=== PATIENT | male | born 1960 | race Caucasian/White ===

== ENCOUNTER 2020-05-29 12:35 | Inpatient (IN) | payer OTHER, SELFPAY ==
--- NOTE | 2020-05-29 | CT_ITS ---
EXAMINATION: CT ABDOMEN AND PELVIS WITH CONTRAST CLINICAL INFORMATION: Diffuse abdominal pain. Diarrhea. COMPARISON: None TECHNIQUE: Multidetector volumetric images were obtained from the superior aspect of the liver through the pubic symphysis following administration 85 mL of Omnipaque 350 intravenous contrast. Sagittal and coronal reformatted images were obtained on the technologist's workstation. Oral contrast: No This CT examination was performed using dose optimization techniques as appropriate, variously including the following: *Automated exposure control *Adjustment of mA and/or kV according to patient size (this includes techniques or standardized protocols for targeted exams where dose is matched to indication/reason for exam; i.e. extremities or head) *Use of iterative reconstruction technique DLP: 573 mGy-cm FINDINGS: LUNG BASES: The visualized lung bases are unremarkable. LIVER, GALLBLADDER, AND BILIARY TREE: The liver is normal in size, shape, and attenuation. No focal hepatic lesion or biliary ductal dilatation is present. Gallbladder unremarkable. PANCREAS: Mild fat stranding about the pancreas. No acute necrotic collection or peripancreatic fluid collections. SPLEEN: Unremarkable. ADRENAL GLANDS: There is a 9 mm right adrenal nodule which is of doubtful clinical significance (ACR does not mandate further workup for adrenal nodules measuring less than 1 cm). Left adrenal gland is normal. KIDNEYS AND URETERS: The kidneys are normal in size, shape, and attenuation. There are a few bilateral simple cysts measuring 1.1 cm or less. There are a couple 2 mm nonobstructive calculi within the right kidney. Hydronephrosis, hydroureter, or calculi seen. No perinephric stranding. BLADDER: Unremarkable. GASTROINTESTINAL TRACT: Sigmoid colonic diverticulosis without evidence of diverticulitis. Normal appendix. Stomach and small bowel unremarkable. ABDOMINAL WALL: No significant hernia is appreciated. LYMPH NODES: Normal. VASCULAR: Aorta is atherosclerotic but normal caliber. Patent venous structures. PELVIC VISCERA: Unremarkable. OSSEOUS STRUCTURES: Unremarkable. IMPRESSION: * Findings suggestive of mild acute interstitial edematous pancreatitis. * There are 2 nonobstructive 2 mm calculi within the right kidney. * Sigmoid colonic diverticulosis without evidence of diverticulitis.
--- NOTE | 2020-05-29 | ECG_ITS ---
Test Reason : ABDOMINAL PAIN Blood Pressure : / mmHG Vent. Rate : 085 BPM Atrial Rate : 085 BPM P-R Int : 190 ms QRS Dur : 084 ms QT Int : 366 ms P-R-T Axes : 059 -01 039 degrees QTc Int : 435 ms Normal sinus rhythm with sinus arrhythmia Left axis deviation Otherwise normal ECG When compared with ECG of 31-MAR-2015 13:55, No significant change was found Referred By: Rin Rubalcava Electronically Signed By:SUMI PATEL MD
[2020-05-29 13:05] VITALS: BP 119/99; PULSE 99; RESP 18; TEMP 37.3; O2SAT 97; BMI 27.3
[2020-05-29 14:22] VITALS: BP 108/84; PULSE 89; RESP 16; TEMP 36.8; O2SAT 96
--- NOTE | 2020-05-29 14:27 | XR_ITS ---
EXAMINATION: XR CHEST CLINICAL INFORMATION: Cough COMPARISON: 08/25/2019 TECHNIQUE: 2 views of the chest were obtained. FINDINGS: Lungs are well-inflated and clear. Trachea is midline in position. No interstitial disease, consolidation or mass. No pleural effusion or pneumothorax. Cardiac silhouette and pulmonary vessels are normal in size. The mediastinum and josué have normal contour. The visualized bones, and upper abdomen, are unremarkable. IMPRESSION: No acute cardiopulmonary abnormality.
--- NOTE | 2020-05-29 14:31 | ED.GENADULT ---
HPI - General Adult General Chief complaint: General Medical Stated complaint: DIARRHEA, ABD PAIN Time Seen by Provider: 05/29/20 14:03 Source: patient Mode of arrival: ambulatory History of Present Illness HPI narrative: 60-year-old male with a PMHx asthma, depression, GERD, HTN c/o diffuse abdominal pain and diarrhea x7 days with associated bloating and nausea. Also reports SOB and dry cough since yesterday. Reports black stools. Denies vomiting, constipation, dysuria /hematuria, chest pain, recent travel, sick contacts, suspicious food intake Patient reports taking OTC medications with improvement diarrhea Related Data Home Medications Medication Instructions Recorded Confirmed aspirin 81 mg tablet,delayed 81 mg PO DAILY 05/25/20 release Previous Rx's Medication Instructions Recorded cetirizine 10 mg tablet 10 mg PO DAILY 30 Days #30 tab 05/24/20 Allergies Allergy/AdvReac Type Severity Reaction Status Date / Time No Known Allergies Allergy Verified 05/29/20 13:04 [No Known Allergies*] Review of Systems Review of Systems: Constitutional: No Weight loss, No Fever, No Chills, No Night Sweats, No Fatigue Cardiovascular: No Chest Pain, + SOB, No Dyspnea on Exertion, No Orthopnea Respiratory: + Cough, No Sputum, No Wheezing, +SOB Gastrointestinal: + Nausea, No Vomiting, + Diarrhea, No Constipation, + Abdominal pain, No Hematochezia, +black stool Genitourinary: No irregular bleeding, No Dysuria, No Urinary Frequency, No Hematuria, No Urinary Incontinence, No Urgency, No Flank Pain, No Urinary Flow Changes, No Hesitancy Skin: No Skin Lesions, No rash Yes all other systems are reviewed and are negative PMFSH Past Medical History Attestation statement: The following information was validated with the patient. Medical History (Updated 05/29/20 @ 18:36 by ALLI Avendaño) Asthma Depression GERD (gastroesophageal reflux disease) HTN (hypertension) Social History Social History Smoking Status: Current every day smoker Substance Use Type: Marijuana Substance Use Type Other:: MEDICAL MARIJUANA Advance Directives: No Advance Directives Information Provided: Yes Physical Exam Vital Signs: Vital Signs: Vital Signs Temp Pulse Resp BP Pulse Ox 05/29/20 18:08 89 14 120/86 95 05/29/20 16:17 98.2 F 86 14 110/87 95 05/29/20 14:22 98.3 F 89 16 108/84 96 05/29/20 13:05 99.2 F 99 18 119/99 H 97 Body Mass Index 27.3 Const: General: cooperative and healthy appearing Orientation/consciousness: patient oriented x3 Limitations: no limitations HENMT: Head: Yes normal to inspection Ears: hearing grossly normal bilaterally General nose exam: Normal external nose present Face and sinus: Yes normal facial exam Eyes: General: appearance normal, both eyes and all related structures EOM: EOMs intact bilaterally Neck: Neck: Yes normal visual inspection Resp: Effort & Inspection: normal respiratory effort and no stridor Auscultation: clear to auscultation bilaterally, no crackles, no rales, no rhonchi and no wheezes Cardio: Rate: regular rate Heart sounds: S1 normal heart sound present and S2 normal heart sound present Peripheral pulses: Peripheral pulses 2+ throughout GI: Inspection: Yes normal to inspection Palpation (GI): Soft to palpation, Tenderness to palpation present (GI) in the epigastrum, in the LLQ and periumbilically, no guarding and not rigid : Other: Black stool noted on rectal General: Yes no CVA tenderness Back/Spine/Pelvis: Back: no CVA tenderness Skin: Wounds: no wounds Neuro: General: patient oriented x3 Extrem: General: Yes normal to inspection Course Course Course Narrative: - leukocytosis of 12.3, labs otherwise unremarkable, occult stool negative - CXR unremarkable - CT suggestive of mild acute interstitial edematous pancreatitis. Two nonobstructive calculi in the right kidney. Sigmoid diverticulosis without diverticulitis >> patient in severe pain in the ED. Additional pain control ordered - lipase is 1363 > will admit patient for acute pancreatitis. He denies alcohol use/gallbladder issues Medical Decision Making [facility] Narrative Medical decision making narrative: 60-year-old male with a PMHx asthma, depression, GERD, HTN c/o diffuse abdominal pain and diarrhea x7 days with associated bloating and nausea. On exam VSS, NAD/ well-appearing. Abdomen soft diffusely tender greater epigastrum/LLQ /periumbilical. concern for diverticulitis /colitis vs GI bleed vs Gastroenteritis vs pancreatitis. Lower concern for appendicitis/cholecystitis /UTI. SOB suspected from pain vs Viral syndrome. Rule out pneumonia. Low concern for ACS Plan: EKG, labs, UA, occult stool, CT AP, symptomatic treatment /reassessed Lab Data Result diagrams: 05/29/20 14:33 05/29/20 14:33 Labs: Lab Results 05/29/20 05/29/20 05/29/20 Range/Units 14:33 14:33 14:36 WBC 12.3 H (4.8-10.8) X10*3/uL RBC 4.80 (4.60-5.80) X10*6/uL Hgb 15.6 (14.0-18.0) g/dl Hct 44.5 (42-52) % MCV 92.7 (80-98) fL MCH 32.5 (27.0-33.0) pg MCHC 35.1 (31.0-36.0) g/dl RDW 12.6 (11.0-16.0) % Plt Count 265 (160-400) X10*3/uL MPV 9.1 L (9.4-12.4) fL Immature Gran % (Auto) 0.5 H (0.0-0.4) % Neut % (Auto) 70.4 (45-73) % Lymph % (Auto) 16.3 L (20-40) % [place] % (Auto) 9.7 (2-11) % Eos % (Auto) 2.4 (0-4) % Baso % (Auto) 0.7 (0-2) % Lymph # (Auto) 2.0 (1.2-4.9) X10*3/uL [place] # (Auto) 1.2 (0.1-1.2) X10*3/uL Eos # (Auto) 0.3 (0.0-0.4) X10*3/uL Baso # (Auto) 0.1 (0.0-0.2) X10*3/uL Abs Immat Gran (auto) 0.06 H (0.00-0.03) X10*3/uL Absolute Neuts (auto) 8.6 H (2.0-8.3) X10*3/uL Absolute Nucleated RBC 0.000 (0.0-0.012) X10*3/uL Nucleated RBC % (auto) 0.0 (0.0-0.2) /100WBC Hold Blue Top Sodium 136 (135-145) mmol/L Potassium 4.7 (3.3-5.1) mmol/l Chloride 104 (96-108) mmol/L Carbon Dioxide 21 L (22-29) mmol/L Anion Gap 16 (12-20) BUN 14 (9-16) mg/dL Creatinine 1.06 (0.5-1.4) mg/dL Estim Creat Clear Calc 72.2 Estimated GFR > 60 Random Glucose 79 (60-115) mg/dL Calcium 8.6 (8.4-10.2) mg/dL Magnesium 2.8 H (1.6-2.6) mg/dL Total Bilirubin 0.4 (0.0-1.0) mg/dL Direct Bilirubin < 0.2 (0.0-0.5) mg/dL AST 16 (5-37) U/L ALT 19 (0-40) U/L Alkaline Phosphatase 83 (39-117) U/L Total Protein 6.5 (6.5-8.0) g/dL Albumin 4.1 (3.5-5.0) g/dL Lipase 1363 H (8-78) U/L Stool Occult Blood (NEG) 05/29/20 05/29/20 Range/Units 14:37 18:26 WBC (4.8-10.8) X10*3/uL RBC (4.60-5.80) X10*6/uL Hgb (14.0-18.0) g/dl Hct (42-52) % MCV (80-98) fL MCH (27.0-33.0) pg MCHC (31.0-36.0) g/dl RDW (11.0-16.0) % Plt Count (160-400) X10*3/uL MPV (9.4-12.4) fL Immature Gran % (Auto) (0.0-0.4) % Neut % (Auto) (45-73) % Lymph % (Auto) (20-40) % [place] % (Auto) (2-11) % Eos % (Auto) (0-4) % Baso % (Auto) (0-2) % Lymph # (Auto) (1.2-4.9) X10*3/uL [place] # (Auto) (0.1-1.2) X10*3/uL Eos # (Auto) (0.0-0.4) X10*3/uL Baso # (Auto) (0.0-0.2) X10*3/uL Abs Immat Gran (auto) (0.00-0.03) X10*3/uL Absolute Neuts (auto) (2.0-8.3) X10*3/uL Absolute Nucleated RBC (0.0-0.012) X10*3/uL Nucleated RBC % (auto) (0.0-0.2) /100WBC Hold Blue Top SEE NOTE Sodium (135-145) mmol/L Potassium (3.3-5.1) mmol/l Chloride (96-108) mmol/L Carbon Dioxide (22-29) mmol/L Anion Gap (12-20) BUN (9-16) mg/dL Creatinine (0.5-1.4) mg/dL Estim Creat Clear Calc Estimated GFR Random Glucose (60-115) mg/dL Calcium (8.4-10.2) mg/dL Magnesium (1.6-2.6) mg/dL Total Bilirubin (0.0-1.0) mg/dL Direct Bilirubin (0.0-0.5) mg/dL AST (5-37) U/L ALT (0-40) U/L Alkaline Phosphatase (39-117) U/L Total Protein (6.5-8.0) g/dL Albumin (3.5-5.0) g/dL Lipase (8-78) U/L Stool Occult Blood NEG (NEG) Discharge Plan Discharge Clinical Impression: Pancreatitis, acute Patient Disposition: Admitted As Inpatient Prescriptions: No Action cetirizine 10 mg tablet 10 mg PO DAILY 30 Days Qty: 30 RF: 1
[2020-05-29 14:38] LABS: Basophils Absolute Auto 0.1 X10*3/uL (0.0-0.2); Basophils Percent Auto 0.7 % (0-2); Eosinophils Absolute Auto 0.3 X10*3/uL (0.0-0.4); Eosinophils Percent Auto 2.4 % (0-4); Hematocrit 44.5 % (42-52); Hemoglobin 15.6 g/dl (14.0-18.0); Imm Gran Abs Auto 0.06 X10*3/uL (0.00-0.03); Imm Gran Pct Auto 0.5 % (0.0-0.4); Lymphocytes Percent Auto 16.3 % (20-40); MANUAL DIFF FLAG NO; Mean Corpuscular HGB Conc 35.1 g/dl (31.0-36.0); Mean Corpuscular Hemoglobin 32.5 pg (27.0-33.0); Mean Corpuscular Volume 92.7 fL (80-98); Mean Platelet Volume 9.1 fL (9.4-12.4); Monocytes Absolute Auto 1.2 X10*3/uL (0.1-1.2); Monocytes Percent Auto 9.7 % (2-11); Neutrophils Absolute Auto 8.6 X10*3/uL (2.0-8.3); Neutrophils Percent Auto 70.4 % (45-73); Platelet Count 265 X10*3/uL (160-400); Red Cell Distribution Width 12.6 % (11.0-16.0); White Blood Count 12.3 X10*3/uL (4.8-10.8)
[2020-05-29 14:45] LABS: OBS Int Ctl Valid YES; OBS1 NEG (NEG)
[2020-05-29] MEDS: 0.9 % Sodium Chloride 1,000 ML 999 ML IVCONT ×2 (14:47→18:07)
[2020-05-29 15:14] LABS: Alanine Aminotransferase 19 U/L (0-40); Albumin Level 4.1 g/dL (3.5-5.0); Alkaline Phosphatase 83 U/L (39-117); Anion Gap 16 (12-20); Aspartate Amino Transferase 16 U/L (5-37); Bilirubin Direct < 0.2 mg/dL (0.0-0.5); Bilirubin Total 0.4 mg/dL (0.0-1.0); Blood Urea Nitrogen 14 mg/dL (9-16); Calcium 8.6 mg/dL (8.4-10.2); Carbon Dioxide 21 mmol/L (22-29); Chloride 104 mmol/L (96-108); Creatinine Clr Calc Pharmacy 72.2; Estimated Glomerular Filt Rate > 60; Glucose Random 79 mg/dL (60-115); Magnesium 2.8 mg/dL (1.6-2.6); Potassium 4.7 mmol/l (3.3-5.1); Sodium 136 mmol/L (135-145); Total Protein 6.5 g/dL (6.5-8.0)
[2020-05-29] MEDS: iohexoL 350 MG/ML 100 ML INFUS..BTL IV (15:35)
[2020-05-29 16:17] VITALS: BP 110/87; PULSE 86; RESP 14; TEMP 36.8; O2SAT 95
[2020-05-29] MEDS: Morphine Sulfate 4 MG/ML CARTRIDGE 2 MG IVPUSH (18:07)
[2020-05-29] MEDS: ondansetron HCL 4 MG/2 ML VIAL IVPUSH (18:07)
[2020-05-29 18:08] VITALS: BP 120/86; PULSE 89; RESP 14; O2SAT 95
[2020-05-29 18:22] LABS: Lipase 1363 U/L (8-78)
[2020-05-29 18:43] LABS: B Type Natriuretic Peptide 15 pg/mL (<100)
[2020-05-29 18:46] LABS: Appearance Urine CLEAR; Color Urine YELLOW; Glucose Urine UA 500 MG/DL (NEG); Leukocyte Esterase Urine NEG (NEG); Nitrite Urine NEG (NEG); PH 8.5 (5.0-8.0); Urine Blood NEG (NEG); Urine Ketones 5 MG/DL (NEG); Urine Protein NEG (NEG-TRACE)
--- NOTE | 2020-05-29 19:09 | PC.NURSE ---
Report taken from Leticia, tyrone RN resuming care. Hospitalist at bedside.
[2020-05-29 19:17] VITALS: BP 127/85; PULSE 83; RESP 18; O2SAT 96
--- NOTE | 2020-05-29 19:18 | PC.NURSE ---
Pt found resting in bed, reporting return of abdominal pain, 05/29. Pt requesting pain medication. Provider aware. VSS at this time, pt aware and agreeable to plan to admit. Continue to monitor.
--- NOTE | 2020-05-29 19:32 | PM.IMHP ---
History of Present Illness Date of Service: 05/29/20 <Meagna Fisher NP - Last Filed: 05/29/20 19:41> Chief Complaint: Abdominal pain <Meagan Fisher NP - Last Filed: 05/29/20 19:41> 60-year-old man presenting to the ER with complaints of worsening abdominal pain that started approximately 7 days ago. He reports starting with watery diarrhea. He denied any recent travel or improperly cooked foods. He denied any blood in the stool. He denied any fever or chills. He reported after several days of diarrhea he started having cramping abdominal pain to the mid area of his abdomen. He reports occasionally being able to take a bath helped. He continued to have the pain and decided to come to the ER to be evaluated. He denied any alcohol use at all. He has no history of pancreatitis however , abdominal CT is showing findings suggestive of edematous pancreatitis. His lipase is quite elevated at 1363. triglycerides 200 and 65 and February of 2020. He was given 2 L of IV fluids, morphine, Zofran. He will be admitted for further management and treatment of acute pancreatitis. <Meagan Fisher NP - Last Filed: 05/29/20 19:41> Review of Systems Review of Systems: Denies any recent fever chills or decrease in appetite respiratory denies any shortness of breath coverage production cardiovascular is adjustment of any PND or edema gastrointestinal See HPI genitourinary denies any dysuria frequency or hematuria musculoskeletal denies any joint pain or swelling neuropsych denies any weakness or seizures all other systems reviewed are negative <Meagan Fisher NP - Last Filed: 05/29/20 19:41> [facility] Medical History: Medical History Asthma Depression GERD (gastroesophageal reflux disease) HTN (hypertension) <MIESHA Sy Last Filed: 05/29/20 19:41> Functional capacity: independent ambulation <Meagan Fisher NP - Last Filed: 05/29/20 19:41> Pertinent family history: denies cardiac disease. <Meagan Fisher NP - Last Filed: 05/29/20 19:41> Family history: reviewed and not pertinent <MIESHA Sy Last Filed: 05/29/20 19:41> Social History: Social History Household Members: Spouse Housing: House Do you presently have visiting nurse or other home services: No Smoking Status: Current every day smoker Tobacco Type: Cigarette Smoked in Last 30 Days: Yes Patient Interested in Nicotine Replacement: No Patient Given Instructions on How to Stop Smoking: No Second Hand Smoke Exposure: No Use of substances other than those prescribed or required for medical reasons: Yes Substance Use Type: Marijuana Substance Use Type Other:: MEDICAL MARIJUANA Substance Use Frequency: Daily Last Used Substance: Days (ago) Currently Displaying Signs/Symptoms of Drug Intoxication Withdrawal: No Any prior treatment program specific to substance use: No Have you been hit, kicked, punched, or otherwise hurt by someone within the past year? If so, by whom?: No Do you feel safe in your current relationship?: Yes Is there a partner from a previous relationship who is making you feel unsafe now?: No Are you made to feel afraid or neglected: No Advance Directives: No Advance Directives Information Provided: Yes Do you have thoughts of harming others: None Do you have a plan to hurt others: No Plan Recently lost weight without trying: No service: No Current occupational status: employed <Meagan Fisher NP - Last Filed: 05/29/20 19:41> Meds Allergies/Adverse reactions: Allergies Allergy/AdvReac Type Severity Reaction Status Date / Time No Known Allergies Allergy Verified 05/30/20 08:11 [No Known Allergies*] <Meagan Fisher NP - Last Filed: 05/29/20 19:41> Home medications: Home Medications Medication Instructions Recorded Confirmed Type aspirin 81 mg tablet,delayed 81 mg PO DAILY 05/25/20 05/29/20 History release bupropion HCl 1 tab PO QAM 05/29/20 05/29/20 History buspirone 1 tab PO BID 05/29/20 05/29/20 History cetirizine 1 tab PO DAILY 05/29/20 05/29/20 History empagliflozin [Jardiance] 1 tab PO DAILY 05/29/20 05/29/20 History lisinopril 1 tab PO DAILY 05/29/20 05/29/20 History metformin 1 tab PO BID 05/29/20 05/29/20 History montelukast 1 tab PO DAILY 05/29/20 05/29/20 History omeprazole 1 cap PO DAILY 05/29/20 05/29/20 History pravastatin 1 tab PO DAILY 05/29/20 05/29/20 History albuterol sulfate [Ventolin HFA] 2 puff INHALATION Q4H PRN 05/30/20 05/30/20 History fluticasone furoate-vilanterol INHALATION 05/30/20 History [Breo Ellipta] <Meagan Fisher NP - Last Filed: 05/29/20 19:41> Physical Exam Vital Signs and Narrative: Vital Signs: Last Vital Signs Temp 98.2 F 05/29/20 16:17 Pulse 83 05/29/20 19:17 Resp 18 05/29/20 19:17 BP 127/85 05/29/20 19:17 Pulse Ox 96 05/29/20 19:17 Body Mass Index 27.3 <Meagan Fisher NP - Last Filed: 05/29/20 19:41> Appearing in no acute distress head is normocephalic atraumatic eyes pupils are PERRLA sclera is anicteric mouth throat mucous membranes are intact and moist neck is supple no lymphadenopathy, no JVD noted lung sounds are clear to auscultation heart regular rate rhythm, clear S1, S2 positive bowel sounds, abdomen is soft, tender to the right upper quadrant and middle area of the abdomen neuro patient is alert x3, no focal deficits <Meagan Fisher NP - Last Filed: 05/29/20 19:41> Results Labs Labs: Laboratory Tests 05/29/20 05/29/20 05/29/20 14:33 14:33 14:36 WBC 12.3 H RBC 4.80 Hgb 15.6 Hct 44.5 MCV 92.7 MCH 32.5 MCHC 35.1 RDW 12.6 Plt Count 265 MPV 9.1 L Immature Gran % (Auto) 0.5 H Neut % (Auto) 70.4 Lymph % (Auto) 16.3 L [place] % (Auto) 9.7 Eos % (Auto) 2.4 Baso % (Auto) 0.7 Lymph # (Auto) 2.0 [place] # (Auto) 1.2 Eos # (Auto) 0.3 Baso # (Auto) 0.1 Abs Immat Gran (auto) 0.06 H Absolute Neuts (auto) 8.6 H Absolute Nucleated RBC 0.000 Nucleated RBC % (auto) 0.0 Hold Blue Top Sodium 136 Potassium 4.7 Chloride 104 Carbon Dioxide 21 L Anion Gap 16 BUN 14 Creatinine 1.06 Estim Creat Clear Calc 72.2 Estimated GFR > 60 Random Glucose 79 Calcium 8.6 Magnesium 2.8 H Total Bilirubin 0.4 Direct Bilirubin < 0.2 AST 16 ALT 19 Alkaline Phosphatase 83 B-Natriuretic Peptide 15 Total Protein 6.5 Albumin 4.1 Lipase Urine Color Urine Appearance Urine pH Ur Specific [place] Urine Protein Urine Glucose (UA) Urine Ketones Urine Blood Urine Nitrite Ur Leukocyte Esterase Stool Occult Blood 05/29/20 05/29/20 05/29/20 14:36 14:37 18:13 WBC RBC Hgb Hct MCV MCH MCHC RDW Plt Count MPV Immature Gran % (Auto) Neut % (Auto) Lymph % (Auto) [place] % (Auto) Eos % (Auto) Baso % (Auto) Lymph # (Auto) [place] # (Auto) Eos # (Auto) Baso # (Auto) Abs Immat Gran (auto) Absolute Neuts (auto) Absolute Nucleated RBC Nucleated RBC % (auto) Hold Blue Top Sodium Potassium Chloride Carbon Dioxide Anion Gap BUN Creatinine Estim Creat Clear Calc Estimated GFR Random Glucose Calcium Magnesium Total Bilirubin Direct Bilirubin AST ALT Alkaline Phosphatase B-Natriuretic Peptide Total Protein Albumin Lipase 1363 H Urine Color YELLOW Urine Appearance CLEAR Urine pH 8.5 H Ur Specific [place] 1.010 Urine Protein NEG Urine Glucose (UA) 500 H Urine Ketones 5 Urine Blood NEG Urine Nitrite NEG Ur Leukocyte Esterase NEG Stool Occult Blood NEG 05/29/20 18:26 WBC RBC Hgb Hct MCV MCH MCHC RDW Plt Count MPV Immature Gran % (Auto) Neut % (Auto) Lymph % (Auto) [place] % (Auto) Eos % (Auto) Baso % (Auto) Lymph # (Auto) [place] # (Auto) Eos # (Auto) Baso # (Auto) Abs Immat Gran (auto) Absolute Neuts (auto) Absolute Nucleated RBC Nucleated RBC % (auto) Hold Blue Top SEE NOTE Sodium Potassium Chloride Carbon Dioxide Anion Gap BUN Creatinine Estim Creat Clear Calc Estimated GFR Random Glucose Calcium Magnesium Total Bilirubin Direct Bilirubin AST ALT Alkaline Phosphatase B-Natriuretic Peptide Total Protein Albumin Lipase Urine Color Urine Appearance Urine pH Ur Specific [place] Urine Protein Urine Glucose (UA) Urine Ketones Urine Blood Urine Nitrite Ur Leukocyte Esterase Stool Occult Blood <Meagan Fisher NP - Last Filed: 05/29/20 19:41> Assessment and Plan (1) Pancreatitis, acute: Problem details: No clear etiology: Denies ETOH, no Stones on CT; Could be viral; doubt meds, Acid peptic disease can do this @ times but no real risk factors. Reviewed @ length with patient. Lipase is trending down today is 752. No elevation Triglycerides. Liver profile is normal. NOTE CT changes do comment on Hepatic Steatosis and the possiblity of Splenomegaly.(He is diabetic and could have significant MEDINA--may benefit from further evaluation after discharge.) EKG on admission showed NSR rate85. <Meagan Fisher NP - Last Filed: 05/29/20 19:41> Status: Acute <Meagan Fisher NP - Last Filed: 05/29/20 19:41> (2) HTN (hypertension): Status: Acute <Meagan Fisher NP - Last Filed: 05/29/20 19:41> (3) GERD (gastroesophageal reflux disease): Problem details: His GERD symptoms seem stable.--Had previous EGD no evidence for Fitch's esophageal changes. <Meagan Fisher NP - Last Filed: 05/29/20 19:41> Status: Acute <Meagan Fisher NP - Last Filed: 05/29/20 19:41> (4) Depression: Status: Acute <Meagan Fisher NP - Last Filed: 05/29/20 19:41> (5) Asthma: Status: Acute <Meagan Fisher NP - Last Filed: 05/29/20 19:41> 60-year-old man admitted with acute pancreatitis with unknown etiology at this time. Patient denies heavy alcohol use. Triglycerides in February were in the 200s. Lipase is quite elevated. Abdominal CT does not show any retained stones Acute pancreatitis. Aggressive IV fluid hydration, pain medication, GI consultation, clear liquid diet. Hypertension. Stable blood pressure. Continue lisinopril. Diabetes mellitus. Sliding scale, ADA diet. Hyperlipidemia. Continue aspirin and statin Depression/anxiety. Continue bupropion, buspirone. DVT prophylaxis with Lovenox Discussed with Dr. Medley Full code <Meagan Fisher NP - Last Filed: 05/29/20 19:41>
[2020-05-29 20:00] VITALS: BP 112/83; PULSE 81; RESP 16; TEMP 36.9; O2SAT 95
[2020-05-29] MEDS: Ketorolac Tromethamine 15 MG/ML VIAL IV (20:02)
[2020-05-29] MEDS: Lactated Ringers 1,000 ML 200 ML IVCONT (20:02)
--- NOTE | 2020-05-29 20:06 | PC.NURSE ---
Pt medicated per EMAR with Toradol for 10/10 pain to abdomen, LR infusing per EMAR. VSS. Continue to monitor.
--- NOTE | 2020-05-29 23:20 | PC.NURSE ---
REPORT RECEIVED. ORDER FOR ADMISSION SENT TO BED MGMT.
--- NOTE | 2020-05-29 23:49 | PC.NURSE ---
ATTEMPTED TO CALL TO MED SURG. NO ANSWER.
[2020-05-30] VITALS (12 sets, daily range): BP systolic 103–147; BP diastolic 65–83; PULSE 74–89; RESP 16–20; TEMP 35.8–36.7; O2SAT 94–97
--- NOTE | 2020-05-30 | US_ITS ---
EXAMINATION: US ABDOMEN CLINICAL INFORMATION: Pancreatitis COMPARISON: No prior study available for comparison. TECHNIQUE: Real-time imaging of the abdominal viscera. FINDINGS: LIVER: Size: Normal size. Echogenicity: Homogeneous texture and normal echogenicity. There is focal fat sparing near. Surface: Smooth. Mass: None. BILE DUCTS: Intrahepatic ducts: No ultrasound evidence of intrahepatic dilation. Common bile duct diameter: 0.4 cm. GALLBLADDER: Gallstone or gallbladder sludge: There are no gallstones. Gallbladder wall thickness: Normal Pericholecystic fluid: None Sonographic Villarreal sign: Negative PANCREAS: Pancreas not well visualized obscured by bowel gas. SPLEEN: Spleen texture: Homogeneous. Spleen is enlarged, Craniocaudal spleen length: 13.8 cm. RIGHT KIDNEY: Normal size and texture. There is a cyst in the middle pole 1.1 x 1.6 x 1.4 cm. Hydronephrosis: None LEFT KIDNEY: Normal size and texture. 13 cm Hydronephrosis: None ABDOMINAL AORTA AND IVC: Visualized portion of the aorta and IVC are normal. FREE FLUID/ASCITES: None IMPRESSION: 1. Pancreas not well visualized obscured by bowel gas. 2. Liver is diffusely echogenic suggesting hepatic steatosis, hypoechoic area probably focal fat sparing. 3. Splenomegaly. 4. No ultrasound evidence of gallbladder disease. 5. Simple left renal cyst.
--- NOTE | 2020-05-30 01:35 | PC.NURSE ---
CALLED TO FLOOR TO GIVE REPORT. WILL CALL BACK WITH IN 15 MINUTES
--- NOTE | 2020-05-30 01:40 | PC.NURSE ---
NURSE TO NURSE GIVEN TO STEWART PENALOZA
[2020-05-30] MEDS: Lactated Ringers 1,000 ML 200 ML IVCONT ×5 (02:45→21:24)
[2020-05-30] MEDS: Morphine Sulfate 2 MG/ML CARTRIDGE IVPUSH ×5 (03:27→21:23)
[2020-05-30 07:41] LABS: Glucose, Whole Blood 135 mg/dL (60-115)
[2020-05-30 07:55] LABS: MANUAL DIFF FLAG NO
--- NOTE | 2020-05-30 08:06 | P.CNGI_ITS ---
History of Present Illness Data of Consult Service Date: 05/30/20 Requesting physician: Meagan Fisher [facility] Systems Cardiovascular: Cardiovascular: Reports other (Patient has a hx of Hypertension.) [facility] Past Medical History Medical History Asthma Depression GERD (gastroesophageal reflux disease) HTN (hypertension) Functional capacity: independent ambulation Family History Family history: reviewed and not pertinent Social History Social History Household Members: Spouse Housing: House Do you presently have visiting nurse or other home services: No Smoking Status: Current every day smoker Tobacco Type: Cigarette Smoked in Last 30 Days: Yes Patient Interested in Nicotine Replacement: No Patient Given Instructions on How to Stop Smoking: No Second Hand Smoke Exposure: No Use of substances other than those prescribed or required for medical reasons: Yes Substance Use Type: Marijuana Substance Use Type Other:: MEDICAL MARIJUANA Substance Use Frequency: Daily Last Used Substance: Days (ago) Currently Displaying Signs/Symptoms of Drug Intoxication Withdrawal: No Any prior treatment program specific to substance use: No Have you been hit, kicked, punched, or otherwise hurt by someone within the past year? If so, by whom?: No Do you feel safe in your current relationship?: Yes Is there a partner from a previous relationship who is making you feel unsafe now?: No Are you made to feel afraid or neglected: No Advance Directives: No Advance Directives Information Provided: Yes Do you have thoughts of harming others: None Do you have a plan to hurt others: No Plan Recently lost weight without trying: No Meds Allergies Allergy/AdvReac Type Severity Reaction Status Date / Time No Known Allergies Allergy Verified 05/30/20 08:11 [No Known Allergies*] Home Medications Medication Instructions Recorded Confirmed Type aspirin 81 mg tablet,delayed 81 mg PO DAILY 05/25/20 05/29/20 History release bupropion HCl 1 tab PO QAM 05/29/20 05/29/20 History buspirone 1 tab PO BID 05/29/20 05/29/20 History cetirizine 1 tab PO DAILY 05/29/20 05/29/20 History empagliflozin [Jardiance] 1 tab PO DAILY 05/29/20 05/29/20 History lisinopril 1 tab PO DAILY 05/29/20 05/29/20 History metformin 1 tab PO BID 05/29/20 05/29/20 History montelukast 1 tab PO DAILY 05/29/20 05/29/20 History omeprazole 1 cap PO DAILY 05/29/20 05/29/20 History pravastatin 1 tab PO DAILY 05/29/20 05/29/20 History Physical Exam Vital Signs: Vital Signs: Vital Signs Temp Pulse Resp BP Pulse Ox 05/30/20 06:57 97 F 74 18 117/79 94 05/30/20 04:30 20 05/30/20 04:00 97.4 F 89 18 147/65 H 94 05/30/20 03:27 20 05/30/20 02:00 96.5 F L 77 20 121/77 96 05/30/20 00:00 98.1 F 80 16 103/82 97 05/29/20 20:00 98.4 F 81 16 112/83 95 05/29/20 19:17 83 18 127/85 96 05/29/20 18:08 89 14 120/86 95 05/29/20 16:17 98.2 F 86 14 110/87 95 05/29/20 14:22 98.3 F 89 16 108/84 96 05/29/20 13:05 99.2 F 99 18 119/99 H 97 Body Mass Index 27.3 Results Labs CBC & Chem 7: 05/30/20 07:37 05/29/20 14:33 Labs: Short CBC 05/29/20 Range/Units 14:33 WBC 12.3 H (4.8-10.8) X10*3/uL Hgb 15.6 (14.0-18.0) g/dl Hct 44.5 (42-52) % Plt Count 265 (160-400) X10*3/uL BMP 05/29/20 14:33 Sodium 136 Potassium 4.7 Chloride 104 Carbon Dioxide 21 L BUN 14 Creatinine 1.06 Calcium 8.6 Liver Function 05/29/20 Range/Units 14:33 Total Bilirubin 0.4 (0.0-1.0) mg/dL Direct Bilirubin < 0.2 (0.0-0.5) mg/dL AST 16 (5-37) U/L ALT 19 (0-40) U/L Alkaline Phosphatase 83 (39-117) U/L Albumin 4.1 (3.5-5.0) g/dL Urine 05/29/20 Range/Units 18:13 Urine Color YELLOW Urine Appearance CLEAR Urine pH 8.5 H (5.0-8.0) Ur Specific [place] 1.010 (1.005-1.025) Urine Protein NEG (NEG-TRACE) MG/DL Urine Glucose (UA) 500 H (NEG) MG/DL Assessment and Plan (1) Pancreatitis, acute: Status: Acute (2) GERD (gastroesophageal reflux disease): Status: Acute (3) Depression: Status: Acute
[2020-05-30 08:07] LABS: Basophils Absolute Auto 0.1 X10*3/uL (0.0-0.2); Basophils Percent Auto 0.6 % (0-2); Eosinophils Absolute Auto 0.3 X10*3/uL (0.0-0.4); Eosinophils Percent Auto 3.1 % (0-4); Hematocrit 41.7 % (42-52); Hemoglobin 14.6 g/dl (14.0-18.0); Imm Gran Abs Auto 0.06 X10*3/uL (0.00-0.03); Imm Gran Pct Auto 0.7 % (0.0-0.4); Lymphocytes Absolute Auto 1.3 X10*3/uL (1.2-4.9); Lymphocytes Percent Auto 15.8 % (20-40); Mean Corpuscular Hemoglobin 32.8 pg (27.0-33.0); Mean Corpuscular Volume 93.7 fL (80-98); Monocytes Absolute Auto 0.6 X10*3/uL (0.1-1.2); Monocytes Percent Auto 7.2 % (2-11); Neutrophils Absolute Auto 6.2 X10*3/uL (2.0-8.3); Neutrophils Percent Auto 72.6 % (45-73); Platelet Count 252 X10*3/uL (160-400); Red Blood Count 4.45 X10*6/uL (4.60-5.80); Red Cell Distribution Width 12.4 % (11.0-16.0); White Blood Count 8.5 X10*3/uL (4.8-10.8)
[2020-05-30 08:41] LABS: Alanine Aminotransferase 17 U/L (0-40); Albumin Level 3.7 g/dL (3.5-5.0); Alkaline Phosphatase 76 U/L (39-117); Anion Gap 11 (12-20); Aspartate Amino Transferase 12 U/L (5-37); Bilirubin Direct 0.2 mg/dL (0.0-0.5); Bilirubin Total 0.4 mg/dL (0.0-1.0); Blood Urea Nitrogen 11 mg/dL (9-16); Calcium 8.2 mg/dL (8.4-10.2); Carbon Dioxide 23 mmol/L (22-29); Chloride 106 mmol/L (96-108); Creatinine Clr Calc Pharmacy 98.1; Estimated Glomerular Filt Rate > 60; Glucose Random 125 mg/dL (60-115); Potassium 4.2 mmol/l (3.3-5.1); Sodium 136 mmol/L (135-145); Total Protein 5.6 g/dL (6.5-8.0); Triglycerides 107 mg/dL
--- NOTE | 2020-05-30 08:52 | PM.GICN ---
History of Present Illness Data of Consult Service Date: 05/30/20 Requesting physician: Rodrigue Liu Primary Care Provider: Torrey Ray [facility] Reason for consult: Acute pancreatitis 60 yo male who presented to the hospital with upper abdominal pain. Patient says that the past week he had been having diarrhea. He then started with the pain which then escalated. He did not associate onset with a particular food or meal. He denies any change in his routine medications or their dosages. No clear hx of fever or chills. He has not had hx of pancreatitis in the past. He has been followed by Dr. Anderson who did his last EGD and colo in 2017: Chronic esophagitis; 5 Tubular adenomas were removed at that time. Patient is being seen [place] for the weekend. Review of Systems Constitutional: Constitutional: Denies fever(s), Denies increased appetite, Reports malaise (only since the onset of his symptoms) and Denies stops breathing during sleep Cardiovascular: Cardiovascular: Denies chest pain, Denies chest pain at rest, Reports Epigastric Pain and Denies palpitations Respiratory: Respiratory: Denies chest congestion (Patient admits to a low grade chronic productive cough) and Reports cough Comments: Patient says he is followed by Dr. Bonilla. He does have inhalers that he uses daily. Gastrointestinal: Gastrointestinal: Reports as per HPI and Reports other (History of Colonic Tubular adenomas) Psychiatric: Comments: Hx of PTSD and Major Depression--see [facility] Endocrine: Endocrine: Denies palpitations PMFSH Past Medical History Medical History Asthma Depression GERD (gastroesophageal reflux disease) HTN (hypertension) Functional capacity: independent ambulation Family History Family history: reviewed and not pertinent Social History Social History Household Members: Spouse Housing: House Do you presently have visiting nurse or other home services: No Smoking Status: Current every day smoker Tobacco Type: Cigarette Smoked in Last 30 Days: Yes Patient Interested in Nicotine Replacement: No Patient Given Instructions on How to Stop Smoking: No Second Hand Smoke Exposure: No Use of substances other than those prescribed or required for medical reasons: Yes Substance Use Type: Marijuana Substance Use Type Other:: MEDICAL MARIJUANA Substance Use Frequency: Daily Last Used Substance: Days (ago) Currently Displaying Signs/Symptoms of Drug Intoxication Withdrawal: No Any prior treatment program specific to substance use: No Have you been hit, kicked, punched, or otherwise hurt by someone within the past year? If so, by whom?: No Do you feel safe in your current relationship?: Yes Is there a partner from a previous relationship who is making you feel unsafe now?: No Are you made to feel afraid or neglected: No Advance Directives: No Advance Directives Information Provided: Yes Do you have thoughts of harming others: None Do you have a plan to hurt others: No Plan Recently lost weight without trying: No service: No Current occupational status: employed Meds Allergies Allergy/AdvReac Type Severity Reaction Status Date / Time No Known Allergies Allergy Verified 05/30/20 08:11 [No Known Allergies*] Home Medications Medication Instructions Recorded Confirmed Type aspirin 81 mg tablet,delayed 81 mg PO DAILY 05/25/20 05/29/20 History release bupropion HCl 1 tab PO QAM 05/29/20 05/29/20 History buspirone 1 tab PO BID 05/29/20 05/29/20 History cetirizine 1 tab PO DAILY 05/29/20 05/29/20 History empagliflozin [Jardiance] 1 tab PO DAILY 05/29/20 05/29/20 History lisinopril 1 tab PO DAILY 05/29/20 05/29/20 History metformin 1 tab PO BID 05/29/20 05/29/20 History montelukast 1 tab PO DAILY 05/29/20 05/29/20 History omeprazole 1 cap PO DAILY 05/29/20 05/29/20 History pravastatin 1 tab PO DAILY 05/29/20 05/29/20 History albuterol sulfate [Ventolin HFA] 2 puff INHALATION Q4H PRN 05/30/20 05/30/20 History fluticasone furoate-vilanterol INHALATION 05/30/20 History [Breo Ellipta] Physical Exam Vital Signs: Vital Signs: Vital Signs Temp Pulse Resp BP Pulse Ox 05/30/20 06:57 97 F 74 18 117/79 94 05/30/20 04:30 20 05/30/20 04:00 97.4 F 89 18 147/65 H 94 05/30/20 03:27 20 05/30/20 02:00 96.5 F L 77 20 121/77 96 05/30/20 00:00 98.1 F 80 16 103/82 97 05/29/20 20:00 98.4 F 81 16 112/83 95 05/29/20 19:17 83 18 127/85 96 05/29/20 18:08 89 14 120/86 95 05/29/20 16:17 98.2 F 86 14 110/87 95 05/29/20 14:22 98.3 F 89 16 108/84 96 05/29/20 13:05 99.2 F 99 18 119/99 H 97 Body Mass Index 27.3 Const: General: cooperative, healthy appearing and alert; No acute distress or intoxicated appearing Nutritional Appearance: overweight Orientation/consciousness: patient oriented x3 Limitations: no limitations Neck: Neck: Yes no lymphadenopathy Resp: Effort & Inspection: normal respiratory effort, able to speak in complete sentences and no respiratory distress Auscultation: rhonchi Percussion: hyperresonance Cardio: Rate: regular rate Rhythm: regular rhythm Heart sounds: no murmurs Neuro: General: patient oriented x3 Extrem: General: Yes no clubbing, cyanosis or edema Results Labs CBC & Chem 7: 05/30/20 07:37 05/30/20 07:37 Labs: Short CBC 05/29/20 05/30/20 Range/Units 14:33 07:37 WBC 12.3 H 8.5 (4.8-10.8) X10*3/uL Hgb 15.6 14.6 (14.0-18.0) g/dl Hct 44.5 41.7 L (42-52) % Plt Count 265 252 (160-400) X10*3/uL BMP 05/29/20 05/30/20 14:33 07:37 Sodium 136 136 Potassium 4.7 4.2 Chloride 104 106 Carbon Dioxide 21 L 23 BUN 14 11 Creatinine 1.06 0.78 Calcium 8.6 8.2 L Liver Function 05/29/20 05/30/20 Range/Units 14:33 07:37 Total Bilirubin 0.4 0.4 (0.0-1.0) mg/dL Direct Bilirubin < 0.2 0.2 (0.0-0.5) mg/dL AST 16 12 (5-37) U/L ALT 19 17 (0-40) U/L Alkaline Phosphatase 83 76 (39-117) U/L Albumin 4.1 3.7 (3.5-5.0) g/dL Urine 05/29/20 Range/Units 18:13 Urine Color YELLOW Urine Appearance CLEAR Urine pH 8.5 H (5.0-8.0) Ur Specific [place] 1.010 (1.005-1.025) Urine Protein NEG (NEG-TRACE) MG/DL Urine Glucose (UA) 500 H (NEG) MG/DL Laboratory Tests 05/29/20 14:[address] scan - abdomen: Radiologist's impression: IMPRESSION: * Findings suggestive of mild acute interstitial edematous pancreatitis. * There are 2 nonobstructive 2 mm calculi within the right kidney. * Sigmoid colonic diverticulosis without evidence of diverticulitis. IMPRESSION: * Findings suggestive of mild acute interstitial edematous pancreatitis. * There are 2 nonobstructive 2 mm calculi within the right kidney. * Sigmoid colonic diverticulosis without evidence of diverticulitis. Assessment and Plan (1) Pancreatitis, acute: Problem details: No clear etiology: Denies ETOH, no Stones on CT; Could be viral; doubt meds, Acid peptic disease can do this @ times but no real risk factors. Reviewed @ length with patient. Lipase is trending down today is 752. No elevation Triglycerides. Liver profile is normal. NOTE CT changes do comment on Hepatic Steatosis and the possiblity of Splenomegaly.(He is diabetic and could have significant MEDINA--may benefit from further evaluation after discharge.) EKG on admission showed NSR rate85. Status: Acute Do abdominal ultrasound to assess for non calcified gallstones. Try to progress diet as tolerated. (2) GERD (gastroesophageal reflux disease): Problem details: His GERD symptoms seem stable.--Had previous EGD no evidence for Fitch's esophageal changes. Status: Acute Continus BID PPI therapy, IV for now.
[2020-05-30 09:07] LABS: Lipase 752 U/L (8-78)
[2020-05-30] MEDS: buPROPion HCl XL 300 MG TAB.ER.24H PO (09:29)
[2020-05-30] MEDS: lisinopriL 2.5 MG TABLET PO (09:29)
[2020-05-30] MEDS: Pravastatin Sodium 20 MG TABLET PO (09:29)
[2020-05-30] MEDS: Loratadine 10 MG TABLET PO (09:29)
--- NOTE | 2020-05-30 10:10 | MHC.CM.PN ---
PATIENT IS FULLY INDEPENDENT WITH HIS ADLS. LIVES WITH . NO DME OR [facility] SERVICES. HIS TRUCK IS IN THE LOT AND HE WILL TRANSPORT HIMSELF HOME AT DISCHARGE. IMM 05/30 IN CHART.
[2020-05-30 11:51] LABS: Glucose, Whole Blood 80 mg/dL (60-115)
--- NOTE | 2020-05-30 13:23 | P.PNIM_ITS ---
Subjective Subjective Date of Service: 05/30/20 Interval History: abdominal pain Review of Systems patient still has abdominal pain specially on the left side flank area, denies any chest pain or shortness of breath or weakness or numbness, still has some nausea. Physical Exam Vital Signs: Vital Signs: Vital Signs Temp Pulse Resp BP Pulse Ox 05/30/20 11:05 97.3 F 78 18 110/80 96 05/30/20 06:57 97 F 74 18 117/79 94 05/30/20 04:30 20 05/30/20 04:00 97.4 F 89 18 147/65 H 94 05/30/20 03:27 20 05/30/20 02:00 96.5 F L 77 20 121/77 96 05/30/20 00:00 98.1 F 80 16 103/82 97 05/29/20 20:00 98.4 F 81 16 112/83 95 05/29/20 19:17 83 18 127/85 96 05/29/20 18:08 89 14 120/86 95 05/29/20 16:17 98.2 F 86 14 110/87 95 05/29/20 14:22 98.3 F 89 16 108/84 96 Body Mass Index 27.3 Physical exam: Cvs: rrr, [id number] , no murmur res: clear to auscultation ,no rhonchii or wheezing abd: no rebound or guarding ,abd pain in left upper abd/flank area, bs present. ext pulses present , no cyanosis neuro: axo3 , nonfocal. Objective Data Current Medications Generic Name Dose Route Start Last Admin Trade Name Rickieq PRN Reason Stop Dose Admin Bupropion HCl 300 mg 05/30/20 07:00 05/30/20 09:29 Bupropion Hcl Xl 300 Mg Tab.Er.24h PO 300 mg 0700 NIA Administration Buspirone HCl 30 mg 05/30/20 02:07 05/30/20 08:02 Buspirone Hcl 10 Mg Tablet PO Not Given BID NIA Lactated Ringer's 1,000 mls @ 200 mls/hr 05/29/20 20:00 05/30/20 12:36 Lr IVCONT 200 mls/hr .Q5H NIA Administration Insulin Human Lispro 0 unit 05/30/20 02:07 05/30/20 12:29 Insulin Lispro 100 Unit/Ml 3 Ml Vial SUBCUT Not Given QIDACHS [facility] Protocol Lisinopril 2.5 mg 05/30/20 09:00 05/30/20 09:29 Lisinopril 2.5 Mg Tablet PO 2.5 mg DAILY [facility] Administration Protocol Loratadine 10 mg 05/30/20 09:00 05/30/20 09:29 Loratadine 10 Mg Tablet PO 10 mg DAILY NIA Administration Metformin HCl 1,000 mg 05/30/20 02:07 05/30/20 09:36 Metformin Hcl 1,000 Mg Tablet PO Not Given BID NIA Montelukast Sodium 10 mg 05/30/20 09:00 05/30/20 09:33 Montelukast Sodium 10 Mg Tablet PO Not Given DAILY [facility] Morphine Sulfate 2 mg 05/30/20 02:07 05/30/20 12:00 Morphine Sulfate 2 Mg/Ml Cartridge IVPUSH 2 mg Q4H PRN Administration Pain, Mild (Pain Scale 1-3) Non-Formulary Medication 1 tab 05/30/20 09:00 Empagliflozin [Jardiance] PO DAILY [facility] Omeprazole 20 mg 05/30/20 09:00 05/30/20 09:29 Omeprazole 20 Mg/10 Ml Susp.Recon PO 20 mg DAILY [facility] Administration Ondansetron HCl 4 mg 05/30/20 02:07 Ondansetron Hcl 4 Mg/2 Ml Vial IVPUSH Q8H PRN Nausea and Vomiting Pravastatin Sodium 20 mg 05/30/20 09:00 05/30/20 09:29 Pravastatin Sodium 20 Mg Tablet PO 20 mg DAILY NIA Administration Labs CBC & Chem 7: 05/30/20 07:37 05/30/20 07:37 Assessment and Plan (1) Pancreatitis, acute: Status: Acute (2) HTN (hypertension): Status: Acute (3) GERD (gastroesophageal reflux disease): Status: Acute (4) Depression: Status: Acute (5) Asthma: Status: Acute Assessment and Plan: 1. 60-year-old man admitted with acute pancreatitis with unknown etiology at this time. Patient denies heavy alcohol use. Triglycerides in February were in the 200s. Lipase is quite elevated. Abdominal CT does not show any retained stones 1.Acute pancreatitis. Aggressive IV fluid hydration, pain medication, clear liquid diet. Gi eval pending-added abd us /covid pending Hypertension. Stable blood pressure. Continue lisinopril. Diabetes mellitus. Sliding scale, ADA diet. Hyperlipidemia. Continue aspirin and statin Depression/anxiety. Continue bupropion.
[2020-05-30 16:44] LABS: Glucose, Whole Blood 79 mg/dL (60-115)
[2020-05-30 16:51] LABS: SARS COV2 PCR INHOUSE NEGATIVE (Negative)
[2020-05-30 21:02] LABS: Glucose, Whole Blood 81 mg/dL (60-115)
[2020-05-31] VITALS (7 sets, daily range): BP systolic 109–129; BP diastolic 83–95; PULSE 73–80; RESP 16–20; TEMP 36.1–36.7; O2SAT 95–97
[2020-05-31] MEDS: Lactated Ringers 1,000 ML 200 ML IVCONT ×3 (02:37→15:50)
[2020-05-31] MEDS: Morphine Sulfate 2 MG/ML CARTRIDGE IVPUSH ×3 (04:04→20:37)
[2020-05-31 07:26] LABS: Anion Gap 11 (12-20); Blood Urea Nitrogen 8 mg/dL (9-16); Calcium 8.4 mg/dL (8.4-10.2); Carbon Dioxide 25 mmol/L (22-29); Chloride 105 mmol/L (96-108); Creatinine Clr Calc Pharmacy 95.7; Estimated Glomerular Filt Rate > 60; Glucose Random 99 mg/dL (60-115); Potassium 4.4 mmol/l (3.3-5.1); Sodium 137 mmol/L (135-145)
[2020-05-31 07:45] LABS: Glucose, Whole Blood 92 mg/dL (60-115)
--- NOTE | 2020-05-31 08:57 | MHC.CM.PN ---
at this time dc plan remains the same, for patient to return home c , s any svcs. cm to cont. to follow.
[2020-05-31] MEDS: buPROPion HCl XL 300 MG TAB.ER.24H PO (09:01)
[2020-05-31] MEDS: Pravastatin Sodium 20 MG TABLET PO (09:03)
[2020-05-31] MEDS: Loratadine 10 MG TABLET PO (09:03)
[2020-05-31] MEDS: Enoxaparin Sodium 40 MG/0.4 ML SYRINGE SUBCUT (09:07)
[2020-05-31 11:51] LABS: Glucose, Whole Blood 140 mg/dL (60-115)
[2020-05-31 14:38] LABS: Gamma Glutamyl Transpeptidase 20 U/L (11-51); Lactate Dehydrogenase 133 U/L (118-273)
--- NOTE | 2020-05-31 14:47 | HO.PM.IMPN ---
Subjective Subjective Date of Service: 05/31/20 Interval History: Acute pancreatitis. Review of Systems patient still has abdominal pain, denies any chest pain or shortness breath. Physical Exam Vital Signs: Vital Signs: Vital Signs Temp Pulse Resp BP Pulse Ox 05/31/20 11:19 97.0 F 77 17 109/84 95 05/31/20 07:38 97.5 F 73 18 117/83 95 05/31/20 04:04 16 05/31/20 03:07 97.2 F 73 16 126/86 96 05/30/20 23:26 97.7 F 85 16 121/83 94 05/30/20 21:23 17 05/30/20 19:27 97.3 F 82 106/80 95 05/30/20 16:53 18 05/30/20 15:29 97.2 F 84 18 119/79 96 Body Mass Index 27.3 Cvs: rrr, [id number] , no murmur res: clear to auscultation ,no rhonchii or wheezing abd: no rebound or guarding ,still abd pain, bs present. ext pulses present , no cyanosis neuro: axo3 , nonfocal. Objective Data Current Medications Generic Name Dose Route Start Last Admin Trade Name Freq PRN Reason Stop Dose Admin Bupropion HCl 300 mg 05/30/20 07:00 05/31/20 09:01 Bupropion Hcl Xl 300 Mg Tab.Er.24h PO 300 mg 0700 NIA Administration Buspirone HCl 30 mg 05/30/20 02:07 05/31/20 09:01 Buspirone Hcl 10 Mg Tablet PO Not Given BID NIA Enoxaparin Sodium 40 mg 05/31/20 08:00 05/31/20 09:07 Enoxaparin Sodium 40 Mg/0.4 Ml Syringe SUBCUT 40 mg Q24H NIA Administration Lactated Ringer's 1,000 mls @ 200 mls/hr 05/29/20 20:00 05/31/20 12:12 Lr IVCONT Not Given .Q5H [facility] Insulin Human Lispro 0 unit 05/30/20 02:07 05/31/20 12:11 Insulin Lispro 100 Unit/Ml 3 Ml Vial SUBCUT Not Given QIDACHS [facility] Protocol Lisinopril 2.5 mg 05/30/20 09:00 05/31/20 09:01 Lisinopril 2.5 Mg Tablet PO Not Given DAILY [facility] Protocol Loratadine 10 mg 05/30/20 09:00 05/31/20 09:03 Loratadine 10 Mg Tablet PO 10 mg DAILY NIA Administration Metformin HCl 1,000 mg 05/30/20 02:07 05/31/20 09:03 Metformin Hcl 1,000 Mg Tablet PO Not Given BID NAI Montelukast Sodium 10 mg 05/30/20 09:00 05/31/20 09:03 Montelukast Sodium 10 Mg Tablet PO Not Given DAILY NIA Morphine Sulfate 2 mg 05/30/20 02:07 05/31/20 04:04 Morphine Sulfate 2 Mg/Ml Cartridge IVPUSH 2 mg Q4H PRN Administration Pain, Mild (Pain Scale 1-3) Nf Medication ( 0 tab 06/01/20 09:00 Empagliflozin [ PO Jardiance] 10 Mg DAILY NIA Tablet) Omeprazole 20 mg 05/30/20 09:00 05/31/20 09:04 Omeprazole 20 Mg/10 Ml Susp.Recon PO 20 mg DAILY NIA Administration Ondansetron HCl 4 mg 05/30/20 02:07 Ondansetron Hcl 4 Mg/2 Ml Vial IVPUSH Q8H PRN Nausea and Vomiting Pravastatin Sodium 20 mg 05/30/20 09:00 05/31/20 09:03 Pravastatin Sodium 20 Mg Tablet PO 20 mg DAILY NIA Administration Labs CBC & Chem 7: 05/30/20 07:37 05/31/20 06:27 Assessment and Plan (1) Pancreatitis, acute: Problem details: No clear etiology: Denies ETOH, no Stones on CT; Could be viral; doubt meds, Acid peptic disease can do this @ times but no real risk factors. Reviewed @ length with patient. Lipase is trending down today is 752. No elevation Triglycerides. Liver profile is normal. NOTE CT changes do comment on Hepatic Steatosis and the possiblity of Splenomegaly.(He is diabetic and could have significant MEDINA--may benefit from further evaluation after discharge.) EKG on admission showed NSR rate85. Status: Acute (2) HTN (hypertension): Status: Acute (3) GERD (gastroesophageal reflux disease): Problem details: His GERD symptoms seem stable.--Had previous EGD no evidence for Fitch's esophageal changes. Status: Acute (4) Depression: Status: Acute (5) Asthma: Status: Acute Assessment and Plan: 1. 60-year-old man admitted with acute pancreatitis with unknown etiology at this time. Patient denies heavy alcohol use. Triglycerides in February were in the 200s. Lipase is quite elevated. Abdominal CT does not show any retained stones 1.Acute pancreatitis. Aggressive IV fluid hydration, pain medication,advance full liquid diet. Gi eval pending-added abd us /covid pending Hypertension. Stable blood pressure. Continue lisinopril. Diabetes mellitus. Sliding scale, ADA diet. Hyperlipidemia. Continue aspirin and statin Depression/anxiety. Continue bupropion.
[2020-05-31 16:42] LABS: Glucose, Whole Blood 68 mg/dL (60-115)
[2020-05-31 17:08] LABS: Glucose, Whole Blood 93 mg/dL (60-115)
[2020-05-31] MEDS: Dextrose 5 % and 0.9 % NaCl 1,000 ML 125 ML IVCONT (18:17)
[2020-05-31 18:34] LABS: Albumin Level 3.7 g/dL (3.5-5.0); Alkaline Phosphatase 76 U/L (39-117)
[2020-05-31 18:54] LABS: Lipase 447 U/L (8-78)
[2020-05-31 20:46] LABS: Glucose, Whole Blood 131 mg/dL (60-115)
[2020-05-31] MEDS: Montelukast Sodium 10 MG TABLET PO (20:47)
[2020-05-31] MEDS: busPIRone HCl 10 MG TABLET 30 MG PO (20:48)
[2020-05-31] MEDS: metFORMIN HCl 1,000 MG TABLET 1000 MG PO (20:49)
[2020-05-31 22:03] LABS: Glucose, Whole Blood 115 mg/dL (60-115)
[2020-06-01] VITALS (9 sets, daily range): BP systolic 110–140; BP diastolic 79–98; PULSE 69–76; RESP 16–20; TEMP 35.9–36.6; O2SAT 95–100
[2020-06-01] MEDS: Dextrose 5 % and 0.9 % NaCl 1,000 ML 125 ML IVCONT ×3 (01:57→17:51)
[2020-06-01 07:58] LABS: Glucose, Whole Blood 137 mg/dL (60-115)
[2020-06-01] MEDS: metFORMIN HCl 1,000 MG TABLET 1000 MG PO ×2 (08:15→21:31)
[2020-06-01] MEDS: Pravastatin Sodium 20 MG TABLET PO (08:15)
[2020-06-01] MEDS: lisinopriL 2.5 MG TABLET PO (08:19)
[2020-06-01] MEDS: Loratadine 10 MG TABLET PO (08:19)
[2020-06-01] MEDS: busPIRone HCl 10 MG TABLET 30 MG PO ×2 (08:22→21:30)
[2020-06-01] MEDS: Enoxaparin Sodium 40 MG/0.4 ML SYRINGE SUBCUT (08:23)
[2020-06-01] MEDS: Morphine Sulfate 2 MG/ML CARTRIDGE IVPUSH (08:34)
[2020-06-01] MEDS: buPROPion HCl XL 300 MG TAB.ER.24H PO (08:34)
[2020-06-01 11:34] LABS: Glucose, Whole Blood 139 mg/dL (60-115)
--- NOTE | 2020-06-01 11:37 | MHC.CM.PN ---
NURSE DIRECTOR OF ANCILLARY SERVICES NOTE ELECTROJNIC RECORD REVIEWED CASE DISCUSSED WITH STAFF NURSE AND ON MULTIPLE DISCIPLINARY ROUNDS, MET WITH ROSA HE REPORTEED STIL HAVING SOME PAIN BUT FEELING MUCH BETTER, HE REPORTED THAT HE IS TOLERATING HIS FUL LIQUID DIET WITH NO NAUSEA OR EMESIS AQND HOPES TO BE ABLE TO BE ADVANCEDED TO REG DIET, MEDICARE IMM UPDATED ANTICIPATE DISCHARGE HOME 1-2 DAYS PER HOSPITLAIST DISCHARGE PLAN HOME NO SERVICES (INDEPENDENT IN ALL ADLS , MOBILITY ON DISABILITY FOR MENTAL HEALTH DX. FOLLOWED BY [facility]IST[facility] THE PPR,Y AND ABLE TO TOLERATE HIS FULL LIQUID DIET, IN HOPES TO HAVING HIS DIET ADVANCE TODAY , HE STILL HAS SOME PAIN AND CONTROLED WITH ANALGEICS DIOSCHARGE PLAN HME WITH ANTICIPATED NO SERVICES TO PROVIDE TRANSPORTATION AT DISCHAGRE PCP ELIZABETH Scott AT THE [facility] PT TO MAKE FOLLOW UP APPOINTMENT
--- NOTE | 2020-06-01 11:48 | MHC.CM.PN ---
NURSE CARE JOVANY NOTE PATIENT CONFIRMED THAT HIS PCP IS [facility] ELIZABETH PEÑA
--- NOTE | 2020-06-01 15:29 | HO.PM.IMPN ---
Subjective Subjective Date of Service: 06/01/20 Interval History: acute pancreatitis Review of Systems Patient still has abdominal pain, denies any chest pain or shortness of breath or fever or chills. Physical Exam Vital Signs: Vital Signs: Vital Signs Temp Pulse Resp BP Pulse Ox 06/01/20 12:00 97.7 F 69 18 132/93 H 97 06/01/20 08:34 19 06/01/20 08:19 69 128/96 H 06/01/20 07:53 96.8 F 69 18 128/96 H 97 06/01/20 03:33 98 F 73 16 138/90 H 100 06/01/20 00:00 96.9 F 76 16 110/79 95 05/31/20 19:36 97.1 F 80 20 129/95 H 96 05/31/20 19:34 98.1 F 79 20 129/95 H 95 05/31/20 16:00 97.3 F 77 125/95 H 97 Body Mass Index 27.3 Physical exam: Cvs: [id number], [id number] , no murmur res: clear to auscultation ,no rhonchii or wheezing abd: no rebound or guarding , still has abd pain , bs present. ext pulses present , no cyanosis neuro: axo3 , nonfocal. Objective Data Current Medications Generic Name Dose Route Start Last Admin Trade Name Freq PRN Reason Stop Dose Admin Bupropion HCl 300 mg 05/30/20 07:00 06/01/20 08:34 Bupropion Hcl Xl 300 Mg Tab.Er.24h PO 300 mg 0700 NIA Administration Buspirone HCl 30 mg 05/30/20 02:07 06/01/20 08:22 Buspirone Hcl 10 Mg Tablet PO 30 mg BID NIA Administration Enoxaparin Sodium 40 mg 05/31/20 08:00 06/01/20 08:23 Enoxaparin Sodium 40 Mg/0.4 Ml Syringe SUBCUT 40 mg Q24H NIA Administration Dextrose/Sodium Chloride 1,000 mls @ 125 mls/hr 05/31/20 17:15 06/01/20 09:42 D5ns IVCONT 125 mls/hr .Q8H NIA Administration Insulin Human Lispro 0 unit 05/30/20 02:07 06/01/20 11:37 Insulin Lispro 100 Unit/Ml 3 Ml Vial SUBCUT Not Given QIDACHS [facility] Protocol Lisinopril 2.5 mg 05/30/20 09:00 06/01/20 08:19 Lisinopril 2.5 Mg Tablet PO 2.5 mg DAILY NIA Administration Protocol Loratadine 10 mg 05/30/20 09:00 06/01/20 08:19 Loratadine 10 Mg Tablet PO 10 mg DAILY NIA Administration Metformin HCl 1,000 mg 05/30/20 02:07 06/01/20 08:15 Metformin Hcl 1,000 Mg Tablet PO 1,000 mg BID NIA Administration Montelukast Sodium 10 mg 05/30/20 09:00 05/31/20 20:47 Montelukast Sodium 10 Mg Tablet PO 10 mg DAILY NIA Administration Morphine Sulfate 2 mg 05/30/20 02:07 06/01/20 08:34 Morphine Sulfate 2 Mg/Ml Cartridge IVPUSH 2 mg Q4H PRN Administration Pain, Mild (Pain Scale 1-3) Nf Medication ( 0 tab 06/01/20 09:00 06/01/20 08:22 Empagliflozin [ PO 1 tab Jardiance] 10 Mg DAILY NIA Administration Tablet) Omeprazole 20 mg 05/30/20 09:00 06/01/20 08:18 Omeprazole 20 Mg/10 Ml Susp.Recon PO 20 mg DAILY NIA Administration Ondansetron HCl 4 mg 05/30/20 02:07 Ondansetron Hcl 4 Mg/2 Ml Vial IVPUSH Q8H PRN Nausea and Vomiting Pravastatin Sodium 20 mg 05/30/20 09:00 06/01/20 08:15 Pravastatin Sodium 20 Mg Tablet PO 20 mg DAILY NIA Administration Labs CBC & Chem 7: 05/30/20 07:37 05/31/20 06:27 Assessment and Plan (1) Pancreatitis, acute: Problem details: No clear etiology: Denies ETOH, no Stones on CT; Could be viral; doubt meds, Acid peptic disease can do this @ times but no real risk factors. Reviewed @ length with patient. Lipase is trending down today is 752. No elevation Triglycerides. Liver profile is normal. NOTE CT changes do comment on Hepatic Steatosis and the possiblity of Splenomegaly.(He is diabetic and could have significant MEDINA--may benefit from further evaluation after discharge.) EKG on admission showed NSR rate85. Status: Acute (2) HTN (hypertension): Status: Acute (3) GERD (gastroesophageal reflux disease): Problem details: His GERD symptoms seem stable.--Had previous EGD no evidence for Fitch's esophageal changes. Status: Acute (4) Depression: Status: Acute (5) Asthma: Status: Acute Assessment and Plan: 1. 60-year-old man admitted with acute pancreatitis with unknown etiology at this time. Patient denies heavy alcohol use. Triglycerides in February were in the 200s. Lipase is quite elevated. Abdominal CT does not show any retained stones Acute pancreatitis. Aggressive IV fluid hydration, pain medication, will try to advance to dm diet. ct abd:comment on Hepatic Steatosis and the possiblity of Splenomegaly, us abd shows similar changes covid neg gi follow up Hypertension. Stable blood pressure. Continue lisinopril. Diabetes mellitus. Sliding scale, ADA diet. Hyperlipidemia. Continue aspirin and statin Depression/anxiety. Continue bupropion.
[2020-06-01 16:38] LABS: Glucose, Whole Blood 60 mg/dL (60-115)
[2020-06-01 21:20] LABS: Glucose, Whole Blood 124 mg/dL (60-115)
[2020-06-01] MEDS: Montelukast Sodium 10 MG TABLET PO (21:30)
[2020-06-02] MEDS: Dextrose 5 % and 0.9 % NaCl 1,000 ML 125 ML IVCONT (01:38)
[2020-06-02 03:31] VITALS: BP 133/92; PULSE 72; RESP 20; TEMP 36.5; O2SAT 96
[2020-06-02 07:31] VITALS: BP 138/97; PULSE 65; RESP 18; TEMP 36.2; O2SAT 97
[2020-06-02 08:06] LABS: Glucose, Whole Blood 142 mg/dL (60-115)
[2020-06-02] MEDS: Montelukast Sodium 10 MG TABLET PO (09:36)
[2020-06-02] MEDS: metFORMIN HCl 1,000 MG TABLET 1000 MG PO (09:36)
[2020-06-02] MEDS: Loratadine 10 MG TABLET PO (09:36)
[2020-06-02] MEDS: Pravastatin Sodium 20 MG TABLET PO (09:37)
[2020-06-02] MEDS: buPROPion HCl XL 300 MG TAB.ER.24H PO (09:45)
--- NOTE | 2020-06-02 11:25 | MHC.CM.PN ---
HOME NO SERVICES. 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
--- NOTE | 2020-06-02 11:41 | PM.DS ---
DS: Providers Provider Date of admission: 05/29/20 19:41 Primary care physician: CHRISTINA Hooker Consults: 05/30/20 02:07 Consult to Gastroenterology Routine Consulting Provider: [facility] Reason for consultation: acute pancreatitis Has provider been notified: No DS: Diagnosis Discharge Diagnosis (1) Pancreatitis, acute: Status: Acute Problem details: No clear etiology: Denies ETOH, no Stones on CT; Could be viral; doubt meds, Acid peptic disease can do this @ times but no real risk factors. Reviewed @ length with patient. Lipase is trending down today is 752. No elevation Triglycerides. Liver profile is normal. NOTE CT changes do comment on Hepatic Steatosis and the possiblity of Splenomegaly.(He is diabetic and could have significant MEDINA--may benefit from further evaluation after discharge.) EKG on admission showed NSR rate85. (2) HTN (hypertension): Status: Acute (3) GERD (gastroesophageal reflux disease): Status: Acute Problem details: His GERD symptoms seem stable.--Had previous EGD no evidence for Fitch's esophageal changes. (4) Depression: Status: Acute (5) Asthma: Status: Acute DS: Summary Hospital Course Hospital Course: HPI:60-year-old man presenting to the ER with complaints of worsening abdominal pain that started approximately 7 days ago. He reports starting with watery diarrhea. He denied any recent travel or improperly cooked foods. He denied any blood in the stool. He denied any fever or chills. He reported after several days of diarrhea he started having cramping abdominal pain to the mid area of his abdomen. He reports occasionally being able to take a bath helped. He continued to have the pain and decided to come to the ER to be evaluated. He denied any alcohol use at all. He has no history of pancreatitis however , abdominal CT is showing findings suggestive of edematous pancreatitis. His lipase is quite elevated at 1363. triglycerides 200 and 65 and February of 2020. He was given 2 L of IV fluids, morphine, Zofran. He will be admitted for further management and treatment of acute pancreatitis. pmhx:Asthma Depression GERD (gastroesophageal reflux disease) HTN (hypertension) hospital course problem high: patient initially admitted for abdominal pain and diarrhea issue: patient found to have pancreatitis:Patient came with acute pancreatitis -started on bowel rest, IV fluids and pain management: Subsequently patient the abdominal CT and abdominal ultrasound was done: Found to have hepatic steatosis as well as some splenomegaly , no other specific reason for pancreatitis was found. patient is to follow-up with the Dr. Anderson out patiently and further interventions as per GI doctor romain. Time Spent with Patient Time attestation: Total time spent providing and/or coordinating discharge services:50 min Physical Exam Vital Signs: Vital Signs: Vital Signs Temp Pulse Resp BP Pulse Ox 06/02/20 07:31 97.2 F 65 18 138/97 H 97 06/02/20 03:31 97.7 F 72 20 133/92 H 96 06/01/20 23:06 97.6 F 73 19 126/89 96 06/01/20 19:39 97.1 F 75 16 140/98 H 96 06/01/20 16:00 96.6 F L 71 20 128/91 H 06/01/20 12:00 97.7 F 69 18 132/93 H 97 Body Mass Index 27.3 Physical exam: Cvs: rrr, [id number] , no murmur res: clear to auscultation ,no rhonchii or wheezing abd: no rebound or guarding ,nt, bs present. ext pulses present , no cyanosis neuro: axo3 , nonfocal. DS: Data Data Completed and Pending Labs on day of discharge: Labs from last 24 hours 06/02/20 06/01/20 06/01/20 07:28 21:07 15:38 POC Glucose 142 [address] ABD : IMPRESSION: * Findings suggestive of mild acute interstitial edematous pancreatitis. * There are 2 nonobstructive 2 mm calculi within the right kidney. * Sigmoid colonic diverticulosis without evidence of diverticulitis. us:IMPRESSION: 1. Pancreas not well visualized obscured by bowel gas. 2. Liver is diffusely echogenic suggesting hepatic steatosis, hypoechoic area probably focal fat sparing. 3. Splenomegaly. 4. No ultrasound evidence of gallbladder disease. 5. Simple left renal cyst. Discharge Plan Discharge Patient Disposition: Home, Self-Care Referrals: Torrey Ray FNP-BC [Primary Care Provider] - Discharge Medications: Continued cetirizine 10 mg tablet 1 tab PO QPM RF: 0 buspirone 30 mg tablet 1 tab PO QPM RF: 0 metformin 1,000 mg tablet 1 tab PO BID RF: 0 omeprazole 20 mg capsule,delayed release(DR/EC) 1 cap PO DAILY RF: 0 montelukast 10 mg tablet 1 tab PO QPM RF: 0 pravastatin 20 mg tablet 1 tab PO DAILY RF: 0 lisinopril 2.5 mg tablet 1 tab PO QPM RF: 0 bupropion HCl 300 mg tablet extended release 24 hr 1 tab PO QAM RF: 0 Jardiance 10 mg tablet 1 tab PO DAILY RF: 0 Breo Ellipta 100-25 mcg/dose blister with device 1 inh inhalation DAILY RF: 0 albuterol sulfate [Ventolin HFA] 90 mcg/actuation HFA aerosol inhaler 2 puff inhalation Q4H PRN (Reason: Shortness Of Breath Or Wheezing) RF: 0 quetiapine [Seroquel] 100 mg Tablet 100 mg PO BEDTIME PRN (Reason: Sleep) RF: 0 lorazepam 0.5 mg Tablet 0.5 mg PO BID PRN (Reason: Anxiety) RF: 0 docusate sodium 100 mg Capsule 100 mg PO DAILY RF: 0 Discharge Orders: Discharge Order (Routine); Ordered 06/02/20 Ordered By: Rodrigue Liu Diet: advance to your usual diet Activity on Discharge: As tolerated Visit Report Forms: Patient Portal Discharge page Care Plan Goals: Patient came with acute pancreatitis -started on bowel rest, IV fluids and pain management: Subsequently patient the abdominal CT and abdominal ultrasound was done: Found to have hepatic steatosis as well as some splenomegaly , no other specific reason for pancreatitis was found. patient is to follow-up with the Dr. Anderson out patiently and further interventions as per GI doctor son. Health Concerns: As above. Plan of Treatment: As above.
[2020-06-02 11:56] LABS: Glucose, Whole Blood 63 mg/dL (60-115)
[2020-06-02 12:00] VITALS: BP 143/94; PULSE 73; RESP 18; TEMP 36.1; O2SAT 96
== END 2020-06-02 12:43 | disposition home or self-care (01) | DRG 440 ==
LOC: HO.ED 18:43 → HO.S3 23:35
PROVIDERS: Internal Medicine Gastroenterology; Nurse Practitioner Acute Care; Physician Assistant; Admitting Provider Internal Medicine; Emergency Provider Emergency Medicine; PCP Nurse Practitioner Family; Visit Provider Internal Medicine
DX: K85.90 Acute pancreatitis without necrosis or infection, unspecified (principal); F32.9 Major depressive disorder, single episode, unspecified; K21.9 Gastro-esophageal reflux disease without esophagitis; K76.0 Fatty (change of) liver, not elsewhere classified; I10 Essential (primary) hypertension; E78.5 Hyperlipidemia, unspecified; Z20.828 Contact with and (suspected) exposure to other viral communicable diseases; Z79.82 Long term (current) use of aspirin; Z79.899 Other long term (current) drug therapy
CPT/HCPCS: 36415; 71046; 74177; 76700; 80048; 80076; 81003; 82040; 82272; 82947; 82977; 83615; 83690; 83735; 83880; 84075; 84478; 85025; 86140; 87635; 93005; 96361; 96374; 99285; J1650; J1885; J2270; J2405

== ENCOUNTER 2020-06-10 06:13 | Outpatient (REF) | payer OTHER, SELFPAY ==
[2020-06-10 11:56] LABS: Prostate Specific Antigen Scr 1.26 ng/mL (<0.05-4.0)
== END 2020-06-10 06:14 | disposition home or self-care (01) ==
LOC: HO.HMGCLDS 06:13
PROVIDERS: PCP Nurse Practitioner Family; Visit Provider Nurse Practitioner Family
DX: Z12.5 Encounter for screening for malignant neoplasm of prostate (principal)
CPT/HCPCS: 84153

== ENCOUNTER 2020-06-14 09:17 | Outpatient (REF) | payer OTHER, SELFPAY ==
[2020-06-14 11:15] LABS: Eos%MD 6.9 %; Hematocrit 49.1 % (42-52); Hemoglobin 16.6 g/dl (14.0-18.0); IG%MD 0.5 %; Mean Corpuscular HGB Conc 33.8 g/dl (31.0-36.0); Mean Corpuscular Hemoglobin 32.5 pg (27.0-33.0); Mean Corpuscular Volume 96.3 fL (80-98); Mean Platelet Volume 9.9 fL (9.4-12.4); Mono%MD 8.3 %; Neut%MD 57.3 %; Platelet Count 383 X10*3/uL (160-400); Red Cell Distribution Width 12.2 % (11.0-16.0); White Blood Count 10.5 X10*3/uL (4.8-10.8)
[2020-06-14 11:50] LABS: Anion Gap 17 (12-20); Blood Urea Nitrogen 15 mg/dL (9-16); Calcium 9.1 mg/dL (8.4-10.2); Carbon Dioxide 26 mmol/L (22-29); Chloride 102 mmol/L (96-108); Estimated Glomerular Filt Rate > 60; Glucose Fasting 72 mg/dL (60-99); Potassium 4.7 mmol/l (3.3-5.1); Sodium 140 mmol/L (135-145)
[2020-06-14 12:25] LABS: Lipase 207 U/L (8-78)
[2020-06-14 13:22] LABS: Basophils Abs Manual 0.3 X10*3/uL (0.0-0.3); Basophils Percent Manual 3 % (0-1); Eosinophils Absolute Manual 0.9 X10*3/UL (0.0-0.8); Eosinophils Percent Manual 9 % (0-4); Lymphocytes Absolute Manual 2.7 X10*3/uL (0.6-4.8); Lymphocytes Percent Manual 26 % (20-40); Monocytes Absolute Manual 1.1 X10*3/uL (0.0-1.2); Monocytes Percent Manual 10 % (2-11); Neutrophils Percent Manual 52 % (45-73); Platelet Estimate NORMAL (NORMAL); Platelet Morphology Comment NORMAL; RBC Morphology NORMAL
[2020-06-14 15:02] LABS: Band Neutrophils Percent 0 % (3-5); Neutrophils Absolute Manual 5.5 X10*3/uL (2.2-7.9)
== END 2020-06-14 09:18 | disposition home or self-care (01) ==
LOC: HO.HMGCLDS 09:17
PROVIDERS: PCP Nurse Practitioner Family; Visit Provider Nurse Practitioner Family
DX: K85.90 Acute pancreatitis without necrosis or infection, unspecified (principal)
CPT/HCPCS: 36415; 80048; 83690; 85007; 85027

== ENCOUNTER 2020-06-22 13:48 | Outpatient (REF) | payer OTHER, SELFPAY ==
[2020-06-22 15:20] LABS: Blood Urea Nitrogen 17 mg/dL (9-16); Estimated Glomerular Filt Rate > 60
[2020-06-22 15:36] LABS: Lipase 159 U/L (8-78)
== END 2020-06-22 13:49 | disposition home or self-care (01) ==
LOC: HO.LAB 13:48
PROVIDERS: PCP Nurse Practitioner Family; Visit Provider Internal Medicine
DX: K85.90 Acute pancreatitis without necrosis or infection, unspecified (principal)
CPT/HCPCS: 82565; 83690; 84520

== ENCOUNTER 2020-07-06 15:00 | Outpatient (REF) | payer OTHER, SELFPAY ==
--- NOTE | 2020-07-06 | MR_ITS ---
EXAMINATION: MR ABDOMEN WITHOUT AND WITH CONTRAST CLINICAL INFORMATION: Pancreatitis COMPARISON: CT from 05/29/2020. Ultrasound 05/30/2020. TECHNIQUE: MR abdomen was performed without and with use of 8 mL intravenous Gadavist gadolinium contrast. Postcontrast images are performed in multiphase dynamic sequences. Imaging was performed in 3 planes. FINDINGS: LUNG BASES: The visualized lung bases are unremarkable. LIVER, GALLBLADDER, AND BILIARY TREE: The liver is normal in size, smooth in contour, and normal in signal. No focal hepatic lesion or biliary ductal dilatation is present. The gallbladder is unremarkable with no evidence of gallbladder wall thickening, or obvious pericholecystic inflammatory changes. The common bile duct measures 0.4 cm. PANCREAS: The pancreatic parenchyma is homogenous. No pancreatic ductal dilatation. There is no focal pancreatic lesion. There are no inflammatory changes currently seen surrounding the pancreas. No fluid collection. SPLEEN: Normal. ADRENAL GLANDS: The left adrenal gland is unremarkable. There is a right adrenal gland nodule measuring 1.1 cm which does not enhance. This shows signal dropout on out of phase imaging, consistent with a lipid rich adenoma. KIDNEYS AND URETERS: The kidneys are normal in size, shape, and enhance symmetrically. No hydronephrosis. No perinephric stranding. Small renal cysts are seen bilaterally. GASTROINTESTINAL TRACT: No bowel obstruction. No ascites or fluid collection. ABDOMINAL WALL: No significant hernia is appreciated. LYMPH NODES: No lymphadenopathy. VASCULAR: Normal caliber aorta. The portal vein is patent. The splenic vein and superior mesenteric vein are patent. OSSEOUS STRUCTURES: Marrow signal normal. MR/MR abdomen wo/w con IMPRESSION: Normal appearance of the pancreas. No current inflammatory changes. No fluid collection. No ductal dilatation. Right adrenal adenoma.
== END 2020-07-06 15:01 | disposition home or self-care (01) ==
LOC: HO.MRI 15:00
PROVIDERS: Visit Provider Internal Medicine
DX: K85.90 Acute pancreatitis without necrosis or infection, unspecified (principal)
CPT/HCPCS: 74183; A9585

== ENCOUNTER 2020-10-18 07:14 | Outpatient (REF) | payer OTHER, SELFPAY ==
--- NOTE | ~2020-10-18 | CT_ITS ---
EXAMINATION: CT CHEST SCREENING CLINICAL INFORMATION: Smoking history COMPARISON: Previous chest CT most recent September 2019 TECHNIQUE: Multidetector volumetric CT imaging of the chest is performed without contrast using low dose technique. Additional 2D coronal and sagittal reformatted images and axial 3D maximum intensity projection (MIP) images are generated on the CT workstation. This CT examination was performed using dose optimization techniques as appropriate, variously including the following: *Automated exposure control *Adjustment of mA and/or kV according to patient size (this includes techniques or standardized protocols for targeted exams where dose is matched to indication/reason for exam; i.e. extremities or head) *Use of iterative reconstruction technique DLP: 52 mGy-cm FINDINGS: LUNGS: There is evidence of emphysema. The previously identified right upper lobe nodules that were new on September 2019 exam are no longer seen. There is mixed cystic and reticular change in the peripheral or subpleural right upper lobe axial image 184 series 5 that is stable. There is mixed cystic and reticular change in the peripheral or subpleural superior segment of the right lower lobe axial image 194 series 5 that is stable. No new pulmonary nodules are seen. There is no endobronchial or endotracheal lesion. MEDIASTINUM: The thoracic aorta is upper normal in size. The heart does not appear enlarged. There is mild coronary artery calcification. There is no pericardial effusion. There are no enlarged nodes. PLEURA: There is focal pleural thickening adjacent to the superior segment of the right upper lobe and T4 and T5 vertebral body bony osteophyte. There is no pleural effusion. AXILLA: No lymphadenopathy. UPPER ABDOMEN: Unremarkable OSSEOUS STRUCTURES: There are degenerative changes of the spine. CT/CT lung screening IMPRESSION: Emphysema. The previously identified right upper lobe nodules that were September 2019 exam are no longer seen. Stable anterior peripheral or subpleural small areas of cystic and reticular change. Upper normal-sized thoracic aorta. Mild coronary artery calcification. ASSESSMENT: Lung-RADS category 2: Benign RECOMMENDATION: Annual low-dose chest CT follow-up recommended.
== END 2020-10-18 07:15 | disposition home or self-care (01) ==
LOC: HO.CT 07:14
PROVIDERS: Visit Provider Physician Assistant Medical
DX: Z12.2 Encounter for screening for malignant neoplasm of respiratory organs (principal); Z87.891 Personal history of nicotine dependence
CPT/HCPCS: 71271

== ENCOUNTER → 2020-11-02 11:25 | Outpatient (BNVA) | payer OTHER, SELFPAY | PROVIDERS: PCP Nurse Practitioner Family; Visit Provider Internal Medicine Pulmonary Disease | DX: J44.9 Chronic obstructive pulmonary disease, unspecified (principal); R91.8 Other nonspecific abnormal finding of lung field | CPT/HCPCS: 99212 ==

== ENCOUNTER 2020-12-23 18:14 | Emergency (ER) | payer OTHER, SELFPAY ==
--- NOTE | ~2020-12-23 | XR_ITS ---
EXAMINATION: XR SHOULDER, LEFT CLINICAL INFORMATION: [place] pop COMPARISON: None TECHNIQUE: AP external rotation, Grashey, scapular Y, and axillary views of the left shoulder. FINDINGS: Humeral head is well-seated within the glenoid fossa. I do not appreciate any acute fracture or dislocation. Mild degenerative changes in the glenohumeral joint and acromioclavicular joint. Calcification near the attachment point of the supraspinatus tendon likely represents a component of underlying calcific tendinitis. Visualized left upper chest unremarkable. XR/XR shoulder LT min 2V IMPRESSION: No acute bony abnormality seen with mild chronic appearing changes as described.
[2020-12-23 18:22] VITALS: BP 131/94; PULSE 92; RESP 16; TEMP 36.9; O2SAT 99; BMI 24.3
--- NOTE | 2020-12-23 19:39 | ED.EXTPRO ---
HPI - Extremity Problem General Chief complaint: Extremity Injury, Upper Stated complaint: shoulder pain Time Seen by Provider: 12/23/20 18:41 Source: patient Mode of arrival: ambulatory Limitations: no limitations History of Present Illness HPI Narrative: 60-year-old male here with left shoulder pain after lifting a heavy bucket. The patient tells me he was outside doing gardening when he lifted a bucket of [place] and felt immediate pain in his left shoulder. Related Data Home Medications Medication Instructions Recorded Confirmed bupropion HCl 1 tab PO QAM 05/29/20 09/13/20 buspirone 1 tab PO QPM 05/29/20 09/13/20 pravastatin 1 tab PO DAILY 05/29/20 09/13/20 albuterol sulfate [Ventolin HFA] 2 puff INHALATION Q4H PRN 05/30/20 09/13/20 lorazepam 0.5 mg PO BID PRN 05/31/20 09/13/20 quetiapine [Seroquel] 100 mg PO BEDTIME PRN 05/31/20 09/13/20 nicotine 21 mg/24 hr daily 1 patch TOPICAL DAILY 06/14/20 09/13/20 transdermal patch Previous Rx's Medication Instructions Recorded aspirin 81 mg tablet,delayed 81 mg PO DAILY 90 Days #90 tab 06/03/20 release cetirizine 10 mg tablet 10 mg PO QPM 90 Days #90 tab 07/19/20 blood sugar diagnostic #100 ea 08/19/20 fluticasone furoate 100 1 inh INHALATION DAILY 30 Days #28 08/19/20 mcg-vilanterol 25 mcg/dose ea inhalation powder lancets 28 gauge #100 ea 08/19/20 omeprazole 20 mg capsule,delayed 20 mg PO DAILY #90 cap 08/19/20 release lisinopril 2.5 mg tablet 2.5 mg PO QPM 90 Days #90 tab 08/24/20 empagliflozin 10 mg tablet 10 mg PO QAM #30 tab 10/25/20 montelukast 10 mg tablet 10 mg PO QPM #90 tab 12/13/20 docusate sodium 100 mg capsule 100 mg PO DAILY PRN 30 Days #30 cap 12/14/20 cyclobenzaprine 10 mg PO TID PRN #10 tab 12/23/20 naproxen 375 mg PO BID PRN #15 tab 12/23/20 Allergies Allergy/AdvReac Type Severity Reaction Status Date / Time No Known Allergies Allergy Verified 12/13/20 07:21 [No Known Allergies*] Review of Systems Review of Systems: Yes all other systems are reviewed and are negative Constitutional: Constitutional: Reports no additional constitutional complaints, Denies body ache(s), Denies chills, Denies fever(s), Denies headache(s) and Denies weakness Eyes: Eyes: Reports no additional eye complaints and Denies change in vision ENT: Reports system reviewed and no additional complaints, except as documented, Denies dizziness, Denies headache(s), Denies nasal congestion, Denies nasal discharge and Denies neck pain Cardiovascular: Cardiovascular: Reports no additional cardiovascular complaints, Denies chest pain, Denies leg edema and Denies dyspnea Respiratory: Respiratory: Reports no additional respiratory complaints, Denies cough and Denies dyspnea Gastrointestinal: Gastrointestinal: Reports no additional gastrointestinal complaints, Denies abdominal pain, Denies diarrhea, Denies nausea and Denies vomiting Genitourinary: Genitourinary: Denies urinary incontinence Musculoskeletal: Musculoskeletal: Reports no additional musculoskeletal complaints, Denies back pain, Reports arthralgias, Denies joint swelling, Reports limited range of motion, Denies neck pain, Denies numbness and Denies tingling Integumentary/Breasts: Skin/Breast: Reports system reviewed and no additional complaints, except as docu and Denies rash Neurologic: Reports system reviewed and no additional complaints, except as documented, Denies Abnormal speech present, Denies dizziness, Denies headache(s), Denies numbness, Denies tingling and Denies weakness PMFSH Past Medical History Attestation statement: The following information was validated with the patient. Source: old records reviewed and nursing notes reviewed Medical History Asthma Depression Fatty liver GERD (gastroesophageal reflux disease) History of splenomegaly HTN (hypertension) Surgical History History of arthroscopic knee surgery Family History Family History Father Myocardial infarction Mother No problems noted. Paternal Grandfather Colon cancer Maternal Grandmother Unknown family medical history Social History Social History Household Members: Spouse Housing: House Smoking Status: Current every day smoker Tobacco Type: Cigarette Second Hand Smoke Exposure: No Substance Use Type: Marijuana Advance Directives: No Advance Directives Information Provided: Yes service: No Current occupational status: employed Physical Exam Vital Signs: Vital Signs: Last Vital Signs Temp 98.4 F 12/23/20 18:22 Pulse 92 12/23/20 18:22 Resp 16 12/23/20 18:22 BP 131/94 H 12/23/20 18:22 Pulse Ox 99 12/23/20 18:22 Body Mass Index 24.3 Const: General: cooperative, healthy appearing, comfortable and no acute distress Orientation/consciousness: patient oriented x3 Limitations: no limitations HENMT: Head: Yes normal to inspection Ears: hearing grossly normal bilaterally General nose exam: Normal external nose present Face and sinus: Yes normal facial exam Mouth: Normal oral and palatal mucosa present Throat: Yes posterior oropharynx normal Eyes: General: appearance normal, both eyes and all related structures Pupils: Equal, round and reactive pupils present Neck: Neck: Yes normal visual inspection Chest: Chest palpation & inspection: normal inspection of the chest Resp: Effort & Inspection: normal respiratory effort Auscultation: clear to auscultation bilaterally Cardio: Rate: regular rate Rhythm: regular rhythm Peripheral pulses: Peripheral pulses 2+ throughout GI: Inspection: Yes normal to inspection Palpation (GI): Soft to palpation and nontender Auscultation: normal bowel sounds Back/Spine/Pelvis: Thoracic/Lumbar Spine: thoracic and lumbar spine normal to inspection Skin: General skin exam: no rashes or lesions noted Neuro: General: patient oriented x3, no focal motor deficits and normal sensation to monofilament Cranial nerves: Yes Equal, round and reactive pupils present Cognition (Neuro): normal cognition Speech: No Abnormal speech present Gait exam (Neuro): Normal gait present Motor exam (neuro): 5/5 motor strength present throughout Extrem: Other: Tenderness over the anterior left shoulder and over the AC joint with no obvious deformity or swelling. Pain is worsened with abduction of the left arm. Neurovascular intact distally. No paresthesias. + distal pulse. General: Yes normal to inspection Course Course Course Narrative: 60-year-old male here with left shoulder pain status post injury. Will check x-rays. 1939-x-rays read as unremarkable. Based on his HPI exam question a shoulder strain versus AC joint strain. Patient placed in sling. Recommended supportive care at home. Follow-up with orthopedics if no improvement. Reviewed worrisome signs and symptoms and when to return to the emergency department. Comfortable discharge home. Procedures Procedure Narrative Procedure Narrative: Shoulder sling MDM - Extremity (Nontraumatic) Medical Records Attestation: I reviewed the patient's medical records. Lab Data Attestation: I reviewed the patient's lab results. Imaging Data left shoulder x-ray: Attestation: I personally reviewed and interpreted this imaging study as follows: Radiologist's impression: [facility] [place], [place] [address]IXmm ReportSigned Patient: Boston Betancourt LMR#: [id number]: [id number]:[id number]/Sex: 60 / MADM Date: 12/23/20Loc: HO.EDAttending Dr: Ordering Physician: Pablito Cunningham MD Date of Service: 12/23/20 Procedure(s): XR shoulder LT min 2V Accession Number(s): [id number] cc: Pablito Cunningham MD~ EXAMINATION: XR SHOULDER, LEFT CLINICAL INFORMATION: [place] pop COMPARISON: None TECHNIQUE: AP external rotation, Grashey, scapular Y, and axillary views of the left shoulder. FINDINGS: Humeral head is well-seated within the glenoid fossa. I do not appreciate any acute fracture or dislocation. Mild degenerative changes in the glenohumeral joint and acromioclavicular joint. Calcification near the attachment point of the supraspinatus tendon likely represents a component of underlying calcific tendinitis. Visualized left upper chest unremarkable. XR/XR shoulder LT min 2V IMPRESSION: No acute bony abnormality seen with mild chronic appearing changes as described. Discharge Plan Discharge Clinical Impression: Left shoulder strain Patient Disposition: Home, Self-Care Instructions: Shoulder Sprain (ED) Additional Instructions: Ice to the area Sling for comfort Limit use of the arm Follow-up with ortho in 4-5 days for continued pain Prescriptions: New naproxen 375 mg tablet 375 mg PO BID PRN (Reason: pain) Qty: 15 RF: 0 cyclobenzaprine 10 mg tablet 10 mg PO TID PRN (Reason: muscle spasm) Qty: 10 RF: 0 No Action cetirizine 10 mg tablet 10 mg PO QPM 90 Days Qty: 90 RF: 0 Breo Ellipta 100-25 mcg/dose blister with device 1 inh inhalation DAILY 30 Days Qty: 28 RF: 8 (DME) lancets [FreeStyle Lancets] 28 gauge misc See Rx Instructions .ROUTE .MEDSUPPLY Qty: 100 RF: 5 omeprazole 20 mg capsule,delayed release(DR/EC) 20 mg PO DAILY Qty: 90 RF: 3 (DME) blood sugar diagnostic Strip See Rx Instructions ea Not Applicable DAILY Qty: 100 RF: 5 lisinopril 2.5 mg tablet 2.5 mg PO QPM 90 Days Qty: 90 RF: 2 empagliflozin [Jardiance] 10 mg tablet 10 mg PO QAM Qty: 30 RF: 6 docusate sodium [Stool Softener] 100 mg capsule 100 mg PO DAILY PRN (Reason: constipation) 30 Days Qty: 30 RF: 11 buspirone 30 mg tablet 1 tab PO QPM RF: 0 pravastatin 20 mg tablet 1 tab PO DAILY RF: 0 bupropion HCl 300 mg tablet extended release 24 hr 1 tab PO QAM RF: 0 albuterol sulfate [Ventolin HFA] 90 mcg/actuation HFA aerosol inhaler 2 puff inhalation Q4H PRN (Reason: Shortness Of Breath Or Wheezing) RF: 0 quetiapine [Seroquel] 100 mg Tablet 100 mg PO BEDTIME PRN (Reason: Sleep) RF: 0 lorazepam 0.5 mg Tablet 0.5 mg PO BID PRN (Reason: Anxiety) RF: 0 nicotine 21 mg/24 hr patch 24 hour 1 patch topical DAILY RF: 0 aspirin 81 mg tablet,delayed release (DR/EC) 81 mg PO DAILY 90 Days Qty: 90 RF: 2 montelukast 10 mg tablet 10 mg PO QPM Qty: 90 RF: 0 Referrals: Juan M Stuart MD [Physician] - 2 days Interventions: ED Discharge Assessment Last Done: 12/23/20 19:37 Discharge Date/Time: 12/23/20 19:38
== END 2020-12-23 19:38 | disposition home or self-care (01) ==
PROVIDERS: Emergency Provider Internal Medicine; PCP Nurse Practitioner Family
DX: S46.912A Strain of unspecified muscle, fascia and tendon at shoulder and upper arm level, left arm, initial encounter (principal); M79.602 Pain in left arm; X50.0XXA Overexertion from strenuous movement or load, initial encounter; X50.3XXA Overexertion from repetitive movements, initial encounter; Y93.9 Activity, unspecified; Y92.007 Garden or yard of unspecified non-institutional (private) residence as the place of occurrence of the external cause; Y99.8 Other external cause status; Z79.899 Other long term (current) drug therapy
CPT/HCPCS: 73030; 99284

== ENCOUNTER 2021-03-11 06:07 | Outpatient (REF) | payer OTHER, SELFPAY ==
[2021-03-11 12:03] LABS: Alanine Aminotransferase 24 U/L (0-40); Albumin Level 4.5 g/dL (3.5-5.0); Alkaline Phosphatase 82 U/L (39-117); Anion Gap 16 (12-20); Aspartate Amino Transferase 18 U/L (5-37); Bilirubin Total 0.7 mg/dL (0.0-1.0); Blood Urea Nitrogen 24 mg/dL (9-16); Calcium 9.5 mg/dL (8.4-10.2); Carbon Dioxide 22 mmol/L (22-29); Chloride 106 mmol/L (96-108); Cholesterol 206 mg/dL; Estimated Glomerular Filt Rate > 60; Glucose Fasting 115 mg/dL (60-99); HDL Cholesterol 34 mg/dL; LDL Cholesterol Calculated 136 mg/dl; Potassium 4.3 mmol/L (3.3-5.1); Sodium 140 mmol/L (135-145); Total Protein 6.9 g/dL (6.5-8.0); Triglycerides 184 mg/dL
[2021-03-11 12:10] LABS: Estimated Average Glucose 123 mg/dL; Hemoglobin A1c % 5.9 %
[2021-03-11 12:29] LABS: Creatinine Urine 87.08 mg/dL; Microalbum/Creatinine Ratio Ur 9.1 ug/mg cr
== END 2021-03-11 06:08 | disposition home or self-care (01) ==
LOC: HO.HMGCLDS 06:07
PROVIDERS: PCP Nurse Practitioner Family; Visit Provider Nurse Practitioner Family
DX: E11.9 Type 2 diabetes mellitus without complications (principal)
CPT/HCPCS: 36415; 80053; 80061; 82043; 83036

== ENCOUNTER → 2021-05-10 11:35 | Outpatient (BNVA) | payer OTHER, SELFPAY | PROVIDERS: PCP Nurse Practitioner Family; Visit Provider Internal Medicine Pulmonary Disease | DX: J44.9 Chronic obstructive pulmonary disease, unspecified (principal); R91.8 Other nonspecific abnormal finding of lung field | CPT/HCPCS: 99212 ==

== ENCOUNTER 2021-08-11 08:13 | Outpatient (REF) | payer OTHER, SELFPAY ==
[2021-08-11 11:48] LABS: COVID-19 Test Negative (Negative); IDNOW Serial# 16C4AD1C
== END 2021-08-11 08:14 | disposition home or self-care (01) ==
LOC: HO.LAB 08:13
PROVIDERS: Visit Provider Internal Medicine
DX: Z20.822 Contact with and (suspected) exposure to COVID-19 (principal)
CPT/HCPCS: 36415; 87635; C9803

== ENCOUNTER 2021-09-02 06:05 | Outpatient (REF) | payer OTHER, SELFPAY ==
[2021-09-02 11:37] LABS: Appearance Urine CLEAR; Color Urine YELLOW; Glucose Urine UA >=1000 MG/DL (NEG); Leukocyte Esterase Urine NEG (NEG); Nitrite Urine NEG (NEG); Specific Gravity - Urine <= 1.005 (1.005-1.025); Urine Blood NEG (NEG); Urine Ketones NEG (NEG); Urine Protein NEG (NEG-TRACE)
[2021-09-02 11:58] LABS: Estimated Average Glucose 126 mg/dL; RBC Urine 0 /HPF (0); Squamous Epithelial Cell Urine TRACE /LPF; WBC Urine 0-2 /HPF (0-4)
[2021-09-02 12:10] LABS: Alanine Aminotransferase 27 U/L (0-40); Albumin Level 4.3 g/dL (3.5-5.0); Alkaline Phosphatase 96 U/L (39-117); Anion Gap 17 (12-20); Aspartate Amino Transferase 15 U/L (5-37); Bilirubin Total 0.5 mg/dL (0.0-1.0); Blood Urea Nitrogen 20 mg/dL (9-16); Calcium 9.2 mg/dL (8.4-10.2); Carbon Dioxide 21 mmol/L (22-29); Chloride 106 mmol/L (96-108); Cholesterol 206 mg/dL; Estimated Glomerular Filt Rate > 60; Glucose Fasting 134 mg/dL (60-99); HDL Cholesterol 32 mg/dL; LDL Cholesterol Calculated 123 mg/dl; Potassium 4.1 mmol/L (3.3-5.1); Sodium 140 mmol/L (135-145); Total Protein 6.9 g/dL (6.5-8.0); Triglycerides 257 mg/dL
[2021-09-02 12:32] LABS: Prostate Specific Antigen Scr 1.08 ng/mL (<0.05-4.0); TSH reflex Free T4 0.74 uIU/mL (0.32-4.0)
== END 2021-09-02 06:06 | disposition home or self-care (01) ==
LOC: HO.HMGCLDS 06:05
PROVIDERS: PCP Nurse Practitioner Family; Visit Provider Nurse Practitioner Family
DX: Z00.00 Encounter for general adult medical examination without abnormal findings (principal); E11.9 Type 2 diabetes mellitus without complications; E78.5 Hyperlipidemia, unspecified; Z12.5 Encounter for screening for malignant neoplasm of prostate
CPT/HCPCS: 36415; 80053; 80061; 81001; 83036; 84153; 84443

== ENCOUNTER → 2021-11-03 11:04 | Outpatient (BNVA) | payer OTHER, SELFPAY | PROVIDERS: PCP Nurse Practitioner Family; Visit Provider Internal Medicine Pulmonary Disease | DX: J44.9 Chronic obstructive pulmonary disease, unspecified (principal); R91.8 Other nonspecific abnormal finding of lung field; F17.210 Nicotine dependence, cigarettes, uncomplicated; Z79.899 Other long term (current) drug therapy | CPT/HCPCS: 99212 ==

== ENCOUNTER 2021-11-09 06:00 | Outpatient (REF) | payer OTHER, SELFPAY ==
[2021-11-09 12:27] LABS: Cholesterol 197 mg/dL; HDL Cholesterol 32 mg/dL; LDL Cholesterol Calculated 126 mg/dl; Triglycerides 197 mg/dL
== END 2021-11-09 06:01 | disposition home or self-care (01) ==
LOC: HO.HMGCLDS 06:00
PROVIDERS: Visit Provider Nurse Practitioner Family
DX: E78.5 Hyperlipidemia, unspecified (principal)
CPT/HCPCS: 36415; 80061

== ENCOUNTER 2022-02-15 06:06 | Outpatient (REF) | payer OTHER, SELFPAY ==
[2022-02-15 11:14] LABS: MANUAL DIFF FLAG NO
[2022-02-15 11:20] LABS: Appearance Urine CLEAR; Color Urine YELLOW; Glucose Urine UA >=1000 MG/DL (NEG); Leukocyte Esterase Urine NEG (NEG); Nitrite Urine NEG (NEG); Urine Blood NEG (NEG); Urine Ketones NEG (NEG); Urine Protein NEG (NEG-TRACE)
[2022-02-15 11:23] LABS: Basophils Absolute Auto 0.1 X10*3/uL (0.0-0.2); Basophils Percent Auto 0.9 % (0-2); Eosinophils Absolute Auto 0.4 X10*3/uL (0.0-0.4); Eosinophils Percent Auto 4.2 % (0-4); Hematocrit 50.4 % (42.0-52.0); Hemoglobin 17.2 g/dl (14.0-18.0); Imm Gran Abs Auto 0.05 X10*3/uL (0.00-0.03); Imm Gran Pct Auto 0.6 % (0.0-0.4); Lymphocytes Percent Auto 33.3 % (20-40); Mean Corpuscular HGB Conc 34.1 g/dl (31.0-36.0); Mean Corpuscular Hemoglobin 31.9 pg (27.0-33.0); Mean Corpuscular Volume 93.5 fL (80.0-98.0); Mean Platelet Volume 9.7 fL (9.4-12.4); Monocytes Absolute Auto 0.8 X10*3/uL (0.1-1.2); Monocytes Percent Auto 8.7 % (2-11); Neutrophils Absolute Auto 4.7 x10*3/uL (2.0-8.3); Neutrophils Percent Auto 52.3 % (45-73); Platelet Count 216 X10*3/uL (160-400); Red Blood Count 5.39 X10*6/uL (4.60-5.80); Red Cell Distribution Width 12.5 % (11.0-16.0); White Blood Count 9.1 X10*3/uL (4.8-10.8)
[2022-02-15 11:36] LABS: Alanine Aminotransferase 27 U/L (0-40); Albumin Level 4.4 g/dL (3.5-5.0); Alkaline Phosphatase 77 U/L (39-117); Anion Gap 14 (12-20); Aspartate Amino Transferase 17 U/L (5-37); Bilirubin Total 0.4 mg/dL (0.0-1.0); Blood Urea Nitrogen 15 mg/dL (9-16); Calcium 8.8 mg/dL (8.4-10.2); Carbon Dioxide 22 mmol/L (22-29); Chloride 107 mmol/L (96-108); Cholesterol 186 mg/dL; Estimated Glomerular Filt Rate > 60; Glucose Fasting 113 mg/dL (60-99); HDL Cholesterol 31 mg/dL; LDL Cholesterol Calculated 119 mg/dl; Potassium 4.3 mmol/L (3.3-5.1); Sodium 139 mmol/L (135-145); Total Protein 6.9 g/dL (6.5-8.0); Triglycerides 181 mg/dL
[2022-02-15 11:43] LABS: RBC Urine 0 /HPF (0); WBC Urine 0 /HPF (0-4)
[2022-02-15 11:52] LABS: TSH reflex Free T4 0.98 uIU/mL (0.32-4.0)
[2022-02-15 12:01] LABS: Estimated Average Glucose 114 mg/dL; Hemoglobin A1c % 5.6 %
== END 2022-02-15 06:07 | disposition home or self-care (01) ==
LOC: HO.HMGCLDS 06:06
PROVIDERS: PCP Nurse Practitioner Family; Visit Provider Nurse Practitioner Family
DX: E11.9 Type 2 diabetes mellitus without complications (principal)
CPT/HCPCS: 36415; 80053; 80061; 81001; 83036; 84443; 85025

== ENCOUNTER 2022-03-15 08:15 | Emergency (ER) | payer OTHER, SELFPAY ==
[2022-03-15 08:21] VITALS: BP 125/86; PULSE 85; RESP 20; TEMP 36.9; O2SAT 97; BMI 25.8
--- NOTE | 2022-03-15 08:24 | ECG_ITS ---
Test Reason : cp Blood Pressure : / mmHG Vent. Rate : 082 BPM Atrial Rate : 082 BPM P-R Int : 206 ms QRS Dur : 082 ms QT Int : 370 ms P-R-T Axes : 053 -06 022 degrees QTc Int : 432 ms Normal sinus rhythm Inferior infarct , age undetermined WI prolonged Abnormal ECG When compared with ECG of 29-MAY-2020 15:28, Inferior infarct is now Present Referred By: Generic ED Physician Electronically Signed By:HAKEEM AZAR
[2022-03-15 08:46] LABS: MANUAL DIFF FLAG NO
[2022-03-15 08:47] LABS: Basophils Absolute Auto 0.1 X10*3/uL (0.0-0.2); Basophils Percent Auto 0.5 % (0-2); Eosinophils Absolute Auto 0.3 X10*3/uL (0.0-0.4); Eosinophils Percent Auto 2.4 % (0-4); Hematocrit 48.5 % (42.0-52.0); Hemoglobin 17.3 g/dl (14.0-18.0); Imm Gran Abs Auto 0.09 X10*3/uL (0.00-0.03); Imm Gran Pct Auto 0.7 % (0.0-0.4); Lymphocytes Absolute Auto 1.9 X10*3/uL (1.2-4.9); Lymphocytes Percent Auto 14.5 % (20-40); Mean Corpuscular HGB Conc 35.7 g/dl (31.0-36.0); Mean Corpuscular Hemoglobin 32.6 pg (27.0-33.0); Mean Corpuscular Volume 91.5 fL (80.0-98.0); Mean Platelet Volume 9.5 fL (9.4-12.4); Monocytes Percent Auto 7.5 % (2-11); Neutrophils Absolute Auto 9.8 x10*3/uL (2.0-8.3); Neutrophils Percent Auto 74.4 % (45-73); Platelet Count 214 X10*3/uL (160-400); Red Cell Distribution Width 12.4 % (11.0-16.0); White Blood Count 13.2 X10*3/uL (4.8-10.8)
[2022-03-15 09:10] LABS: Anion Gap 15 (12-20); Blood Urea Nitrogen 12 mg/dL (9-16); Calcium 8.7 mg/dL (8.4-10.2); Carbon Dioxide 20 mmol/L (22-29); Chloride 110 mmol/L (96-108); Creatinine Clr Calc Pharmacy 73.8; Estimated Glomerular Filt Rate > 60; Glucose Random 181 mg/dL (60-115); Potassium 4.1 mmol/L (3.3-5.1); Sodium 141 mmol/L (135-145)
[2022-03-15 09:15] LABS: Troponin-I High Sensitivity < 3.5 ng/L (<3.5-35.0)
[2022-03-15 11:20] VITALS: BP 132/98; PULSE 80; RESP 20; TEMP 36.6; O2SAT 97
== END 2022-03-15 11:31 | disposition left against medical advice (07) ==
PROVIDERS: Emergency Provider Emergency Medicine; PCP Nurse Practitioner Family
DX: R07.9 Chest pain, unspecified (principal); J44.9 Chronic obstructive pulmonary disease, unspecified; E11.9 Type 2 diabetes mellitus without complications; E78.5 Hyperlipidemia, unspecified; F17.200 Nicotine dependence, unspecified, uncomplicated; F12.90 Cannabis use, unspecified, uncomplicated
CPT/HCPCS: 36415; 80048; 84484; 85025; 93005; 99283; 99284

== ENCOUNTER 2022-03-15 16:47 | Emergency (ER) | payer OTHER, SELFPAY ==
--- NOTE | ~2022-03-15 | XR_ITS ---
EXAMINATION: XR CHEST CLINICAL INFORMATION: Chest pain. COMPARISON: Chest radiograph 05/29/2020. TECHNIQUE: Frontal view of the chest was obtained. FINDINGS: Normal appearance of the cardiomediastinal silhouette. Increased interstitial markings with no focal airspace opacities, pleural effusions or pneumothorax. No acute osseous abnormalities. EKG wires overlie the chest. XR/XR chest 1V IMPRESSION: Increased interstitial markings, nonspecific, differentials include asthma, bronchitis, reactive airways disease or atypical viral infections.
[2022-03-15 16:55] VITALS: PULSE 110; O2SAT 94
--- NOTE | 2022-03-15 17:12 | ED_ITS ---
HPI - Chest Pain General Stated Complaint: chest pain Time Seen by Provider: 03/15/22 17:12 Source: patient Mode of arrival: EMS Limitations: no limitations History of Present Illness HPI narrative: Patient history of hypertension, COPD, diabetes no known coronary disease woke up from sleep at 02:00 with left-sided chest pain radiating to the right side increases on deep inspiration no cough no shortness of breath patient never had similar pain in the past patient came early here left without being seen at that time patient troponin was negative patient comes back as pain continuing and is not getting better EMS gave him nitroglycerin spray and 4 baby aspirin without much response Related Data Home Medications Medication Instructions Recorded Confirmed bupropion HCl 300 mg 24 hr tablet, 1 tab PO QAM 05/29/20 02/13/22 extended release buspirone 30 mg tablet 1 tab PO QPM 05/29/20 02/13/22 lorazepam 0.5 mg tablet 0.5 mg PO BID PRN Anxiety 05/31/20 02/13/22 quetiapine 100 mg tablet (Seroquel) 100 mg PO BEDTIME PRN Sleep 05/31/20 02/13/22 nicotine 21 mg/24 hr daily 1 patch topical DAILY 06/14/20 02/13/22 transdermal patch pravastatin 40 mg tablet 40 mg PO DAILY 11/10/21 02/13/22 Previous Rx's Medication Instructions Recorded lancets 28 gauge (FreeStyle #100 ea 08/19/20 Lancets) naproxen 375 mg tablet 375 mg PO BID PRN pain #15 tabs 12/23/20 fluticasone furoate 100 1 inh inhalation DAILY 30 days #28 06/27/21 mcg-vilanterol 25 mcg/dose ea inhalation powder (Breo Ellipta) blood sugar diagnostic #100 ea 08/11/21 lisinopril 2.5 mg tablet 2.5 mg PO QPM 90 days #90 tabs 11/02/21 albuterol sulfate 2.5 mg/3 mL 2.5 mg (3 mL) inhalation QID PRN 11/10/21 (0.083 %) solution for nebulization shortness of breath or wheezing #75 mL cetirizine 10 mg tablet 10 mg PO QPM #90 tabs 11/21/21 docusate sodium 100 mg capsule 100 mg PO DAILY PRN constipation 11/21/21 (Stool Softener) 30 days #90 caps empagliflozin 10 mg tablet 10 mg PO QAM #90 tabs 11/21/21 (Jardiance) montelukast 10 mg tablet 10 mg PO QPM #90 tabs 11/21/21 omega-3 acid ethyl esters 1 gram 1 cap PO BID 90 days #180 caps 12/01/21 capsule omeprazole 20 mg capsule,delayed 20 mg PO DAILY #90 caps 12/24/21 release Incruse Ellipta 62.5 mcg/actuation 1 inh inhalation DAILY #30 ea 01/03/22 powder for inhalation (umeclidinium) albuterol sulfate 90 mcg/actuation 2 puff inhalation Q4H PRN 01/31/22 aerosol inhaler (Ventolin HFA) Shortness Of Breath Or Wheezing 30 days #8.5 grams rosuvastatin 20 mg tablet 20 mg PO DAILY 90 days #90 tabs 02/26/22 albuterol sulfate 90 mcg/actuation 2 puff inhalation Q4-6H PRN 03/15/22 aerosol inhaler (ProAir HFA) Wheezing #8.5 grams prednisone 20 mg tablet 40 mg PO DAILY #10 tabs 03/15/22 Allergies Allergy/AdvReac Type Severity Reaction Status Date / Time No Known Allergies Allergy Verified 02/13/22 09:23 [No Known Allergies*] FOR[facility]LY [facility] Past Medical History Medical History Asthma Depression Fatty liver GERD (gastroesophageal reflux disease) History of splenomegaly HTN (hypertension) Surgical History History of arthroscopic knee surgery Family History Family History Father Myocardial infarction Mother No problems noted. Paternal Grandfather Colon cancer Maternal Grandmother Unknown family medical history Other Substance use disorder Social History Social History Household Members: Spouse Housing: House Do you presently have visiting nurse or other home services: No Patient Tobacco Use Status: Current everyday Tobacco user Tobacco use type: Cigarette Cigarettes Per Day: 10 Years Smoked: 58 years e-Cigarette/Vaping Use: Former Use Second Hand Smoke Exposure: No Substance Use Type: Marijuana Advance Directives: No Advance Directives Information Provided: No service: No Current occupational status: disabled Cognitive needs: No Hearing needs: No Vision needs: No Physical Exam Vital Signs: Vital Signs: Last Vital Signs Temp 98.7 F 03/15/22 17:13 Pulse 98 03/15/22 17:36 Resp 13 03/15/22 17:36 BP 120/82 03/15/22 17:13 Pulse Ox 95 03/15/22 17:13 O2 Del Method 03/15/22 17:13 Appearance: Alert. Oriented X3. No acute distress. Eyes: No pallor no icterus ENT: Pharynx normal. Oral Mucosa moist Neck: Normal inspection. Neck supple. CVS: Normal heart rate and rhythm. Pulses normal. Respiratory: No respiratory distress. Equal air entry bilateral, no wh eezing/rales/rhonchi Abdomen: Soft and nontender. Bowel sounds are present, no mass palpable, no CVA tenderness Skin: Skin warm and dry. Normal skin color. Normal skin turgor. Extremities: No lower extremity edema. No calf tenderness Neuro: Oriented X 3. No motor deficit. No sensory deficit.No cerebellar signs , cranial nerves II-XII intact MDM - Chest Pain MDM Narrative Medical decision making narrative: 1829 Patient atypical chest pain 2 sets of troponin negative D-dimer negative chest x-ray showed atypical bronchitis findings patient is still having the chest pain likely from the lung not on the heart. Will give him Solu-Medrol check for COVID COVID negative discharge patient home on inhaler and prednisone Lab Data Attestation: I reviewed the patient's lab results. Labs: Lab Results 03/15/22 03/15/22 03/15/22 Range/Units 18:03 18:03 19:32 PT 14.0 H (10.0-13.1) SEC INR 1.2 H (0.9-1.1) APTT 32.5 (24.1-38.0) SEC D-Dimer High Sensitivty < 150 NG/ML Troponin I High Sens < 3.5 (<3.5-35.0) ng/L COVID-19 (STEPHANIE) Negative (Negative) COVID-19 Clin Com See Note ECG Data ECG #1: Attestation: I personally reviewed and interpreted this ECG as follows: Interpretation: Normal sinus rhythm heart rate 97 beats per minute normal interval normal deep axis no acute ST changes impression normal EKG Discharge Plan Discharge Clinical Impression: COPD (chronic obstructive pulmonary disease), Chest pain Patient Disposition: Home, Self-Care Instructions: Chest Pain (ED), COPD (Chronic Obstructive Pulmonary Disease) (ED) Additional Instructions: Continue medication inhaler started on prednisone stop smoking Follow with PCP for further evaluation treatment Prescriptions: New prednisone 20 mg tablet 40 mg PO DAILY Qty: 10 0RF albuterol sulfate [ProAir HFA] 90 mcg/actuation HFA aerosol inhaler 2 puff inhalation Q4-6H PRN (Reason: Wheezing) Qty: 8.5 0RF No Action (DME) lancets [FreeStyle Lancets] 28 gauge misc See Rx Instructions .ROUTE .MEDSUPPLY Qty: 100 5RF Rx Instructions: once a day Breo Ellipta 100-25 mcg/dose blister with device 1 inh inhalation DAILY 30 Days Qty: 28 8RF lisinopril 2.5 mg tablet 2.5 mg PO QPM 90 Days Qty: 90 2RF albuterol sulfate 2.5 mg /3 mL (0.083 %) solution for nebulization 2.5 mg inhalation QID PRN (Reason: shortness of breath or wheezing) Qty: 75 0RF cetirizine 10 mg tablet 10 mg PO QPM Qty: 90 1RF montelukast 10 mg tablet 10 mg PO QPM Qty: 90 1RF Jardiance 10 mg tablet 10 mg PO QAM Qty: 90 1RF docusate sodium [Stool Softener] 100 mg capsule 100 mg PO DAILY PRN (Reason: constipation) 30 Days Qty: 90 3RF omega-3 acid ethyl esters 1 gram capsule 1 cap PO BID 90 Days Qty: 180 0RF omeprazole 20 mg capsule,delayed release(DR/EC) 20 mg PO DAILY Qty: 90 1RF Incruse Ellipta 62.5 mcg/actuation blister with device 1 inh inhalation DAILY Qty: 30 3RF albuterol sulfate [Ventolin HFA] 90 mcg/actuation HFA aerosol inhaler 2 puff inhalation Q4H PRN (Reason: Shortness Of Breath Or Wheezing) 30 Days Qty: 8.5 5RF rosuvastatin 20 mg tablet 20 mg PO DAILY 90 Days Qty: 90 0RF naproxen 375 mg tablet 375 mg PO BID PRN (Reason: pain) Qty: 15 0RF buspirone 30 mg tablet 1 tab PO QPM bupropion HCl 300 mg tablet extended release 24 hr 1 tab PO QAM quetiapine [Seroquel] 100 mg Tablet 100 mg PO BEDTIME PRN (Reason: Sleep) lorazepam 0.5 mg Tablet 0.5 mg PO BID PRN (Reason: Anxiety) nicotine 21 mg/24 hr patch 24 hour 1 patch topical DAILY (DME) blood sugar diagnostic Strip See Rx Instructions Not Applicable DAILY Qty: 100 5RF Rx Instructions: check sugar once a day pravastatin 40 mg tablet 40 mg PO DAILY Interventions: ED Discharge Assessment Last Done: 03/15/22 19:39 Discharge Date/Time: 03/15/22 19:43
[2022-03-15 17:13] VITALS: BP 120/82; PULSE 100; RESP 13; TEMP 37.1; O2SAT 95
--- NOTE | 2022-03-15 17:19 | ECG_ITS ---
Test Reason : CHEST PAIN Blood Pressure : / mmHG Vent. Rate : 097 BPM Atrial Rate : 097 BPM P-R Int : 200 ms QRS Dur : 084 ms QT Int : 346 ms P-R-T Axes : 067 014 057 degrees QTc Int : 439 ms Normal sinus rhythm Normal ECG When compared with ECG of 15-MAR-2022 08:31, Criteria for Inferior infarct are no longer Present Referred By: Pablito Palacios Electronically Signed By:HAKEEM AZAR
[2022-03-15] MEDS: Albuterol/Iprat 2.5/0.5MG 3 ML AMPUL.NEB INHALE (17:34)
[2022-03-15 17:36] VITALS: PULSE 98; RESP 13; O2SAT 97
[2022-03-15 18:17] LABS: INTERNATIONAL NORM RATIO 1.2 (0.9-1.1)
[2022-03-15 18:20] LABS: Partial Thromboplastin Time 32.5 SEC (24.1-38.0)
[2022-03-15 18:22] LABS: D Dimer High Sensitivity < 150 NG/ML
[2022-03-15 18:27] LABS: Troponin-I High Sensitivity < 3.5 ng/L (<3.5-35.0)
[2022-03-15] MEDS: Ketorolac Tromethamine 30 MG/ML VIAL IVPUSH (19:11)
[2022-03-15] MEDS: methylPREDNISolone Sod Succ 125 MG/2 ML VIAL IVPUSH (19:12)
[2022-03-15 19:52] LABS: COVID-19 Test Negative (Negative)
== END 2022-03-15 19:43 | disposition home or self-care (01) ==
PROVIDERS: Emergency Provider Internal Medicine
DX: R07.9 Chest pain, unspecified (principal); J44.9 Chronic obstructive pulmonary disease, unspecified; Z20.822 Contact with and (suspected) exposure to COVID-19; I10 Essential (primary) hypertension; E11.9 Type 2 diabetes mellitus without complications; E78.5 Hyperlipidemia, unspecified; F17.210 Nicotine dependence, cigarettes, uncomplicated; F12.90 Cannabis use, unspecified, uncomplicated; Z79.02 Long term (current) use of antithrombotics/antiplatelets; Z79.899 Other long term (current) drug therapy
CPT/HCPCS: 36415; 71045; 84484; 85379; 85610; 85730; 87635; 93005; 94640; 96374; 96375; 99284; J1885; J2930

== ENCOUNTER 2022-03-24 07:04 | Outpatient (REF) | payer OTHER, SELFPAY ==
--- NOTE | ~2022-03-24 | CT_ITS ---
EXAMINATION: CT CHEST SCREENING CLINICAL INFORMATION: 50 pack-year history. Current smoker. COMPARISON: Previous chest x-ray most recent February [address] most recent October 2020 TECHNIQUE: Multidetector volumetric CT imaging of the chest is performed without contrast using low dose technique. Additional 2D coronal and sagittal reformatted images and axial 3D maximum intensity projection (MIP) images are generated on the CT workstation. This CT examination was performed using dose optimization techniques as appropriate, variously including the following: *Automated exposure control *Adjustment of mA and/or kV according to patient size (this includes techniques or standardized protocols for targeted exams where dose is matched to indication/reason for exam; i.e. extremities or head) *Use of iterative reconstruction technique DLP: 58 mGy-cm FINDINGS: LUNGS: There is evidence of emphysema. There are cystic and reticular areas seen in the lungs predominantly in the upper lobes. Largest areas measure 1.4 cm in the right upper lobe axial image 180 series 5, 1 x 2 cm in the peripheral or subpleural superior segment of the right lower lobe axial image 188 series 5 and 1 cm in the peripheral or subpleural left upper lobe axial image 209 series 5. This is similar to previous exam. No pulmonary nodule is seen. No endobronchial or endotracheal lesion. MEDIASTINUM: There is mild coronary artery calcification. The thoracic aorta is upper normal in size. The mediastinum is otherwise normal. PLEURA: There is no pleural effusion. No pleural mass or thickening. AXILLA: No lymphadenopathy. UPPER ABDOMEN: Unremarkable OSSEOUS STRUCTURES: There are degenerative changes of the spine. CT/CT lung screening IMPRESSION: Emphysema. Stable areas of cystic and reticular change. No pulmonary nodule seen. Mild coronary artery disease. ASSESSMENT: Lung-RADS category 2: Benign RECOMMENDATION: Annual low-dose chest CT follow-up recommended.
== END 2022-03-24 07:05 | disposition home or self-care (01) ==
LOC: HO.CT 07:04
PROVIDERS: Visit Provider Physician Assistant Medical
DX: J43.9 Emphysema, unspecified (principal); I25.10 Atherosclerotic heart disease of native coronary artery without angina pectoris; F17.210 Nicotine dependence, cigarettes, uncomplicated
CPT/HCPCS: 71271

== ENCOUNTER 2022-04-07 06:25 | Outpatient (REF) | payer OTHER, SELFPAY ==
[2022-04-07 11:38] LABS: Estimated Average Glucose 123 mg/dL; Hemoglobin A1c % 5.9 %
[2022-04-07 12:02] LABS: Appearance Urine Clear; Color Urine Yellow; Glucose Urine UA >=1000 mg/dL (Negative); Leukocyte Esterase Urine Negative (Negative); Nitrite Urine Negative (Negative); Urine Blood Negative (Negative); Urine Ketones Negative (Negative); Urine Protein Negative (Neg-Trace)
[2022-04-07 12:07] LABS: Alanine Aminotransferase 28 U/L (0-40); Albumin Level 4.1 g/dL (3.5-5.0); Alkaline Phosphatase 88 U/L (39-117); Anion Gap 15 (12-20); Aspartate Amino Transferase 17 U/L (5-37); Bilirubin Total 0.3 mg/dL (0.0-1.0); Blood Urea Nitrogen 21 mg/dL (9-16); Calcium 9.2 mg/dL (8.4-10.2); Carbon Dioxide 21 mmol/L (22-29); Chloride 108 mmol/L (96-108); Cholesterol 148 mg/dL; Estimated Glomerular Filt Rate > 60; Glucose Fasting 131 mg/dL (60-99); HDL Cholesterol 33 mg/dL; LDL Cholesterol Calculated 89 mg/dl; Potassium 4.3 mmol/L (3.3-5.1); Sodium 140 mmol/L (135-145); Total Protein 6.5 g/dL (6.5-8.0); Triglycerides 134 mg/dL
[2022-04-07 12:09] LABS: Creatinine Urine 29.69 mg/dL; Microalbumin Urine < 5.0 mg/L
[2022-04-07 12:30] LABS: RBC Urine 0-2 /HPF (0-2); Squamous Epithelial Cell Urine 0-2 /HPF (0-2); WBC Urine 0-5 /HPF (0-5)
[2022-04-07 12:31] LABS: Bacteria Urine None Seen (None Seen); Hyaline Casts Urine 0-2 /LPF (0-2); TSH reflex Free T4 0.68 uIU/mL (0.32-4.0)
== END 2022-04-07 06:26 | disposition home or self-care (01) ==
LOC: HO.HMGCLDS 06:25
PROVIDERS: PCP Nurse Practitioner Family; Visit Provider Nurse Practitioner Family
DX: E11.9 Type 2 diabetes mellitus without complications (principal)
CPT/HCPCS: 36415; 80053; 80061; 81001; 81003; 82043; 83036; 84443

== ENCOUNTER → 2022-05-04 11:05 | Outpatient (BNVA) | payer OTHER, SELFPAY | PROVIDERS: PCP Nurse Practitioner Family; Visit Provider Internal Medicine Pulmonary Disease | DX: J44.9 Chronic obstructive pulmonary disease, unspecified (principal); R91.8 Other nonspecific abnormal finding of lung field; Z79.899 Other long term (current) drug therapy | CPT/HCPCS: 99212 ==

== ENCOUNTER 2022-06-07 10:42 | Day surgery (SDC) | payer OTHER, SELFPAY ==
[2022-04-25 10:33] VITALS: BMI 26.4
--- NOTE | 2022-04-27 09:45 | HO.ANESPROP2 ---
HPI - Anesthesia Eval Consult details Narrative: 62yo M for Colonoscopy [facility] Active Problems Active Problems: All Active Problems (Updated 04/25/22 @ 10:27 by Isabella Bangura RN) Pancreatitis, acute (Acute) Diabetes (Acute) COPD (chronic obstructive pulmonary disease) (Acute) Pulmonary nodules (Acute) Diabetes (Acute) Physical exam (Acute) Screening PSA (prostate specific antigen) (Acute) Cerumen debris on tympanic membrane of left ear (Acute) Dyslipidemia (Acute) Screening for colon cancer (Acute) ILD (interstitial lung disease) (Acute) [place] of foot (Acute) Past Medical History Medical History (Updated 04/25/22 @ 10:27 by Isabella Bangura RN) Anxiety Asthma Depression Diabetes Fatty liver GERD (gastroesophageal reflux disease) History of splenomegaly HTN (hypertension) Pancreatitis Family History Family History Father Myocardial infarction Mother No problems noted. Paternal Grandfather Colon cancer Maternal Grandmother Unknown family medical history Other Substance use disorder Surgical History Surgical History (Updated 04/25/22 @ 10:27 by Isabella Bangura RN) H/O colonoscopy History of arthroscopic knee surgery History of esophagogastroduodenoscopy (EGD) Social History Social History Household Members: Spouse Housing: House Do you presently have visiting nurse or other home services: No Patient Tobacco Use Status: Current everyday Tobacco user Tobacco use type: Cigarette Cigarettes Per Day: 10 Years Smoked: 58 years e-Cigarette/Vaping Use: Former Use Second Hand Smoke Exposure: No Substance Use Type: Marijuana service: No Current occupational status: disabled Cognitive needs: No Hearing needs: No Vision needs: No Meds Allergies Allergy/AdvReac Type Severity Reaction Status Date / Time No Known Allergies Allergy Verified 04/10/22 13:46 [No Known Allergies*] Home Medications Medication Instructions Recorded Confirmed Last Taken Type bupropion HCl 300 mg 24 hr tablet, 1 tab PO QAM 05/29/20 04/25/22 Unknown History extended release buspirone 30 mg tablet 1 tab PO QPM 05/29/20 04/25/22 Unknown History lorazepam 0.5 mg tablet 0.5 mg PO BID PRN Anxiety 05/31/20 04/25/22 Unknown History quetiapine 100 mg tablet (Seroquel) 100 mg PO BEDTIME PRN Sleep 05/31/20 04/25/22 Unknown History nicotine 21 mg/24 hr daily 1 patch topical DAILY 06/14/20 04/10/22 Unknown History transdermal patch Exam Exam Date and Time: April 27, 2022 0945 Height,Weight and Vital Signs: Height 5 ft 9 in Weight 81.193 kg Pertinent Lab Results Pertinent Lab Results: Laboratory Tests 03/15/22 04/07/22 08:42 06:39 WBC 13.2 H Hgb 17.3 Hct 48.5 Plt Count 214 Sodium 140 Potassium 4.3 Chloride 108 Carbon Dioxide 21 L BUN 21 H D Creatinine 0.93 Narrative Narrative: EKG 02/2022 Vent. Rate : 097 BPM ? ? Atrial Rate : 097 BPM ?? P-R Int : 200 ms? QRS Dur : 084 ms ? ? QT Int : 346 ms ? ? ? P-R-T Axes : 067 014 057 degrees ?? QTc Int : 439 ms ? Normal sinus rhythm Normal ECG When compared with ECG of 15-MAR-2022 08:31, Criteria for Inferior infarct are no longer Present Assessment and Plan Assessment Anesthesia Assessment: Chart Reviewed
--- NOTE | 2022-06-06 12:48 | HO.ANESPROP2 ---
Documented by User: Britney Ashton NP 06/06/22 12:51 HPI - Anesthesia Eval Consult details Narrative: 62yo M for Colonoscopy [facility] Active Problems Active Problems: All Active Problems (Updated 04/25/22 @ 10:27 by Isabella Bangura RN) Pancreatitis, acute (Acute) Diabetes (Acute) COPD (chronic obstructive pulmonary disease) (Acute) Pulmonary nodules (Acute) Diabetes (Acute) Physical exam (Acute) Screening PSA (prostate specific antigen) (Acute) Cerumen debris on tympanic membrane of left ear (Acute) Dyslipidemia (Acute) Screening for colon cancer (Acute) ILD (interstitial lung disease) (Acute) [place] of foot (Acute) Past Medical History Medical History Anxiety Asthma Depression Diabetes Fatty liver GERD (gastroesophageal reflux disease) History of splenomegaly HTN (hypertension) Pancreatitis Family History Family History Father Myocardial infarction Mother No problems noted. Paternal Grandfather Colon cancer Maternal Grandmother Unknown family medical history Other Substance use disorder Surgical History Surgical History H/O colonoscopy History of arthroscopic knee surgery History of esophagogastroduodenoscopy (EGD) Social History Social History Household Members: Spouse Housing: House Do you presently have visiting nurse or other home services: No Patient Tobacco Use Status: Current everyday Tobacco user Tobacco use type: Cigarette Cigarettes Per Day: 7 Years Smoked: 58 years e-Cigarette/Vaping Use: Former Use Second Hand Smoke Exposure: No Substance Use Type: Marijuana Are you DNR?: No Advance Directives: No Advance Directives Information Provided: Yes Recently lost weight without trying: No Nutrition Risks: No Nutritional Risk Poor oral hygiene: No service: No Current occupational status: disabled Cognitive needs: No Hearing needs: No Vision needs: No Meds Allergies Allergy/AdvReac Type Severity Reaction Status Date / Time No Known Allergies Allergy Verified 05/24/22 10:23 [No Known Allergies*] Home Medications Medication Instructions Recorded Confirmed Last Taken Type bupropion HCl 300 mg 24 hr tablet, 1 tab PO QAM 05/29/20 05/24/22 06/06/22 History extended release buspirone 30 mg tablet 1 tab PO QPM 05/29/20 05/24/22 06/06/22 History lorazepam 0.5 mg tablet 0.5 mg PO BID PRN Anxiety 05/31/20 05/24/22 05/24/22 History quetiapine 100 mg tablet (Seroquel) 100 mg PO BEDTIME PRN Sleep 05/31/20 05/24/22 05/08/22 History Exam Exam Date and Time: June 06, 2022 1248 Height,Weight and Vital Signs: Height 5 ft 9 in Weight 81.193 kg Pertinent Lab Results Pertinent Lab Results: Laboratory Tests 03/15/22 04/07/22 08:42 06:39 WBC 13.2 H Hgb 17.3 Hct 48.5 Plt Count 214 Sodium 140 Potassium 4.3 Chloride 108 Carbon Dioxide 21 L BUN 21 H D Creatinine 0.93 Narrative Narrative: EKG 02/2022 Vent. Rate : 097 BPM ? ? Atrial Rate : 097 BPM ?? P-R Int : 200 ms? QRS Dur : 084 ms ? ? QT Int : 346 ms ? ? ? P-R-T Axes : 067 014 057 degrees ?? QTc Int : 439 ms ? Normal sinus rhythm Normal ECG When compared with ECG of 15-MAR-2022 08:31, Criteria for Inferior infarct are no longer Present Documented by User: Dunia Dodge MD 06/07/22 12:18 [facility] Past Medical History Medical History Anxiety Asthma Depression Diabetes Fatty liver GERD (gastroesophageal reflux disease) History of splenomegaly HTN (hypertension) Pancreatitis Family History Family History Father Myocardial infarction Mother No problems noted. Paternal Grandfather Colon cancer Maternal Grandmother Unknown family medical history Other Substance use disorder Surgical History Surgical History H/O colonoscopy History of arthroscopic knee surgery History of esophagogastroduodenoscopy (EGD) History of Problems with Anesthesia: No Social History Social History Household Members: Spouse Housing: House Do you presently have visiting nurse or other home services: No Patient Tobacco Use Status: Current everyday Tobacco user Tobacco use type: Cigarette Cigarettes Per Day: 7 Years Smoked: 58 years e-Cigarette/Vaping Use: Former Use Second Hand Smoke Exposure: No Substance Use Type: Marijuana Are you DNR?: No Advance Directives: No Advance Directives Information Provided: Yes Recently lost weight without trying: No Nutrition Risks: No Nutritional Risk Poor oral hygiene: No service: No Current occupational status: disabled Cognitive needs: No Hearing needs: No Vision needs: No Meds Allergies Allergy/AdvReac Type Severity Reaction Status Date / Time No Known Allergies Allergy Verified 05/24/22 10:23 [No Known Allergies*] Home Medications Medication Instructions Recorded Confirmed Last Taken Type bupropion HCl 300 mg 24 hr tablet, 1 tab PO QAM 05/29/20 05/24/22 06/06/22 History extended release buspirone 30 mg tablet 1 tab PO QPM 05/29/20 05/24/22 06/06/22 History lorazepam 0.5 mg tablet 0.5 mg PO BID PRN Anxiety 05/31/20 05/24/22 05/24/22 History quetiapine 100 mg tablet (Seroquel) 100 mg PO BEDTIME PRN Sleep 05/31/20 05/24/22 05/08/22 History Exam Airway Mallampati Class: III TM Dist: >3cm Neck ROM: Full Loose/Missing/Broken Teeth: No Heart: RRR Lungs: CTA Assessment and Plan Assessment Anesthesia Assessment: Anesthesia Plan Discussed and Chart Reviewed Final Anesthetic Review History of Problems with Anesthesia: No NPO: Yes ASA Class: II Final Preanesthetic Review: Meds/Allgs Chart Reviewed, Consent Obtained/Reviewed and Anes Risks/Benef Reviewed Patient Risk: Low Procedure Risk: Low Anesthetic Plan Anesthetic Plan: MAC: Disposition: Standard PACU
[2022-06-07 10:44] VITALS: BP 123/92; PULSE 86; RESP 18; TEMP 36.8; O2SAT 95
[2022-06-07 10:56] LABS: Glucose, Whole Blood 101 mg/dL (60-115)
[2022-06-07] MEDS: Lactated Ringers 1,000 ML 100 ML IVCONT (11:19)
[2022-06-07 12:40] VITALS: BP 103/53; PULSE 80; RESP 20; TEMP 36.5; O2SAT 95
--- NOTE | 2022-06-07 12:45 | P.BOP_ITS ---
Brief Operative Note Date of Service: 06/07/22 Pre-op diagnosis: Screening Post-op diagnosis: other (Colon polyp) Procedure: Colonoscopy to the cecum and TI with hot snare polypectomy Surgeon: Remy Anderson Anesthesia: MAC Was an Representative Personal Service used for this Procedure?: No Estimated blood loss (mL): 0 Pathology: other (A. Polyp at 60cm) Condition: stable Disposition: PACU
[2022-06-07 12:55] VITALS: BP 117/78; PULSE 77; RESP 18; TEMP 36.5; O2SAT 96
--- NOTE | 2022-06-07 23:47 | OP_ITS ---
SURGEON: Remy Anderson MD INDICATIONS: The patient presents for evaluation of colorectal cancer screening. Full consent obtained from him for this, including risks of bleeding and perforation. PREOPERATIVE DIAGNOSIS: POSTOPERATIVE DIAGNOSIS: PROCEDURE PERFORMED: Colonoscopy to the cecum and terminal ileum with hot snare polypectomy. ESTIMATED BLOOD LOSS: COMPLICATIONS: ANESTHESIA: Prep medication used, monitored anesthesia care. ASSISTANTS: SPECIMENS: PREOPERATIVE DIAGNOSES: Colorectal cancer screening and personal history of tubular adenoma of the colon. POSTOPERATIVE DIAGNOSES: 1. Colorectal cancer screening and personal history of tubular adenoma of the colon. 2. Colon polyp. 3. Diverticulosis. 4. Internal hemorrhoids. DESCRIPTION OF PROCEDURE: Patient was placed in the left lateral decubitus position. The digital rectal exam revealed no abnormalities. The Olympus video pediatric colonoscope was entered into the rectum and advanced easily to the cecum. Once in the cecum, I did identify normal-appearing cecal pouch with appendiceal orifice and a normal-appearing ileocecal valve. The terminal ileum was cannulated and appeared normal. The scope was withdrawn back in the colon. The entire cecum and ileocecal valve appeared normal. The scope was slowly withdrawn assessing all mucosal surfaces carefully. Preparation was excellent. At 60 cm was an approximately 8 mm polyp, which was removed by hot snare polypectomy and recovered by suction. The polypectomy site appeared clean, without any sign of residual polyp nor bleeding. I did not visualize any other polyps, colitis, nor angiodysplasia. There was a mild amount of sigmoid diverticulosis. In the rectum, scope was retroflexed visualizing internal hemorrhoids, but no other pathology. The rectal mucosa appeared normal. The scope was straightened and withdrawn from the patient. He tolerated procedure well and was returned to the recovery area in stable condition. IMPRESSION: 1. Colon polyp, status post hot snare polypectomy. 2. Diverticulosis. 3. Internal hemorrhoids. PLAN: The results of the pathology will be checked. I would recommend a repeat colonoscopy in 5 years for further screening. He was advised not to use any aspirin or NSAIDs for 1 week. He would otherwise see me on a p.r.n. basis. MD JERRY Harmon/JONAS / [id number]
== END 2022-06-07 13:30 | disposition home or self-care (01) ==
PROVIDERS: PCP Nurse Practitioner Family; Visit Provider Internal Medicine
PROC: 0DJD8ZZ Inspection of Lower Intestinal Tract, Via Natural or Artificial Opening Endoscopic (ICD-10-PCS; CPT 45378; principal; 2022-06-07 11:40)
DX: Z12.11 Encounter for screening for malignant neoplasm of colon (principal); Z86.010 Personal history of colon polyps; D12.4 Benign neoplasm of descending colon; K57.30 Diverticulosis of large intestine without perforation or abscess without bleeding; K64.8 Other hemorrhoids; K21.9 Gastro-esophageal reflux disease without esophagitis; K76.0 Fatty (change of) liver, not elsewhere classified; K85.90 Acute pancreatitis without necrosis or infection, unspecified; J45.909 Unspecified asthma, uncomplicated; E11.9 Type 2 diabetes mellitus without complications; I10 Essential (primary) hypertension; Z79.51 Long term (current) use of inhaled steroids; Z79.84 Long term (current) use of oral hypoglycemic drugs; Z79.82 Long term (current) use of aspirin; Z79.899 Other long term (current) drug therapy; F17.210 Nicotine dependence, cigarettes, uncomplicated; F12.90 Cannabis use, unspecified, uncomplicated
CPT/HCPCS: 45385; 82947; 88305

== ENCOUNTER 2022-11-03 06:08 | Outpatient (REF) | payer OTHER, SELFPAY ==
[2022-11-03 12:48] LABS: MANUAL DIFF FLAG NO
[2022-11-03 12:53] LABS: Appearance Urine Clear; Color Urine Yellow; Glucose Urine UA >=1000 mg/dL (Negative); Leukocyte Esterase Urine Negative (Negative); Nitrite Urine Negative (Negative); PH 5.5 (5.0-9.0); UMIC TRIGGER UACC YES; Urine Blood Negative (Negative); Urine Ketones Negative (Negative); Urine Protein Negative (Neg-Trace)
[2022-11-03 12:54] LABS: Basophils Absolute Auto 0.1 X10*3/uL (0.0-0.2); Eosinophils Absolute Auto 0.4 X10*3/uL (0.0-0.4); Eosinophils Percent Auto 4.8 % (0-4); Hematocrit 52.1 % (42.0-52.0); Hemoglobin 17.8 g/dl (14.0-18.0); Imm Gran Abs Auto 0.06 X10*3/uL (0.00-0.03); Imm Gran Pct Auto 0.7 % (0.0-0.4); Lymphocytes Absolute Auto 2.9 X10*3/uL (1.2-4.9); Lymphocytes Percent Auto 35.2 % (20-40); Mean Corpuscular HGB Conc 34.2 g/dl (31.0-36.0); Mean Corpuscular Hemoglobin 31.8 pg (27.0-33.0); Mean Platelet Volume 9.7 fL (9.4-12.4); Monocytes Absolute Auto 1.1 X10*3/uL (0.1-1.2); Monocytes Percent Auto 13.2 % (2-11); Neutrophils Absolute Auto 3.8 x10*3/uL (2.0-8.3); Neutrophils Percent Auto 45.1 % (45-73); Platelet Count 200 X10*3/uL (160-400); Red Cell Distribution Width 12.6 % (11.0-16.0); White Blood Count 8.4 X10*3/uL (4.8-10.8)
[2022-11-03 13:02] LABS: Estimated Average Glucose 163 mg/dL; Hemoglobin A1c % 7.3 %
[2022-11-03 13:13] LABS: Bacteria Urine None Seen (None Seen); Hyaline Casts Urine 0-2 /LPF (0-2); RBC Urine 0-2 /HPF (0-2); Squamous Epithelial Cell Urine 0-2 /HPF (0-2); WBC Urine 0-5 /HPF (0-5)
[2022-11-03 13:20] LABS: Alanine Aminotransferase 59 U/L (0-40); Albumin Level 4.5 g/dL (3.5-5.0); Alkaline Phosphatase 88 U/L (39-117); Anion Gap 13 (12-20); Aspartate Amino Transferase 24 U/L (5-37); Bilirubin Total 0.9 mg/dL (0.0-1.0); Blood Urea Nitrogen 18 mg/dL (9-16); Calcium 8.9 mg/dL (8.4-10.2); Carbon Dioxide 25 mmol/L (22-29); Chloride 104 mmol/L (96-108); Estimated Glomerular Filt Rate 55; Glucose Fasting 158 mg/dL (60-99); Potassium 4.3 mmol/L (3.3-5.1); Sodium 138 mmol/L (135-145); Total Protein 6.8 g/dL (6.5-8.0)
[2022-11-03 13:27] LABS: TSH reflex Free T4 1.27 uIU/mL (0.32-4.0)
== END 2022-11-03 06:09 | disposition home or self-care (01) ==
LOC: HO.HMGCLDS 06:08
PROVIDERS: PCP Nurse Practitioner Family; Visit Provider Nurse Practitioner Family
DX: E11.9 Type 2 diabetes mellitus without complications (principal)
CPT/HCPCS: 36415; 80053; 81001; 83036; 84443; 85025

== ENCOUNTER → 2022-12-22 15:05 | Outpatient (BNVA) | payer OTHER, SELFPAY | PROVIDERS: PCP Nurse Practitioner Family; Visit Provider Internal Medicine Pulmonary Disease | DX: J44.9 Chronic obstructive pulmonary disease, unspecified (principal); R91.8 Other nonspecific abnormal finding of lung field; F17.210 Nicotine dependence, cigarettes, uncomplicated; Z79.899 Other long term (current) drug therapy | CPT/HCPCS: 99212 ==

== ENCOUNTER 2023-04-09 06:26 | Outpatient (REF) | payer OTHER, SELFPAY ==
[2023-04-09 12:08] LABS: Alanine Aminotransferase 54 U/L (0-40); Albumin Level 4.4 g/dL (3.5-5.0); Alkaline Phosphatase 78 U/L (39-117); Anion Gap 12 (12-20); Aspartate Amino Transferase 26 U/L (5-37); Bilirubin Total 0.4 mg/dL (0.0-1.0); Blood Urea Nitrogen 15 mg/dL (9-16); Calcium 9.7 mg/dL (8.4-10.2); Carbon Dioxide 24 mmol/L (22-29); Chloride 109 mmol/L (96-108); Estimated Glomerular Filt Rate > 60; Glucose Fasting 169 mg/dL (60-99); Sodium 141 mmol/L (135-145)
[2023-04-09 12:09] LABS: Estimated Average Glucose 134 mg/dL; Hemoglobin A1C 209.7841 umol/L; Hemoglobin A1c % 6.3 % (<6.0)
[2023-04-09 12:26] LABS: Prostate Specific Antigen Scr 1.24 ng/mL (<0.05-4.0)
== END 2023-04-09 06:27 | disposition home or self-care (01) ==
LOC: HO.HMGCLDS 06:26
PROVIDERS: PCP Nurse Practitioner Family; Visit Provider Nurse Practitioner Family
DX: Z12.5 Encounter for screening for malignant neoplasm of prostate (principal); E11.9 Type 2 diabetes mellitus without complications
CPT/HCPCS: 36415; 80053; 83036; 84153

== ENCOUNTER 2023-04-12 07:31 | Outpatient (AMB) | payer OTHER, SELFPAY ==
--- NOTE | 2023-04-12 07:42 | A.OFFPC_ITS ---
Vital Signs 04/12/23 07:43 Height 5 ft 9 in Weight 183 lb 8 oz BMI 27.1 BP 108/70 Blood Pressure Location Lt brachial Position Sitting Pulse 78 Pulse Source Pulse Oximeter Pulse Oximetry (%) 97 Oxygen Delivery Method Room Air Intake Visit Reasons: Annual PE Allergies No Known Allergies [No Known Allergies*] Allergy (Verified 04/12/23 07:45) Medication List - Last Reconciled 04/12/23 by Torrey Ray, INSURANCE PROFESSIONAL- albuterol sulfate 2.5 mg (3 mL) inhalation QID PRN albuterol sulfate 90 mcg/actuation (Ventolin HFA) 2 puffs inhalation Q4H PRN 30 days blood sugar diagnostic check sugar once a day bupropion HCl 1 tab PO QAM buspirone 1 tab PO QPM cetirizine 10 mg PO QPM docusate sodium (Stool Softener) 100 mg PO DAILY PRN 30 days empagliflozin (Jardiance) 10 mg PO QAM fluticasone furoate-vilanterol 100-25 mcg/dose (Breo Ellipta) 1 inh inhalation DAILY 30 days fluticasone propionate 50 mcg/actuation (Allergy Relief (fluticasone)) 1 spray intranasal DAILY Incruse Ellipta 62.5 mcg/actuation (umeclidinium) 1 inh inhalation DAILY NS lancets (FreeStyle Lancets) once a day lisinopril 2.5 mg PO QPM 90 days lorazepam 0.5 mg PO BID PRN montelukast 10 mg PO QPM naproxen 375 mg PO BID PRN nicotine 1 patch transdermal Q24H omega-3 acid ethyl esters 1 cap PO BID omeprazole 20 mg PO DAILY quetiapine (Seroquel) 100 mg PO BEDTIME PRN rosuvastatin 20 mg PO DAILY 90 days Tobacco use date assessed: 04/12/23 Fall risk assessment: No Falls in past year Last assessed Fall Risk: 04/12/23 Dental Screening Dental Screen Date: 04/12/23 Did you have a dental visit in the last 12 months?: Yes Did you have a dental problem in the last 6 months where you did not have access to dental care?: No Was dental information given to patient?: Patient has dentist HPI Annual PE HPI Details Pt is here for a PE. Will order labs. PSA is up to date. Colon screen is up to date. Pt is a diabetic, on an NEIL and a statin. Last A1C was 6.3. Due for microalbumin, will order. Denies polyuria, polydipsia, reports intermittent neuropathy. Pt denies any signs and symptoms of hypoglycemia and does know how to correct it. Pt will schedule his own eye exam. Pt has yearly low-dose lung CTs. [facility] Medical History Anxiety Asthma Depression Diabetes Fatty liver GERD (gastroesophageal reflux disease) History of splenomegaly HTN (hypertension) Pancreatitis Surgical History H/O colonoscopy History of arthroscopic knee surgery History of esophagogastroduodenoscopy (EGD) Family History Father Myocardial infarction Mother No problems noted. Paternal Grandfather Colon cancer Maternal Grandmother Unknown family medical history Other Substance use disorder Social History Household Members: Spouse Housing: House Do you presently have visiting nurse or other home services: No Patient Tobacco Use Status: Current everyday Tobacco user Tobacco use type: Cigarette Cigarettes Per Day: 10 Years Smoked: 58 years e-Cigarette/Vaping Use: Former Use Second Hand Smoke Exposure: No Substance Use Type: Marijuana service: No Current occupational status: disabled Cognitive needs: No Hearing needs: No Vision needs: No Questionnaire Thrive Questionnaire Date Thrive assessed: 04/10/22 XAVIER-7 AMB Questionnaire XAVIER-7 Date XAVIER - 7 assessed: 04/10/22 Source: Developed by Drs. Remy Barr, Yvonne Sánchez, Mesfin Leonard and colleagues, with an educational marck from [employer]. Review of Systems Const Denies chills and Denies fever(s) Eyes Denies blurry vision ENT Denies vertigo, Denies dizziness and Denies sore throat Card Denies chest pain at rest, Denies chest pain with activity, Denies diaphoresis, Denies dyspnea and Denies dyspnea on exertion Resp Denies cough, Denies dyspnea, Denies dyspnea on exertion and Denies wheezing GI Denies abdominal pain, Denies melena, Denies hematochezia, Denies constipation, Denies diarrhea and Denies loose stools Denies hematuria Musc Denies numbness and Denies tingling Skin/Breast Denies lesions Neuro Denies vertigo, Denies dizziness, Denies numbness and Denies tingling Psych Denies anxiety, Denies depression, Denies homicidal ideation, Denies suicidal ideation and Denies other (substance abuse) Aller/Immun Denies wheezing Physical exam (Primary Care) Vital Signs: Last Vital Signs Pulse 78 04/12/23 07:43 BP 108/70 04/12/23 07:43 Pulse Ox 97 04/12/23 07:43 Oxygen Delivery Method Room Air 04/12/23 07:43 BMI result Body Mass Index 27.1 Tobacco/Smoking Status: Tobacco use Status Tobacco use date assessed 04/12/23 04/12/23 07:47 Patient Tobacco Use Status Current everyday Tobacco 04/12/23 07:47 Tobacco use type Cigarette 04/12/23 07:47 e-Cigarette/Vaping Use Former Use 04/12/23 07:47 Thrive Assessment: Date of Thrive Assessment Date Thrive assessed 04/10/22 04/12/23 07:47 Const General: cooperative Nutritional Appearance: well nourished Orientation/consciousness: patient oriented x3 HENMT Head: Yes normal to inspection, Yes normocephalic and Yes atraumatic Ears: TM's normal bilaterally Eyes General: appearance normal, both eyes and all related structures Alignment and Position: alignment normal and position normal Neck Neck: Yes normal visual inspection and Yes no lymphadenopathy Thyroid: Thyroid normal Resp Effort & Inspection: normal respiratory effort Auscultation: clear to auscultation bilaterally Cardio Rate: regular rate Rhythm: regular rhythm Heart sounds: S1 normal heart sound present, S2 normal heart sound present and no murmurs GI Palpation (GI): Soft to palpation and nontender Auscultation: normal bowel sounds Male General Exam: Yes normal external exam Penis: normal penis Scrotum: scrotum normal, testes descended bilaterally and no inguinal hernias Testes: no testicular mass Skin Rashes: no rashes Neuro General: patient oriented x3, moves all extremities, no focal motor deficits and deep tendon reflexes 2+ bilaterally Romberg Test: Negative Psych Appearance: grossly normal Mental Status: mental status grossly normal Speech and movement: Normal speech and movement present Affect: normal affect Attitude: cooperative Thought process: Normal thought process present Thought content: Normal thought content present Insight: Good insight present (Psych) Judgement: Good judgement present (Psych) Assessment and Plan Assessment & Plan (1) Diabetes: Code(s): E11.9 - Type 2 diabetes mellitus without complications (2) Physical exam: Code(s): Z00.00 - Encounter for general adult medical examination without abnormal findings Plan The patient agreed to the use of a medical records administrator for this encounter. Scribed for CHRISTINA Awad by Lula Ray medical records administrator, on 04/12/2023 at 07:50 EST. Orders: Orders Microalbumin, Random (w Creat) Today E11.9 - Type 2 diabetes mellitus without complications, Z00.00 - Encounter for general adult medical examination without abnormal findings Complete Blood Count Auto Diff Today E11.9 - Type 2 diabetes mellitus without complications, Z00.00 - Encounter for general adult medical examination without abnormal findings UA CC w/rflx Micro + Cult Today E11.9 - Type 2 diabetes mellitus without complications, Z00.00 - Encounter for general adult medical examination without abnormal findings TSH reflex Free T4 Today E11.9 - Type 2 diabetes mellitus without complications, Z00.00 - Encounter for general adult medical examination without abnormal findings Coding Level of Care Code Est Pt Prev Care >65y(03397) Diagnoses Diabetes E11.9 Physical exam Z00.00
[2023-04-12 07:43] VITALS: BP 108/70; PULSE 78; O2SAT 97; BMI 27.1
== END 2023-04-12 08:31 | disposition home or self-care (01) ==
PROVIDERS: Visit Provider Nurse Practitioner Family
DX: E11.9 Type 2 diabetes mellitus without complications (principal); Z00.00 Encounter for general adult medical examination without abnormal findings
CPT/HCPCS: 99397

== ENCOUNTER 2023-04-17 07:26 | Outpatient (REF) | payer OTHER, SELFPAY ==
--- NOTE | 2023-04-17 08:05 | PFT_ITS ---
FLOWS: 1. FEV1 81% of predicted at 2.73 L. 2. FVC 77% of predicted at 3.50 L. 3. FEV1 to FVC ratio of 0.78. 4. No bronchodilator response. LUNG VOLUMES: 1. Total lung capacity 87% of predicted at 6.08 L. 2. Residual volume 109% of predicted at 2.53 L. 3. Slow vital capacity 77% of predicted at 3.54 L. 4. Expiratory reserve volume 22% of predicted at 0.29 L. 5. Diffusion capacity is normal. IMPRESSION: No obstructive or restrictive ventilatory defect. No bronchodilator response. Decreased expiratory reserve volume suggests extrathoracic restriction, likely secondary to abdominal obesity. Joss Bonilla MD AP/MODL / [id number]
== END 2023-04-17 07:27 | disposition home or self-care (01) ==
LOC: HO.RESP 07:26
PROVIDERS: PCP Nurse Practitioner Family; Visit Provider Internal Medicine Pulmonary Disease
DX: J44.9 Chronic obstructive pulmonary disease, unspecified (principal)
CPT/HCPCS: 94010; 94727; 94729

== ENCOUNTER → 2023-04-17 08:05 | Outpatient (BNV) | payer OTHER, SELFPAY | PROVIDERS: PCP Nurse Practitioner Family; Visit Provider Internal Medicine Pulmonary Disease | DX: J44.9 Chronic obstructive pulmonary disease, unspecified (principal) | CPT/HCPCS: 94060; 94727; 94729 ==

== ENCOUNTER 2023-04-30 06:41 | Outpatient (REF) | payer OTHER, SELFPAY ==
--- NOTE | ~2023-04-30 | CT_ITS ---
EXAMINATION: CT CHEST WITHOUT CONTRAST CLINICAL INFORMATION: R91.8 - Other nonspecific abnormal finding of lung field. COMPARISON: CT lung screening exams dated 10/18/2020 and 03/24/2022. TECHNIQUE: Multidetector volumetric CT imaging of the chest was done. Axial MIP volume rendering provided. Sagittal and coronal reformatted images were obtained. This CT examination was performed using dose optimization techniques as appropriate, variously including the following: *Automated exposure control *Adjustment of mA and/or kV according to patient size (this includes techniques or standardized protocols for targeted exams where dose is matched to indication/reason for exam; i.e. extremities or head) *Use of iterative reconstruction technique DLP: 217.0 mGy-cm FINDINGS: LUNGS: Again seen is evidence of pulmonary emphysema with cystic changes predominantly in the upper lobes. A saber-sheath trachea is present. A few tiny pulmonary nodules are present with none measuring greater than 3 mm. They are better seen on today's study as this is not a low dose CT lung screening study but a diagnostic chest CT. The largest measures 3 mm in the left upper lobe medially (7:281 compare prior 5:191). Mckeon images of all have been saved. No new worrisome lung masses are seen. MEDIASTINUM: Calcifications are seen in the left thyroid which were also present previously. A discrete mass is not identified. Heart size is normal. There is a new 1.0 x 0.6 x 0.4 cm right anterior prepericardiac lymph node seen. No worrisome mediastinal or hilar lymphadenopathy seen. CORONARY ARTERY CALCIFICATION: Present. PLEURA: There is no pleural effusion. No pleural mass or thickening. AXILLA: No lymphadenopathy. UPPER ABDOMEN: There is a fat density 1.8 cm right adrenal nodule present, not significantly changed from prior consistent with a benign adenoma (7:692 compare prior 3:64) OSSEOUS STRUCTURES: Degenerative changes are again seen in the spine. A large osteophyte protrudes into the pleura in the right midlung from a rib. CT/CT chest wo IV con IMPRESSION: 1. No worrisome lung masses are seen. 2. There is evidence of emphysema with cystic changes predominantly in the upper lobes. 3. A few tiny pulmonary nodules are present with none measuring greater than 3 mm. 4. Stable right adrenal adenoma. 5. New small right prepericardiac lymph node. This is of doubtful clinical significance. 6.Incidentally noted left thyroid calcifications, degenerative changes in the spine and a large osteophyte protruding into the pleura in the right midlung from a rib, all unchanged from prior. Lung-RADS category 2: Benign. Fleischner guidelines were followed.
== END 2023-04-30 06:42 | disposition home or self-care (01) ==
LOC: HO.CT 06:41
PROVIDERS: PCP Nurse Practitioner Family; Visit Provider Internal Medicine Pulmonary Disease
DX: R91.8 Other nonspecific abnormal finding of lung field (principal)
CPT/HCPCS: 71250

== ENCOUNTER 2023-07-02 09:32 | Outpatient (AMB) | payer OTHER, SELFPAY ==
--- NOTE | 2023-07-02 11:16 | AM.OFFWIN_ITS ---
Intake Vital Signs 07/02/23 11:18 Height 5 ft 9 in Weight 181 lb 6 oz BMI 26.8 BP 108/74 Blood Pressure Location Rt brachial Position Sitting Pulse 78 Pulse Source Pulse Oximeter Temp 97.8 F Temp Source Temporal Artery Scan Pulse Oximetry (%) 97 Oxygen Delivery Method Room Air Intake Visit Reasons: EP Lower RT back pain shoots down leg [phone] Intake Note: pt is here for c/o lower right back pain, down you leg due to lifting something Patient Tobacco Use Status: Current everyday Tobacco user Allergies No Known Allergies [No Known Allergies*] Allergy (Verified 07/02/23 11:18) Do you need a note to return to daycare/school/sports/work: Yes HPI EP Lower RT back pain shoots down leg [phone] HPI0 Details 63-year-old male presents to the office for a sick visit. Patient is reporting sharp pain on the right side of his hip. Symptoms started over the weekend after he lifted a very heavy table. Pain is constant in the right hip radiating down to the right leg. Worse on bending forward. [facility]LY [facility], [facility] Medical History Anxiety Asthma Depression Diabetes Fatty liver GERD (gastroesophageal reflux disease) History of splenomegaly HTN (hypertension) Pancreatitis Surgical History H/O colonoscopy History of arthroscopic knee surgery History of esophagogastroduodenoscopy (EGD) Family History Father Myocardial infarction Mother No problems noted. Paternal Grandfather Colon cancer Maternal Grandmother Unknown family medical history Other Substance use disorder Social History Household Members: Spouse Housing: House Do you presently have visiting nurse or other home services: No Patient Tobacco Use Status: Current everyday Tobacco user Tobacco use type: Cigarette Cigarettes Per Day: 10 Years Smoked: 58 years e-Cigarette/Vaping Use: Former Use Second Hand Smoke Exposure: No Substance Use Type: Marijuana service: No Current occupational status: disabled Cognitive needs: No Hearing needs: No Vision needs: No Physical Exam Vital Signs: Last Vital Signs Temp 97.8 F 07/02/23 11:18 Pulse 78 07/02/23 11:18 BP 108/74 07/02/23 11:18 Pulse Ox 97 07/02/23 11:18 Oxygen Delivery Method Room Air 07/02/23 11:18 BMI result Body Mass Index 26.8 Back/Spine/Pelvis Other: Discomfort on the right side of the hip. No palpable tender area. Pain on late ral motion at the hip. Assessment & Plan Assessment & Plan (1) Low back pain: Code(s): M54.50 - Low back pain, unspecified Plan: Meloxicam and cyclobenzaprine called in. Patient was advised rest. Note for work if necessary provided. Once pain symptoms subside, patient should start physical therapy. If symptoms worsen to follow-up here. Patient will be offered Toradol injection if he comes with someone who can drive him after the injection. Coding Level of Care Code Est Pt Level 4 (34522) Diagnoses Low back pain M54.50
[2023-07-02 11:18] VITALS: BP 108/74; PULSE 78; TEMP 36.6; O2SAT 97; BMI 26.8
== END 2023-07-02 12:05 | disposition home or self-care (01) ==
PROVIDERS: PCP Nurse Practitioner Family; Visit Provider Internal Medicine
DX: M54.50 Low back pain, unspecified (principal)
CPT/HCPCS: 99214

== ENCOUNTER 2023-07-09 14:03 | Emergency (ER) | payer OTHER, SELFPAY ==
[2023-07-09 14:10] VITALS: BP 140/70; PULSE 80; O2SAT 100
[2023-07-09 14:11] VITALS: BP 142/99; PULSE 94; RESP 18; TEMP 37.1; O2SAT 99; BMI 26.6
--- NOTE | 2023-07-09 14:44 | ED.DENTAL ---
HPI - Dental/Oral General Chief complaint: Dental/Oral Stated complaint: ORAL BLEEDING S/P TOOTH EXTRACTION @900 Time Seen by Provider: 07/09/23 14:28 Source: patient and EMS Mode of arrival: EMS Limitations: no limitations History of Present Illness HPI Narrative: This is a 63-year-old male history of diabetes, COPD, pancreatitis, interstitial lung disease presenting for bleeding in mouth, patient reports earlier today at approximately 10:00 he a dental extraction (left upper molar), when he was at the pharmacy picking up his antibiotics he noted that his mouth was bleeding so he freaked out and called an ambulance. Concern for bleeding in mouth. Patient is not on blood thinners. Denies chest pain, shortness of breath, headache, vision changes, dizziness, weakness, nausea vomiting. Related Data Home Medications Medication Instructions Recorded Confirmed bupropion HCl 300 mg 24 hr tablet, 1 tab PO QAM 05/29/20 04/12/23 extended release buspirone 30 mg tablet 1 tab PO QPM 05/29/20 04/12/23 lorazepam 0.5 mg tablet 0.5 mg PO BID PRN Anxiety 05/31/20 04/12/23 quetiapine 100 mg tablet (Seroquel) 100 mg PO BEDTIME PRN Sleep 05/31/20 04/12/23 Previous Rx's Medication Instructions Recorded lancets 28 gauge (FreeStyle #100 ea 08/19/20 Lancets) naproxen 375 mg tablet 375 mg PO BID PRN pain #15 tabs 12/23/20 fluticasone furoate 100 1 inh inhalation DAILY 30 days #28 06/27/21 mcg-vilanterol 25 mcg/dose ea inhalation powder (Breo Ellipta) albuterol sulfate 2.5 mg/3 mL 2.5 mg (3 mL) inhalation QID PRN 11/10/21 (0.083 %) solution for nebulization shortness of breath or wheezing #75 mL blood sugar diagnostic #100 ea 05/29/22 docusate sodium 100 mg capsule 100 mg PO DAILY PRN constipation 07/01/22 (Stool Softener) 30 days #90 caps Incruse Ellipta 62.5 mcg/actuation 1 inh inhalation DAILY #30 ea 09/15/22 powder for inhalation (umeclidinium) nicotine 21 mg/24 hr daily 1 patch transdermal Q24H #28 ea 11/17/22 transdermal patch fluticasone propionate 50 1 spray intranasal DAILY #16 grams 12/21/22 mcg/actuation nasal spray,suspension (Allergy Relief (fluticasone)) omega-3 acid ethyl esters 1 gram 1 cap PO BID #180 caps 02/16/23 capsule montelukast 10 mg tablet 10 mg PO QPM #90 tabs 02/24/23 albuterol sulfate 90 mcg/actuation 2 puff inhalation Q4H PRN 03/02/23 aerosol inhaler (Ventolin HFA) Shortness Of Breath Or Wheezing 30 days #8.5 grams cetirizine 10 mg tablet 10 mg PO QPM #90 tabs 03/28/23 empagliflozin 10 mg tablet 10 mg PO QAM #90 tabs 05/06/23 (Jardiance) lisinopril 2.5 mg tablet 2.5 mg PO QPM 90 days #90 tabs 05/16/23 omeprazole 20 mg capsule,delayed 20 mg PO DAILY #90 caps 05/16/23 release rosuvastatin 20 mg tablet 20 mg PO DAILY 90 days #90 tabs 05/16/23 cyclobenzaprine 10 mg tablet 10 mg PO BEDTIME #14 tabs 07/02/23 meloxicam 15 mg tablet 15 mg PO DAILY #14 tabs 07/02/23 Allergies Allergy/AdvReac Type Severity Reaction Status Date / Time No Known Allergies Allergy Verified 07/02/23 11:18 [No Known Allergies*] Review of Systems Review of Systems: Constitutional : No Weight loss, No Fever, No Chills, No Fatigue, No Malaise ENT/Mouth : No sore throat, No Rhinorrhea, + bleeding extraction site Eyes: No Eye Pain, No Swelling, No Redness Cardiovascular : No Chest Pain, No SOB, No Dyspnea on Exertion, No Orthopnea, No Edema, No Palpitations Respiratory : No Cough, No Sputum, No Wheezing Gastrointestinal : No Nausea, No Vomiting, No Diarrhea, No Constipation, No abdominal Pain, No Hematochezia, No Melena Genitourinary : No Dysuria, No Urinary Frequency, No Hematuria, Musculoskeletal : No joint pain, No Myalgias, No Joint Swelling Skin : No Skin Lesions, No rash Neuro : No Weakness, No Numbness, No Dizziness, No Headache Psych : No Anxiety/Panic, No Depression All other systems reviewed and are negative Yes all other systems are reviewed and are negative [facility] Past Medical History Attestation statement: The following information was validated with the patient. Source: old records reviewed and nursing notes reviewed Medical History Anxiety Asthma Depression Diabetes Fatty liver GERD (gastroesophageal reflux disease) History of splenomegaly HTN (hypertension) Pancreatitis Surgical History H/O colonoscopy History of arthroscopic knee surgery History of esophagogastroduodenoscopy (EGD) Family History Family History Father Myocardial infarction Mother No problems noted. Paternal Grandfather Colon cancer Maternal Grandmother Unknown family medical history Other Substance use disorder Social History Social History Household Members: Spouse Housing: House Do you presently have visiting nurse or other home services: No Patient Tobacco Use Status: Current everyday Tobacco user Tobacco use type: Cigarette Cigarettes Per Day: 10 Years Smoked: 58 years e-Cigarette/Vaping Use: Former Use Second Hand Smoke Exposure: No Substance Use Type: Marijuana Advance Directives: No Advance Directives Information Provided: No service: No Current occupational status: disabled Cognitive needs: No Hearing needs: No Vision needs: No Physical Exam Vital Signs: Vital Signs: Last Vital Signs Temp 98.7 F 07/09/23 14:11 Pulse 94 07/09/23 14:11 Resp 18 07/09/23 14:11 BP 142/99 H 07/09/23 14:11 Pulse Ox 99 07/09/23 14:11 O2 Del Method Room Air 07/09/23 14:11 BMI result Body Mass Index 26.6 vss Appearance: Alert.? Oriented X3.? No acute distress.? Head: Normocephalic, atraumatic, no step-offs or deformities Eyes: Pupils equal, round and reactive to light.? ENT: Pharynx normal.?Left upper molar region / site of extraction w/ blood clot over it. No active bleeding Neck: Normal inspection.? Neck supple.? CVS: Normal heart rate and rhythm.? Pulses normal.? Respiratory: No respiratory distress.? Breath sounds normal.? Skin: Skin warm and dry.? Normal skin color.? Normal skin turgor.? Extremities: No lower extremity edema.? No calf ttp. 5/5 strength to bilateral upper and lower extremities Neuro: Oriented X 3.? No motor deficit.? No sensory deficit. CN 2-12 intact Course Reevaluation(s) Reevaluation #1: On re-evaluation no active bleeding. Patient to be discharged home. Educated him to keep area packed as instructed by dentist. Time: 15:11 Medical Decision Making Medical Decision Making [facility] Narrative: 1446 63-year-old male presents status post tooth extraction with bleeding from site extraction at around 10:00. Physical exam .?Left upper molar region / site of extraction w/ blood clot over it. No active bleeding This is likely normal bleeding from extraction site. I do not suspect acute blood loss anemia. Other differentials include anxiety. I do not suspect postoperative complication at this time. Plan at this time discharge educated him to return with new or worsening symptoms. Educated him to keep area packed with gauze. Educated him to continue taking oral antibiotics as prescribed. Differential Diagnosis Differential Diagnoses: The differential diagnosis associated with the presentation includes This is likely normal bleeding from extraction site. I do not suspect acute blood loss anemia. Other differentials include anxiety. I do not suspect postoperative complication at this time. Admission/Observation Consideration of admission/observation: Escalation of care including admission/observation considered Unlikely Critical Care Time Critical Care Time Critical Care Time: No Discharge Plan Discharge Clinical Impression: S/P tooth extraction, Bleeding Patient Disposition: Home, Self-Care Additional Instructions: Take your medications as prescribed. If you were prescribed antibiotics today, it is important that you take your medication to their entirety, do not skip any doses, do not finish them early. Follow-up with your primary care provider this week. Follow-up with your dentist tomorrow. Return to the emergency department with new or worsening symptoms. Such as fevers, chills, chest pain, shortness of breath, nausea, vomiting, dizziness, headache, vision changes, lethargy In case of emergency call 911 Take your antibiotics as prescribed by her dentist. Prescriptions: No Action (DME) lancets [FreeStyle Lancets] 28 gauge misc See Rx Instructions .ROUTE .MEDSUPPLY Qty: 100 5RF Rx Instructions: once a day Breo Ellipta 100-25 mcg/dose blister with device 1 inh inhalation DAILY 30 Days Qty: 28 8RF albuterol sulfate 2.5 mg /3 mL (0.083 %) solution for nebulization 2.5 mg inhalation QID PRN (Reason: shortness of breath or wheezing) Qty: 75 0RF (DME) blood sugar diagnostic Strip See Rx Instructions Not Applicable DAILY Qty: 100 5RF Rx Instructions: check sugar once a day docusate sodium [Stool Softener] 100 mg capsule 100 mg PO DAILY PRN (Reason: constipation) 30 Days Qty: 90 3RF Incruse Ellipta 62.5 mcg/actuation blister with device 1 inh inhalation DAILY Qty: 30 3RF nicotine 21 mg/24 hr patch 24 hour 1 patch transdermal Q24H Qty: 28 0RF omega-3 acid ethyl esters 1 gram capsule 1 cap PO BID Qty: 180 1RF montelukast 10 mg tablet 10 mg PO QPM Qty: 90 1RF albuterol sulfate [Ventolin HFA] 90 mcg/actuation HFA aerosol inhaler 2 puff inhalation Q4H PRN (Reason: Shortness Of Breath Or Wheezing) 30 Days Qty: 8.5 3RF cetirizine 10 mg tablet 10 mg PO QPM Qty: 90 1RF Jardiance 10 mg tablet 10 mg PO QAM Qty: 90 1RF omeprazole 20 mg capsule,delayed release(DR/EC) 20 mg PO DAILY Qty: 90 1RF lisinopril 2.5 mg tablet 2.5 mg PO QPM 90 Days Qty: 90 1RF rosuvastatin 20 mg tablet 20 mg PO DAILY 90 Days Qty: 90 1RF naproxen 375 mg tablet 375 mg PO BID PRN (Reason: pain) Qty: 15 0RF buspirone 30 mg tablet 1 tab PO QPM bupropion HCl 300 mg tablet extended release 24 hr 1 tab PO QAM quetiapine [Seroquel] 100 mg Tablet 100 mg PO BEDTIME PRN (Reason: Sleep) lorazepam 0.5 mg Tablet 0.5 mg PO BID PRN (Reason: Anxiety) fluticasone propionate [Allergy Relief (fluticasone)] 50 mcg/actuation spray,suspension 1 spray intranasal DAILY Qty: 16 7RF Rx Instructions: administer into each nostril meloxicam 15 mg tablet 15 mg PO DAILY Qty: 14 0RF cyclobenzaprine 10 mg tablet 10 mg PO BEDTIME Qty: 14 0RF Referrals: Physician,Unknown J [Primary Care Provider] - 2 days
== END 2023-07-09 15:39 | disposition home or self-care (01) ==
PROVIDERS: Emergency Provider Student in an Organized Health Care Education/Training Program
DX: K91.840 Postprocedural hemorrhage of a digestive system organ or structure following a digestive system procedure (principal)
CPT/HCPCS: 99282

== ENCOUNTER 2023-08-06 06:01 | Outpatient (REF) | payer OTHER, SELFPAY ==
[2023-08-06 11:32] LABS: MANUAL DIFF FLAG NO
[2023-08-06 11:38] LABS: Basophils Absolute Auto 0.1 X10*3/uL (0.0-0.2); Eosinophils Absolute Auto 0.6 X10*3/uL (0.0-0.4); Eosinophils Percent Auto 5.5 % (0-4); Hematocrit 52.3 % (42.0-52.0); Hemoglobin 18.4 g/dl (14.0-18.0); Imm Gran Abs Auto 0.15 X10*3/uL (0.00-0.03); Imm Gran Pct Auto 1.4 % (0.0-0.4); Lymphocytes Absolute Auto 3.1 X10*3/uL (1.2-4.9); Lymphocytes Percent Auto 28.4 % (20-40); Mean Corpuscular HGB Conc 35.2 g/dl (31.0-36.0); Mean Corpuscular Volume 93.9 fL (80.0-98.0); Mean Platelet Volume 9.8 fL (9.4-12.4); Monocytes Absolute Auto 0.9 X10*3/uL (0.1-1.2); Monocytes Percent Auto 7.9 % (2-11); Neutrophils Absolute Auto 6.1 x10*3/uL (2.0-8.3); Neutrophils Percent Auto 55.8 % (45-73); Platelet Count 217 X10*3/uL (160-400); Red Blood Count 5.57 X10*6/uL (4.60-5.80); Red Cell Distribution Width 12.5 % (11.0-16.0)
[2023-08-06 11:47] LABS: Appearance Urine Clear; Color Urine Yellow; Glucose Urine UA >=1000 mg/dL (Negative); Leukocyte Esterase Urine Negative (Negative); Nitrite Urine Negative (Negative); PH 5.5 (5.0-9.0); Specific Gravity - Urine >= 1.030 (1.005-1.025); UMIC TRIGGER UACC YES; Urine Blood Negative (Negative); Urine Ketones Negative (Negative); Urine Protein Negative (Neg-Trace)
[2023-08-06 12:04] LABS: Bacteria Urine None Seen (None Seen); Hyaline Casts Urine 0-2 /LPF (0-2); RBC Urine 0-2 /HPF (0-2); Squamous Epithelial Cell Urine 0-2 /HPF (0-2); WBC Urine 0-5 /HPF (0-5)
[2023-08-06 12:07] LABS: Creatinine Urine 70.41 mg/dL; Microalbum/Creatinine Ratio Ur 28.4 ug/mg cr (<30)
[2023-08-06 12:24] LABS: TSH reflex Free T4 0.86 uIU/mL (0.32-4.0)
== END 2023-08-06 06:02 | disposition home or self-care (01) ==
LOC: HO.HMGCLDS 06:01
PROVIDERS: PCP Nurse Practitioner Family; Visit Provider Nurse Practitioner Family
DX: Z00.00 Encounter for general adult medical examination without abnormal findings (principal); E11.9 Type 2 diabetes mellitus without complications; D72.829 Elevated white blood cell count, unspecified
CPT/HCPCS: 36415; 81001; 82043; 82570; 84443; 85025

== ENCOUNTER 2023-08-15 08:26 | Outpatient (AMB) | payer OTHER, SELFPAY ==
--- NOTE | 2023-08-15 08:31 | A.OFFPC_ITS ---
Vital Signs 08/15/23 08:34 Height 5 ft 9 in Weight 185 lb BMI 27.3 BP 120/82 Blood Pressure Location Lt brachial Position Sitting Pulse 90 Pulse Source Pulse Oximeter Pulse Oximetry (%) 98 Oxygen Delivery Method Room Air Intake Visit Reasons: 4 month fu Allergies No Known Allergies [No Known Allergies*] Allergy (Verified 07/02/23 11:18) Tobacco use date assessed: 04/12/23 Fall risk assessment: No Falls in past year Last assessed Fall Risk: 08/15/23 Dental Screening Dental Screen Date: 08/15/23 Did you have a dental visit in the last 12 months?: Yes Did you have a dental problem in the last 6 months where you did not have access to dental care?: No Was dental information given to patient?: Patient has dentist HPI 4 month fu HPI Details Pt is a diabetic, on an NEIL and a statin. A1C in office today is 7.2. He reports eating a lot of ice cream lately, due to tooth issues. Microalbumin is up to date. Denies polyuria, polydipsia, and neuropathy. Pt denies any signs and symptoms of hypoglycemia and does know how to correct it. eye exam is up to date, according to pt. Pt c/o cough. He does have a hx of COPD. Will send zpak. Pt is aware of the vaccines he needs to get. [facility] Medical History Anxiety Asthma Depression Diabetes Fatty liver GERD (gastroesophageal reflux disease) History of splenomegaly HTN (hypertension) Pancreatitis Surgical History H/O colonoscopy History of esophagogastroduodenoscopy (EGD) History of arthroscopic knee surgery Family History Father Myocardial infarction Mother No problems noted. Paternal Grandfather Colon cancer Maternal Grandmother Unknown family medical history Other Substance use disorder Social History Household Members: Spouse Housing: House Do you presently have visiting nurse or other home services: No Comment: sleeping Patient Tobacco Use Status: Current everyday Tobacco user Tobacco use type: Cigarette Cigarettes Per Day: 10 Years Smoked: 58 years e-Cigarette/Vaping Use: Former Use Second Hand Smoke Exposure: No Substance Use Type: Marijuana service: No Current occupational status: disabled Cognitive needs: No Hearing needs: No Vision needs: No Questionnaire Thrive Questionnaire Date Thrive assessed: 04/10/22 XAVIER-7 AMB Questionnaire XAVIER-7 Date XAVIER - 7 assessed: 04/10/22 Source: Developed by Drs. Remy Barr, Yvonne Sánchez, Mesfin Leonard and colleagues, with an educational marck from [employer]. Review of Systems Const Reports as per HPI Physical exam (Primary Care) Vital Signs: Last Vital Signs Pulse 90 08/15/23 08:34 BP 120/82 08/15/23 08:34 Pulse Ox 98 08/15/23 08:34 Oxygen Delivery Method Room Air 08/15/23 08:34 BMI result Body Mass Index 27.3 Tobacco/Smoking Status: Tobacco use Status Tobacco use date assessed 04/12/23 08/15/23 08:37 Patient Tobacco Use Status Current everyday Tobacco 08/15/23 08:37 Tobacco use type Cigarette 08/15/23 08:37 e-Cigarette/Vaping Use Former Use 08/15/23 08:37 Thrive Assessment: Date of Thrive Assessment Date Thrive assessed 04/10/22 08/15/23 08:37 Const General: cooperative Orientation/consciousness: patient oriented x3 Resp Other: faint wheezing and rhonchi Effort & Inspection: normal respiratory effort Cardio Rate: regular rate Rhythm: regular rhythm Heart sounds: S1 normal heart sound present and S2 normal heart sound present Neuro General: patient oriented x3 Extrem Other: bilat feet: + sensation with use of monofilament Psych Appearance: grossly normal Mental Status: mental status grossly normal Speech and movement: Normal speech and movement present Affect: normal affect Attitude: cooperative Thought process: Normal thought process present Thought content: Normal thought content present Insight: Good insight present (Psych) Judgement: Good judgement present (Psych) Results AMB Hemoglobin A1c AMB Hemoglobin A1c 7.2 % Last Edit by SIMRAN Peraza on 08/15/23 08 :53 Results Reviewed Results Reviewed: Laboratory Last Values Hgb A1c (Clinic) 7.2 % (4.0-6.0) H 08/15/23 08:52 Assessment and Plan Assessment & Plan (1) Diabetes: Code(s): E11.9 - Type 2 diabetes mellitus without complications Plan The patient agreed to the use of a auditor medical claims for this encounter. Scribed for CHRISTINA Awda by Lula Ray auditor medical claims, on 08/15/2023 at 08:45 EST. Orders: Orders AMB Hemoglobin A1c Today Z13.9 - Encounter for screening, unspecified Medications: New azithromycin For 250 mg dose pack: take 500 mg today (day 1), then 250 mg for 4 days (days 2-5) PO 6 tabs 0RF Coding Level of Care Code Est Pt Level 3 (32221) Diagnoses Diabetes E11.9
[2023-08-15 08:34] VITALS: BP 120/82; PULSE 90; O2SAT 98; BMI 27.3
== END 2023-08-15 08:59 | disposition home or self-care (01) ==
PROVIDERS: PCP Nurse Practitioner Family; Visit Provider Nurse Practitioner Family
DX: E11.9 Type 2 diabetes mellitus without complications (principal)
CPT/HCPCS: 83036; 99213

== ENCOUNTER 2024-01-04 10:10 | Outpatient (AMB) | payer OTHER, SELFPAY ==
--- OUTSIDE RECORDS SUMMARY | 2024-01-04 10:15 | XMS_ITS | Patient Health Record ---
Author Organization [facility] Address [address] [place] [address] Care Team Providers Care Education And Training Coordinator Name Role Phone ELIZABETH ARIAS Primary Care Provider Remy Lyon Unavailable [phone] REASON FOR REFERRAL No Information MEDICATIONS Medication SIG (Take, Route, Frequency, Duration) Notes Start Date End Date Status Wellbutrin 300 xl Ac tive Breo Ellipta Active Docusate Sodium Acti ve Omeprazole Active Fluticasone Propionate Active Ventolin HFA Active Lisinopril 2.5 MG TAKE 1 TABLET BY MARLI TH EVERY DAY Oral for 90 Active LORazepam 0.5 MG (Schedule IV Drug) T MAVERICK 1 TABLET BY MOUTH TWICE A DAY Oral for 30 Active Ativan 0.5 MG 1 tablet at bedtime as needed Orally as needed Active Aspirin Low Dose 81 MG TAKE 1 TABLET BARBIE RY DAY BY MOUTH Oral for 90 Active busPIRone HCl Active Singulair 10 MG 1 tablet Orally Once a day for 30 day(s) Active Stool Softener Activ e QUEtiapine Fumarate 100 MG TAKE 1 TABLET BY MOUTH EVERYDAY AT BEDTIME Oral for 90 Active Jardiance 10 MG Orally Acti ve traZODone HCl 50 mg Active Rosuvastatin Calcium 20 MG TAKE 1 TABLET BY MOUTH DAILY Oral for 90 Active IMMUNIZATIONS Vaccine Route Administration Date Status Comme nts Influenza Unknown 04/20/2016 Administered Influenza Unknown 12/22/2020 Administered Influenza Unknown 11/18/2021 Administered Influenza Unknown 06/22/2020 Refused SOCIAL HISTORY Tobacco Use: Social History Observation Description Date Details (start date - stop date) Current Smoker NA - NA Sex Assigned At : Social History Observation Description Sex Assigned At Unknown Tobacco Use/Smoking Question Answer Notes Patient is a current smoker How often do you smoke cigarettes? every day How many cigarettes a day do you smoke? 6-10 How soon after you wake up do you smoke your fir st cigarette? within 5 minutes Are you interested in quitting? Ready to quit PROBLEMS Problem Type ICD Code Onset Dates Problem Status W/U Status Risk SNOMED Code Notes Problem Family history of colon cancer (Z80.0) Active confirmed 382903636 Problem Encounter for screening for malignant neoplasm of colon (Z12.11) Active confirmed 805130828 Problem Encounter for screening for malignant neoplasm of rectum (Z12.12) Active confirmed Screening for malignant neoplasm of rectum (443600357) Problem Gastroesophageal reflux disease, esophagitis presence not specified (K21.9) Active confirmed 199728621 Problem Pancreatitis (K85.90) Active confirmed Pancreatitis (24700198) Problem History of adenomatous polyp of colon (Z86.010) Active confirmed History o f adenomatous polyp of colon (721522409) Problem GERD (gastroesophageal reflux disease) (K21.9) Active confirmed Gastroesophagea l reflux disease (795086603) Problem Personal history of colonic polyps (Z86.010) Active confirmed History of poly p of colon (situation) (913916958) Problem Encounter for other preprocedural examination (Z01.818) Active confirmed Pre-procedure evaluation check (102778277) Problem Diverticulosis of colon (K57.30) Active confirmed Diverticulosi s of colon (392881356) PLAN OF TREATMENT Pending Test Test Name Order Date BUN 06/22/2020 CREATININE 06/22/2020 LIPASE 06/22/2020 MRI ABD W&WO CONTRAST 06/22/2020 Pathology 06/07/2022 Future Test Test Name Order Date UPPER GI ENDOSCOPY 09/15/2016 COLONOSCOPY 09/15/2016 COLONOSCOPY 03/07/2022 Insurance Providers Payer Name Payer Address Payer Phone Subscriber Number Group Number Insured Name Patient Relationship to Insured Coverage Start Date Coverage End Date [facility] [address] [place] [address] [id number] NIMO HART Self - patient is the insured MEDICARE OF [place] [address] [place] [address] [id number] NIMO HART Self - patient is the insured MEDICAL (GENERAL) HISTORY Medical History History ICD Code Asthma Anxiety Depression Denies [place],CVA,,renal disease 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 for mass, no EtOH. Negative MRI/MRCP in 06/2020 NIDDM Surgical History Surgery Date(Month/Year) Right knee
[2024-01-04 10:18] VITALS: BP 110/80; PULSE 78; TEMP 36.6; O2SAT 97; BMI 26.7
--- NOTE | 2024-01-04 10:18 | AM.OFFWIN_ITS ---
Intake Vital Signs 01/04/24 10:18 Height 5 ft 9 in Weight 181 lb BMI 26.7 BP 110/80 Blood Pressure Location Lt brachial Position Sitting Pulse 78 Pulse Source Pulse Oximeter Temp 97.8 F Temp Source Temporal Artery Scan Pulse Oximetry (%) 97 Oxygen Delivery Method Room Air Intake Visit Reasons: Numbness left side of stomach Intake Note: pt is here today for numbness lft side of stomach started 2 days ago Patient Tobacco Use Status: Current everyday Tobacco user Allergies No Known Allergies [No Known Allergies*] Allergy (Verified 01/04/24 10:20) Do you need a note to return to daycare/school/sports/work: No HPI Numbness left side of stomach HPI Details This is a 63 year old patient with PMH DM, COPD, dyslipidemia - presents today for a 2 day history of left sided abdomen numbness . Denies pain however states hte left side of his belly feels numb and different than the right side. He denies any nausea, vomiting, diarrhea, heartburn. Denies fever, chills, dizziness. Last BM was this morning. History of pancreatitis several years ago. Reports his diet lately has been normal - he has been trying to eat healthier to lower A1c. PFSH Medical History Diabetes Pancreatitis Anxiety History of splenomegaly Fatty liver HTN (hypertension) GERD (gastroesophageal reflux disease) Depression Asthma Surgical History H/O colonoscopy History of esophagogastroduodenoscopy (EGD) History of arthroscopic knee surgery Family History Father Myocardial infarction Mother No problems noted. Paternal Grandfather Colon cancer Maternal Grandmother Unknown family medical history Other Substance use disorder Social History Household Members: Spouse Housing: House Do you presently have visiting nurse or other home services: No Comment: sleeping Patient Tobacco Use Status: Current everyday Tobacco user Tobacco use type: Cigarette Cigarettes Per Day: 10 Years Smoked: 58 years e-Cigarette/Vaping Use: Former Use Second Hand Smoke Exposure: No Substance Use Type: Marijuana service: No Current occupational status: disabled Cognitive needs: No Hearing needs: No Vision needs: No Physical Exam Vital Signs: Last Vital Signs Temp 97.8 F 01/04/24 10:18 Pulse 78 01/04/24 10:18 BP 110/80 01/04/24 10:18 Pulse Ox 97 01/04/24 10:18 Oxygen Delivery Method Room Air 01/04/24 10:18 BMI result Body Mass Index 26.7 Const General: cooperative, healthy appearing, comfortable and no acute distress Nutritional Appearance: average body habitus Neck Neck: Yes no lymphadenopathy Resp Effort & Inspection: normal respiratory effort Auscultation: clear to auscultation bilaterally Cardio Jugular venous distension: no JVD Palpation: normal PMI Rate: regular rate Rhythm: regular rhythm GI Inspection: Yes normal to inspection Palpation (GI): Soft to palpation, Tenderness to palpation present (GI) (mild tenderness with deep palpation left upper quadrant. No rebound ttp.) and No hepatosplenomegaly present Percussion: Yes normal to percussion Auscultation: normal bowel sounds Rectal Exam - Male: Yes deferred General: Yes no CVA tenderness Back/Spine/Pelvis Back: no CVA tenderness Skin General skin exam: no rashes or lesions noted Neuro General: gait normal Extrem General: Yes capillary refill normal and Yes no clubbing, cyanosis or edema Psych Appearance: grossly normal Mental Status: mental status grossly normal Speech and movement: Normal speech and movement present Assessment & Plan Assessment & Plan (1) Left sided abdominal pain: Code(s): R10.9 - Unspecified abdominal pain Plan: Patient has mild pain with deep palp of left upper quadrant. No guarding or rebound tenderness. His complaint today was numbness in that area of his abdomen. We discussed treatment/evaluation options and he does not wish to go to the ED for imaging. I am going to order some labs (Liver panel, BMP, CBC) today and will call patient with results when these are available. We discussed a bland diet at this time and advancing as tolerated. We discussed that in the meantime, if develops any worsening pain, fever, chills, or concerning symptoms, he should go to the ED for evaluation. He verbalizes understanding and agrees to plan. He sees PCP Torrey Ray BORING MACHINE OPERATOR DOUBLE END on 01/23 for routine f/u. Orders: Orders Basic Metabolic Panel Fasting Today R10.9 - Unspecified abdominal pain Liver Panel Today R10.9 - Unspecified abdominal pain Complete Blood Count Auto Diff Today R10.9 - Unspecified abdominal pain Coding Level of Care Code Est Pt Level 4 (56499) Diagnoses Left sided abdominal pain R10.9
== END 2024-01-04 11:06 | disposition home or self-care (01) ==
PROVIDERS: PCP Nurse Practitioner Family; Visit Provider Nurse Practitioner Family
DX: R10.9 Unspecified abdominal pain (principal)
CPT/HCPCS: 99214

== ENCOUNTER 2024-01-05 10:33 | Outpatient (REF) | payer OTHER, SELFPAY ==
[2024-01-05 14:26] LABS: MANUAL DIFF FLAG NO
[2024-01-05 14:28] LABS: Basophils Absolute Auto 0.1 X10*3/uL (0.0-0.2); Eosinophils Absolute Auto 0.3 X10*3/uL (0.0-0.4); Eosinophils Percent Auto 3.6 % (0-4); Hematocrit 47.8 % (42.0-52.0); Hemoglobin 17.3 g/dl (14.0-18.0); Imm Gran Abs Auto 0.05 X10*3/uL (0.00-0.03); Imm Gran Pct Auto 0.6 % (0.0-0.4); Lymphocytes Percent Auto 32.9 % (20-40); Mean Corpuscular HGB Conc 36.2 g/dl (31.0-36.0); Mean Corpuscular Hemoglobin 33.4 pg (27.0-33.0); Mean Corpuscular Volume 92.3 fL (80.0-98.0); Mean Platelet Volume 10.1 fL (9.4-12.4); Monocytes Absolute Auto 0.8 X10*3/uL (0.1-1.2); Monocytes Percent Auto 8.9 % (2-11); Neutrophils Absolute Auto 4.8 x10*3/uL (2.0-8.3); Platelet Count 213 X10*3/uL (160-400); Red Blood Count 5.18 X10*6/uL (4.60-5.80); Red Cell Distribution Width 12.3 % (11.0-16.0)
[2024-01-05 14:46] LABS: Alanine Aminotransferase 48 U/L (0-40); Albumin Level 4.5 g/dL (3.5-5.0); Alkaline Phosphatase 80 U/L (39-117); Anion Gap 15 (12-20); Aspartate Amino Transferase 25 U/L (5-37); Bilirubin Direct 0.2 mg/dL (0.0-0.5); Bilirubin Total 0.6 mg/dL (0.0-1.0); Blood Urea Nitrogen 22 mg/dL (9-16); Calcium 9.2 mg/dL (8.4-10.2); Carbon Dioxide 22 mmol/L (22-29); Chloride 110 mmol/L (96-108); Estimated Glomerular Filt Rate > 60; Glucose Fasting 108 mg/dL (60-99); Potassium 3.8 mmol/L (3.3-5.1); Sodium 143 mmol/L (135-145); Total Protein 6.9 g/dL (6.5-8.0)
== END 2024-01-05 10:34 | disposition home or self-care (01) ==
LOC: HO.HMGCLDS 10:33
PROVIDERS: PCP Nurse Practitioner Family; Visit Provider Nurse Practitioner Family
DX: R10.9 Unspecified abdominal pain (principal)
CPT/HCPCS: 36415; 80048; 80076; 85025

== ENCOUNTER 2024-01-22 06:01 | Outpatient (REF) | payer OTHER, SELFPAY ==
[2024-01-22 10:19] LABS: MANUAL DIFF FLAG NO
[2024-01-22 10:44] LABS: Basophils Absolute Auto 0.1 X10*3/uL (0.0-0.2); Basophils Percent Auto 0.8 % (0-2); Eosinophils Absolute Auto 0.4 X10*3/uL (0.0-0.4); Eosinophils Percent Auto 3.9 % (0-4); Hematocrit 50.5 % (42.0-52.0); Hemoglobin 17.6 g/dl (14.0-18.0); Imm Gran Abs Auto 0.04 X10*3/uL (0.00-0.03); Imm Gran Pct Auto 0.4 % (0.0-0.4); Lymphocytes Percent Auto 27.8 % (20-40); Mean Corpuscular HGB Conc 34.9 g/dl (31.0-36.0); Mean Corpuscular Hemoglobin 32.7 pg (27.0-33.0); Mean Corpuscular Volume 93.9 fL (80.0-98.0); Mean Platelet Volume 9.9 fL (9.4-12.4); Monocytes Percent Auto 9.1 % (2-11); Neutrophils Absolute Auto 6.2 x10*3/uL (2.0-8.3); Platelet Count 247 X10*3/uL (160-400); Red Blood Count 5.38 X10*6/uL (4.60-5.80); Red Cell Distribution Width 12.8 % (11.0-16.0); White Blood Count 10.6 X10*3/uL (4.8-10.8)
[2024-01-22 16:16] LABS: Appearance Urine Clear; Color Urine Yellow; Glucose Urine UA >=1000 mg/dL (Negative); Leukocyte Esterase Urine Negative (Negative); Nitrite Urine Negative (Negative); PH 5.5 (5.0-9.0); Specific Gravity - Urine >= 1.030 (1.005-1.025); UMIC TRIGGER UACC YES; Urine Blood Negative (Negative); Urine Ketones Trace mg/dL (Negative); Urine Protein Negative (Neg-Trace)
[2024-01-22 16:30] LABS: Bacteria Urine None Seen (None Seen); Hyaline Casts Urine 0-2 /LPF (0-2); RBC Urine 0-2 /HPF (0-2); Squamous Epithelial Cell Urine 0-2 /HPF (0-2); WBC Urine 0-5 /HPF (0-5)
== END 2024-01-22 06:02 | disposition home or self-care (01) ==
LOC: HO.HMGCLDS 06:01
PROVIDERS: PCP Nurse Practitioner Family; Visit Provider Nurse Practitioner Family
DX: Z00.00 Encounter for general adult medical examination without abnormal findings (principal); E11.9 Type 2 diabetes mellitus without complications; D72.829 Elevated white blood cell count, unspecified
CPT/HCPCS: 36415; 81001; 85025

== ENCOUNTER 2024-01-24 08:15 | Outpatient (AMB) | payer OTHER, SELFPAY ==
--- NOTE | 2024-01-24 08:27 | MHC.PC.OV ---
Vital Signs 01/24/24 08:30 Height 5 ft 9 in Weight 181 lb BMI 26.7 BP 120/82 Blood Pressure Location Lt brachial Position Sitting Pulse 74 Pulse Source Pulse Oximeter Pulse Oximetry (%) 92 Oxygen Delivery Method Room Air Intake Visit Reasons: 6 month f/U Intake Note: Patient here for diabetes f/u Allergies No Known Allergies [No Known Allergies*] Allergy (Verified 01/24/24 09:05) Medication List - Last Reconciled 01/24/24 by GT WillP- albuterol sulfate 2.5 mg (3 mL) inhalation QID PRN albuterol sulfate 90 mcg/actuation (Ventolin HFA) 2 puffs inhalation Q4H PRN 30 days blood sugar diagnostic check sugar once a day bupropion HCl XL 1 tab PO QAM buspirone 1 tab PO QPM cetirizine 10 mg PO QPM cyclobenzaprine 10 mg PO BEDTIME docusate sodium (Stool Softener) 100 mg PO DAILY PRN 30 days empagliflozin (Jardiance) 10 mg PO QAM fluticasone furoate-vilanterol 100-25 mcg/dose (Breo Ellipta) 1 inh inhalation DAILY 30 days fluticasone propionate 50 mcg/actuation (Allergy Relief (fluticasone)) 1 spray intranasal DAILY Incruse Ellipta 62.5 mcg/actuation (umeclidinium) 1 inh inhalation DAILY NS lancets (FreeStyle Lancets) once a day lisinopril 2.5 mg PO QPM 90 days lorazepam 0.5 mg PO BID PRN meloxicam 15 mg PO DAILY montelukast 10 mg PO QPM naproxen 375 mg PO BID PRN nicotine 1 patch transdermal Q24H omega-3 acid ethyl esters 1 cap PO BID omeprazole 20 mg PO DAILY quetiapine (Seroquel) 100 mg PO BEDTIME PRN rosuvastatin 20 mg PO DAILY 90 days Tobacco use date assessed: 01/24/24 Fall risk assessment: No Falls in past year Last assessed Fall Risk: 01/24/24 Dental Screening Dental Screen Date: 01/24/24 Did you have a dental visit in the last 12 months?: Yes Did you have a dental problem in the last 6 months where you did not have access to dental care?: No Was dental information given to patient?: Patient has dentist HPI 6 month f/U HPI Details Pt is a diabetic, on an NEIL and a statin. A1C in office today is 6.9. Microalbumin is up to date. Denies polyuria, polydipsia, and neuropathy. Pt denies any signs and symptoms of hypoglycemia and does know how to correct it. Eye exam is up to date. [facility] Medical History Diabetes Pancreatitis Anxiety History of splenomegaly Fatty liver HTN (hypertension) GERD (gastroesophageal reflux disease) Depression Asthma Surgical History H/O colonoscopy History of esophagogastroduodenoscopy (EGD) History of arthroscopic knee surgery Family History Father Myocardial infarction Mother No problems noted. Paternal Grandfather Colon cancer Maternal Grandmother Unknown family medical history Other Substance use disorder Social History Household Members: Spouse Housing: House Do you presently have visiting nurse or other home services: No Comment: sleeping Patient Tobacco Use Status: Current everyday Tobacco user Tobacco use type: Cigarette Cigarettes Per Day: 10 Years Smoked: 58 years e-Cigarette/Vaping Use: Former Use Second Hand Smoke Exposure: No Substance Use Type: Marijuana service: No Current occupational status: disabled Cognitive needs: No Hearing needs: No Vision needs: No Questionnaire PHQ-9 Over the last 2 weeks, how often have you been bothered by any of the following problems? 1. Little interest or pleasure in doing things: not at all 2. Feeling down, depressed, or hopeless: not at all 3. Trouble falling or staying asleep, or sleeping too much: not at all 4. Feeling tired or having little energy: not at all 5. Poor appetite or overeating: not at all 6. Feeling bad about yourself - or that you are a failure or have let yourself or your family down: not at all 7. Trouble concentrating on things, such as reading the newspaper or watching television: several days 8. Moving or speaking so slowly that other people could have noticed. Or the opposite - being so fidgety or restless that you have been moving around a lot more than usual: not at all 9. Thoughts that you would be better off or of hurting yourself in some way: not at all Total score: 1 Depression Screening Interpretation: Negative Depression Screening Done: Yes 66333 - PHQ-9 Billing: Yes Source: Developed by Drs. Remy Barr, Yvonne Sánchez, Mesfin Leonard and colleagues, with an educational marck from [employer]. Thrive Questionnaire Date Thrive assessed: 01/24/24 I am a: Patient What is your living situation today?: I have a steady place to live Within the past 12 months, did the food you bought not last and you didn't have the money to get more?: Never true Within the past 12 months, did you worry whether your food would run out before you got money to buy more?: Sometimes True Do you have trouble paying for medicines?: No Do you have trouble getting transportation to medical appointments?: No Do you have trouble paying your heating and electricity bill?: No Do you have trouble taking care of your child, family member or friend?: No Do you have trouble with day-to-day activities such as bathing, preparing meals, shopping, managing finances, etc.?: No Are you currently unemployed and looking for a job?: No Are you interested in more education?: No Currently or been in a relationship where the following occur: I choose not to answer this question THRIVE Score: 1 AUDIT C Alcohol Use Questionnaire (AUDIT-C) 1. How often do you have a drink containing alcohol?: Never 3. How often do you have six or more drinks on one occasion?: Never Total Score: 0 Score Reviewed/Action Taken: No XAVIER-7 AMB Questionnaire XAVIER-7 Date XAVIER - 7 assessed: 01/24/24 Feeling nervous, anxious, or on edge: 2 = More than half the days Not being able to stop or control worryin = More than half the days Worrying too much about different things: 2 = More than half the days Trouble relaxin = Not at all Being so restless that it is hard to sit still: 0 = Not at all Becoming easily annoyed or irritable: 2 = More than half the days Feeling afraid as if something awful might happen: 0 = Not at all Total XAVIER-7 score (0-4 normal; 5-9 mild; 10-14 moderate; 15-21 severe): 8 Source: Developed by Drs. Remy Barr, Yvonne Sánchez, Mesfin Leonard and colleagues, with an educational marck from [employer]. XAVIER-7 Assessment Billing XAVIER-7 Assessment Tool: XAVIER-7 Assessment 56060 Review of Systems Const Reports as per HPI Physical exam (Primary Care) Vital Signs: Last Vital Signs Pulse 74 01/24/24 08:30 BP 120/82 01/24/24 08:30 Pulse Ox 92 01/24/24 08:30 Oxygen Delivery Method Room Air 01/24/24 08:30 BMI result Body Mass Index 26.7 Tobacco/Smoking Status: Tobacco use Status Tobacco use date assessed 01/24/24 01/24/24 08:36 Patient Tobacco Use Status Current everyday Tobacco 01/24/24 08:28 Tobacco use type Cigarette 01/24/24 08:28 e-Cigarette/Vaping Use Former Use 01/24/24 08:28 PHQ-9: PHQ-9 Score PHQ-9: Total score 1 01/24/24 08:53 Depression Screening Interpretation: Negative Thrive Assessment: Date of Thrive Assessment Date Thrive assessed 01/24/24 01/24/24 08:52 Currently or been in a relationship where the following occur: I choose not to answer this question Const General: cooperative Orientation/consciousness: patient oriented x3 Resp Effort & Inspection: normal respiratory effort Auscultation: wheezes inspiratory wheezes Cardio Rate: regular rate Rhythm: regular rhythm Heart sounds: S1 normal heart sound present and S2 normal heart sound present Neuro General: patient oriented x3 Extrem Other: bilat feet: + sensation with use of monofilament, feet intact Psych Appearance: grossly normal Mental Status: mental status grossly normal Speech and movement: Normal speech and movement present Affect: normal affect Attitude: cooperative Thought process: Normal thought process present Thought content: Normal thought content present Insight: Good insight present (Psych) Judgement: Good judgement present (Psych) Results AMB Hemoglobin A1c AMB Hemoglobin A1c 6.9 % Last Edit by SIMRAN Peraza on 01/24/24 08:49 Results Reviewed Results Reviewed: Laboratory Last Values Hgb A1c (Clinic) 6.9 % (4.0-6.0) H 01/24/24 08:47 Assessment and Plan Assessment & Plan (1) Diabetes: Code(s): E11.9 - Type 2 diabetes mellitus without complications (2) Screening PSA (prostate specific antigen): Code(s): Z12.5 - Encounter for screening for malignant neoplasm of prostate Plan The patient agreed to the use of a medical records manager for this encounter. Scribed for KRISTIE Awad- by Lula Ray medical records manager, on 01/24/2024 at 08:45 EST. Orders: Orders Comprehensive [place]. Panel Fast Today E11.9 - Type 2 diabetes mellitus without complications UA CC w/rflx Micro + Cult Today E11.9 - Type 2 diabetes mellitus without complications Lipid Panel Today E11.9 - Type 2 diabetes mellitus without complications AMB Hemoglobin A1c Today E11.9 - Type 2 diabetes mellitus without complications Complete Blood Count Auto Diff Today E11.9 - Type 2 diabetes mellitus without complications TSH reflex Free T4 Today E11.9 - Type 2 diabetes mellitus without complications Prostate Specific Antigen Scr Today Z12.5 - Encounter for screening for malignant neoplasm of prostate Medications: Refilled nicotine 1 patch transdermal Q24H 28 ea 1RF naproxen 375 mg PO BID PRN 15 tabs 0RF pain blood sugar diagnostic check sugar once a day 100 ea 5RF diabetes lancets (FreeStyle Lancets) once a day 100 ea 5RF E11.9 - Type 2 diabetes mellitus without complications Coding Level of Care Code Est Pt Level 3 (74778) Diagnoses Diabetes E11.9 Screening PSA (prostate specific antigen) Z12.5 Additional Codes XAVIER-7 Assessment Billing - XAVIER-7 Assessment Tool: XAVIER-7 Assessment 86833 ([id number])
[2024-01-24 08:30] VITALS: BP 120/82; PULSE 74; O2SAT 92; BMI 26.7
== END 2024-01-24 10:17 | disposition home or self-care (01) ==
PROVIDERS: PCP Nurse Practitioner Family; Visit Provider Nurse Practitioner Family
DX: E11.9 Type 2 diabetes mellitus without complications (principal); Z12.5 Encounter for screening for malignant neoplasm of prostate
CPT/HCPCS: 83036; 99213

== ENCOUNTER 2024-03-11 10:25 | Outpatient (AMB) | payer OTHER, SELFPAY ==
--- NOTE | 2024-03-11 10:26 | MHC.OFFWIV ---
Intake Vital Signs 03/11/24 10:27 Height 5 ft 9 in Weight 181 lb BMI 26.7 BP 112/70 Blood Pressure Location Rt brachial Position Sitting Pulse 95 Pulse Source Pulse Oximeter Temp 98.2 F Temp Source Temporal Artery Scan Pulse Oximetry (%) 92 Intake Visit Reasons: EP LT hand numbness/not feeling himself Intake Note: Pt is here for left hand numbness, not feeling good overall Patient Tobacco Use Status: Current everyday Tobacco user Allergies No Known Allergies [No Known Allergies*] Allergy (Verified 03/11/24 10:27) Do you need a note to return to daycare/school/sports/work: Yes HPI HPI Comments History of Present Illness Details Patient is a 64-year-old male who is a current smoker with a past medical history of diabetes, COPD and dyslipidemia complaining of an episode sudden onset of sweating with nausea but no vomiting, left arm weakness and numbness while sitting under a tent in the shade talking to a friend. He was not exerting himself. He denies any actual chest pain during this event. He denies any shortness of breath during that event. He states he feels better, his nausea and sweating had resolved with no interventions after about an hour. Currently, he is a little bit dizzy and has some residual arm numbness and weakness. He states he has never had an echocardiogram. He states his father passed of a AL at the age of 70. [facility] Medical History (Updated 03/11/24 @ 10:58 by Val Thomas PA-C) HTN (hypertension) Dyslipidemia Diabetes GERD (gastroesophageal reflux disease) Fatty liver Tubular adenoma of colon History of splenomegaly History of pancreatitis Asthma Nicotine dependence, cigarettes, uncomplicated ILD (interstitial lung disease) Anxiety Depression Surgical History (Updated 03/10/24 @ 12:48 by Shamika Zhao PA-C) History of colonoscopy History of esophagogastroduodenoscopy (EGD) History of arthroscopic knee surgery Family History Father Myocardial infarction Mother No problems noted. Paternal Grandfather Colon cancer Maternal Grandmother Unknown family medical history Other Substance use disorder Social History Household Members: Spouse Housing: House Do you presently have visiting nurse or other home services: No Comment: sleeping Patient Tobacco Use Status: Current everyday Tobacco user Tobacco use type: Cigarette Cigarettes Per Day: 10 Years Smoked: 58 years e-Cigarette/Vaping Use: Former Use Second Hand Smoke Exposure: No Substance Use Type: Marijuana service: No Current occupational status: disabled Cognitive needs: No Hearing needs: No Vision needs: No Review of Systems Const All systems reviewed & are unremarkable except as noted in HPI and below Neuro Denies Abnormal speech present Physical Exam Vital Signs: Last Vital Signs Temp 98.2 F 03/11/24 10:27 Pulse 95 03/11/24 10:27 BP 112/70 03/11/24 10:27 Pulse Ox 92 03/11/24 10:27 BMI result Body Mass Index 26.7 Const General: cooperative, healthy appearing, comfortable, no acute distress and well developed Orientation/consciousness: patient oriented x3 Limitations: no limitations HEENT Head: Yes normal to inspection Eyes General: appearance normal, both eyes and all related structures Neck Neck: Yes normal visual inspection and Yes full ROM Resp Effort & Inspection: normal respiratory effort and able to speak in complete sentences Auscultation: clear to auscultation bilaterally Cardio Rate: regular rate Rhythm: regular rhythm Heart sounds: normal S1 and S2 GI Inspection: Yes normal to inspection Palpation (GI): Soft to palpation and nontender Skin General skin exam: no rashes or lesions noted Neuro General: patient oriented x3 Cranial nerves: Yes CN's II-XII intact bilaterally Cognition (Neuro): normal cognition Speech: No Abnormal speech present Gait exam (Neuro): Normal gait present Motor exam (neuro): 5/5 motor strength present throughout and Pronator motor function not present Extrem General: Yes normal to inspection Psych Appearance: grossly normal and well kempt Speech and movement: Normal speech and movement present Affect: normal affect Attitude: cooperative Thought process: Normal thought process present Thought content: Suicidality present, no homicidality, no hallucinations and Depressive thoughts present Insight: Good insight present (Psych) Judgement: Good judgement present (Psych) Office Procedures EKG Details: no acute changes; compared to old EKG, no changes. [id number], Complete Assessment & Plan Assessment & Plan (1) Numbness and tingling in left arm: Code(s): R20.0 - Anesthesia of skin; R20.2 - Paresthesia of skin Plan: In office EKG showed no acute changes, NSR 81 BPM. Patient is well-appearing, PE unremarkable, vital signs are stable, he will drive himself to the emergency department for further workup. Called [facility] ED with expect. Plan See above Coding Level of Care Code Est Pt Level 5 (85275) Diagnoses Numbness and tingling in left arm R20.0; R20.2 CPT Codes EKG - CPT: 02087-[id number], Complete ([id number])
[2024-03-11 10:27] VITALS: BP 112/70; PULSE 95; TEMP 36.8; O2SAT 92; BMI 26.7
--- OUTSIDE RECORDS SUMMARY | 2024-03-11 10:27 | XMS_ITS | Patient Health Record ---
Author Organization [facility] Address [address] [place] [address] Care Team Providers Care Gas Maker Name Role Phone ELIZABETH ARIAS Primary Care Provider Remy Lyon Unavailable [phone] REASON FOR REFERRAL No Information MEDICATIONS Medication [...] history of colon cancer (Z80.0) Active confirmed [id number] Problem Encounter for screening for malignant neoplasm of colon (Z12.11) Active confirmed [id number] Problem Encounter for screening for malignant neoplasm of rectum (Z12.12) Active confirmed Screening for malignant neoplasm of rectum (965389461) Problem Gastroesophageal reflux disease, esophagitis presence not specified (K21.9) Active confirmed 187061515 Problem Pancreatitis (K85.90) Active confirmed Pancreatitis (71192577) Problem History of adenomatous polyp of colon (Z86.010) Active confirmed History o f adenomatous polyp of colon (832286016) Problem GERD (gastroesophageal reflux disease) (K21.9) Active confirmed Gastroesophagea l reflux disease (652952353) Problem Personal history of colonic polyps (Z86.010) Active confirmed History of poly p of colon (situation) (774642364) Problem Encounter for other preprocedural examination (Z01.818) Active confirmed Pre-procedure evaluation check (596851451) Problem Diverticulosis of colon (K57.30) Active confirmed Diverticulosi s of colon (650846771) PLAN OF TREATMENT Pending Test Test Name Order Date BUN 06/22/2020 CREATININE 06/22/2020 LIPASE 06/22/2020 MRI ABD W&WO CONTRAST 06/22/2020 Pathology 06/07/2022 Future Test Test Name Order Date UPPER GI ENDOSCOPY 09/15/2016 COLONOSCOPY 09/15/2016 COLONOSCOPY 03/07/2022 Insurance Providers Payer Name Payer Address Payer Phone Subscriber Number Group Number Insured Name Patient Relationship to Insured Coverage Start Date Coverage End Date [facility] [address] [place] [address] [id number] NIMO HART Self - patient is the insured MEDICARE OF [place] [address] [place] [id number] NIMO HART Self - patient is the insured MEDICAL (GENERAL) HISTORY Medical History History ICD Code Asthma Anxiety Depression Denies ME,CVA,,renal disease 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 for mass, no EtOH. Negative MRI/MRCP in 06/2020 NIDDM Surgical History Surgery Date(Month/Year) Right knee
== END 2024-03-11 10:56 | disposition home or self-care (01) ==
PROVIDERS: PCP Nurse Practitioner Family; Visit Provider Physician Assistant
DX: R20.0 Anesthesia of skin (principal); R20.2 Paresthesia of skin
CPT/HCPCS: 93000; 99215

== ENCOUNTER 2024-03-11 11:05 | Observation (INO) | payer OTHER, SELFPAY ==
[2024-03-11] VITALS (8 sets, daily range): BP systolic 109–130; BP diastolic 72–97; PULSE 69–84; RESP 16–21; TEMP 36.3–36.6; O2SAT 93–96; BMI 26.8
--- NOTE | ~2024-03-11 | XR_ITS ---
EXAMINATION: XR CHEST CLINICAL INFORMATION: Shortness of breath COMPARISON: Chest from 04/30/2023, chest radiograph from 03/15/2023 TECHNIQUE: 2 views of the chest were obtained. FINDINGS: Chronic interstitial lung markings. No pneumothorax. Trachea is midline. Cardiac mediastinal silhouette is not enlarged. No large pleural effusion. Degenerative changes of the thoracolumbar spine. Soft tissues are unremarkable. XR/XR chest 2V IMPRESSION: Chronic interstitial lung markings.
--- NOTE | 2024-03-11 11:10 | ED.GENADULT ---
HPI - General Adult General Chief complaint: General Medical Stated complaint: Numbness L arm - sent by pcp Time Seen by Provider: 03/11/24 14:34 Source: patient Mode of arrival: ambulatory Limitations: no limitations History of Present Illness ED Provider: Dr. Ronan Hansen HPI narrative: 64-year-old male with a history of diabetes mellitus, hyperlipidemia, COPD, tobacco use disorder who presents emergency department for evaluation of lightheadedness, nausea, left arm numbness and tightness and dyspnea/fatigue on exertion. Patient states that last 03/06/2024 (5 days prior to evaluation) he had an episode of lightheadedness, diaphoresis, nausea, left arm numbness and pain. He states that the pain was from his left elbow to his wrist. The patient felt short of breath with the symptoms but denied chest pain. States that the symptoms lasted 20 minutes. The patient states that he was not exerting himself at that time, he was standing in the shade looking at a trailer. The patient states that today when he was seeing his PCP at around 10:00 hours he felt dizzy as if he was going to pass out. He states that his hands became shaky and he felt short of breath. He states that the symptoms lasted approximately 10 minutes in his PCP instructed him go to the emergency department for evaluation. 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 He states that he walks behind a self-propelled mower. He states that over the last 2 weeks he has noticed that he has had difficulty completing his lawns secondary to dyspnea on exertion fatigue with exertion. The patient continues to smoke 1 pack of cigarettes per day times 40 years. He also smokes 1 marijuana joint daily. Related Data Home Medications ?Medication ?Instructions ?Recorded ?Confirmed bupropion HCl 300 mg 24 hr tablet, 1 tab PO QAM 05/29/20 01/24/24 extended release buspirone 30 mg tablet 1 tab PO QPM 05/29/20 01/24/24 lorazepam 0.5 mg tablet 0.5 mg PO BID PRN Anxiety 05/31/20 01/24/24 quetiapine 100 mg tablet (Seroquel) 100 mg PO BEDTIME PRN Sleep 05/31/20 01/24/24 Previous Rx's ?Medication ?Instructions ?Recorded fluticasone furoate 100 1 inh inhalation DAILY 30 days #28 06/27/21 mcg-vilanterol 25 mcg/dose ea inhalation powder (Breo Ellipta) albuterol sulfate 2.5 mg/3 mL 2.5 mg (3 mL) inhalation QID PRN 11/10/21 (0.083 %) solution for nebulization shortness of breath or wheezing #75 mL albuterol sulfate 90 mcg/actuation 2 puff inhalation Q4H PRN 07/10/23 aerosol inhaler (Ventolin HFA) Shortness Of Breath Or Wheezing 30 days #8.5 grams Incruse Ellipta 62.5 mcg/actuation 1 inh inhalation DAILY #30 ea 10/03/23 powder for inhalation (umeclidinium) docusate sodium 100 mg capsule 100 mg PO DAILY PRN constipation 10/03/23 (Stool Softener) 30 days #90 caps fluticasone propionate 50 1 spray intranasal DAILY #16 grams 10/14/23 mcg/actuation nasal spray,suspension (Allergy Relief (fluticasone)) montelukast 10 mg tablet 10 mg PO QPM #90 tabs 01/01/24 empagliflozin 10 mg tablet 10 mg PO QAM #90 tabs 01/04/24 (Jardiance) omega-3 acid ethyl esters 1 gram 1 cap PO BID #180 caps 01/04/24 capsule blood sugar diagnostic #100 ea 01/24/24 lancets 28 gauge (FreeStyle #100 ea 01/24/24 Lancets) naproxen 375 mg tablet 375 mg PO BID PRN pain #15 tabs 01/24/24 nicotine 21 mg/24 hr daily 1 patch transdermal Q24H #28 ea 01/24/24 transdermal patch blood sugar diagnostic (OneTouch #100 ea 01/25/24 Verio test strips) blood-glucose meter (OneTouch #1 ea 01/25/24 Verio Flex Meter) lancets 30 gauge (OneTouch Delsharee #100 ea 01/25/24 Plus Lancet) lisinopril 2.5 mg tablet 2.5 mg PO QPM 90 days #90 tabs 01/29/24 omeprazole 20 mg capsule,delayed 20 mg PO DAILY #90 caps 01/29/24 release cetirizine 10 mg tablet 10 mg PO QPM #90 tabs 02/01/24 rosuvastatin 20 mg tablet 20 mg PO DAILY 90 days #90 tabs 02/07/24 Allergies Allergy/AdvReac Type Severity Reaction Status Date / Time No Known Allergies Allergy Verified 03/11/24 11:13 [No Known Allergies*] Review of Systems Review of Systems: Yes all other systems are reviewed and are negative [facility] Past Medical History [facility] Narrative: Social history: Patient smokes 1 pack of cigarettes per day times 40 years. He denies alcohol use. He smokes 1 joint per day. He denies drug use. Medical History (Updated 03/11/24 @ 16:13 by Ronan Hansen MD) HTN (hypertension) Dyslipidemia Diabetes GERD (gastroesophageal reflux disease) Fatty liver Tubular adenoma of colon History of splenomegaly History of pancreatitis Asthma Nicotine dependence, cigarettes, uncomplicated ILD (interstitial lung disease) Anxiety Depression Surgical History (Updated 03/10/24 @ 12:48 by Shamika Zhao PA-C) History of colonoscopy History of esophagogastroduodenoscopy (EGD) History of arthroscopic knee surgery Family History Family History Father Myocardial infarction Mother No problems noted. Paternal Grandfather Colon cancer Maternal Grandmother Unknown family medical history Other Substance use disorder Social History Social History Household Members: Spouse Housing: House Do you presently have visiting nurse or other home services: No Comment: sleeping Patient Tobacco Use Status: Current everyday Tobacco user Tobacco use type: Cigarette Cigarettes Per Day: 10 Years Smoked: 58 years e-Cigarette/Vaping Use: Former Use Second Hand Smoke Exposure: No Substance Use Type: Marijuana service: No Current occupational status: disabled Cognitive needs: No Hearing needs: No Vision needs: No Physical Exam ED Vital Signs: Vital Signs - 24 hr 03/11/24 11:10 03/11/24 13:12 03/11/24 13:32 Temperature 97.5 F Pulse Rate 79 71 72 Respiratory Rate 20 16 Blood Pressure 130/90 H 124/84 111/77 Pulse Oximetry 94 93 Oxygen Delivery Method Room Air Room Air 03/11/24 13:33 03/11/24 13:33 03/11/24 14:37 Temperature 97.9 F Pulse Rate 84 74 74 Respiratory Rate 18 Blood Pressure 111/82 109/82 112/83 Pulse Oximetry 93 Oxygen Delivery Method Room Air BMI result Body Mass Index 26.8 Vital signs were normal. Exam: General: Awake, alert in no distress Head: Normocephalic, atraumatic EENT: PERRL, Lids normal, sclera normal, conjunctiva normal, nose normal , ears normal, throat without erythema or exudates Neck: Supple, no adenopathy Lung: breath sounds symmetric, no wheezing, rales or rhonchi Chest: symmetric movement, nontender Heart: regular rate and rhythm, normal S1, S2 no murmurs or rubs Abdomen: soft, non-tender, nondistended, normal bowel sounds Back: no vertebral tenderness, no CVAT Extremities: no deformities, moves all extremities symmetrically Neuro: Awake, alert, oriented, normal speech, cranial nerves intact, moves all extremities symmetrically Psych: Pleasant, cooperative Course Course Course Narrative: This is a Rapid Medical Exam performed in triage by Rin Kan PA-C. Full HPI, ROS and PE to be performed by primary ED provider. 64 year-old M w/ PMHx DM, ILD, COPD presenting to the ED c/o lightheadedness & bilateral arm shakiness x this morning around 10AM. reports LUE tingling. Admits to similar episode last week which resolved. Admits to chronic headaches. Denies SOB/CP PE: no focal deficits, ambulating w/steady gait Plan: EKG, labs, UA, orthostatics Medical Decision Making Medical Decision Making MDM Narrative: 64-year-old male with a history of diabetes mellitus, hyperlipidemia, COPD, tobacco use disorder who presents emergency department for evaluation of lightheadedness, nausea, left arm numbness and tightness and dyspnea/fatigue on exertion. Five days prior he developed lightheadedness, diaphoresis, nausea, left arm numbness and pain from his elbow to his wrist while at rest with associated diaphoresis, lightheadedness without chest pain. Today at 10:00 hours he had 10 minutes episode of lightheadedness, dyspnea and shakiness. 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 Patient has a greater than 40 pack-year history of smoking and continues to smoke 1 pack of cigarettes per day. Smokes 1 joint of marijuana per day as well. Differential diagnosis: ?Includes but is not limited to myocardial infarction, myocardial ischemia, coronary disease, new onset angina equivalent, electrolyte abnormalities, anemia Following evaluation was ordered: CBC, CMP, troponin, TSH, EKG Course: 15:51 My interpretation patient's laboratory evaluation is as follows: CBC was normal. Glucose elevated 132. Troponin below detectable limits. CMP was normal. TSH was normal. Patient's 12 EKG was unremarkable. I did discuss the patient's presentation with our covering stone rigger, Dr. Whitehead who recommended a 2nd troponin and if this is positive he recommended starting heparin. He also felt that given the patient's risk factors , the patient's should be admitted for observation and stress test in the morning. I also ordered a chest x-ray two view. Admission/Observation Consideration of admission/observation: Escalation of care including admission/observation considered Consult Healthcare Provider Management of the patient was discussed with: Spar Machine Operator Helper (Sample Sewer) Lab Data MDM Lab Attestation statement: I reviewed the patient's lab results. 03/11/24 11:29 03/11/24 11:29 Labs: Lab Results 03/11/24 Range/Units 11:29 WBC 10.1 (4.8-10.8) X10*3/uL RBC 5.43 (4.60-5.80) X10*6/uL Hgb 18.2 H (14.0-18.0) g/dl Hct 50.7 (42.0-52.0) % MCV 93.4 (80.0-98.0) fL MCH 33.5 H (27.0-33.0) pg MCHC 35.9 (31.0-36.0) g/dl RDW 12.0 (11.0-16.0) % Plt Count 188 (160-400) X10*3/uL MPV 9.3 L (9.4-12.4) fL Immature Gran % (Auto) 0.5 H (0.0-0.4) % Neut % (Auto) 55.6 (45-73) % Lymph % (Auto) 31.8 (20-40) % [place] % (Auto) 7.9 (2-11) % Eos % (Auto) 3.5 (0-4) % Baso % (Auto) 0.7 (0-2) % Lymph # (Auto) 3.2 (1.2-4.9) X10*3/uL [place] # (Auto) 0.8 (0.1-1.2) X10*3/uL Eos # (Auto) 0.4 (0.0-0.4) X10*3/uL Baso # (Auto) 0.1 (0.0-0.2) X10*3/uL Abs Immat Gran (auto) 0.05 H (0.00-0.03) X10*3/uL Absolute Neuts (auto) 5.6 (2.0-8.3) x10*3/uL Absolute Nucleated RBC 0.000 (0.0-0.012) X10*3/uL Nucleated RBC % (auto) 0.0 (0.0-0.2) /100WBC Sodium 142 (135-145) mmol/L Potassium 4.3 (3.3-5.1) mmol/L Chloride 106 (96-108) mmol/L Carbon Dioxide 27 (22-29) mmol/L Anion Gap 13 (12-20) BUN 18 H (9-16) mg/dL Creatinine 0.97 (0.5-1.4) mg/dL Estim Creat Clear Calc 74.9 Estimated GFR > 60 Random Glucose 132 H (60-115) mg/dL Calcium 9.7 (8.4-10.2) mg/dL Magnesium 2.4 (1.6-2.6) mg/dL Total Bilirubin 0.5 (0.0-1.0) mg/dL Direct Bilirubin 0.2 (0.0-0.5) mg/dL AST 17 (5-37) U/L ALT 35 (0-40) U/L Alkaline Phosphatase 73 (39-117) U/L Troponin I High Sens < 2.7 (<3.5-35.0) ng/L Total Protein 7.1 (6.5-8.0) g/dL Albumin 4.6 (3.5-5.0) g/dL TSH 0.69 (0.32-4.0) uIU/mL Urine Color Yellow Urine Appearance Clear Urine pH 7.5 (5.0-9.0) Ur Specific [place] >= 1.030 H (1.005-1.025) Urine Protein Negative (Neg-Trace) mg/dL Urine Glucose (UA) >=1000 H (Negative) mg/dL Urine Ketones Negative (Negative) mg/dL Urine Blood Negative (Negative) Urine Nitrite Negative (Negative) Ur Leukocyte Esterase Negative (Negative) Urine RBC 0-2 (0-2) /HPF Urine WBC 0-5 (0-5) /HPF Ur Squamous Epith Cells 0-2 (0-2) /HPF Urine Bacteria None Seen (None Seen) Hyaline Casts 0-2 (0-2) /LPF Influenza Type A (PCR) NEGATIVE (Negative) Influenza Type B (PCR) NEGATIVE (Negative) RSV RNA Qual (PCR) NEGATIVE (Negative) SARS-CoV-2 RNA (RT-PCR) NEGATIVE (Negative) Independent Interpretation I performed an independent interpretation of an: EKG Interpretation: My interpretation of the patient's 12 EKG done at 11:18 hours is as follows: Normal sinus rhythm rate of 75, prolonged IN interval of 202 milliseconds, normal QRS duration QTC interval, no ST segment elevation, no ST segment depression, Q-wave in lead 3, no significant T-wave abnormalities compared to EKG dated 03/15/2022 there is no significant change. Chronic Conditions Patient?s care impacted by: Diabetes, Hypertension and Other (Hyperlipidemia, tobacco use disorder) Discharge Plan Discharge Patient Disposition: Admitted As Inpatient Prescriptions: No Action Breo Ellipta 100-25 mcg/dose blister with device 1 inh inhalation DAILY 30 Days Qty: 28 8RF albuterol sulfate 2.5 mg /3 mL (0.083 %) solution for nebulization 2.5 mg inhalation QID PRN (Reason: shortness of breath or wheezing) Qty: 75 0RF albuterol sulfate [Ventolin HFA] 90 mcg/actuation HFA aerosol inhaler 2 puff inhalation Q4H PRN (Reason: Shortness Of Breath Or Wheezing) 30 Days Qty: 8.5 3RF Incruse Ellipta 62.5 mcg/actuation blister with device 1 inh inhalation DAILY Qty: 30 3RF docusate sodium [Stool Softener] 100 mg capsule 100 mg PO DAILY PRN (Reason: constipation) 30 Days Qty: 90 0RF fluticasone propionate [Allergy Relief (fluticasone)] 50 mcg/actuation spray,suspension 1 spray intranasal DAILY Qty: 16 7RF Rx Instructions: administer into each nostril montelukast 10 mg tablet 10 mg PO QPM Qty: 90 1RF Jardiance 10 mg tablet 10 mg PO QAM Qty: 90 1RF omega-3 acid ethyl esters 1 gram capsule 1 cap PO BID Qty: 180 1RF (DME) blood-glucose meter [OneTouch Verio Flex meter] Misc See Rx Instructions .Route Qty: 1 0RF Rx Instructions: As directed (DME) OneTouch Verio test strips Strip See Rx Instructions .Route Qty: 100 1RF Rx Instructions: Test blood sugar once a day (DME) lancets [OneTouch Delica Plus Lancet] 30 gauge misc See Rx Instructions .Route Qty: 100 1RF Rx Instructions: Test blood sugar once a day lisinopril 2.5 mg tablet 2.5 mg PO QPM 90 Days Qty: 90 1RF omeprazole 20 mg capsule,delayed release(DR/EC) 20 mg PO DAILY Qty: 90 1RF cetirizine 10 mg tablet 10 mg PO QPM Qty: 90 1RF rosuvastatin 20 mg tablet 20 mg PO DAILY 90 Days Qty: 90 0RF buspirone 30 mg tablet 1 tab PO QPM bupropion HCl 300 mg tablet extended release 24 hr 1 tab PO QAM quetiapine [Seroquel] 100 mg Tablet 100 mg PO BEDTIME PRN (Reason: Sleep) lorazepam 0.5 mg Tablet 0.5 mg PO BID PRN (Reason: Anxiety) naproxen 375 mg tablet 375 mg PO BID PRN (Reason: pain) Qty: 15 0RF nicotine 21 mg/24 hr patch 24 hour 1 patch transdermal Q24H Qty: 28 1RF (DME) blood sugar diagnostic Strip See Rx Instructions Not Applicable DAILY Qty: 100 5RF Rx Instructions: check sugar once a day (DME) lancets [FreeStyle Lancets] 28 gauge misc See Rx Instructions .ROUTE .MEDSUPPLY Qty: 100 5RF Rx Instructions: once a day Print Language: Malaysian
--- NOTE | 2024-03-11 11:14 | ECG_ITS ---
Test Reason : dizziness Blood Pressure : / mmHG Vent. Rate : 075 BPM Atrial Rate : 075 BPM P-R Int : 202 ms QRS Dur : 088 ms QT Int : 370 ms P-R-T Axes : 068 -27 033 degrees QTc Int : 413 ms Normal sinus rhythm Normal ECG When compared with ECG of 15-MAR-2022 17:50, No significant change was found Referred By: Rin Kan Electronically Signed By:HAKEEM AZAR
[2024-03-11 11:34] LABS: MANUAL DIFF FLAG NO
[2024-03-11 11:37] LABS: Basophils Absolute Auto 0.1 X10*3/uL (0.0-0.2); Basophils Percent Auto 0.7 % (0-2); Eosinophils Absolute Auto 0.4 X10*3/uL (0.0-0.4); Eosinophils Percent Auto 3.5 % (0-4); Hematocrit 50.7 % (42.0-52.0); Hemoglobin 18.2 g/dl (14.0-18.0); Imm Gran Abs Auto 0.05 X10*3/uL (0.00-0.03); Imm Gran Pct Auto 0.5 % (0.0-0.4); Lymphocytes Absolute Auto 3.2 X10*3/uL (1.2-4.9); Lymphocytes Percent Auto 31.8 % (20-40); Mean Corpuscular HGB Conc 35.9 g/dl (31.0-36.0); Mean Corpuscular Hemoglobin 33.5 pg (27.0-33.0); Mean Corpuscular Volume 93.4 fL (80.0-98.0); Mean Platelet Volume 9.3 fL (9.4-12.4); Monocytes Absolute Auto 0.8 X10*3/uL (0.1-1.2); Monocytes Percent Auto 7.9 % (2-11); Neutrophils Absolute Auto 5.6 x10*3/uL (2.0-8.3); Neutrophils Percent Auto 55.6 % (45-73); Platelet Count 188 X10*3/uL (160-400); Red Blood Count 5.43 X10*6/uL (4.60-5.80); White Blood Count 10.1 X10*3/uL (4.8-10.8)
[2024-03-11 11:40] LABS: Appearance Urine Clear; Color Urine Yellow; Glucose Urine UA >=1000 mg/dL (Negative); Leukocyte Esterase Urine Negative (Negative); Nitrite Urine Negative (Negative); PH 7.5 (5.0-9.0); Specific Gravity - Urine >= 1.030 (1.005-1.025); UMIC TRIGGER UACC YES; Urine Blood Negative (Negative); Urine Ketones Negative (Negative); Urine Protein Negative (Neg-Trace)
[2024-03-11 11:59] LABS: Alanine Aminotransferase 35 U/L (0-40); Albumin Level 4.6 g/dL (3.5-5.0); Alkaline Phosphatase 73 U/L (39-117); Anion Gap 13 (12-20); Aspartate Amino Transferase 17 U/L (5-37); Bilirubin Direct 0.2 mg/dL (0.0-0.5); Bilirubin Total 0.5 mg/dL (0.0-1.0); Blood Urea Nitrogen 18 mg/dL (9-16); Calcium 9.7 mg/dL (8.4-10.2); Carbon Dioxide 27 mmol/L (22-29); Chloride 106 mmol/L (96-108); Creatinine Clr Calc Pharmacy 74.9; Estimated Glomerular Filt Rate > 60; Glucose Random 132 mg/dL (60-115); Magnesium 2.4 mg/dL (1.6-2.6); Potassium 4.3 mmol/L (3.3-5.1); Sodium 142 mmol/L (135-145); Total Protein 7.1 g/dL (6.5-8.0)
[2024-03-11 12:00] LABS: Troponin-I High Sensitivity < 2.7 ng/L (<3.5-35.0)
[2024-03-11 12:05] LABS: Bacteria Urine None Seen (None Seen); Hyaline Casts Urine 0-2 /LPF (0-2); RBC Urine 0-2 /HPF (0-2); Squamous Epithelial Cell Urine 0-2 /HPF (0-2); WBC Urine 0-5 /HPF (0-5)
[2024-03-11 12:14] LABS: TSH reflex Free T4 0.69 uIU/mL (0.32-4.0)
[2024-03-11 12:24] LABS: Influenza A PCR NEGATIVE (Negative); Influenza B PCR NEGATIVE (Negative); Resp Syncy Virus RNA Qual PCR NEGATIVE (Negative); SARS COV2 PCR INHOUSE NEGATIVE (Negative)
--- NOTE | 2024-03-11 13:30 | PC.NURSE ---
Pt arrives to room 19, ambulatory. States episode of dizziness and feeling lightheaded with left hand tingling and numbness that last 20 min then resolved. Pt then states today no dizziness but B/L hand tingling/numbness. Denies SOB or chest pain. Neuros are intact, clear speech. NSR on tele. Skin warm and dry, busch in color. Awaits ED provider evaluation.
--- NOTE | 2024-03-11 16:10 | PC.NURSE ---
Dr Hansen consulted with cardio, plan to admit for stress test tomorrow. Plan to obtain repeat troponin at this time
[2024-03-11] MEDS: Aspirin 81 MG TAB.CHEW 162 MG PO (16:28)
--- NOTE | 2024-03-11 16:28 | PM.IMHP ---
History of Present Illness Date of Service: 03/11/24 Chief Complaint: left arm pain A 64-year-old male with a history of oef-qkbgnhe-ryemwpzps diabetes mellitus, hyperlipidemia, chronic obstructive pulmonary disease (COPD), and tobacco use disorder presents to the emergency department (ED) from his primary care physician?s (PCP) office for evaluation of left arm numbness, shakiness, and feeling queezy. Approximately one week ago, while standing in the shade, the patient suddenly experienced sweating and numbness in the left arm from the elbow down. He also felt lightheaded, and the episode lasted about 30 minutes. This alarming episode prompted him to make an appointment with his PCP. At the PCP's office today, he reported feeling shaky in both arms, dizzy, and short of breath, but did not have chest pain. An ECG performed there was normal, and he was sent to the ED for further evaluation. In the ED, the ECG was normal, and troponin I levels were negative on two occasions. The patient is hemodynamically stable and free of chest pain. No hypoglycemia was observed in the ED, and he reported no hypoglycemia at home. The patient?s symptoms include transient left arm numbness, lightheadedness, and shakiness. Given the normal ECG and negative troponin I, an acute myocardial infarction is less likely but cardiology advises Observation and possible stress. Review of Systems Review of Systems: Gen: no fever Resp: no sob, no cough CV: no chest, no VELEZ, no leg edema GI: No n/v, no abd pain Neuro: No confusion Yes all other systems are reviewed and are negative [facility] Medical History HTN (hypertension) Dyslipidemia Diabetes GERD (gastroesophageal reflux disease) Fatty liver Tubular adenoma of colon History of splenomegaly History of pancreatitis Asthma Nicotine dependence, cigarettes, uncomplicated ILD (interstitial lung disease) Anxiety Depression Family History Father Myocardial infarction Mother No problems noted. Paternal Grandfather Colon cancer Maternal Grandmother Unknown family medical history Other Substance use disorder Surgical History History of colonoscopy History of esophagogastroduodenoscopy (EGD) History of arthroscopic knee surgery Social History Household Members: Spouse Housing: Apartment Do you presently have visiting nurse or other home services: No Comment: sleeping Patient Tobacco Use Status: Current everyday Tobacco user Tobacco use type: Cigarette Cigarettes Per Day: 10 Years Smoked: 58 years Smoked in Last 30 Days: Yes e-Cigarette/Vaping Use: Never Used Patient Interested in Nicotine Replacement: Yes Patient Given Instructions on How to Stop Smoking: Yes Date Education Initiated: 03/11/24 Second Hand Smoke Exposure: No Use of substances other than those prescribed or required for medical reasons: Yes Substance Use Type: Marijuana Substance Use Frequency: Daily Last Used Substance: Hours (ago) Currently Displaying Signs/Symptoms of Drug Intoxication Withdrawal: No Any prior treatment program specific to substance use: No Have you been hit, kicked, punched, or otherwise hurt by someone within the past year? If so, by whom?: No Do you feel safe in your current relationship?: Yes Is there a partner from a previous relationship who is making you feel unsafe now?: No Are you made to feel afraid or neglected: No Advance Directives: No Advance Directives Information Provided: Yes Do you have a plan to hurt others: No Plan Recently lost weight without trying: No Eating poorly because of decreased appetite: No Nutrition Risks: No Nutritional Risk Poor oral hygiene: No service: No Current occupational status: disabled Cognitive needs: No Hearing needs: No Vision needs: No Meds Allergies Allergy/AdvReac Type Severity Reaction Status Date / Time No Known Allergies Allergy Verified 03/11/24 11:13 [No Known Allergies*] Active Medications: Current Medications Enoxaparin Sodium (Enoxaparin Sodium 40 Mg/0.4 Ml Syringe) 40 mg SUBCUT Q24H NIA Glucose (Glucose Gel 15 Gm Gel..Gram.) 15 gm PO Q15M PRN; Protocol PRN Reason: per Hypoglycemia Standing Ord. Dextrose (D10) 250 mls @ 750 mls/hr IV Q15M PRN; Protocol PRN Reason: per Hypoglycemia Standing Ord. Insulin Human Lispro (Insulin Lispro 100 Unit/Ml 3 Ml Vial) 0 unit SUBCUT QIDACHS NIA; Protocol Home Medications ?Medication ?Instructions ?Recorded ?Confirmed ?Last Taken ?Type bupropion HCl 300 mg 24 hr tablet, 1 tab PO DAILY 05/29/20 03/11/24 03/11/24 06:30 History extended release buspirone 30 mg tablet 1 tab PO BID PRN Anxiety 05/29/20 03/11/24 06/06/22 History lorazepam 0.5 mg tablet 0.5 mg PO BID PRN Anxiety 05/31/20 03/11/24 03/11/24 06:30 History cetirizine 10 mg tablet 10 mg PO BEDTIME 03/11/24 03/11/24 03/10/24 History empagliflozin 10 mg tablet 10 mg PO DAILY 03/11/24 03/11/24 03/11/24 06:30 History (Jardiance) fluticasone propionate 50 1 spray intranasal DAILY PRN 03/11/24 03/11/24 Unknown History mcg/actuation nasal Allergies spray,suspension (Allergy Relief (fluticasone)) lisinopril 2.5 mg tablet 2.5 mg PO BEDTIME 03/11/24 03/11/24 03/10/24 History montelukast 10 mg tablet 10 mg PO BEDTIME 03/11/24 03/11/24 03/10/24 History umeclidinium 62.5 mcg/actuation 1 inh inhalation DAILY PRN 03/11/24 03/11/24 Unknown History blister powder for inhalation SOB/Wheezing (Incruse Ellipta) Physical Exam Vital Signs and Narrative: Vital Signs: Last Vital Signs Temp 97.9 F 03/11/24 14:37 Pulse 71 03/11/24 16:19 Resp 17 03/11/24 16:19 BP 124/97 H 03/11/24 16:19 Pulse Ox 94 03/11/24 16:19 O2 Del Method Room Air 03/11/24 16:19 BMI result Body Mass Index 26.8 Constitutional: Alert, in no distress, overweight. Mental Status: Oriented to person, place and time. Eyes: Pupils are equal, round and reactive to light. Ear, Nose and Throat: Oropharynx clear, mucous membranes moist. Ears and nose without deformities. Trachea midline. Respiratory: Clear to auscultation. No wheezing, rales or rhonchi. Cardiovascular: S1 S2 regular. No murmurs, rubs or gallops. Gastrointestinal: Abdomen soft, non-tender, non-distended. Normal bowel sounds.? Neurologic: Cranial nerves II-XII grossly intact. No focal neurological deficits. Moves all extremities spontaneously.? Skin: No rashes or lesions.? Musculoskeletal: No cyanosis or clubbing. Psychiatric: Normal mood and affect? Results Labs 03/11/24 11:29 03/11/24 11:29 Labs: Laboratory Results - last 24 hr 03/11/24 11:29 MCV 93.4 MCH 33.5 H MCHC 35.9 RDW 12.0 Plt Count 188 MPV 9.3 L Immature Gran % (Auto) 0.5 H Neut % (Auto) 55.6 Lymph % (Auto) 31.8 [place] % (Auto) 7.9 Eos % (Auto) 3.5 Baso % (Auto) 0.7 Lymph # (Auto) 3.2 [place] # (Auto) 0.8 Eos # (Auto) 0.4 Baso # (Auto) 0.1 Abs Immat Gran (auto) 0.05 H Absolute Neuts (auto) 5.6 Absolute Nucleated RBC 0.000 Nucleated RBC % (auto) 0.0 Anion Gap 13 Estim Creat Clear Calc 74.9 Estimated GFR > 60 Random Glucose 132 H Calcium 9.7 Magnesium 2.4 Total Bilirubin 0.5 Direct Bilirubin 0.2 AST 17 ALT 35 Alkaline Phosphatase 73 Troponin I High Sens < 2.7 Total Protein 7.1 Albumin 4.6 TSH 0.69 Urine Color Yellow Urine Appearance Clear Urine pH 7.5 Ur Specific [place] >= 1.030 H Urine Protein Negative Urine Glucose (UA) >=1000 H Urine Ketones Negative Urine Blood Negative Urine Nitrite Negative Ur Leukocyte Esterase Negative Urine RBC 0-2 Urine WBC 0-5 Ur Squamous Epith Cells 0-2 Urine Bacteria None Seen Hyaline Casts 0-2 Influenza Type A (PCR) NEGATIVE Influenza Type B (PCR) NEGATIVE RSV RNA Qual (PCR) NEGATIVE SARS-CoV-2 RNA (RT-PCR) NEGATIVE Assessment and Plan (1) Diabetes: Status: Acute (2) Dyslipidemia: Status: Acute (3) Atypical chest pain: Status: Acute Plan 64 M with DM, HLD here with atypical presentation with left arm numbness, dizziness, sob, normal ECG and normal troponin I., The current management plan includes observation overnight as advised by cardiology, with a possible stress test to evaluate for exercise-induced ischemia or other underlying cardiac issues if symptoms persist or recur. Repeat troponin I if chest pain or symptoms recur. Daily Baby aspirin and continue home statin. Cardiology to assess the utility of echocardiogram Non insulin dependent diabetes -Continue jardiance -SSI, diabetic diet HLD--Statin COPD--no exacerbation, continue inhalers Mood disorder--Seroquel Tobacco use disorder--Cessation discussed, NRT DVT prophylaxis--lovenox Full code Obsv for ACS rule out Quality Stroke Does the patient have a stroke diagnosis?: No VTE Prior VTE?: No VTE Risk Level:: Medical - moderate - high VTE Device Contraindication: Treatment Not Indicated VTE Drug Contraindication: N/A - Med Ordered
[2024-03-11 16:54] LABS: Troponin-I High Sensitivity < 2.7 ng/L (<3.5-35.0)
[2024-03-11 18:02] LABS: Glucose, Whole Blood 209 mg/dL (60-115)
--- NOTE | 2024-03-11 18:15 | PHA.MEDREC ---
Pharmacy Consult ? Medication Reconciliation Pharmacy has completed the medication reconciliation. Confirmed medications with patient. Patient states he is still taking his Buspirone tablet and hes taking it 1 tab twice a day as needed. Confirmed he is in the Nicotine patches and has not gotten a new one put on today.
[2024-03-11] MEDS: Enoxaparin Sodium 40 MG/0.4 ML SYRINGE SUBCUT (18:25)
--- NOTE | 2024-03-11 18:59 | PC.NURSE ---
ceived report from Lizet Buckner RN, assume care of pt at this time, pt waiting to go upstairs to his room
[2024-03-11 20:11] LABS: Glucose, Whole Blood 151 mg/dL (60-115)
[2024-03-11] MEDS: Montelukast Sodium 10 MG TABLET PO (20:21)
[2024-03-11] MEDS: lisinopriL 2.5 MG TABLET PO (20:21)
[2024-03-11] MEDS: Loratadine 10 MG TABLET PO (20:21)
[2024-03-11] MEDS: LORazepam 0.5 MG TABLET PO (21:59)
[2024-03-11] MEDS: Melatonin 3 MG TABLET 6 MG PO (21:59)
[2024-03-12 04:00] VITALS: BP 98/74; PULSE 70; RESP 19; TEMP 36.6; O2SAT 94
[2024-03-12] MEDS: 0.9 % Sodium Chloride Flush 3 ML SYRINGE IVFLUSH (05:02)
[2024-03-12] MEDS: Omeprazole 20 MG CAPSULE.DR PO (05:04)
--- NOTE | 2024-03-12 07:00 | PC.NURSE ---
Pt stating he wants to go to the lobby to see his dog that his is bringing in.Explained to pt that he is on a tele monitor and cannot leave the floor.Pt insisting that he is going but states that he'll be right back .Dr Kaiser notified. states that it is not okay with her for him to leave the unit.Pt told but insisted he is leaving.Seen by Dr Menchaca and pt insisting on leaving AMA.Risks explained to pt by and pt states that he is leaving anyway.Pt alert and oriented.
--- NOTE | 2024-03-12 11:49 | PM.DS ---
DS: Providers Provider Date of Service: 03/12/24 Date of admission: 03/11/24 17:08 Primary care physician: ARNAUD Hooker DS: Diagnosis Discharge Diagnosis (1) Diabetes: Status: Acute (2) Dyslipidemia: Status: Acute (3) Atypical chest pain: Status: Acute DS: Summary Hospital Course Hospital Course: A 64-year-old male with a history of [id number] diabetes mellitus, hyperlipidemia, chronic obstructive pulmonary disease (COPD), and tobacco use disorder presents to the emergency department (ED) from his primary care physician?s (PCP) office for evaluation of left arm numbness, shakiness, and feeling queezy. Approximately one week ago, while standing in the shade, the patient suddenly experienced sweating and numbness in the left arm from the elbow down. He also felt lightheaded, and the episode lasted about 30 minutes. This alarming episode prompted him to make an appointment with his PCP. At the PCP's office today, he reported feeling shaky in both arms, dizzy, and short of breath, but did not have chest pain. An ECG performed there was normal, and he was sent to the ED for further evaluation. In the ED, the ECG was normal, and troponin I levels were negative on two occasions. The patient is hemodynamically stable and free of chest pain. No hypoglycemia was observed in the ED, and he reported no hypoglycemia at home. The patient?s symptoms include transient left arm numbness, lightheadedness, and shakiness. Given the normal ECG and negative troponin I, an acute myocardial infarction is less likely but cardiology advises Observation and possible stress. hospial course: While just situating upon getting to the hospital, I was informed the patient has dressed and wants to leave because he wants to go outside to see his dog. The RN stated that he had dressed earlier before the shift change with the intention of leaving one way or another. Upon arrival to the unit, he was in the process of leaving. When asked why, he stated he didn't want to be here, he had to go, and that he could have the stress test done through his doctor's office. He understood that by leaving [facility], his cardiac work wouldn't be completed and this could jeopardize his health, potentially resulting in a serious cardiac event or even . He was cogent and voiced understanding, and proceeded to sign the AMA form. He was further advised to return or call 911 if his symptoms return or other new issues arise. Final Diagnosis: Atypcial chest pain/Left arm pain Dizziness Time Attestation Discharge Coordination Time (in mins): 15 Quality: Safe Use of Opioids Does Pt have an Active Cancer Diagnosis on the Problem List?: No Quality: Stroke Does the patient have a stroke diagnosis?: No Physical Exam Vital Signs: Vital Signs: Last Vital Signs Temp 97.9 F 03/12/24 04:00 Pulse 70 03/12/24 04:00 Resp 19 03/12/24 04:00 BP 98/74 03/12/24 04:00 Pulse Ox 94 03/12/24 04:00 O2 Del Method Room Air 03/12/24 04:00 BMI result Body Mass Index 26.8 DS: Data Data Completed and Pending Labs on day of discharge: Laboratory Results - last 24 hr 03/11/24 03/11/24 03/11/24 11:29 16:25 17:59 Sodium 142 Potassium 4.3 Chloride 106 Carbon Dioxide 27 Anion Gap 13 BUN 18 H Creatinine 0.97 Estim Creat Clear Calc 74.9 Estimated GFR > 60 POC Glucose 209 H Random Glucose 132 H Calcium 9.7 Magnesium 2.4 Total Bilirubin 0.5 Direct Bilirubin 0.2 AST 17 ALT 35 Alkaline Phosphatase 73 Troponin I High Sens < 2.7 < 2.7 Total Protein 7.1 Albumin 4.6 TSH 0.69 Urine RBC 0-2 Urine WBC 0-5 Ur Squamous Epith Cells 0-2 Urine Bacteria None Seen Hyaline Casts 0-2 Influenza Type A (PCR) NEGATIVE Influenza Type B (PCR) NEGATIVE RSV RNA Qual (PCR) NEGATIVE SARS-CoV-2 RNA (RT-PCR) NEGATIVE 03/11/24 19:55 Sodium Potassium Chloride Carbon Dioxide Anion Gap BUN Creatinine Estim Creat Clear Calc Estimated GFR POC Glucose 151 H Random Glucose Calcium Magnesium Total Bilirubin Direct Bilirubin AST ALT Alkaline Phosphatase Troponin I High Sens Total Protein Albumin TSH Urine RBC Urine WBC Ur Squamous Epith Cells Urine Bacteria Hyaline Casts Influenza Type A (PCR) Influenza Type B (PCR) RSV RNA Qual (PCR) SARS-CoV-2 RNA (RT-PCR) Discharge Plan Discharge Anticipated Discharge Date/Time: 03/12/24 07:15 Patient Disposition: Left Against Medical Advice Discharge Diagnosis: Left arm pain, Dizziness Referrals: Torrey Ray, SURGERY ATTENDANT- [Primary Care Provider] - 1 Week Discharge Medications: No Action albuterol sulfate 2.5 mg /3 mL (0.083 %) solution for nebulization 2.5 mg inhalation QID PRN (Reason: shortness of breath or wheezing) Qty: 75 0RF albuterol sulfate [Ventolin HFA] 90 mcg/actuation HFA aerosol inhaler 2 puff inhalation Q4H PRN (Reason: Shortness Of Breath Or Wheezing) 30 Days Qty: 8.5 3RF docusate sodium [Stool Softener] 100 mg capsule 100 mg PO DAILY PRN (Reason: constipation) 30 Days Qty: 90 0RF omega-3 acid ethyl esters 1 gram capsule 1 cap PO BID Qty: 180 1RF (DME) blood-glucose meter [OneTouch Verio Flex meter] Misc See Rx Instructions .Route Qty: 1 0RF Rx Instructions: As directed (DME) OneTouch Verio test strips Strip See Rx Instructions .Route Qty: 100 1RF Rx Instructions: Test blood sugar once a day (DME) lancets [[employer] InstrumentsTouch Delica Plus Lancet] 30 gauge misc See Rx Instructions .Route Qty: 100 1RF Rx Instructions: Test blood sugar once a day omeprazole 20 mg capsule,delayed release(DR/EC) 20 mg PO DAILY Qty: 90 1RF rosuvastatin 20 mg tablet 20 mg PO DAILY 90 Days Qty: 90 0RF buspirone 30 mg tablet 1 tab PO BID PRN (Reason: Anxiety) bupropion HCl 300 mg tablet extended release 24 hr 1 tab PO DAILY lorazepam 0.5 mg Tablet 0.5 mg PO BID PRN (Reason: Anxiety) cetirizine 10 mg tablet 10 mg PO BEDTIME montelukast 10 mg tablet 10 mg PO BEDTIME fluticasone propionate [Allergy Relief (fluticasone)] 50 mcg/actuation spray,suspension 1 spray intranasal DAILY PRN (Reason: Allergies) Rx Instructions: administer into each nostril lisinopril 2.5 mg tablet 2.5 mg PO BEDTIME Incruse Ellipta 62.5 mcg/actuation blister with device 1 inh inhalation DAILY PRN (Reason: SOB/Wheezing) Jardiance 10 mg tablet 10 mg PO DAILY naproxen 375 mg tablet 375 mg PO BID PRN (Reason: pain) Qty: 15 0RF nicotine 21 mg/24 hr patch 24 hour 1 patch transdermal Q24H Qty: 28 1RF (DME) blood sugar diagnostic Strip See Rx Instructions Not Applicable DAILY Qty: 100 5RF Rx Instructions: check sugar once a day (DME) lancets [FreeStyle Lancets] 28 gauge misc See Rx Instructions .ROUTE .MEDSUPPLY Qty: 100 5RF Rx Instructions: once a day Discharge Orders: Discharge Order (Routine); Ordered 03/12/24 Ordered By: Toñito Menchaca Print Language: Norwegian Care Plan Goals: Left AMA Health Concerns: left AMA Plan of Treatment: to follow up with PCP Assessment: as above Discharge Date/Time: 03/12/24 07:15
== END 2024-03-12 07:15 | disposition left against medical advice (07) ==
LOC: HO.ED 16:13 → HO.EDOVER 17:10 → HO.IMC 18:13
PROVIDERS: Physician Assistant; Admitting Provider Internal Medicine; Emergency Provider Emergency Medicine Emergency Medical Services; PCP Nurse Practitioner Family; Visit Provider Internal Medicine
DX: E11.9 Type 2 diabetes mellitus without complications (principal); E78.5 Hyperlipidemia, unspecified; R07.89 Other chest pain; R42 Dizziness and giddiness; J44.9 Chronic obstructive pulmonary disease, unspecified; R11.0 Nausea; R20.0 Anesthesia of skin; F39 Unspecified mood [affective] disorder; Z72.0 Tobacco use; Z79.899 Other long term (current) drug therapy; Z03.818 Encounter for observation for suspected exposure to other biological agents ruled out
CPT/HCPCS: 0241U; 36415; 71046; 80048; 80076; 81001; 82947; 83735; 84443; 84484; 85025; 93005; 96372; 99222; 99285; J1650

== ENCOUNTER → 2024-03-11 11:14 | Outpatient (BNV) | payer OTHER, SELFPAY | PROVIDERS: Admitting Provider Internal Medicine; Emergency Provider Emergency Medicine Emergency Medical Services; PCP Nurse Practitioner Family; Visit Provider Internal Medicine | DX: R42 Dizziness and giddiness (principal) | CPT/HCPCS: 93010 ==

== ENCOUNTER → 2024-03-11 17:08 | Outpatient (BNV) | payer OTHER, SELFPAY | PROVIDERS: Admitting Provider Internal Medicine; Emergency Provider Emergency Medicine Emergency Medical Services; PCP Nurse Practitioner Family; Visit Provider Internal Medicine | DX: E11.9 Type 2 diabetes mellitus without complications (principal); E78.5 Hyperlipidemia, unspecified; R07.89 Other chest pain; Z53.29 Procedure and treatment not carried out because of patient's decision for other reasons | CPT/HCPCS: 99223; 99238 ==

== ENCOUNTER → 2024-04-15 07:58 | Outpatient (REF) | payer OTHER, SELFPAY ==
--- NOTE | ~2024-04-15 | NM_ITS ---
EXERCISE MYOCARDIAL PERFUSION STUDY INDICATION: Coronary artery disease TECHNIQUE: The patient was brought in for an exercise perfusion study on 04/15/2024. Patient performed exercise as per Mario protocol and was injected 30 mCi of sestamibi once target heart rate was achieved. Images were obtained using the SPECT gamma camera interlaced with the gating device. Images were obtained in supine position. Resting perfusion study was performed on 04/16/2024. Patient was administered 30 mCi of sestamibi intravenously at rest. Images were then obtained in supine position. Total DLP 80 mGy-cm. Images were processed with the software and compared side to side in short axis, horizontal long axis and vertical long axis views. FINDINGS: Raw aquisition reviewed. The stress perfusion study showed diminished tracer uptake along the inferior wall. There is improvement with CT attenuation correction suggestive of diaphragmatic attenuation artifact. The gated study shows normal LV systolic function with calculated LVEF of >70%. LV cavity is normal in size. The gated study shows normal wall thickening and contraction of segments. Resting study shows diminished tracer uptake along the inferior wall. There is improvement with CT attenuation correction suggestive of diaphragmatic attenuation artifact. Gating at rest reveals normal wall motion with ejection fraction at 70%. The findings are consistent with no clear reversible defects. Fixed inferior defect that could be from diaphragmatic attenuation artifact. NM/NM cardiolite stress test IMPRESSION: 1. Myocardial perfusion imaging study shows normal myocardial perfusion. 2. Gated LVEF is >70% during stress; 70% during rest. 3. Transient ischemic dilatation not present. EKG component of the test reported separately. Electronically signed by: Ej Whitehead MD 04/16/2024 11:35 AM EDT
--- NOTE | 2024-04-15 08:00 | CA_ITS ---
Acquisition Time: 2024-04-15 08:16:11 Total Exercise Time: 00:06:30 Test Indications: CP Medications: SEE H Protocol: ROSALINE Max HR: 136 BPM 88% of Pred: 154 BPM Max BP: 150/084 mmHG Max Work Load: 7.6 METS Exercise stress test exercise 6 min 30 sec of Rosaline protocol achieving 88% MPHR, with moderate SOB, no chest discomfort, without arrhythmias, with normotesnive response to exercise, without EKG changes. Breathing returned to baseline. Nuclear images pending. Test rewiewed with Dr. Momin Referred By: Torrey Ray Overread By: Sarah Resendiz
== END ==
LOC: HO.CARD 07:58
PROVIDERS: PCP Nurse Practitioner Family; Visit Provider Nurse Practitioner Family
DX: R07.89 Other chest pain (principal); R55 Syncope and collapse; F17.210 Nicotine dependence, cigarettes, uncomplicated
CPT/HCPCS: 78452; 93017; A9500

== ENCOUNTER → 2024-04-15 08:00 | Outpatient (BNV) | payer OTHER, SELFPAY | PROVIDERS: PCP Nurse Practitioner Family; Visit Provider Nurse Practitioner | DX: R06.02 Shortness of breath (principal) | CPT/HCPCS: 78452; 93016; 93018 ==

== ENCOUNTER 2024-04-23 08:00 | Outpatient (REF) | payer OTHER, SELFPAY ==
--- NOTE | ~2024-04-23 | CT_ITS ---
EXAMINATION: CT LOW-DOSE SCREENING CHEST WITHOUT CONTRAST CLINICAL INFORMATION: Nicotine dependence, cigarettes, uncomplicated; current smoker; 58 pack-year; 181 pounds. COMPARISON: CT chest 04/30/2023, low dose CT lung screening 03/24/2022. TECHNIQUE: Multidetector volumetric CT imaging of the chest is performed on a Siemens SOMATOM Definition scanner without contrast using low dose technique. Additional 2D coronal and sagittal reformatted images and axial 3D maximum intensity projection (MIP) images are generated on the CT workstation. This CT examination was performed using dose optimization techniques as appropriate, variously including the following: *Automated exposure control *Adjustment of mA and/or kV according to patient size (this includes techniques or standardized protocols for targeted exams where dose is matched to indication/reason for exam; i.e. extremities or head) *Use of iterative reconstruction technique TOTAL EXAM DLP: 52 mGy-cm. Please note, due to [facility] contractual, systems, and staffing issues, an [facility] radiologist was not available for review and dictation of this case until 04/24/2024. FINDINGS: PULMONARY NODULES: -A few scattered 2-3 mm pulmonary nodules are stable. -There are no new or enlarging pulmonary nodules identified. LUNGS: -Again there are mild to moderate centrilobular and paraseptal emphysematous changes with upper lobe predominance. -There is minor scarring in the lateral anterior right upper lobe, medial superior segment right lower lobe abutting a large osteophyte, and within the right middle lobe and lingula. -Single airspace disease or consolidation, or abnormal groundglass opacity. -Mild diffuse small airway thickening is present without significant bronchiectasis, findings suggestive of chronic bronchitis. -Central airways and trachea are patent. -No pleural effusion or pneumothorax. No pleural masses. MEDIASTINUM: -Thyroid is partially imaged and unremarkable. -No mediastinal or hilar lymphadenopathy. -Ascending aorta is minimally ectatic at 3.8 cm. Aorta is otherwise mildly uncoiled but mildly calcified and otherwise nonaneurysmal. -Main pulmonary artery is normal in size. -Heart size is normal. No pericardial effusion. -Again noted is a mildly patulous esophagus diffusely, the probable small type I hiatus hernia. CORONARY ARTERY CALCIFICATION: There is mild RCA and moderate LAD and circumflex calcification. CHEST WALL/AXILLA: No masses or abnormal lymph nodes identified. UPPER ABDOMEN: -There is a stable adrenal adenoma, lipid rich, measuring 1.8 cm in the right adrenal gland. -Remainder of the imaged upper abdominal contents demonstrate no abnormalities. OSSEOUS STRUCTURES: -No suspicious lytic or blastic bone lesions. There are mild spinal degenerative changes. CT/CT lung screening IMPRESSION: 1. A few stable scattered pulmonary nodules measuring up to 3 mm. No new or enlarging nodules. Chance of malignancy less than 1%. 2. Mild to moderate paraseptal and centrilobular emphysema. No active superimposed lung disease. 3. Mild diffuse bronchial wall thickening of the small airways, suggestive of chronic bronchitis. 4. Stable right adrenal adenoma measuring 1.8 cm. 5. Additional ancillary findings as discussed. ASSESSMENT: 1. Lung-RADS Category 2: Benign appearance or behavior of nodules. 2. Lung-RADS Category S: None. RECOMMENDATION: Continued routine annual low-dose CT lung screening in 1 year is recommended. An order for CT CHEST LOW DOSE CANCER SCREENING ([id number]) can be placed. Electronically signed by: Tomer Resendiz MD 04/24/2024 04:15 PM EDT
== END 2024-04-23 08:01 | disposition home or self-care (01) ==
LOC: HO.CT 08:00
PROVIDERS: PCP Nurse Practitioner Family; Visit Provider Physician Assistant Medical
DX: Z12.2 Encounter for screening for malignant neoplasm of respiratory organs (principal); F17.210 Nicotine dependence, cigarettes, uncomplicated
CPT/HCPCS: 71271

== ENCOUNTER → 2024-04-23 08:02 | Outpatient (BNV) | payer OTHER, SELFPAY | PROVIDERS: PCP Nurse Practitioner Family; Visit Provider Radiology Diagnostic Radiology | DX: Z12.2 Encounter for screening for malignant neoplasm of respiratory organs (principal); F17.210 Nicotine dependence, cigarettes, uncomplicated | CPT/HCPCS: 71271 ==

== ENCOUNTER 2024-04-24 07:36 | Outpatient (AMB) | payer OTHER, SELFPAY ==
[2024-04-24 07:37] VITALS: BP 100/70; PULSE 72; O2SAT 97; BMI 27.3
--- NOTE | 2024-04-24 07:37 | A.OFFPC_ITS ---
Vital Signs 04/24/24 07:37 Height 5 ft 9 in Weight 185 lb BMI 27.3 BP 100/70 Blood Pressure Location Rt brachial Position Sitting Pulse 72 Pulse Source Pulse Oximeter Pulse Oximetry (%) 97 Intake Visit Reasons: PE Intake Note: patient is here for physical exam Intake Coordinator Required: No Accompanied by: Self / Same As Patient Allergies No Known Allergies [No Known Allergies*] Allergy (Verified 04/24/24 08:00) Medication List - Last Reconciled 04/24/24 by ARNAUD Will albuterol sulfate 2.5 mg (3 mL) inhalation QID PRN albuterol sulfate 90 mcg/actuation (Ventolin HFA) 2 puffs inhalation Q4H PRN 30 days aspirin (Adult Aspirin Regimen) 81 mg PO DAILY blood sugar diagnostic ([employer] Verio test strips) Test blood sugar once a day blood sugar diagnostic check sugar once a day blood-glucose meter ([employer] Verio Flex Meter) As directed bupropion HCl XL 1 tab PO DAILY buspirone 1 tab PO BID PRN cetirizine 10 mg PO BEDTIME docusate sodium (Stool Softener) 100 mg PO DAILY PRN 30 days empagliflozin 25 mg PO DAILY 90 days fluticasone propionate 50 mcg/actuation (Allergy Relief (fluticasone)) 1 spray intranasal DAILY PRN lancets ([employer] Delica Plus Lancet) Test blood sugar once a day lancets (FreeStyle Lancets) once a day lisinopril 2.5 mg PO BEDTIME lorazepam 0.5 mg PO BID PRN montelukast 10 mg PO BEDTIME naproxen 375 mg PO BID PRN nicotine 1 patch transdermal Q24H omega-3 acid ethyl esters 1 cap PO BID omeprazole 20 mg PO DAILY rosuvastatin 20 mg PO DAILY 90 days umeclidinium 62.5 mcg/actuation (Incruse Ellipta) 1 inh inhalation DAILY PRN Tobacco use date assessed: 01/24/24 Fall risk assessment: No Falls in past year Last assessed Fall Risk: 04/24/24 Dental Screening Dental Screen Date: 01/24/24 HPI PE HPI Details Pt is here for a PE. Will order labs. Colon screen is up to date. Due for PSA, will order. Denies dribbling with urination, weak stream, and frequent nocturia. Pt is a diabetic, on an NEIL and a statin. A1C in office today is 7.2. Microalbumin is up to date. Denies polyuria, polydipsia, and neuropathy. Pt denies any signs and symptoms of hypoglycemia and does know how to correct it. Will increase jardiance from 10mg to 25mg. Pt is a smoker, goes for low-dose CTs, sees pulmonary. Will order AAA US due to smoking and age. Pt is following up with cardiology. [facility] Medical History Diabetes HTN (hypertension) Dyslipidemia Diabetes GERD (gastroesophageal reflux disease) Fatty liver Tubular adenoma of colon History of splenomegaly History of pancreatitis Asthma Nicotine dependence, cigarettes, uncomplicated ILD (interstitial lung disease) Anxiety Depression Surgical History History of colonoscopy History of esophagogastroduodenoscopy (EGD) History of arthroscopic knee surgery Family History Father Myocardial infarction Mother No problems noted. Paternal Grandfather Colon cancer Maternal Grandmother Unknown family medical history Other Substance use disorder Social History Household Members: Spouse Housing: Apartment Do you presently have visiting nurse or other home services: No Comment: sleeping Patient Tobacco Use Status: Current everyday Tobacco user Tobacco use type: Cigarette Cigarettes Per Day: 10 Years Smoked: 58 years e-Cigarette/Vaping Use: Never Used Second Hand Smoke Exposure: No Substance Use Type: Marijuana service: No Current occupational status: disabled Cognitive needs: No Hearing needs: No Vision needs: No Questionnaire PHQ-9 Over the last 2 weeks, how often have you been bothered by any of the following problems? 1. Little interest or pleasure in doing things: not at all 2. Feeling down, depressed, or hopeless: not at all 3. Trouble falling or staying asleep, or sleeping too much: more than half the days 4. Feeling tired or having little energy: more than half the days 5. Poor appetite or overeating: not at all 6. Feeling bad about yourself - or that you are a failure or have let yourself or your family down: not at all 7. Trouble concentrating on things, such as reading the newspaper or watching television: not at all 8. Moving or speaking so slowly that other people could have noticed. Or the opposite - being so fidgety or restless that you have been moving around a lot more than usual: not at all 9. Thoughts that you would be better off or of hurting yourself in some way: not at all Total score: 4 Depression Screening Interpretation: Negative Depression Screening Done: Yes 84106 - PHQ-9 Billing: Yes Source: Developed by Drs. Remy Barr, Yvonne Sánchez, Mesfin Leonard and colleagues, with an educational marck from [employer]. Thrive Questionnaire Date Thrive assessed: 04/24/24 I am a: Patient What is your living situation today?: I have a steady place to live Within the past 12 months, did the food you bought not last and you didn't have the money to get more?: Sometimes True Within the past 12 months, did you worry whether your food would run out before you got money to buy more?: Sometimes True Do you have trouble paying for medicines?: No Do you have trouble getting transportation to medical appointments?: No Do you have trouble paying your heating and electricity bill?: No Do you have trouble taking care of your child, family member or friend?: No Do you have trouble with day-to-day activities such as bathing, preparing meals, shopping, managing finances, etc.?: No Are you currently unemployed and looking for a job?: No Are you interested in more education?: No Please select the resources that you would like help with: None Currently or been in a relationship where the following occur: No concerns reported THRIVE Score: 2 AUDIT C Alcohol Use Questionnaire (AUDIT-C) 1. How often do you have a drink containing alcohol?: Never 3. How often do you have six or more drinks on one occasion?: Never Total Score: 0 Score Reviewed/Action Taken: Yes XAVIER-7 AMB Questionnaire XAVIER-7 Date XAVIER - 7 assessed: 04/24/24 Feeling nervous, anxious, or on edge: 2 = More than half the days Not being able to stop or control worryin = Not at all Worrying too much about different things: 2 = More than half the days Trouble relaxin = Several days Being so restless that it is hard to sit still: 1 = Several days Becoming easily annoyed or irritable: 1 = Several days Feeling afraid as if something awful might happen: 0 = Not at all Total XAVIER-7 score (0-4 normal; 5-9 mild; 10-14 moderate; 15-21 severe): 7 Source: Developed by Drs. Remy Barr, Yvonne Sánchez, Mesfin Leonard and colleagues, with an educational marck from [employer]. XAVIER-7 Assessment Billing XAVIER-7 Assessment Tool: XAVIER-7 Assessment 18355 Review of Systems Const Denies chills and Denies fever(s) Eyes Denies blurry vision ENT Denies vertigo, Denies dizziness and Denies sore throat Card Denies chest pain at rest, Denies chest pain with activity, Denies diaphoresis, Denies dyspnea and Denies dyspnea on exertion Resp Denies cough, Denies dyspnea, Denies dyspnea on exertion and Denies wheezing GI Denies abdominal pain, Denies melena, Denies hematochezia, Denies constipation, Denies diarrhea and Denies loose stools Denies hematuria Musc Denies numbness and Denies tingling Skin/Breast Denies lesions Neuro Denies vertigo, Denies dizziness, Denies numbness and Denies tingling Psych Denies anxiety, Denies depression, Denies homicidal ideation, Denies suicidal ideation and Denies other (substance abuse) Aller/Immun Denies wheezing Physical exam (Primary Care) Vital Signs: Last Vital Signs Pulse 72 04/24/24 07:37 BP 100/70 04/24/24 07:37 Pulse Ox 97 04/24/24 07:37 BMI result Body Mass Index 27.3 Tobacco/Smoking Status: Tobacco use Status Tobacco use date assessed 01/24/24 04/24/24 07:38 Patient Tobacco Use Status Current everyday Tobacco 04/24/24 07:38 Tobacco use type Cigarette 04/24/24 07:38 e-Cigarette/Vaping Use Never Used 04/24/24 07:38 PHQ-9: PHQ-9 Score PHQ-9: Total score 4 04/24/24 07:53 Depression Screening Interpretation: Negative Thrive Assessment: Date of Thrive Assessment Date Thrive assessed 04/24/24 04/24/24 07:43 Currently or been in a relationship where the following occur: No concerns reported Const General: cooperative Nutritional Appearance: well nourished Orientation/consciousness: patient oriented x3 HENMT Head: Yes normal to inspection, Yes normocephalic and Yes atraumatic Ears: TM's normal bilaterally Eyes General: appearance normal, both eyes and all related structures Alignment and Position: alignment normal and position normal Neck Neck: Yes normal visual inspection, Yes no lymphadenopathy and Yes supple Resp Effort & Inspection: normal respiratory effort Auscultation: clear to auscultation bilaterally Cardio Rate: regular rate Rhythm: regular rhythm Heart sounds: S1 normal heart sound present, S2 normal heart sound present and no murmurs GI Palpation (GI): Soft to palpation and nontender Auscultation: normal bowel sounds Skin Rashes: no rashes Neuro General: patient oriented x3, moves all extremities, no focal motor deficits and deep tendon reflexes 2+ bilaterally Romberg Test: Negative Extrem Other: bilat feet: + sensation with use of monofilament, feet intact Psych Appearance: grossly normal Mental Status: mental status grossly normal Speech and movement: Normal speech and movement present Affect: normal affect Attitude: cooperative Thought process: Normal thought process present Thought content: Normal thought content present Insight: Good insight present (Psych) Judgement: Good judgement present (Psych) Assessment and Plan Assessment & Plan (1) Diabetes: Code(s): E11.9 - Type 2 diabetes mellitus without complications Plan: Increasing jardiance from 10mg to 25mg, labs ordered (2) Encounter for routine adult physical exam with abnormal findings: Code(s): Z00.01 - Encounter for general adult medical examination with abnormal findings Plan: Labs ordered (3) Smoker: Code(s): F17.200 - Nicotine dependence, unspecified, uncomplicated Plan: AAA US ordered (4) Vitamin D deficiency: Code(s): E55.9 - Vitamin D deficiency, unspecified Plan: Labs ordered Plan The patient agreed to the use of a manager medical writing for this encounter. Scribed for CHRISTINA Awad by Lula Ray manager medical writing, on 04/24/2024 at 08:00 EST. Orders: Orders Prostate Specific Antigen Scr Today Z12.5 - Encounter for screening for malignant neoplasm of prostate Lipid Panel Today E11.9 - Type 2 diabetes mellitus without complications, Z00.01 - Encounter for general adult medical examination with abnormal findings TSH reflex Free T4 Today E11.9 - Type 2 diabetes mellitus without complications, Z00.01 - Encounter for general adult medical examination with abnormal findings UA CC w/rflx Micro + Cult Today E11.9 - Type 2 diabetes mellitus without complications, Z00.01 - Encounter for general adult medical examination with abnormal findings Complete Blood Count Auto Diff Today E11.9 - Type 2 diabetes mellitus without complications, Z00.01 - Encounter for general adult medical examination with abnormal findings Comprehensive [place]. Panel Fast Today E11.9 - Type 2 diabetes mellitus without complications, Z00.01 - Encounter for general adult medical examination with abnormal findings US abdominal aortic aneurysm Today F17.200 - Nicotine dependence, unspecified, uncomplicated Vitamin D 25-OH Total Today E55.9 - Vitamin D deficiency, unspecified Medications: Changed From empagliflozin (Jardiance) 10 mg PO DAILY To empagliflozin 25 mg PO DAILY 90 days 90 tabs 0RF Coding Level of Care Code Est Pt Prev Care >65y(78843) Diagnoses Diabetes E11.9 Encounter for routine adult physical exam with abnormal findings Z00.01 Smoker F17.200 Vitamin D deficiency E55.9 Additional Codes XAVIER-7 Assessment Billing - XAVIER-7 Assessment Tool: XAVIER-7 Assessment 84347 ([id number])
== END 2024-04-24 08:12 | disposition home or self-care (01) ==
PROVIDERS: PCP Nurse Practitioner Family; Visit Provider Nurse Practitioner Family
DX: Z00.01 Encounter for general adult medical examination with abnormal findings (principal); E11.9 Type 2 diabetes mellitus without complications; F17.200 Nicotine dependence, unspecified, uncomplicated; E55.9 Vitamin D deficiency, unspecified
CPT/HCPCS: 83036; 99214; 99397

== ENCOUNTER 2024-04-29 13:47 | Outpatient (AMB) | payer OTHER, SELFPAY ==
[2024-04-29 13:52] VITALS: BP 104/60; PULSE 74; BMI 26.7
--- NOTE | 2024-04-29 13:52 | MHC.OFFVIS ---
Vital Signs 04/29/24 13:52 Height 5 ft 9 in Weight 180 lb 12.465 oz BMI 26.7 BP 104/60 Blood Pressure Location Lt brachial Position Sitting Pulse 74 Pulse Source Pulse Oximeter Intake Visit Reasons: follow up after er visit and testing Allergies No Known Allergies [No Known Allergies*] Allergy (Verified 04/29/24 14:06) Medication List - Last Reconciled 04/29/24 by Sarah Resendiz NP albuterol sulfate 2.5 mg (3 mL) inhalation QID PRN albuterol sulfate 90 mcg/actuation (Ventolin HFA) 2 puffs inhalation Q4H PRN 30 days aspirin (Adult Aspirin Regimen) 81 mg PO DAILY blood sugar diagnostic ([employer] Verio test strips) Test blood sugar once a day blood sugar diagnostic check sugar once a day blood-glucose meter ([employer] Ver[employer] Flex Meter) As directed bupropion HCl XL 1 tab PO DAILY buspirone 1 tab PO BID PRN cetirizine 10 mg PO BEDTIME docusate sodium (Stool Softener) 100 mg PO DAILY PRN 30 days empagliflozin 25 mg PO DAILY 90 days fluticasone propionate 50 mcg/actuation (Allergy Relief (fluticasone)) 1 spray intranasal DAILY PRN lancets ([employer] Delica Plus Lancet) Test blood sugar once a day lancets (FreeStyle Lancets) once a day lisinopril 2.5 mg PO BEDTIME lorazepam 0.5 mg PO BID PRN montelukast 10 mg PO BEDTIME naproxen 375 mg PO BID PRN nicotine 1 patch transdermal Q24H omega-3 acid ethyl esters 1 cap PO BID omeprazole 20 mg PO DAILY rosuvastatin 20 mg PO DAILY 90 days umeclidinium 62.5 mcg/actuation (Incruse Ellipta) 1 inh inhalation DAILY PRN HPI Comments Details: 64-year-old male presents today for a new patient visit. He went to the walk-in clinic and was sent to the emergency department. He was looking at his friends camper and suddenly got left arm numbness, diaphoretic, nauseous, and chest discomfort. He was admitted but then left AMA. He reports he gets short of breath on exertion. Denies any chest pains, swelling, or palpitations. He reports he has been smoking since 8th grade. He has never seen a cardiology and states the only family history of coronary disease is his father had a cardiac arrest. 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 He has not had any reoccuring symptoms since. He has had a stress test performed. He has hypertension, smoker, marijuana use, interstitial lung disease, COPD, and diabetes. [facility] Medical History Diabetes HTN (hypertension) Dyslipidemia Diabetes GERD (gastroesophageal reflux disease) Fatty liver Tubular adenoma of colon History of splenomegaly History of pancreatitis Asthma Nicotine dependence, cigarettes, uncomplicated ILD (interstitial lung disease) Anxiety Depression Surgical History H/O knee surgery History of colonoscopy History of esophagogastroduodenoscopy (EGD) History of arthroscopic knee surgery Family History Father Myocardial infarction Mother No problems noted. Paternal Grandfather Colon cancer Maternal Grandmother Unknown family medical history Other Substance use disorder Social History Household Members: Spouse Housing: Apartment Do you presently have visiting nurse or other home services: No Alcohol intake: never Patient Tobacco Use Status: Current everyday Tobacco user Tobacco use type: Cigarette Cigarettes Per Day: 10 Years Smoked: 58 years e-Cigarette/Vaping Use: Never Used Second Hand Smoke Exposure: No Substance Use Type: Marijuana service: No Current occupational status: disabled Cognitive needs: No Hearing needs: No Vision needs: No Review of Systems Const Denies weakness ENT Denies dizziness Card Denies chest pain, Denies chest pain with activity, Denies syncope, Denies rapid heart rate, Denies pedal edema, Denies edema, Denies leg edema, Denies lightheadedness, Denies palpitations, Denies dyspnea, Denies dyspnea on exertion and Denies orthopnea Resp Denies cough, Denies dyspnea and Denies dyspnea on exertion GI Denies hematochezia and Denies change in stool character Musc Denies abnormal gait, Denies muscle cramps, Denies muscle weakness, Denies numbness, Denies radiating pain into limb and Denies tingling Neuro Denies abnormal gait, Denies dizziness, Denies syncope, Denies numbness, Denies tingling and Denies weakness Endo Denies palpitations Physical Exam Vital Signs: Last Vital Signs Pulse 74 04/29/24 13:52 BP 104/60 04/29/24 13:52 BMI result Body Mass Index 26.7 Const General: healthy appearing and no acute distress Orientation/consciousness: patient oriented x3 HEENT Head: Yes normal to inspection Eyes General: appearance normal, both eyes and all related structures Neck Neck: Yes normal visual inspection Chest Chest palpation & inspection: normal inspection of the chest Resp Effort & Inspection: normal respiratory effort Auscultation: clear to auscultation bilaterally Cardio Jugular venous distension: no JVD Palpation: normal PMI Rate: regular rate Rhythm: regular rhythm Heart sounds: S1 normal heart sound present, S2 normal heart sound present, no click, no gallops, no murmurs and no rubs GI Inspection: Yes normal to inspection Palpation (GI): Soft to palpation Skin General skin exam: no rashes or lesions noted Neuro General: patient oriented x3 Extrem General: Yes normal to inspection Psych Appearance: grossly normal Assessment & Plan Assessment & Plan (1) Atypical chest pain: Code(s): R07.89 - Other chest pain Category: Medical Plan: Atypical chest pains when standing at looking at a camper. Has not returned. Nuclear stress test showed normal myocardial perfusion. Workload of 7.6 METs. Had moderate SOB and shortness of breath on exertion - improves with inhaler. Sree do echocardiogram to assess structure. returned after. (2) HTN (hypertension): Code(s): I10 - Essential (primary) hypertension Category: Medical Plan: within range (3) Smoker: Code(s): F17.200 - Nicotine dependence, unspecified, uncomplicated Category: Social Hx Plan: advised to quit Orders: Orders CA echo transthoracic complete 04/29/24 I10 - Essential (primary) hypertension, R07.89 - Other chest pain Coding Level of Care Code New Pt Level 4 (24891) Diagnoses Atypical chest pain R07.89 HTN (hypertension) I10 Smoker F17.200
== END 2024-04-29 14:19 | disposition home or self-care (01) ==
PROVIDERS: PCP Nurse Practitioner Family; Visit Provider Nurse Practitioner
DX: I10 Essential (primary) hypertension (principal); R07.89 Other chest pain; F17.210 Nicotine dependence, cigarettes, uncomplicated
CPT/HCPCS: 99214

== ENCOUNTER → 2024-04-29 13:47 | Outpatient (BNVA) | payer OTHER, SELFPAY | PROVIDERS: PCP Nurse Practitioner Family; Visit Provider Nurse Practitioner | DX: R07.89 Other chest pain (principal); I10 Essential (primary) hypertension; F17.210 Nicotine dependence, cigarettes, uncomplicated | CPT/HCPCS: 99212 ==

== ENCOUNTER 2024-05-06 07:43 | Outpatient (REF) | payer OTHER, SELFPAY ==
--- NOTE | ~2024-05-06 | US_ITS ---
EXAMINATION: US RETROPERITONEAL LIMITED (AORTA) CLINICAL INFORMATION: Abdominal aortic aneurysm screening, history of smoking. COMPARISON: None available. TECHNIQUE: Velazquez-scale, color Doppler and spectral Doppler evaluation of the abdominal aorta. FINDINGS: The aorta is normal in caliber. Scattered atherosclerotic plaque is seen with bulky calcified plaque in the distal aorta The measurements of the aorta in maximum AP and transverse dimensions respectively are as follows: Proximal: 3.3 x 3.5 cm. Mid: 2.0 x 1.8 cm. Distal: 1.6 x 1.8 cm. PSV: 103 cm/s. The measurements of the common iliac arteries in maximum AP and TRV dimensions are as follows: Right Common Iliac Artery: 1.0 x 0.9 cm. Left Common Iliac Artery: 1.1 x 1.2 cm. US/US abdominal aortic aneurysm IMPRESSION: No evidence of abdominal aortic aneurysm. Atherosclerotic plaque is seen, especially in the distal abdominal aorta. Electronically signed by: Daniel Hung MD 05/07/2024 03:37 PM EDT
== END 2024-05-06 07:44 | disposition home or self-care (01) ==
LOC: HO.US 07:43
PROVIDERS: PCP Nurse Practitioner Family; Visit Provider Nurse Practitioner Family
DX: Z13.6 Encounter for screening for cardiovascular disorders (principal); F17.200 Nicotine dependence, unspecified, uncomplicated
CPT/HCPCS: 76706

== ENCOUNTER 2024-05-08 06:28 | Outpatient (REF) | payer OTHER, SELFPAY ==
[2024-05-08 10:10] LABS: MANUAL DIFF FLAG NO
[2024-05-08 10:25] LABS: Appearance Urine Clear; Color Urine Yellow; Glucose Urine UA >=1000 mg/dL (Negative); Leukocyte Esterase Urine Negative (Negative); Nitrite Urine Negative (Negative); Specific Gravity - Urine >= 1.030 (1.005-1.025); UMIC TRIGGER UACC YES; Urine Blood Negative (Negative); Urine Ketones Trace mg/dL (Negative); Urine Protein Negative (Neg-Trace)
[2024-05-08 10:26] LABS: Basophils Absolute Auto 0.1 X10*3/uL (0.0-0.2); Basophils Percent Auto 0.7 % (0-2); Eosinophils Absolute Auto 0.5 X10*3/uL (0.0-0.4); Eosinophils Percent Auto 4.3 % (0-4); Hematocrit 49.3 % (42.0-52.0); Hemoglobin 17.5 g/dl (14.0-18.0); Imm Gran Abs Auto 0.06 X10*3/uL (0.00-0.03); Imm Gran Pct Auto 0.6 % (0.0-0.4); Lymphocytes Absolute Auto 3.2 X10*3/uL (1.2-4.9); Lymphocytes Percent Auto 29.6 % (20-40); Mean Corpuscular HGB Conc 35.5 g/dl (31.0-36.0); Mean Corpuscular Hemoglobin 33.3 pg (27.0-33.0); Mean Corpuscular Volume 93.7 fL (80.0-98.0); Mean Platelet Volume 10.1 fL (9.4-12.4); Monocytes Absolute Auto 0.9 X10*3/uL (0.1-1.2); Monocytes Percent Auto 8.1 % (2-11); Neutrophils Absolute Auto 6.1 x10*3/uL (2.0-8.3); Neutrophils Percent Auto 56.7 % (45-73); Platelet Count 218 X10*3/uL (160-400); Red Blood Count 5.26 X10*6/uL (4.60-5.80); Red Cell Distribution Width 12.2 % (11.0-16.0); White Blood Count 10.8 X10*3/uL (4.8-10.8)
[2024-05-08 10:28] LABS: Bacteria Urine None Seen (None Seen); Hyaline Casts Urine 0-2 /LPF (0-2); RBC Urine 0-2 /HPF (0-2); Squamous Epithelial Cell Urine 0-2 /HPF (0-2); WBC Urine 0-5 /HPF (0-5)
[2024-05-08 11:02] LABS: Prostate Specific Antigen Scr 1.35 ng/mL (<0.05-4.0)
[2024-05-08 11:03] LABS: Alanine Aminotransferase 38 U/L (0-40); Albumin Level 4.2 g/dL (3.5-5.0); Alkaline Phosphatase 73 U/L (39-117); Anion Gap 11 (12-20); Aspartate Amino Transferase 32 U/L (5-37); Bilirubin Total 0.3 mg/dL (0.0-1.0); Blood Urea Nitrogen 18 mg/dL (9-16); Calcium 9.2 mg/dL (8.4-10.2); Carbon Dioxide 24 mmol/L (22-29); Chloride 110 mmol/L (96-108); Cholesterol 143 mg/dL (<200); Estimated Glomerular Filt Rate > 60; Glucose Fasting 171 mg/dL (60-99); HDL Cholesterol 32 mg/dL (>40); LDL Cholesterol Calculated 66 mg/dL (<100); Potassium 4.2 mmol/L (3.3-5.1); Sodium 141 mmol/L (135-145); TSH reflex Free T4 1.63 uIU/mL (0.32-4.0); Total Protein 6.7 g/dL (6.5-8.0); Triglycerides 226 mg/dL (<150)
== END 2024-05-08 06:29 | disposition home or self-care (01) ==
LOC: HO.HMGCLDS 06:28
PROVIDERS: PCP Nurse Practitioner Family; Visit Provider Nurse Practitioner Family
DX: Z00.01 Encounter for general adult medical examination with abnormal findings (principal); E11.9 Type 2 diabetes mellitus without complications; Z12.5 Encounter for screening for malignant neoplasm of prostate; E55.9 Vitamin D deficiency, unspecified
CPT/HCPCS: 36415; 80053; 80061; 81001; 82306; 84153; 84443; 85025

== ENCOUNTER → 2024-05-21 08:01 | Outpatient (REF) | payer OTHER, SELFPAY ==
--- NOTE | 2024-05-21 08:04 | CA_ITS ---
Transthoracic Echocardiogram Patient (Last, First, Middle): Boston Betancourt L Gender: Male Date of : 1960 Age: 64 Procedure Date: 05/21/2024 Procedure Type: Transthoracic Echocardiogram Location: OP Height: 175.26 cm Weight: 81.65 kg BSA: 1.98 m2 Heart Rate: bpm BP: 118 / 82 mmHg Senior Quality Assurance Analyst: PINA Referring MD: Sarah Resendiz PROGRAM PROJECT MANAGER Calculation Clerk: Nelson Momin MD Symptoms: I10 - Essential (primary) hypertension Study Quality: Adequate ECG Rhythm: Sinus Conclusions: - 1. Normal LV systolic function with LVEF of 60-65% with grade 1 diastolic dysfunction 2. Normal cardiac valvular Doppler 3. Mildly dilated ascending aorta at 3.9 cm 4. Normal RV systolic pressure 5. No gross pericardial effusion Findings Left Ventricle Normal left ventricular size, thickness, and systolic function. The visually estimated ejection fraction is between 60-65%. Spectral Doppler is indicative of an impaired relaxation filling pattern. E/E prime ratio is <8, consistent with normal filling pressures. Evidence suggests grade I (mild) diastolic dysfunction. Peak GLS is -17.6%, borderline normal. Right Ventricle Normal right ventricular cavity size and systolic function. Atria Both atria are normal in size. Interatrial shunt cannot be excluded. Aortic Valve The aortic valve structure and function is likely normal. There is no aortic valve stenosis. There is no aortic valve regurgitation. Mitral Valve Normal mitral valve structure and function. There is trace mitral valve regurgitation. There is no mitral valve stenosis. Pulmonic Valve The pulmonic valve was not well visualized. Tricuspid Valve Likely normal tricuspid valve structure and function. There is trace tricuspid valve regurgitation. The right ventricular systolic pressure is normal. The right ventricular systolic pressure is 11 mmHg. Normal right atrial pressure. There is no evidence of pulmonary hypertension. Great Vessels The pulmonary artery was not well visualized. There is mild dilatation of the ascending aorta measuring 3.90 cm. Small plaque is seen in the sino tubular ridge. Venous The inferior vena cava is normal in size and collapses greater than 50% with inspiration. Pericardium/Pleural There is no evidence of pericardial effusion. Prior Study Comparison No prior study available for comparison. Measurements 2D Linear Measurements IVSd: 1.07 0.6-0.9/0.6-1.0 cm LVIDd: 3.95 3.9-5.3/4.2-5.9 cm LVIDd Index: 1.99 2.4-3.2/2.2-3.1 cm/m2 LVIDs: 2.53 2.0-3.6 cm LVPWd: 0.91 0.7-1.1 cm LA Diam: 2.50 2.7-3.8/3.0-4.0 cm LAIDs Index: 1.26 1.5-2.3 cm/m2 LV Mass: 152.77 67-162/88-224 g LV Mass Index: 77.16 43-95/49-115 g/m2 LVOT Diam: 2.00 3.0+(-)1.3 cm 2D Systolic Function EF 4C: 64.10 >55% EF 2C: 58.40 >55% EF BiP: 62.10 >55% Mitral Valve MV Pk E: 0.67 MV PK A: 0.80 MV Decel Time: 253.00 E/A: 0.80 E'Lateral: 8.59 E'Medial: 5.11 E/E' Med: 13.10 E/E' Lat: 7.80 PHT: 74.00 MVA PHT: 2.97 Decel [place] Mix: 2.65 Aortic Valve AoV Pk Patrick: 1.45 AoV Mn Patrick: 0.94 AoV VTI: 0.27 AoV Pk Grad: 8.00 Aov Mn Grad: 4.00 TAYLOR Cont.VTI: 2.43 LVOT LVOT Pk Patrick: 1.05 LVOT Mn Patrick: 0.75 LVOT VTI: 0.21 LVOT Pk Grad: 4.00 LVOT Mn Grad: 3.00 LVOT Diam: 2.00 LVOT Area: 3.14 Diastolic Function MV Pk E: 0.67 MV Pk A: 0.80 E/A: 0.80 E'Medial: 5.11 E/E' Med: 13.10 E' Laterial: 8.59 E/E' Lat: 7.80 Right Ventricle TAPSE (mm): 19.10 TVS' Patrick: 10.90 Tricuspid Valve TR Pk Patrick: 1.43 TR Pk Grad: 8.00 RA Press: 3.00 RVSP: 11.00 Great Vessels Aorta Sinus of Valsalva: 3.31 2.0-3.[address] Ridge: 2.44 1.7-3.4 cm Ao Asc: 3.90 2.1-3.4 cm Updated in Other Vendor System with Status of Final Nelson Momin MD electronically signed on 05/21/2024 10:33:06 AM with status of Final
== END ==
LOC: HO.CARD 08:01
PROVIDERS: PCP Nurse Practitioner Family; Visit Provider Nurse Practitioner
DX: R07.89 Other chest pain (principal); I10 Essential (primary) hypertension
CPT/HCPCS: 93306; 93356

== ENCOUNTER → 2024-05-21 08:04 | Outpatient (BNV) | payer OTHER, SELFPAY | PROVIDERS: PCP Nurse Practitioner Family; Visit Provider Internal Medicine Cardiovascular Disease | DX: I51.89 Other ill-defined heart diseases (principal); I10 Essential (primary) hypertension | CPT/HCPCS: 93306; 93356 ==

== ENCOUNTER 2024-09-08 06:02 | Outpatient (REF) | payer OTHER, SELFPAY ==
[2024-09-08 10:00] LABS: MANUAL DIFF FLAG NO
[2024-09-08 10:04] LABS: Appearance Urine Clear; Color Urine Yellow; Glucose Urine UA >=1000 mg/dL (Negative); Leukocyte Esterase Urine Negative (Negative); Nitrite Urine Negative (Negative); PH 5.5 (5.0-9.0); Specific Gravity - Urine >= 1.030 (1.005-1.025); UMIC TRIGGER UACC YES; Urine Blood Negative (Negative); Urine Ketones Negative (Negative); Urine Protein Negative (Neg-Trace)
[2024-09-08 10:06] LABS: Bacteria Urine None Seen (None Seen); Hyaline Casts Urine 0-2 /LPF (0-2); RBC Urine 0-2 /HPF (0-2); Squamous Epithelial Cell Urine 0-2 /HPF (0-2); WBC Urine 0-5 /HPF (0-5)
[2024-09-08 10:09] LABS: Basophils Absolute Auto 0.1 X10*3/uL (0.0-0.2); Basophils Percent Auto 0.9 % (0-2); Eosinophils Absolute Auto 0.4 X10*3/uL (0.0-0.4); Hematocrit 47.8 % (42.0-52.0); Hemoglobin 16.9 g/dl (14.0-18.0); Imm Gran Pct Auto 1.2 % (0.0-0.4); Lymphocytes Absolute Auto 2.4 X10*3/uL (1.2-4.9); Lymphocytes Percent Auto 28.2 % (20-40); Mean Corpuscular HGB Conc 35.4 g/dl (31.0-36.0); Mean Corpuscular Hemoglobin 32.5 pg (27.0-33.0); Mean Corpuscular Volume 91.9 fL (80.0-98.0); Mean Platelet Volume 9.8 fL (9.4-12.4); Monocytes Absolute Auto 0.6 X10*3/uL (0.1-1.2); Monocytes Percent Auto 7.5 % (2-11); Neutrophils Absolute Auto 4.9 x10*3/uL (2.0-8.3); Neutrophils Percent Auto 57.2 % (45-73); Platelet Count 216 X10*3/uL (160-400); Red Cell Distribution Width 12.1 % (11.0-16.0); White Blood Count 8.6 X10*3/uL (4.8-10.8)
[2024-09-08 10:23] LABS: Alanine Aminotransferase 65 U/L (0-40); Albumin Level 4.2 g/dL (3.5-5.0); Alkaline Phosphatase 87 U/L (39-117); Anion Gap 11 (12-20); Aspartate Amino Transferase 33 U/L (5-37); Bilirubin Total 0.6 mg/dL (0.0-1.0); Blood Urea Nitrogen 19 mg/dL (9-16); Calcium 8.9 mg/dL (8.4-10.2); Carbon Dioxide 23 mmol/L (22-29); Chloride 108 mmol/L (96-108); Cholesterol 139 mg/dL (<200); Estimated Glomerular Filt Rate > 60; Glucose Fasting 246 mg/dL (60-99); HDL Cholesterol 31 mg/dL (>40); LDL Cholesterol Calculated 49 mg/dL (<100); Potassium 3.8 mmol/L (3.3-5.1); Sodium 138 mmol/L (135-145); Total Protein 6.8 g/dL (6.5-8.0); Triglycerides 298 mg/dL (<150)
[2024-09-08 10:39] LABS: Prostate Specific Antigen Scr 0.85 ng/mL (<0.05-4.0)
[2024-09-08 10:40] LABS: TSH reflex Free T4 1.05 uIU/mL (0.32-4.0)
== END 2024-09-08 06:03 | disposition home or self-care (01) ==
LOC: HO.HMGCLDS 06:02
PROVIDERS: PCP Nurse Practitioner Family; Visit Provider Nurse Practitioner Family
DX: Z00.01 Encounter for general adult medical examination with abnormal findings (principal); E11.9 Type 2 diabetes mellitus without complications; Z12.5 Encounter for screening for malignant neoplasm of prostate
CPT/HCPCS: 36415; 80053; 80061; 81001; 81003; 84153; 84443; 85025

== ENCOUNTER 2024-09-10 08:26 | Outpatient (AMB) | payer OTHER, SELFPAY ==
[2024-09-10 08:30] VITALS: BP 118/74; PULSE 76; O2SAT 94; BMI 27.5
--- NOTE | 2024-09-10 08:30 | A.OFFPC_ITS ---
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 Accompanied by: Self / Same As Patient Allergies No Known Allergies [No Known Allergies*] Allergy (Verified 09/10/24 08:30) Medication List - Last Reconciled 09/10/24 by GT WillP- albuterol sulfate 2.5 mg (3 mL) inhalation QID PRN albuterol sulfate 90 mcg/actuation (Ventolin HFA) 2 puffs inhalation Q4H PRN 30 days aspirin (Adult Aspirin Regimen) 81 mg PO DAILY blood sugar diagnostic check sugar once a day blood sugar diagnostic (Glanse Verio test strips) Test blood sugar once a day blood-glucose meter (Glanse Verio Flex Meter) As directed bupropion HCl XL 1 tab PO DAILY buspirone 1 tab PO BID PRN cetirizine 10 mg PO QPM docusate sodium (Stool Softener) 100 mg PO DAILY PRN 30 days empagliflozin (Jardiance) 25 mg PO DAILY fluticasone propionate 50 mcg/actuation (Allergy Relief (fluticasone)) 1 spray intranasal DAILY PRN lancets (FreeStyle Lancets) once a day lancets (DocDocTouch Delica Plus Lancet) Test blood sugar once a day lisinopril 2.5 mg PO BEDTIME lorazepam 0.5 mg PO BID PRN montelukast 10 mg PO QPM naproxen 375 mg PO BID PRN nicotine 1 patch transdermal Q24H omega-3 acid ethyl esters 1 cap PO BID omeprazole 20 mg PO DAILY rosuvastatin 40 mg PO DAILY umeclidinium 62.5 mcg/actuation (Incruse Ellipta) 1 inh inhalation DAILY PRN Tobacco use date assessed: 09/10/24 Fall risk assessment: No Falls in past year Last assessed Fall Risk: 09/10/24 Dental Screening Dental Screen Date: 09/10/24 Did you have a dental visit in the last 12 months?: Yes Did you have a dental problem in the last 6 months where you did not have access to dental care?: No Was dental information given to patient?: Patient has dentist HPI 4 month follow up HPI Details Chief Complaint Patient is concerned about elevated blood glucose levels. History of Present Illness The patient is a 64-year-old male presenting with elevated blood glucose levels for a diabetes follow-up. His most recent A1c is 8.5, noted to be higher than his usual levels. Over the holiday period, he experienced a lapse in dietary discipline, consuming high-sugar foods such as sodas and chocolates. Although the option of initiating treatment with a GLP-1 receptor agonist was considered, a history of pancreatitis precludes this choice. The patient reports no current symptoms of neuropathy, polyuria, polydipsia, chest pain, or shortness of breath. He has been managing his diabetes with lifestyle adjustments and is committed to dietary changes to help lower his A1c level over the next four months. Social History - Continues to smoke tobacco - Reports recent high consumption of sug samuel foods and drinks over holidays Health Maintenance - Eye examination is up to date - Follows low-dose CAT scan program - Colonoscopy is up to date Review of Systems - Endocrine: Denies polyuria and polydip bill - Neurological: Denies neuropathy - Respiratory: Denies shortness of breat h - Cardiovascular: Denies chest pain Physical Exam General: Cooperative, healthy appearing, comfortable, no acute distress and well developed Orientation: Patient oriented x3 Limitations: No limitations Head: Normal to inspection Ears: Hearing grossly normal bilaterally Nose: Normal external nose present Face and sinus: Normal facial exam Eyes: Appearance normal, both eyes and all related structures Neck: Normal visual inspection and Yes full ROM Respiratory: Normal respiratory effort and able to speak in complete sentences. Clear to auscultation bilaterally Cardiovascular: Regular rate and rhythm. Normal S1 and S2 GI: Normal to inspection. Soft to palpation and nontender Skin: No rashes or lesions noted Neuro: Patient oriented x3 Extremities: Normal to inspection Results - Labs: Elevated hemoglobin A1c at 8.5% - Imaging: Abdominal ultrasound and hepa titis screen ordered Plan - Schedule follow-up in four months for repeat A1c measurement - Continue monitoring blood glucose [facility] with dietary management - Order an abdominal ultrasound to asses s liver pathology - Order a hepatitis screen to investigat e elevated liver enzyme levels Patient was informed and verbally consented to the use of an ambient scribe for clinic note documentation during this visit. Discussion Notes I discussed with the patient the significance of his elevated A1c and stressed the importance of dietary control to manage his diabetes effectively. We reviewed his history of pancreatitis, which prevents the initiation of a GLP-1 receptor agonist. The patient decided against this treatment after being informed of the risks. We agreed on a plan to focus on dietary modifications with a follow-up scheduled in four months to reassess his A1c level. Additionally, I have arranged for an abdominal ultrasound and a hepatitis screening to investigate further the liver enzyme elevation. I emphasized the importance of smoking cessation and continued engagement in health screenings. Patient Instructions - Monitor blood glucose levels regularly - Adhere strictly to dietary adjustments to help lower blood sugar levels - Attend scheduled follow-up in four mon ths - Undergo abdominal ultrasound and hepat itis screening as ordered - Consider smoking cessation assistance programs [facility] Medical History Diabetes HTN (hypertension) Dyslipidemia Diabetes GERD (gastroesophageal reflux disease) Fatty liver Tubular adenoma of colon History of splenomegaly History of pancreatitis Asthma Nicotine dependence, cigarettes, uncomplicated ILD (interstitial lung disease) Anxiety Depression Surgical History H/O knee surgery History of colonoscopy History of esophagogastroduodenoscopy (EGD) History of arthroscopic knee surgery Family History Father Myocardial infarction Mother No problems noted. Paternal Grandfather Colon cancer Maternal Grandmother Unknown family medical history Other Substance use disorder Social History Household Members: Spouse Housing: Apartment Do you presently have visiting nurse or other home services: No Alcohol intake: never Patient Tobacco Use Status: Current everyday Tobacco user Tobacco use type: Cigarette Cigarettes Per Day: 10 Years Smoked: 58 years e-Cigarette/Vaping Use: Never Used Second Hand Smoke Exposure: No Substance Use Type: Marijuana service: No Current occupational status: disabled Cognitive needs: No Hearing needs: No Vision needs: No Questionnaire PHQ-9 Over the last 2 weeks, how often have you been bothered by any of the following problems? 1. Little interest or pleasure in doing things: not at all 2. Feeling down, depressed, or hopeless: not at all 3. Trouble falling or staying asleep, or sleeping too much: not at all 4. Feeling tired or having little energy: not at all 5. Poor appetite or overeating: not at all 6. Feeling bad about yourself - or that you are a failure or have let yourself or your family down: not at all 7. Trouble concentrating on things, such as reading the newspaper or watching television: not at all 8. Moving or speaking so slowly that other people could have noticed. Or the opposite - being so fidgety or restless that you have been moving around a lot more than usual: not at all 9. Thoughts that you would be better off or of hurting yourself in some way: not at all Total score: 0 Depression Screening Interpretation: Negative Depression Screening Done: Yes 04208 - PHQ-9 Billing: Yes Source: Developed by Drs. Remy Barr, Yvonne Sánchez, Mesfin Leonard and colleagues, with an educational marck from [employer]. Thrive Questionnaire Date Thrive assessed: 09/10/24 I am a: Patient What is your living situation today?: I have a steady place to live Within the past 12 months, did the food you bought not last and you didn't have the money to get more?: Never true Within the past 12 months, did you worry whether your food would run out before you got money to buy more?: Never true Do you have trouble paying for medicines?: No Do you have trouble getting transportation to medical appointments?: No Do you have trouble paying your heating and electricity bill?: No Do you have trouble taking care of your child, family member or friend?: No Do you have trouble with day-to-day activities such as bathing, preparing meals, shopping, managing finances, etc.?: No Are you currently unemployed and looking for a job?: No Are you interested in more education?: No Please select the resources that you would like help with: None Currently or been in a relationship where the following occur: No concerns reported THRIVE Score: 0 AUDIT C Alcohol Use Questionnaire (AUDIT-C) 1. How often do you have a drink containing alcohol?: Never 3. How often do you have six or more drinks on one occasion?: Never Total Score: 0 Score Reviewed/Action Taken: Yes XAVIER-7 AMB Questionnaire XAVIER-7 Date XAVIER - 7 assessed: 09/10/24 Feeling nervous, anxious, or on edge: 1 = Several days Not being able to stop or control worryin = Several days Worrying too much about different things: 1 = Several days Trouble relaxin = Not at all Being so restless that it is hard to sit still: 1 = Several days Becoming easily annoyed or irritable: 1 = Several days Feeling afraid as if something awful might happen: 0 = Not at all Total XAVIER-7 score (0-4 normal; 5-9 mild; 10-14 moderate; 15-21 severe): 5 Source: Developed by Drs. Remy Barr, Yvonne Sánchez, Mesfin Leonard and colleagues, with an educational marck from [employer]. XAVIER-7 Assessment Billing XAVIER-7 Assessment Tool: XAVIER-7 Assessment 86569 Physical exam (Primary Care) Tobacco/Smoking Status: Tobacco use Status Tobacco use date assessed 01/24/24 04/24/24 07:38 Patient Tobacco Use Status Current everyday Tobacco 04/29/24 13:59 Tobacco use type Cigarette 04/29/24 13:59 e-Cigarette/Vaping Use Never Used 04/29/24 13:59 Depression Screening Interpretation: Negative Thrive Assessment: Date of Thrive Assessment Date Thrive assessed 04/24/24 04/24/24 07:43 Currently or been in a relationship where the following occur: No concerns reported Coding Level of Care Code Est Pt Level 3 (97976) Diagnoses Diabetes E11.9 Elevated liver enzymes R74.8 Additional Codes XAVIER-7 Assessment Billing - XAVIER-7 Assessment Tool: XAVIER-7 Assessment 89483 ([id number]) PHQ-9 - 65654 - PHQ-9 Billing: Yes ([id number]) Assessment & Plan Assessment & Plan (1) Diabetes: Code(s): E11.9 - Type 2 diabetes mellitus without complications Category: Medical (2) Elevated liver enzymes: Code(s): R74.8 - Abnormal levels of other serum enzymes Category: Medical Plan . Orders: Orders Microalbumin, Random (w Creat) Today E11.9 - Type 2 diabetes mellitus without complications Complete Blood Count Auto Diff Today E11.9 - Type 2 diabetes mellitus without complications TSH reflex Free T4 Today E11.9 - Type 2 diabetes mellitus without complications AMB Hemoglobin A1c Today Z13.9 - Encounter for screening, unspecified US abdomen complete Today R74.8 - Abnormal levels of other serum enzymes Hepatitis A,B,C Profile Today R74.8 - Abnormal levels of other serum enzymes Comprehensive Pringle. Panel Fast Today E11.9 - Type 2 diabetes mellitus without complications UA CC w/rflx Micro + Cult Today E11.9 - Type 2 diabetes mellitus without complications Lipid Panel Today E11.9 - Type 2 diabetes mellitus without complications
== END 2024-09-10 08:57 | disposition home or self-care (01) ==
PROVIDERS: PCP Nurse Practitioner Family; Visit Provider Nurse Practitioner Family
DX: E11.9 Type 2 diabetes mellitus without complications (principal); R74.8 Abnormal levels of other serum enzymes; Z13.9 Encounter for screening, unspecified

== ENCOUNTER → 2024-09-10 08:26 | Outpatient (BNVA) | payer OTHER, SELFPAY | PROVIDERS: PCP Nurse Practitioner Family; Visit Provider Nurse Practitioner Family | DX: E11.9 Type 2 diabetes mellitus without complications (principal); R74.8 Abnormal levels of other serum enzymes | CPT/HCPCS: 83036; 96127; 99212 ==

== ENCOUNTER 2024-09-25 08:17 | Outpatient (REF) | payer OTHER, SELFPAY ==
--- NOTE | ~2024-09-25 | US_ITS ---
CLINICAL HISTORY: R74.8 - Abnormal levels of other serum enzymes US abdomen complete Comparison: None Findings: The visualized pancreas is normal. Liver measures 15.8 cm in length and demonstrates increased echogenicity. There is no intrahepatic bile duct dilatation. The common duct is 3 mm in diameter. The gallbladder is normal. There is no sonographic Villarreal sign. The main portal vein is antegrade. The right kidney is 12.2 cm in length. The left kidney is 12 cm in length. Somewhat complex 2 cm exophytic left lower polar renal cyst could be further characterized with dedicated renal protocol CT or MRI. A few additional simple bilateral renal cysts measuring up to 19 mm. Enlarged spleen measuring 14.4 cm in length. No ascites. IMPRESSION: 1. Hepatic steatosis. 2. Mild splenomegaly. 3. Somewhat complex 2 cm exophytic left lower polar renal cyst could be further characterized with dedicated renal protocol CT or MRI. This document has been electronically signed by: Gali Mejia MD on 09/26/2024 08:07:45
== END 2024-09-25 08:18 | disposition home or self-care (01) ==
LOC: HO.HMGCX 08:17
PROVIDERS: PCP Nurse Practitioner Family; Visit Provider Nurse Practitioner Family
DX: R74.8 Abnormal levels of other serum enzymes (principal); N28.1 Cyst of kidney, acquired
CPT/HCPCS: 76700

== ENCOUNTER → 2024-09-25 08:24 | Outpatient (BNV) | payer OTHER, SELFPAY | PROVIDERS: PCP Nurse Practitioner Family; Visit Provider Radiology Diagnostic Radiology | DX: R74.8 Abnormal levels of other serum enzymes (principal); K76.0 Fatty (change of) liver, not elsewhere classified; R16.1 Splenomegaly, not elsewhere classified; N28.1 Cyst of kidney, acquired | CPT/HCPCS: 76700 ==

== ENCOUNTER 2024-10-09 11:16 | Outpatient (REF) | payer OTHER, SELFPAY ==
--- NOTE | ~2024-10-09 | MR_ITS ---
CLINICAL HISTORY: N28.1 - Cyst of kidney, acquired MR abdomen with and without gadolinium Comparison: US/SR - US ABDOMINAL AORTIC ANEURYSM - 05/06/24 08:05 EDT MR/OT/OH - MR ABDOMEN WO/W CON - 07/06/20 15:19 EST US/OH - US ABDOMEN COMPLETE - 05/30/20 15:10 EDT Findings: Lung bases are clear. Heart size is normal. Gallbladder is within normal limits. There is a 10 mm diameter high T2 intensity focus within the right hepatic lobe posteriorly, which demonstrates peripheral nodular enhancement with gradual increasing centripetal enhancement on successive intravenous contrast phases. This is most consistent with a hemangioma. There is a new right adrenal nodule measuring 18 mm which demonstrates signal dropout on out of phase gradient echo sequences, consistent with an adenoma. Bilateral renal cysts are present as before, largest of which is an exophytic cyst involving the inferior pole left kidney anteriorly measuring 21 mm (previously measuring 12 mm. Next largest is within the parapelvic right kidney measuring 18 mm ( previously measuring 14 mm) solid organs are otherwise within normal limits. Visualized bowel loops and vasculature are normal in caliber. Visualized osseous structures are within normal limits. IMPRESSION: 1. No acute intraabdominal or pelvic pathology. 2. New 18 mm right adrenal adenoma. 3. Benign bilateral renal cysts.No further follow up is recommended. 4. Right hepatic lobe hemangioma. This document has been electronically signed by: Krishan Pemberton MD on 10/10/2024 14:30:31
[2024-10-09] MEDS: gadobutroL 10 ML VIAL IVPUSH (12:18)
--- OUTSIDE RECORDS SUMMARY | 2024-10-09 12:37 | XMS_ITS | Patient Health Record ---
[facility] [place] Address [address] [place] [address] Care Team Providers [facility] Display Builder Name Role Phone Torrey Lopez Primary Care Provider Unav ailable Amish Barillas Unavailable [phone] Allergies No Known Allergies Reason For Referral No Information Medications Medication SIG (Take, Route, Frequency, Duration) Notes Start Date End Date Status Montelukast Sodium 10 MG TAKE 1 TABLET B Y MOUTH EVERY NIGHT Oral for 90 Active Rosuvastatin Calcium 20 MG TAKE 1 TABLET BY MOUTH DAILY Oral for 90 Active Incruse Ellipta 62.5 MCG/INH USE 1 INHALATION DAILY Inhalation for 30 Active Cetirizine HCl 10 MG TAKE 1 TABLET BY MO UTH EVERY NIGHT Oral for 90 Active Docusate Sodium 100 MG Oral for 30 Active Omeprazole 20 MG Oral for 90 A ctive Albuterol Sulfate HFA 108 (90 Base) MCG/ACT Inhalation for 17 Activ e Jardiance 10 MG Oral for 90 Ac tive LORazepam 0.5 MG Oral for 30 A ctive buPROPion HCl ER (XL) 300 MG TAKE 1 TABLET BY MOUTH EVERY DAY Oral for 90 Active Breo Ellipta 100-25 MCG/INH INHALE 1 PUF F BY MOUTH DAILY Inhalation for 30 Active Nicoderm CQ 21 MG/24HR 1 patch to skin Transdermal Once a day for 30 day(s) Active Lisinopril 2.5 MG Oral for 90 Active [id number] Ethyl Esters 1 GM TAKE 1 CAPSULE ORALLY 2 TIMES A DAY FOR 90 DAYS Oral for 90 Active Social History Tobacco Use: Social History Observation Description Date Details (start date - stop date) Former Smoker NA - NA Tobacco Use/Smoking Question Answer Notes Are you a: former smoker Additional Findings: Tobacco User Heavy cigarett e smoker (20-39 cigs/day) Additional Findings: Tobacco Non-User Current no n-smoker Alcohol Screen Question Answer Notes Did you have a drink containing alcohol in the p ast year? No Points 0 Interpretation Negative Tobacco use other than smoking: Question Answer Notes Are you an other tobacco user? No Plan Of Treatment No Information Insurance Providers Payer Name Payer Address Payer Phone Subscriber Number Group Number Insured Name Patient Relationship to Insured Coverage Start Date Coverage End Date [facility] [employer] [address] [place] [id number] [phone] [id number] [place] Betancourt Self - patient is the insured Medical (General) History Medical History History ICD Code Anxiety Arthritis asthma Broken bones Depression Diabetic Headaches/Migraines High blood pressure Reflux Surgical History Surgery Date(Month/Year) arthroscopic knee surgery/Right
--- OUTSIDE RECORDS SUMMARY | 2024-10-09 12:37 | XMS_ITS | Patient Health Record ---
Author Organization [facility] Address [address] [place] [address] Care Team Providers Care Telesales Advisor Name Role Phone ELIZABETH ARIAS Primary Care Provider Remy Lyon Unavailable [phone] REASON FOR REFERRAL No Information MEDICATIONS Medication [...] history of colon cancer (Z80.0) Active confirmed 838618950 Problem Encounter for screening for malignant neoplasm of colon (Z12.11) Active confirmed 854794133 Problem Encounter for screening for malignant neoplasm of rectum (Z12.12) Active confirmed Screening for malignant neoplasm of rectum (267370829) Problem Gastroesophageal reflux disease, esophagitis presence not specified (K21.9) Active confirmed 280287782 Problem Pancreatitis (K85.90) Active confirmed Pancreatitis (00949789) Problem History of adenomatous polyp of colon (Z86.010) Active confirmed History o f adenomatous polyp of colon (730159120) Problem GERD (gastroesophageal reflux disease) (K21.9) Active confirmed Gastroesophagea l reflux disease (370080354) Problem Personal history of colonic polyps (Z86.010) Active confirmed History of poly p of colon (situation) (532400014) Problem Encounter for other preprocedural examination (Z01.818) Active confirmed Pre-procedure evaluation check (886004081) Problem Diverticulosis of colon (K57.30) Active confirmed Diverticulosi s of colon (157597472) PLAN OF TREATMENT Pending Test Test Name Order Date BUN 06/22/2020 CREATININE 06/22/2020 LIPASE 06/22/2020 MRI ABD W&WO CONTRAST 06/22/2020 Pathology 06/07/2022 Future Test Test Name Order Date UPPER GI ENDOSCOPY 09/15/2016 COLONOSCOPY 09/15/2016 COLONOSCOPY 03/07/2022 Insurance Providers Payer Name Payer Address Payer Phone Subscriber Number Group Number Insured Name Patient Relationship to Insured Coverage Start Date Coverage End Date [facility] [address] [place] [phone] [id number] NIMO HART Self - patient is the insured MEDICARE OF [place] [address] [place] [id number] NIMO HART Self - patient is the insured MEDICAL (GENERAL) HISTORY Medical History History ICD Code Asthma Anxiety Depression Denies [place],CVA,,renal disease Had a 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 2011 GERD-EGD in 12/2016 with a small HH--no e sophagitis and no Fitch's He [facility] a [facility] 38 [facility] [place] Colonoscopy in 12/2016 with several tubul ar adenomas removed Pancreatitis in 05/2020 of u nclear etiology-normal TG's, Normal GB U/S, normal LFT's, CT neg. for mass, no EtOH. Negative MRI/MRCP in 06/2020 NIDDM Surgical History Surgery Date(Month/Year) Right knee
== END 2024-10-09 11:17 | disposition home or self-care (01) ==
LOC: HO.MRI 11:16
PROVIDERS: PCP Nurse Practitioner Family; Visit Provider Nurse Practitioner Family
DX: N28.1 Cyst of kidney, acquired (principal)
CPT/HCPCS: 74183; A9585

== ENCOUNTER → 2024-10-09 11:23 | Outpatient (BNV) | payer OTHER, SELFPAY | PROVIDERS: PCP Nurse Practitioner Family; Visit Provider Radiology Diagnostic Radiology | DX: N28.1 Cyst of kidney, acquired (principal); D35.01 Benign neoplasm of right adrenal gland; D18.03 Hemangioma of intra-abdominal structures | CPT/HCPCS: 74183 ==

== ENCOUNTER 2024-10-27 12:07 | Outpatient (AMB) | payer OTHER, SELFPAY ==
[2024-10-27 12:24] VITALS: BP 118/60; PULSE 88; BMI 24.4
--- NOTE | 2024-10-27 12:24 | MHC.OFFVIS ---
Vital Signs 10/27/24 12:24 Height 5 ft 9 in Weight 165 lb 5.547 oz BMI 24.4 BP 118/60 Blood Pressure Location Lt brachial Position Sitting Pulse 88 Pulse Source Pulse Oximeter Intake Visit Reasons: r/s 09/01/24 4 mos followup Allergies No Known Allergies [No Known Allergies*] Allergy (Verified 09/10/24 08:30) Medication List - Last Reconciled 10/27/24 by Ej Whitehead MD albuterol sulfate 2.5 mg (3 mL) inhalation QID PRN albuterol sulfate 90 mcg/actuation (Ventolin HFA) 2 puffs inhalation Q4H PRN 30 days aspirin (Adult Aspirin Regimen) 81 mg PO DAILY blood sugar diagnostic check sugar once a day blood sugar diagnostic ([employer] Verio test strips) Test blood sugar once a day blood-glucose meter ([employer] Verio Flex Meter) As directed bupropion HCl XL 1 tab PO DAILY buspirone 1 tab PO BID PRN cetirizine 10 mg PO QPM docusate sodium (Stool Softener) 100 mg PO DAILY PRN 30 days empagliflozin (Jardiance) 25 mg PO DAILY fenofibrate 54 mg PO DAILY fluticasone propionate 50 mcg/actuation (Allergy Relief (fluticasone)) 1 spray intranasal DAILY PRN lancets (FreeStyle Lancets) once a day lancets ([employer]Touch Delica Plus Lancet) Test blood sugar once a day lisinopril 2.5 mg PO BEDTIME lorazepam 0.5 mg PO BID PRN montelukast 10 mg PO QPM naproxen 375 mg PO BID PRN nicotine 1 patch transdermal Q24H omega-3 acid ethyl esters 1 cap PO BID omeprazole 20 mg PO DAILY rosuvastatin 40 mg PO DAILY umeclidinium 62.5 mcg/actuation (Incruse Ellipta) 1 inh inhalation DAILY PRN HPI Comments Details: [place] returns for follow-up. Previously seen by nurse practitioner. He states he feels fine. He does not have any cardiac symptoms like angina or shortness of breath or in fact anything cardiac sounding. Multiple cardiovascular risk factors including diabetes, dyslipidemia, smoking. Continues to smoke. [facility] Medical History (Updated 10/27/24 @ 12:43 by Ej Whitehead MD) Dyslipidemia Diabetes HTN (hypertension) Diabetes GERD (gastroesophageal reflux disease) Fatty liver Tubular adenoma of colon History of splenomegaly History of pancreatitis Asthma Nicotine dependence, cigarettes, uncomplicated ILD (interstitial lung disease) Anxiety Depression Surgical History H/O knee surgery History of colonoscopy History of esophagogastroduodenoscopy (EGD) History of arthroscopic knee surgery Family History Father Myocardial infarction Mother No problems noted. Paternal Grandfather Colon cancer Maternal Grandmother Unknown family medical history Other Substance use disorder Social History Household Members: Spouse Housing: Apartment Do you presently have visiting nurse or other home services: No Alcohol intake: never Patient Tobacco Use Status: Current everyday Tobacco user Tobacco use type: Cigarette Cigarettes Per Day: 10 Years Smoked: 58 years e-Cigarette/Vaping Use: Never Used Second Hand Smoke Exposure: No Substance Use Type: Marijuana service: No Current occupational status: disabled Cognitive needs: No Hearing needs: No Vision needs: No Review of Systems Const Denies weakness ENT Denies dizziness Card Denies chest pain, Denies chest pain with activity, Denies syncope, Denies rapid heart rate, Denies pedal edema, Denies edema, Denies leg edema, Denies lightheadedness, Denies palpitations, Denies dyspnea, Denies dyspnea on exertion and Denies orthopnea Resp Denies cough, Denies dyspnea and Denies dyspnea on exertion GI Denies hematochezia and Denies change in stool character Musc Denies abnormal gait, Denies muscle cramps, Denies muscle weakness, Denies numbness, Denies radiating pain into limb and Denies tingling Neuro Denies abnormal gait, Denies dizziness, Denies syncope, Denies numbness, Denies tingling and Denies weakness Endo Denies palpitations Physical Exam Vital Signs: Last Vital Signs Pulse 88 10/27/24 12:24 BP 118/60 10/27/24 12:24 BMI result Body Mass Index 24.4 Const General: comfortable and no acute distress Orientation/consciousness: patient oriented x3 HEENT Other: Unremarkable Head: Yes normal to inspection Neck Neck: Yes normal visual inspection Chest Chest palpation & inspection: normal inspection of the chest Resp Auscultation: clear to auscultation bilaterally Cardio Palpation: normal PMI Heart sounds: S1 normal heart sound present, S2 normal heart sound present, no gallops, no murmurs and no rubs GI Palpation (GI): Soft to palpation Back/Spine/Pelvis Other: unremarkable Skin General skin exam: no rashes or lesions noted Neuro General: patient oriented x3 Extrem General: Yes normal to inspection Psych Mental Status: mental status grossly normal Assessment & Plan Assessment & Plan (1) Atherosclerotic cardiovascular disease: Code(s): I25.10 - Atherosclerotic heart disease of [place] coronary artery without angina pectoris Category: Medical (2) Smoker: Code(s): F17.200 - Nicotine dependence, unspecified, uncomplicated Category: Social Hx (3) Diabetes: Code(s): E11.9 - Type 2 diabetes mellitus without complications Category: Medical (4) Dyslipidemia: Code(s): E78.5 - Hyperlipidemia, unspecified Category: Medical Plan Cardiac studies reviewed. EKG with underlying sinus rhythm at 75/Min; no significant ST-T changes; normal PA and corrected QT. In the echocardiogram, LVEF 60-65%. Mild diastolic dysfunction. No significant valvular findings. Ascending aortic size 3.9 cm. In the exercise stress test, he reached 7.6 METS, reached target heart rate, had shortness of breath but no angina, no EKG evidence of ischemia. Normal perfusion imaging. In the lung CT scan, there is mention of mild RCA and moderate LAD/circumflex calcification. Evidence of emphysema/chronic bronchitis. Overall, multiple cardiovascular risk factors, evidence of coronary disease on CT scan but no perfusion abnormality on nuclear imaging; clinically no angina. Mainly risk factor modification. Must stop smoking and we discussed this today. Otherwise, optimal management of diabetes, dyslipidemia. Coding Level of Care Code Est Pt Level 4 (17015) Complex EM visit Add On G2211 Diagnoses Atherosclerotic cardiovascular disease I25.10 Smoker F17.200 Diabetes E11.9 Dyslipidemia E78.5
--- OUTSIDE RECORDS SUMMARY | 2024-10-27 13:47 | XMS_ITS | Patient Health Record ---
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 Name Role Phone Torrey Lopez Primary Care Provider Unav ailable Amish Barillas Unavailable [phone] Allergies No Known Allergies Reason For Referral [...] Lisinopril 2.5 MG Oral for 90 Active [id number]-2-lstm Ethyl Esters 1 GM TAKE 1 CAPSULE [...] Insured Coverage Start Date Coverage End Date [facility] SCO Claims [address] [place] [id number] [phone] [id number] [place] Betancourt Self - patient is the insured Medical (General) History Medical History History ICD Code Anxiety Arthritis asthma Broken bones Depression Diabetic Headaches/Migraines High blood pressure Reflux Surgical History Surgery Date(Month/Year) arthroscopic knee surgery/Right
--- OUTSIDE RECORDS SUMMARY | 2024-10-27 13:47 | XMS_ITS | Patient Health Record ---
Author Organization [facility] Address [address] [place] [address] Care Team Providers Care Manager Pricing Name Role Phone ELIZABETH ARIAS Primary Care Provider Remy Lyon Unavailable [phone] Reason For Referral No Information Medications Medication [...] BY MOUTH DAILY Oral for 90 Active Immunizations Vaccine Route Administration Date Status Comme nts Influenza Unknown 04/20/2016 Administered Influenza Unknown 12/22/2020 Administered Influenza Unknown 11/18/2021 Administered Influenza Unknown 06/22/2020 Refused Social History Tobacco Use: Social History Observation Description Date Details (start date - stop date) Current Smoker NA - NA Tobacco Use/Smoking Question Answer Notes Patient is a current smoker How often do you smoke cigarettes? every day How many cigarettes a day do you smoke? 6-10 How soon after you wake up do you smoke your fir st cigarette? within 5 minutes Are you interested in quitting? Ready to quit Section Notes: Smoker 1 1/2 ppd; no sig alc ohol Smoker 1 1/2 ppd; no sig alc ohol Smoker 1 1/2 ppd; no sig alc ohol Smoker 1 ppd; no sig alcohol Problems Problem Type SNOMED Code ICD Code Onset Dates Problem Status W/U Status Risk Notes Problem 258630416 Encounter for screening for malignant neoplasm of colon (Z12.11) Active confirmed Problem History of adenomatous polyp of colon (473891176) History of adenomatous polyp of colon (Z86.010) Active confirmed Problem History of polyp of colon (situation) (916583551) Personal history of colonic polyps (Z86.010) Active confirmed Problem Pre-procedure evaluation check (421847708) Encounter for other preprocedural examination (Z01.818) Active confirmed Problem Screening for malignant neoplasm of rectum (344052690) Encounter for screening for malignant neoplasm of rectum (Z12.12) Active confirmed Problem 655295062 Gastroesophageal reflux disease, esophagitis presence not specified (K21.9) Active confirmed Problem 303813829 Family history o f colon cancer (Z80.0) Active confirmed Problem Gastroesophageal reflux disease (144681156) GERD (gastroesophageal reflux disease) (K21.9) Active confirmed Problem Pancreatitis (79846670) Pancreatitis (K85.90) Active confirmed Problem Diverticulosis of colon (210176208) Diverticulosis of colon (K57.30) Active confirmed Plan Of Treatment Pending Test Test Name Order Date BUN 06/22/2020 CREATININE 06/22/2020 LIPASE 06/22/2020 MRI ABD W&WO CONTRAST 06/22/2020 Pathology 06/07/2022 Future Test Test Name Order Date UPPER GI ENDOSCOPY 09/15/2016 COLONOSCOPY 09/15/2016 COLONOSCOPY 03/07/2022 Insurance Providers Payer Name Payer Address Payer Phone Subscriber Number Group Number Insured Name Patient Relationship to Insured Coverage Start Date Coverage End Date [facility] [address] [place] [phone] [id number] NIMO HART Self - patient is the insured MEDICARE OF [place] [address] [place] [id number] [phone] [id number] NIMO HART Self - patient is the insured Medical (General) History Medical History History ICD Code Asthma Anxiety Depression Denies [place],CVA,,renal disease Had a negative sleep study for 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 2011 GERD-EGD in 12/2016 with a small HH--no e sophagitis and no Fitch's He reports a negative colonoscopy at counts include [facility] age 38 at [place] Colonoscopy in 12/2016 with several tubul ar adenomas removed Pancreatitis in 05/2020 of u nclear etiology-normal TG's, Normal GB U/S, normal LFT's, CT neg. for mass, no EtOH. Negative MRI/MRCP in 06/2020 [facility]DM Surgical History Surgery Date(Month/Year) Right knee
== END 2024-10-27 12:41 | disposition home or self-care (01) ==
PROVIDERS: PCP Nurse Practitioner Family; Visit Provider Internal Medicine
DX: I25.10 Atherosclerotic heart disease of native coronary artery without angina pectoris (principal); F17.200 Nicotine dependence, unspecified, uncomplicated; E11.9 Type 2 diabetes mellitus without complications; E78.5 Hyperlipidemia, unspecified
CPT/HCPCS: 99214; G2211

== ENCOUNTER → 2024-10-27 12:07 | Outpatient (BNVA) | payer OTHER, SELFPAY | PROVIDERS: PCP Nurse Practitioner Family; Visit Provider Internal Medicine | DX: I25.10 Atherosclerotic heart disease of native coronary artery without angina pectoris (principal); E11.9 Type 2 diabetes mellitus without complications; E78.5 Hyperlipidemia, unspecified; F17.210 Nicotine dependence, cigarettes, uncomplicated | CPT/HCPCS: 99212 ==

== ENCOUNTER 2024-10-29 07:49 | Outpatient (AMB) | payer OTHER, SELFPAY ==
--- OUTSIDE RECORDS SUMMARY | 2024-10-29 07:53 | XMS_ITS | Patient Health Record ---
Author [facility] [place] Address [address] [place] [address] Care Team Providers Care Sales Floor Manager Name Role Phone Torrey Lopez Primary Care Provider Unav ailable Amish Barillas Unavailable [phone] Allergies No Known Allergies Reason For Referral [...] Lisinopril 2.5 MG Oral for 90 Active Azhmt-6-fwwy Ethyl Esters 1 GM TAKE 1 CAPSULE [...] Insured Coverage Start Date Coverage End Date [facility] SCO Claims [address] [place] [id number] [phone] [id number] [place] Betancourt Self - patient is the insured Medical (General) History Medical History History ICD Code Anxiety Arthritis asthma Broken bones Depression Diabetic Headaches/Migraines High blood pressure Reflux Surgical History Surgery Date(Month/Year) arthroscopic knee surgery/Right
--- OUTSIDE RECORDS SUMMARY | 2024-10-29 07:53 | XMS_ITS | Patient Health Record ---
Author Organization [facility] Address [address] [place] [address] Care Team Providers Care Utility Tender Carding Name Role Phone ELIZABETH ARIAS Primary Care Provider Remy Lyon Unavailable [phone] Reason For Referral No Information Medications Medication [...] Problem Status W/U Status Risk Notes Problem 009576283 Encounter for screening for malignant neoplasm of colon (Z12.11) Active confirmed Problem History of adenomatous polyp of colon (283767612) History of adenomatous polyp of colon (Z86.010) Active confirmed Problem History of polyp of colon (situation) (145819942) Personal history of colonic polyps (Z86.010) Active confirmed Problem Pre-procedure evaluation check (020809547) Encounter for other preprocedural examination (Z01.818) Active confirmed Problem Screening for malignant neoplasm of rectum (280701404) Encounter for screening for malignant neoplasm of rectum (Z12.12) Active confirmed Problem 022018068 Gastroesophageal reflux disease, esophagitis presence not specified (K21.9) Active confirmed Problem 751593627 Family history o f colon cancer (Z80.0) Active confirmed Problem Gastroesophageal reflux disease (064113044) GERD (gastroesophageal reflux disease) (K21.9) Active confirmed Problem Pancreatitis (03442483) Pancreatitis (K85.90) Active confirmed Problem Diverticulosis of colon (101136824) Diverticulosis of colon (K57.30) Active confirmed Plan [...] Insured Coverage Start Date Coverage End Date [facility] [address] [place] [phone] [id number] NIMO HART Self - patient is the insured MEDICARE OF [place] [address] [place] [id number] [phone] [id number] NIMO HART Self - patient is the insured Medical (General) History Medical History History ICD Code Asthma Anxiety Depression Denies [place],CVA,,renal disease Had a 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 2011 GERD-EGD in 12/2016 with a small HH--no e sophagitis and no Fitch's He reports a negative colonoscopy at [facility] age 38 at [place] Colonoscopy in 12/2016 with several tubul ar adenomas removed Pancreatitis in 05/2020 of u nclear etiology-normal TG's, Normal GB U/S, normal LFT's, CT neg. for mass, no EtOH. Negative MRI/MRCP in 06/2020 [facility] Surgical History Surgery Date(Month/Year) Right knee
[2024-10-29 07:57] VITALS: BP 114/82; PULSE 80; O2SAT 96; BMI 28.0
--- NOTE | 2024-10-29 07:57 | A.OFFVIS_ITS ---
Vital Signs 10/29/24 07:57 Height 5 ft 9 in Weight 189 lb 9.561 oz BMI 28.0 BP 114/82 Blood Pressure Location Rt brachial Position Sitting Pulse 80 Pulse Source Pulse Oximeter Pulse Oximetry (%) 96 Intake Visit Reasons: Benign neoplasm of unspecified adrenal gland Intake Note: New patient internally referred for Benign Neoplasm of unspecified Adrenal Gland. Sales/Marketing Required: No Accompanied by: Self / Same As Patient Allergies No Known Allergies [No Known Allergies*] Allergy (Verified 09/10/24 08:30) Medication List - Last Reconciled 10/29/24 by Remy Silva MD albuterol sulfate 2.5 mg (3 mL) inhalation QID PRN albuterol sulfate 90 mcg/actuation (Ventolin HFA) 2 puffs inhalation Q4H PRN 30 days aspirin (Adult Aspirin Regimen) 81 mg PO DAILY blood sugar diagnostic check sugar once a day blood sugar diagnostic ([employer] Verio test strips) Test blood sugar once a day blood-glucose meter ([employer] Verio Flex Meter) As directed bupropion HCl XL 1 tab PO DAILY buspirone 1 tab PO BID PRN cetirizine 10 mg PO QPM dexamethasone 1 mg PO ONCE docusate sodium (Stool Softener) 100 mg PO DAILY PRN 30 days empagliflozin (Jardiance) 25 mg PO DAILY fenofibrate 54 mg PO DAILY fluticasone propionate 50 mcg/actuation (Allergy Relief (fluticasone)) 1 spray intranasal DAILY PRN lancets (FreeStyle Lancets) once a day lancets ([employer] Delica Plus Lancet) Test blood sugar once a day lisinopril 2.5 mg PO BEDTIME lorazepam 0.5 mg PO BID PRN montelukast 10 mg PO QPM naproxen 375 mg PO BID PRN nicotine 1 patch transdermal Q24H omega-3 acid ethyl esters 1 cap PO BID omeprazole 20 mg PO DAILY rosuvastatin 40 mg PO DAILY umeclidinium 62.5 mcg/actuation (Incruse Ellipta) 1 inh inhalation DAILY PRN HPI Comments Details: The patient is a 64-year-old male presenting with a previously identified adrenal adenoma. This adrenal mass was first observed incidentally in 2019 during imaging for abdominal complaints. It appears to be a benign lesion, as seen in the MRI findings, and its slow growth from 1.1 cm to 1.5 cm reinforces the benign nature of the mass. There are no significant symptoms indicating hormonal hyperactivity from the adenoma, such as unexplained severe hype rtension, spells of sweating, or headaches. The patient's blood pressure is managed with lisinopril, and diabetes is treated with Jardiance. The blood glucose has not been optimally controlled, for which the possibility of subclinical [place] syndrome needs to be excluded. The patient denies symptoms suggestive of Berk[place] syndrome or pheochromocytoma. Furthermore, there is no family history of diabetes or endocrine disorders. Had MRI abdomenfor which revealed see below . Prior MRI dated 2019 revealed R adenoma . Denies history of spells with headache, flushing, diaphoresis, abdominal pain or diarrhea. Denies any weight gain, frequent infections, easy bruisability, development of violaceous striae. History of HTN, controlled on 1 agents. No history of anticoagulant use. Denies any weight loss, orthostatic symptoms, hypoglycemia. No history of malignancy or TB. No use of steroids Review of SX - Constitutional: Denies weight loss, weight gain. - HEENT: Denies headaches. - Cardiovascular: Denies episodic high blood pressure spikes, denies palpitations. - Gastrointestinal: Reports episodes of queasiness, no persistent abdominal pain. - Neurological: Denies persistent dizziness, reports episodic dizziness, occasionally after eating sweets. Imaging:Gallbladder is within normal limits. There is a 10 mm diameter high T2 intensity focus within the right hepatic lobe posteriorly, which demonstrates peripheral nodular enhancement with gradual increasing centripetal enhancement on successive intravenous contrast phases. This is most consistent with a hemangioma. There is a new right adrenal nodule measuring 18 mm which demonstrates signal dropout on out of phase gradient echo sequences, consistent with an adenoma. Bilateral renal cysts are present as before, largest of which is an exophytic cyst involving the inferior pole left kidney anteriorly measuring 21 mm (previously measuring 12 mm. Next largest is within the parapelvic right kidney measuring 18 mm ( previously measuring 14 mm) solid organs are otherwise within normal limits. Visualized bowel loops and vasculature are normal in caliber. Visualized osseous structures are within normal limits. IMPRESSION: 1. No acute intraabdominal or pelvic pathology. 2. New 18 mm right adrenal adenoma. 3. Benign bilateral renal cysts.No furthe Labs: [facility] Medical History (Updated 10/27/24 @ 12:43 by Ej Whitehead MD) Dyslipidemia Diabetes HTN (hypertension) Diabetes GERD (gastroesophageal reflux disease) Fatty liver Tubular adenoma of colon History of splenomegaly History of pancreatitis Asthma Nicotine dependence, cigarettes, uncomplicated ILD (interstitial lung disease) Anxiety Depression Surgical History H/O knee surgery History of colonoscopy History of esophagogastroduodenoscopy (EGD) History of arthroscopic knee surgery Family History Father Myocardial infarction Mother No problems noted. Paternal Grandfather Colon cancer Maternal Grandmother Unknown family medical history Other Substance use disorder Social History Household Members: Spouse Housing: Apartment Do you presently have visiting nurse or other home services: No Alcohol intake: never Patient Tobacco Use Status: Current everyday Tobacco user Tobacco use type: Cigarette Cigarettes Per Day: 10 Years Smoked: 58 years e-Cigarette/Vaping Use: Never Used Second Hand Smoke Exposure: No Substance Use Type: Marijuana service: No Current occupational status: disabled Cognitive needs: No Hearing needs: No Vision needs: No Physical Exam Vital Signs: Last Vital Signs Pulse 80 10/29/24 07:57 BP 114/82 10/29/24 07:57 Pulse Ox 96 10/29/24 07:57 BMI result Body Mass Index 28.0 Const Other: - General- Absence of Cushingoid features. - HEENT- Neck examination reveals normal-sized thyroid about 15 grams, smooth, with no palpable nodules. - Cardiovascular- Heart sounds S1, S2 regular with no murmurs, rubs, or gallops. - Dermatological- Absence of vitiligo or acanthosis nigricans. - - Pulmonary- Lungs clear on auscultation. - Abdominal- Benign, non-tender, with normal active bowel sounds. Assessment & Plan Assessment & Plan (1) Adrenal adenoma: Code(s): D35.00 - Benign neoplasm of unspecified adrenal gland Category: Medical Plan: 1. Adrenal adenoma: The adrenal adenoma, initially identified in 2020, has shown stability, suggesting a benign nature. Plans for assessment include hormone evaluations to exclude any risk of hypersecretion. If indicated, surgical intervention to be discussed. We will check plasma metanephrines, aldosterone/renin, 1 mg dexamethasone suppression test with cortisol and dexamethasone level. 2. Essential hypertension: Essential hypertension is under control with lisinopril. Continued monitoring will focus on any endocrinological influences from the adenoma. 3. Diabetes mellitus: Current management by primary care involves Jardiance, with a note on fluctuating glucose levels. We will assess hormonal activity from the adrenal adenoma that may complicate management before considering treatment adjustments. If diabetes continues to be uncontrolled, primary care could consider referring patient to diabetes clinic here. Patient was informed and verbally consented to the use of an ambient scribe for clinic note documentation during this visit. During the visit, the potential etiologies and concerns related to the patient's adrenal adenoma, including the possibility of hormonally active or malignant mass, were discussed. Shared information covered the stability of the mass over time and initial benign findings on imaging. Plans for a detailed hormonal assessment to evaluate adrenal function were explained. Additionally, we discussed the control measures for the patient's hypertension and diabetes, no ting the indirect influences the adrenal mass might have on these conditions. Information sheets and online resources for more details on adrenal conditions were provided. Follow-up and testing protocols were agreed upon. - Follow the plan to pick out hand dexamethasone for the suppression test as discussed. - Schedule and attend blood work for hormonal assessment at the recommended time intervals. - Orders: Orders Metanephrines, Plasma Today D35.00 - Benign neoplasm of unspecified adrenal gland Renin Today D35.00 - Benign neoplasm of unspecified adrenal gland Aldosterone Today D35.00 - Benign neoplasm of unspecified adrenal gland Dexamethasone 1 Week D35.00 - Benign neoplasm of unspecified adrenal gland Cortisol Random 1 Week D35.00 - Benign neoplasm of unspecified adrenal gland Medications: New dexamethasone 1 mg PO ONCE 1 tab 0RF Coding Level of Care Code New Pt Level 4 (51187) Diagnoses Adrenal adenoma D35.00
== END 2024-10-29 08:27 | disposition home or self-care (01) ==
LOC: HO.ENCR 07:50
PROVIDERS: PCP Nurse Practitioner Family; Visit Provider Internal Medicine Endocrinology, Diabetes & Metabolism
DX: D35.00 Benign neoplasm of unspecified adrenal gland (principal)
CPT/HCPCS: 99204

== ENCOUNTER 2024-10-29 08:31 | Outpatient (REF) | payer OTHER, SELFPAY ==
[2024-11-04 11:58] LABS: Renin 4.21 ng/mL/h (0.25-5.82)
[2024-11-05 05:54] LABS: Metanephrine, Free 28 pg/mL (<=57); Normetanephrines, Free 77 pg/mL (<=148); Total Metanephrine, Free 105 pg/mL (<=205)
== END 2024-10-29 08:32 | disposition home or self-care (01) ==
LOC: HO.LAB 08:31
PROVIDERS: Visit Provider Internal Medicine Endocrinology, Diabetes & Metabolism
DX: D35.00 Benign neoplasm of unspecified adrenal gland (principal)
CPT/HCPCS: 36415; 82088; 83835; 84244; 99202

== ENCOUNTER 2024-11-06 07:47 | Outpatient (REF) | payer OTHER, SELFPAY ==
[2024-11-06 11:00] LABS: Cortisol Random 1.4 ug/dL
[2024-11-15 13:58] LABS: Dexamethasone 239 ng/dL
== END 2024-11-06 07:48 | disposition home or self-care (01) ==
LOC: HO.10HDL 07:47
PROVIDERS: Visit Provider Internal Medicine Endocrinology, Diabetes & Metabolism
DX: D35.00 Benign neoplasm of unspecified adrenal gland (principal)
CPT/HCPCS: 36415; 80299; 82533

== ENCOUNTER 2025-01-07 08:35 | Outpatient (AMB) | payer OTHER, SELFPAY ==
[2025-01-07 08:37] VITALS: BP 110/70; PULSE 72; O2SAT 94; BMI 26.4
--- NOTE | 2025-01-07 08:37 | MHC.PC.OV ---
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 Accompanied by: Self / Same As Patient Allergies No Known Allergies [No Known Allergies*] Allergy (Verified 01/07/25 09:17) Medication List - Last Reconciled 01/07/25 by KRISTIE Will- albuterol sulfate 2.5 mg (3 mL) inhalation QID PRN albuterol sulfate 90 mcg/actuation (Ventolin HFA) 2 puffs inhalation Q4H PRN 30 days aspirin (Adult Aspirin Regimen) 81 mg PO DAILY blood sugar diagnostic check sugar once a day blood sugar diagnostic ([employer] Verio test strips) Test blood sugar once a day blood-glucose meter ([employer] SearchToRADEUM Verio Flex Meter) As directed bupropion HCl XL 1 tab PO DAILY buspirone 1 tab PO BID PRN cetirizine 10 mg PO QPM docusate sodium (Stool Softener) 100 mg PO DAILY PRN 30 days empagliflozin (Jardiance) 25 mg PO DAILY fenofibrate 54 mg PO DAILY fluticasone propionate 50 mcg/actuation (Allergy Relief (fluticasone)) 1 spray intranasal DAILY PRN lancets (FreeStyle Lancets) once a day lancets ([employer] SearchTouch Delica Plus Lancet) Test blood sugar once a day lisinopril 2.5 mg PO BEDTIME lorazepam 0.5 mg PO BID PRN montelukast 10 mg PO QPM naproxen 375 mg PO BID PRN nicotine 1 patch transdermal Q24H omega-3 acid ethyl esters 1 cap PO BID omeprazole 20 mg PO DAILY rosuvastatin 40 mg PO DAILY umeclidinium 62.5 mcg/actuation (Incruse Ellipta) 1 inh inhalation DAILY PRN Tobacco use date assessed: 09/10/24 Fall risk assessment: No Falls in past year Last assessed Fall Risk: 01/07/25 Dental Screening Dental Screen Date: 09/10/24 HPI 4m follow up HPI Details Chief Complaint Follow-up appointment for diabetes management History of Present Illness The patient is a 64-year-old male presenting with follow-up visit for diabetes management. His Hemoglobin A1c level remains stable at 6.7%, indicating good glycemic control. He denies experiencing neuropathy, polyuria, or polydipsia, which are vital markers in assessing diabetes complications. Sensation in his feet is intact, tested with a monofilament, suggesting no peripheral neuropathy at this time. Recent eye exams have been maintained up to date, crucial for monitoring potential diabetic retinopathy. Social History Health Maintenance - Encouraged the patient to complete laboratory tests in the near future Review of Systems - Neurologic: Denies neuropathy - Genitourinary: Denies polyuria, polydipsia -denies any CP, SOB, fevers, chills Physical Exam General: Cooperative, healthy appearing, comfortable, no acute distress and well developed Orientation: Patient oriented x3 Limitations: No limitations Head: Normal to inspection Ears: Hearing grossly normal bilaterally Nose: Normal external nose present Face and sinus: Normal facial exam Eyes: Appearance normal, both eyes and all related structures Neck: Normal visual inspection and Yes full ROM Respiratory: Fairly clear to auscultation bilaterally Cardiovascular: Regular rate and rhythm. Normal S1 and S2 GI: Normal to inspection. Soft to palpation and nontender Skin: No rashes or lesions noted Neuro: Patient oriented x3 Extremities: Normal to inspection, feet intact with positive sensation using monofilament Results - Labs: Hemoglobin A1c: 6.7% Plan 1. 7% which signifies good control. Continued attention to regular follow-up appointments and laboratory tests was advised to closely monitor his condition and adapt the treatment plan if necessary. The patient remains stable for now and should maintain routine health checks to prevent future complications.: Discussion Notes During our discussion, the importance of maintaining current diabetic management was emphasized given the patient's stable A1c levels. The patient was informed that regular laboratory evaluations are necessary to ensure ongoing glycemic control and to detect any potential complications early. I reviewed the stable nature of his condition, and we also conversed about the risks and benefits associated with ongoing monitoring to ensure the disease remains well-managed. The patient was encouraged to complete his laboratory tests soon and agreed to continue following up regularly for diabetes management. Patient Instructions - Schedule and complete laboratory tests soon as discussed - Continue current diabetes management plan to maintain good glycemic control - Regular follow-up appointments are important to monitor your condition - Alert me immediately if you experience symptoms such as loss of sensation in your feet, visual changes, or increased thirst or urination. [facility] Medical History Dyslipidemia Diabetes HTN (hypertension) Diabetes GERD (gastroesophageal reflux disease) Fatty liver Tubular adenoma of colon History of splenomegaly History of pancreatitis Asthma Nicotine dependence, cigarettes, uncomplicated ILD (interstitial lung disease) Anxiety Depression Surgical History H/O knee surgery History of colonoscopy History of esophagogastroduodenoscopy (EGD) History of arthroscopic knee surgery Family History Father Myocardial infarction Mother No problems noted. 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 [facility] Household Members: Spouse Housing: Apartment Do you presently have visiting nurse or other home services: No Alcohol intake: never Patient Tobacco Use Status: Current everyday Tobacco user Tobacco use type: Cigarette Cigarettes Per Day: 10 Years Smoked: 58 years e-Cigarette/Vaping Use: Never Used Second Hand Smoke Exposure: No Substance Use Type: Marijuana service: No Current occupational status: disabled Cognitive needs: No Hearing needs: No Vision needs: No Questionnaire Thrive Questionnaire Date Thrive assessed: 01/07/25 I am a: Patient What is your living situation today?: I have a steady place to live Within the past 12 months, did the food you bought not last and you didn't have the money to get more?: Never true Within the past 12 months, did you worry whether your food would run out before you got money to buy more?: Never true Do you have trouble paying for medicines?: No Do you have trouble getting transportation to medical appointments?: No Do you have trouble paying your heating and electricity bill?: No Do you have trouble taking care of your child, family member or friend?: No Do you have trouble with day-to-day activities such as bathing, preparing meals, shopping, managing finances, etc.?: No Are you currently unemployed and looking for a job?: No Are you interested in more education?: No Please select the resources that you would like help with: None Currently or been in a relationship where the following occur: No concerns reported THRIVE Score: 0 XAVIER-7 AMB Questionnaire XAVIER-7 Date XAVIER - 7 assessed: 09/10/24 Source: Developed by Drs. Remy Barr, Yvonne Sánchez, Mesfin Leonard and colleagues, with an educational marck from [employer]. Physical exam (Primary Care) Vital Signs: Last Vital Signs Pulse 72 01/07/25 08:37 BP 110/70 01/07/25 08:37 Pulse Ox 94 01/07/25 08:37 Oxygen Delivery Method Room Air 01/07/25 08:37 BMI result Body Mass Index 26.4 Tobacco/Smoking Status: Tobacco use Status Tobacco use date assessed 09/10/24 01/07/25 08:39 Patient Tobacco Use Status Current everyday Tobacco 01/07/25 08:39 Tobacco use type Cigarette 01/07/25 08:39 e-Cigarette/Vaping Use Never Used 01/07/25 08:39 Thrive Assessment: Date of Thrive Assessment Date Thrive assessed 01/07/25 01/07/25 08:39 Currently or been in a relationship where the following occur: No concerns reported Results AMB Hemoglobin A1c AMB Hemoglobin A1c 6.7 % Last Edit by Alberto Shaw CMA on 01/07/25 08:54 Results Reviewed Results Reviewed: Laboratory Last Values Hgb A1c (Clinic) 6.7 % (4.0-6.0) H 01/07/25 08:54 Coding Level of Care Code Est Pt Level 3 (39745) Diagnoses Diabetes E11.9 Dyslipidemia E78.5 Vitamin D deficiency E55.9 Assessment & Plan Assessment & Plan (1) Diabetes: Code(s): E11.9 - Type 2 diabetes mellitus without complications Category: Medical (2) Dyslipidemia: Code(s): E78.5 - Hyperlipidemia, unspecified Category: Medical (3) Vitamin D deficiency: Code(s): E55.9 - Vitamin D deficiency, unspecified Category: Medical Plan . Orders: Orders Lipid Panel Today E11.9 - Type 2 diabetes mellitus without complications, E78.5 - Hyperlipidemia, unspecified Vitamin D 25-OH Total Today E55.9 - Vitamin D deficiency, unspecified AMB Hemoglobin A1c Today Z13.9 - Encounter for screening, unspecified Complete Blood Count Auto Diff Today E11.9 - Type 2 diabetes mellitus without complications, E78.5 - Hyperlipidemia, unspecified Comprehensive [place]. Panel Fast Today E11.9 - Type 2 diabetes mellitus without complications, E78.5 - Hyperlipidemia, unspecified TSH reflex Free T4 Today E11.9 - Type 2 diabetes mellitus without complications, E78.5 - Hyperlipidemia, unspecified UA CC w/rflx Micro + Cult Today E11.9 - Type 2 diabetes mellitus without complications, E78.5 - Hyperlipidemia, unspecified Microalbumin, Random (w Creat) Today E11.9 - Type 2 diabetes mellitus without complications
== END 2025-01-07 10:11 | disposition home or self-care (01) ==
LOC: HO.HMCC 08:36
PROVIDERS: PCP Nurse Practitioner Family; Visit Provider Nurse Practitioner Family
DX: E11.9 Type 2 diabetes mellitus without complications (principal); E78.5 Hyperlipidemia, unspecified; E55.9 Vitamin D deficiency, unspecified; Z13.9 Encounter for screening, unspecified

== ENCOUNTER → 2025-01-07 08:35 | Outpatient (BNVA) | payer OTHER, SELFPAY | PROVIDERS: PCP Nurse Practitioner Family; Visit Provider Nurse Practitioner Family | DX: E11.9 Type 2 diabetes mellitus without complications (principal); E78.5 Hyperlipidemia, unspecified; E55.9 Vitamin D deficiency, unspecified | CPT/HCPCS: 83036; 99212 ==

== ENCOUNTER 2025-02-10 07:45 | Outpatient (AMB) | payer OTHER, SELFPAY ==
--- OUTSIDE RECORDS SUMMARY | 2025-02-10 07:48 | XMS_ITS | Patient Health Record ---
Author Organization [facility] Address [address] [place] [address] Care Team Providers Care Cosmetology Professor Name Role Phone ELIZABETH ARIAS Primary Care Provider Remy Lyon Unavailable [phone] Reason For Referral No Information Medications Medication [...] Problem Status W/U Status Risk Notes Problem [id number] Encounter for screening for malignant neoplasm of colon (Z12.11) Active confirmed Problem History of adenomatous polyp of colon (526692183) History of adenomatous polyp of colon (Z86.010) Active confirmed Problem History of polyp of colon (situation) (086228418) Personal history of colonic polyps (Z86.010) Active confirmed Problem Pre-procedure evaluation check (188180410) Encounter for other preprocedural examination (Z01.818) Active confirmed Problem Screening for malignant neoplasm of rectum (589720448) Encounter for screening for malignant neoplasm of rectum (Z12.12) Active confirmed Problem 114457005 Gastroesophageal reflux disease, esophagitis presence not specified (K21.9) Active confirmed Problem 840785012 Family history o f colon cancer (Z80.0) Active confirmed Problem Gastroesophageal reflux disease (485761165) GERD (gastroesophageal reflux disease) (K21.9) Active confirmed Problem Pancreatitis (85592788) Pancreatitis (K85.90) Active confirmed Problem Diverticulosis of colon (424576855) Diverticulosis of colon (K57.30) Active confirmed Encounters Encounter Location Date Provider Diagnosis [facility] [address] [place] [address] 11/03/2024 Remy Anderson Plan Of Treatment Pending Test Test Name Order Date BUN 06/22/2020 CREATININE 06/22/2020 LIPASE 06/22/2020 MRI ABD W&WO CONTRAST 06/22/2020 Future Test Test Name Order Date UPPER GI ENDOSCOPY 09/15/2016 COLONOSCOPY 09/15/2016 COLONOSCOPY 03/07/2022 Insurance Providers Payer Name Payer Address Payer Phone Subscriber Number Group Number Insured Name Patient Relationship to Insured Coverage Start Date Coverage End Date [facility] [address] [place] [address] [id number] NIMO HART Self - patient is the insured MEDICARE OF [place] [address] [place], [place] [id number] NIMO HART Self - patient is the insured Medical (General) History Medical History History ICD Code Asthma Anxiety Depression Denies [place],CVA,,renal disease 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 for mass, no EtOH. Negative MRI/MRCP in 06/2020 [facility] Surgical History Surgery Date(Month/Year) Right knee
--- NOTE | 2025-02-10 07:49 | A.OFFVIS_ITS ---
Vital Signs 02/10/25 07:50 Height 5 ft 9 in Weight 179 lb 10.828 oz BMI 26.5 BP 98/60 Blood Pressure Location Rt brachial Position Sitting Pulse 78 Pulse Source Pulse Oximeter Pulse Oximetry (%) 96 Oxygen Delivery Method Room Air Intake Visit Reasons: f/u adrenal adenoma Intake Note: Patient present today for Adrenal Adenoma follow up. 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 Accompanied by: Self / Same As Patient Allergies No Known Allergies (No Known Allergies*) Allergy (Verified 02/10/25 07:51) Medication List - Last Reconciled 02/10/25 by Remy Silva MD albuterol sulfate 2.5 mg (3 mL) inhalation QID PRN albuterol sulfate 90 mcg/actuation (Ventolin HFA) 2 puffs inhalation Q4H PRN 30 days aspirin (Adult Aspirin Regimen) 81 mg PO DAILY blood sugar diagnostic check sugar once a day blood sugar diagnostic ([employer] (LGTmedical)uch Verio test strips) Test blood sugar once a day blood-glucose meter (ShowKitTouch Verio Flex Meter) As directed bupropion HCl XL 1 tab PO DAILY buspirone 1 tab PO BID PRN cetirizine 10 mg PO QPM docusate sodium (Stool Softener) 100 mg PO DAILY PRN 30 days empagliflozin (Jardiance) 25 mg PO DAILY fenofibrate 54 mg PO DAILY fluticasone propionate 50 mcg/actuation (Allergy Relief (fluticasone)) 1 spray intranasal DAILY PRN lancets (FreeStyle Lancets) once a day lancets (OneTouch Delica Plus Lancet) Test blood sugar once a day lisinopril 2.5 mg PO BEDTIME lorazepam 0.5 mg PO BID PRN montelukast 10 mg PO QPM naproxen 375 mg PO BID PRN nicotine 1 patch transdermal Q24H omega-3 acid ethyl esters 1 cap PO BID omeprazole 20 mg PO DAILY rosuvastatin 40 mg PO DAILY umeclidinium 62.5 mcg/actuation (Incruse Ellipta) 1 inh inhalation DAILY PRN HPI Comments Details: The patient is a 64-year-old male presenting with a previously identified adrenal adenoma. This adrenal mass was first observed incidentally in 2019 during imaging for abdominal complaints. It appears to be a benign lesion, as seen in the MRI findings, and its slow growth from 1.1 cm to 1.5 cm reinforces the benign nature of the mass. There are no significant symptoms indicating hormonal hyperactivity from the adenoma, such as unexplained severe hypertension, spells of sweating, or headaches. The patient's blood pressure is managed with lisinopril, and diabetes is treated with Jardiance. The blood glucose has not been optimally controlled, for which the possibility of subclinical Walk[place] syndrome needs to be excluded. The patient denies symptoms suggestive of Walk[place] syndrome or pheochromocytoma. Furthermore, there is no family history of diabetes or endocrine disorders. Had MRI abdomenfor which revealed see below . Prior MRI dated 2019 revealed R adenoma . Denies history of spells with headache, flushing, diaphoresis, abdominal pain or diarrhea. Denies any weight gain, frequent infections, easy bruisability, development of violaceous striae. History of HTN, controlled on 1 agents. No history of anticoagulant use. Denies any weight loss, orthostatic symptoms, hypoglycemia. No history of malignancy or TB. No use of steroids Review of SX - Constitutional: Denies weight loss, weight gain. - HEENT: Denies headaches. - Cardiovascular: Denies episodic high blood pressure spikes, denies palpitations. - Gastrointestinal: Reports episodes of queasiness, no persistent abdominal pain. - Neurological: Denies persistent dizziness, reports episodic dizziness, occ asionally after eating sweets. Imaging:Gallbladder is within normal limits. There is a 10 mm diameter high T2 intensity focus within the right hepatic lobe posteriorly, which demonstrates peripheral nodular enhancement with gradual increasing centripetal enhancement on successive intravenous contrast phases. This is most consistent with a hemangioma. There is a new right adrenal nodule measuring 18 mm which demonstrates signal dropout on out of phase gradient echo sequences, consistent with an adenoma. Bilateral renal cysts are present as before, largest of which is an exophytic cyst involving the inferior pole left kidney anteriorly measuring 21 mm (previously measuring 12 mm. Next largest is within the parapelvic right kidney measuring 18 mm ( previously measuring 14 mm) solid organs are otherwise within normal limits. Visualized bowel loops and vasculature are normal in caliber. Visualized osseous structures are within normal limits. IMPRESSION: 1. No acute intraabdominal or pelvic pathology. 2. New 18 mm right adrenal adenoma. 3. Benign bilateral renal cysts.No furthe Labs: Workup shows the absence of secretion of adrenal hormones The patient is a 64-year-old male presenting for follow-up on adrenal gland mass The adrenal gland mass was identified during a previous workup, and recent tests including a dexamethasone suppression test have shown no signs of malignancy or functional activity. The mass is considered benign and non-functional, with no current need for imaging follow-up unless symptoms such as palpitations, sweating, or blood pressure changes occur. The patient also has a history of fatty liver, which is being monitored separately by another healthcare provider. Diabetes management is ongoing by PCP , with emphasis on maintaining blood glucose levels within target ranges. [facility] Medical History Dyslipidemia Diabetes HTN (hypertension) Diabetes GERD (gastroesophageal reflux disease) Fatty liver Tubular adenoma of colon History of splenomegaly History of pancreatitis Asthma Nicotine dependence, cigarettes, uncomplicated ILD (interstitial lung disease) Anxiety Depression Surgical History H/O knee surgery History of colonoscopy History of esophagogastroduodenoscopy (EGD) History of arthroscopic knee surgery Family History Father Myocardial infarction Mother No problems noted. Paternal Grandfather Colon cancer Maternal Grandmother Unknown family medical history Other Substance use disorder Social History Household Members: Spouse Housing: Apartment Do you presently have visiting nurse or other home services: No Alcohol intake: never Patient Tobacco Use Status: Current everyday Tobacco user Tobacco use type: Cigarette Cigarettes Per Day: 10 Years Smoked: 58 years e-Cigarette/Vaping Use: Never Used Second Hand Smoke Exposure: No Substance Use Type: Marijuana service: No Current occupational status: disabled Cognitive needs: No Hearing needs: No Vision needs: No Physical Exam Vital Signs: Last Vital Signs Pulse 78 02/10/25 07:50 BP 98/60 02/10/25 07:50 Pulse Ox 96 02/10/25 07:50 Oxygen Delivery Method Room Air 02/10/25 07:50 BMI result Body Mass Index 26.5 Assessment & Plan Assessment & Plan (1) Adrenal adenoma: Code(s): D35.00 - Benign neoplasm of unspecified adrenal gland Category: Medical Plan: 1. Adrenal adenoma: The adrenal adenoma, initially identified in 2020, has shown stability, suggesting a benign nature. Plans for assessment include hormone evaluations to exclude any risk of hypersecretion. If indicated, surgical intervention to be discussed. Workup for hypersecretion was negative. 1. Adrenal gland mass The mass is non-functional and benign, with no current need for further imaging unless symptoms arise. Follow-up is recommended annually to monitor for any new symptoms. 2. Fatty liver This condition is being managed by another healthcare provider, and the patient is advised to follow up with them for further evaluation and management. The patient was informed that the adrenal gland mass is non-functional and benign, requiring no immediate intervention unless symptoms develop. The importance of monitoring for symptoms such as palpitations, sweating, or blood pressure changes was emphasized. The patient was advised to continue diabetes management and to follow up with another provider regarding the fatty liver. The patient had an opportunity to ask questions regarding treatment plan. The patient expressed understanding and agreement with the above treatment plan. Patient was informed and verbally consented to the use of an ambient scribe for clinic note documentation during this visit. Plan is for continued observation. Patient returned for follow-up visit in 1 year's time - Coding Level of Care Code Est Pt Level 3 (61422) Diagnoses Adrenal adenoma D35.00
[2025-02-10 07:50] VITALS: BP 98/60; PULSE 78; O2SAT 96; BMI 26.5
== END 2025-02-10 08:03 | disposition home or self-care (01) ==
LOC: HO.ENCR 07:45
PROVIDERS: PCP Nurse Practitioner Family; Visit Provider Internal Medicine Endocrinology, Diabetes & Metabolism
DX: D35.00 Benign neoplasm of unspecified adrenal gland (principal)
CPT/HCPCS: 99213

== ENCOUNTER → 2025-02-10 07:45 | Outpatient (BNVA) | payer OTHER, SELFPAY | PROVIDERS: PCP Nurse Practitioner Family; Visit Provider Internal Medicine Endocrinology, Diabetes & Metabolism | DX: E11.9 Type 2 diabetes mellitus without complications (principal); D35.00 Benign neoplasm of unspecified adrenal gland | CPT/HCPCS: 99212 ==

== ENCOUNTER 2025-05-14 07:08 | Outpatient (REF) | payer OTHER, SELFPAY ==
--- NOTE | ~2025-05-14 | CT_ITS ---
CLINICAL HISTORY: F17.210 - Nicotine dependence, cigarettes, uncomplicated CT lung cancer screening (LDCT) Comparison: MR - MR ABDOMEN WO/W CON - 10/09/24 11:[address]/REG/WI/SR - CT LUNG SCREENING - 04/23/24 08:08 EDT Technique: Axial CT images of the chest using low-dose technique. Referring provider counseled the patient on shared decision-making for LDCT screening. Additional counseling was provided on smoking cessation. Effective radiation dose total: DLP 45.8 mGycm, CTDIvol 1.3 mGy. Findings: No suspicious pulmonary nodules or masses. Mild pulmonary emphysema. Coronary artery calcifications: Moderate Unchanged 1.8 cm right adrenal adenoma. There is a peripherally calcified 1.9 cm right thyroid nodule. Thyroid ultrasound is recommended for further evaluation. IMPRESSION: 1. No suspicious pulmonary nodules or masses. 2. There is a peripherally calcified 1.9 cm right thyroid nodule. Thyroid ultrasound is recommended for further evaluation. LungRADS 2S - Benign Appearance: Continue annual screening with low dose Chest CT in 12 months. clinical follow-up for additional findings. ##L2S# This document has been electronically signed by: Flakito Bourgeois DO on 05/15/2025 08:44:36
--- OUTSIDE RECORDS SUMMARY | 2025-05-14 07:10 | XMS_ITS | Patient Health Record ---
Author Organization [facility] Address [address] [place] [address] Care Team Providers Care Unitizer Name Role Phone ELIZABETH ARIAS Primary Care Provider Remy Lyon Unavailable [phone] Reason For Referral No Information Medications Medication [...] Problem Status W/U Status Risk Notes Problem [id number] Encounter for screening for malignant neoplasm of colon (Z12.11) Active confirmed Problem History of adenomatous polyp of colon (389811660) History of adenomatous polyp of colon (Z86.010) Active confirmed Problem History of polyp of colon (situation) (494741193) Personal history of colonic polyps (Z86.010) Active confirmed Problem Pre-procedure evaluation check (368450499) Encounter for other preprocedural examination (Z01.818) Active confirmed Problem Screening for malignant neoplasm of rectum (769120668) Encounter for screening for malignant neoplasm of rectum (Z12.12) Active confirmed Problem 113689320 Gastroesophageal reflux disease, esophagitis presence not specified (K21.9) Active confirmed Problem 950864944 Family history o f colon cancer (Z80.0) Active confirmed Problem Gastroesophageal reflux disease (601376156) GERD (gastroesophageal reflux disease) (K21.9) Active confirmed Problem Pancreatitis (54718911) Pancreatitis (K85.90) Active confirmed Problem Diverticulosis of colon (414808190) Diverticulosis of colon (K57.30) Active confirmed Encounters Encounter Location Date Provider Diagnosis [facility] [address] [place] [address] 11/03/2024 Remy Anderson Plan Of Treatment Pending Test Test Name Order Date BUN 06/22/2020 CREATININE 06/22/2020 LIPASE 06/22/2020 MRI ABD W&WO CONTRAST 06/22/2020 Future Test Test Name Order Date UPPER GI ENDOSCOPY 09/15/2016 COLONOSCOPY 09/15/2016 COLONOSCOPY 03/07/2022 Insurance Providers Payer Name Payer Address Payer Phone Subscriber Number Group Number Insured Name Patient Relationship to Insured Coverage Start Date Coverage End Date [facility] [address] [place] [address] [id number] NIMO HART Self - patient is the insured MEDICARE OF [place] [address] [place], [place] [id number] NIMO HART Self - patient is the insured Medical (General) History Medical History History ICD Code Asthma Anxiety Depression Denies [place],CVA,,renal disease 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 for mass, no EtOH. Negative MRI/MRCP in 06/2020 [facility] Surgical History Surgery Date(Month/Year) Right knee
--- OUTSIDE RECORDS SUMMARY | 2025-05-14 07:11 | XMS_ITS | Patient Health Record ---
Author Organization [facility] Address [address] [place] [address] Care Team Providers Care Clinical Resource Manager Name Role Phone Torrey Lopez Primary Care Provider Unav ailable Amish Barillas Unavailable [phone] Allergies No Known Allergies Reason For Referral No Information Medications Medication SIG (Take, Route, Frequency, Duration) Notes Start Date End Date Status Montelukast Sodium 10 MG TAKE 1 TABLET B Y MOUTH EVERY NIGHT Oral; Duration: 90 Active Rosuvastatin Calcium 20 MG TAKE 1 TABLET BY MOUTH DAILY Oral; Duration: 90 Active Incruse Ellipta 62.5 MCG/INH USE 1 INHALATION DAILY Inhalation; Duration: 30 Active Cetirizine HCl 10 MG TAKE 1 TABLET BY MO UTH EVERY NIGHT Oral; Duration: 90 Active Docusate Sodium 100 MG Oral; Duration: 30 Active Omeprazole 20 MG Oral; Duration: 90 Active Albuterol Sulfate HFA 108 (90 Base) MCG/ACT Inhalation; Duration: 17 Active Jardiance 10 MG Oral; Duration: 90 Active LORazepam 0.5 MG Oral; Duration: 30 Active buPROPion HCl ER (XL) 300 MG TAKE 1 TABLET BY MOUTH EVERY DAY Oral; Duration: 90 Active Breo Ellipta 100-25 MCG/INH INHALE 1 PUF F BY MOUTH DAILY Inhalation; Duration: 30 Active Nicoderm CQ 21 MG/24HR 1 patch to skin Transdermal Once a day; Duration: 30 day(s) Active Lisinopril 2.5 MG Oral; Duration: 90 Active Hlkgi-7-ikuq Ethyl Esters 1 GM TAKE 1 CAPSULE ORALLY 2 TIMES A DAY FOR 90 DAYS Oral; Duration: 90 Active Social History Tobacco Use: Social [...] Insured Coverage Start Date Coverage End Date [facility] SCO Claims [address] [place] [id number] [phone] [id number] Boston Betancourt Self - patient is the insured Medical (General) History Medical History History ICD Code Anxiety Arthritis asthma Broken bones Depression Diabetic Headaches/Migraines High blood pressure Reflux Surgical History Surgery Date(Month/Year) arthroscopic knee surgery/Right
== END 2025-05-14 07:09 | disposition home or self-care (01) ==
LOC: HO.CT 07:08
PROVIDERS: PCP Nurse Practitioner Family; Visit Provider Physician Assistant Medical
DX: Z12.2 Encounter for screening for malignant neoplasm of respiratory organs (principal); F17.210 Nicotine dependence, cigarettes, uncomplicated
CPT/HCPCS: 71271

== ENCOUNTER → 2025-05-14 07:09 | Outpatient (BNV) | payer OTHER, SELFPAY | PROVIDERS: PCP Nurse Practitioner Family; Visit Provider Family Medicine | DX: F17.210 Nicotine dependence, cigarettes, uncomplicated (principal) | CPT/HCPCS: 71271 ==

== ENCOUNTER 2025-05-15 06:01 | Outpatient (REF) | payer OTHER, SELFPAY ==
--- OUTSIDE RECORDS SUMMARY | 2025-05-15 06:04 | XMS_ITS | Patient Health Record ---
Author Organization [facility] Address [address] [place] [address] Care Team Providers Care Supplies Packer Name Role Phone ELIZABETH ARIAS Primary Care Provider Remy Lyon Unavailable [phone] Reason For Referral No Information Medications Medication [...] Problem Status W/U Status Risk Notes Problem [id number] Encounter for screening for malignant neoplasm of colon (Z12.11) Active confirmed Problem History of adenomatous polyp of colon (410575371) History of adenomatous polyp of colon (Z86.010) Active confirmed Problem History of polyp of colon (situation) (063594233) Personal history of colonic polyps (Z86.010) Active confirmed Problem Pre-procedure evaluation check (520797250) Encounter for other preprocedural examination (Z01.818) Active confirmed Problem Screening for malignant neoplasm of rectum (242376916) Encounter for screening for malignant neoplasm of rectum (Z12.12) Active confirmed Problem 534876291 Gastroesophageal reflux disease, esophagitis presence not specified (K21.9) Active confirmed Problem 628321162 Family history o f colon cancer (Z80.0) Active confirmed Problem Gastroesophageal reflux disease (528371960) GERD (gastroesophageal reflux disease) (K21.9) Active confirmed Problem Pancreatitis (31244868) Pancreatitis (K85.90) Active confirmed Problem Diverticulosis of colon (510673470) Diverticulosis of colon (K57.30) Active confirmed Encounters Encounter Location Date Provider Diagnosis [facility] [address] [facility] [address] [place] [address] 11/03/2024 Remy Anderson Plan Of Treatment Pending Test Test Name Order Date BUN 06/22/2020 CREATININE 06/22/2020 LIPASE 06/22/2020 MRI ABD W&WO CONTRAST 06/22/2020 Future Test Test Name Order Date UPPER GI ENDOSCOPY 09/15/2016 COLONOSCOPY 09/15/2016 COLONOSCOPY 03/07/2022 Insurance Providers Payer Name Payer Address Payer Phone Subscriber Number Group Number Insured Name Patient Relationship to Insured Coverage Start Date Coverage End Date [facility] [address] [place] [address] [id number] NIMO HART Self - patient is the insured MEDICARE OF [place] [address] [place], [place] [id number] NIMO HART Self - patient is the insured Medical (General) History Medical History History ICD Code Asthma Anxiety Depression Denies [place],CVA,,renal disease 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 for mass, no EtOH. Negative MRI/MRCP in 06/2020 NIDDM Surgical History Surgery Date(Month/Year) Right knee
--- OUTSIDE RECORDS SUMMARY | 2025-05-15 06:04 | XMS_ITS | Patient Health Record ---
[facility] Organization [facility] Address [address] [facility] [place] [address] Care Team Providers Care Electronic Technician Name Role Phone Torrey Lopez Primary Care Provider Unav ailable Amish Barillas Unavailable [phone] Allergies No Known Allergies Reason For Referral [...] Lisinopril 2.5 MG Oral; Duration: 90 Active Peuzu-9-orjo Ethyl Esters 1 GM TAKE 1 CAPSULE [...] Insured Coverage Start Date Coverage End Date [facility] SCO Claims [address] [place] [id number] [phone] [id number] [place] Betancourt Self - patient is the insured Medical (General) History Medical History History ICD Code Anxiety Arthritis asthma Broken bones Depression Diabetic Headaches/Migraines High blood pressure Reflux Surgical History Surgery Date(Month/Year) arthroscopic knee surgery/Right
[2025-05-15 10:14] LABS: MANUAL DIFF FLAG NO
[2025-05-15 10:26] LABS: Appearance Urine Clear; Glucose Urine UA >=1000 mg/dL (Negative); PH 5.0 (5.0-9.0); Specific Gravity - Urine >= 1.030 (1.005-1.025); UMIC TRIGGER UACC YES
[2025-05-15 10:34] LABS: Hematocrit 49.3 % (42.0-52.0); Hemoglobin 17.4 g/dl (14.0-18.0); Imm Gran Abs Auto 0.10 X10*3/uL (0.00-0.03); Imm Gran Pct Auto 1.0 % (0.0-0.4); Lymphocytes Absolute Auto 2.6 X10*3/uL (1.2-4.9); Mean Corpuscular HGB Conc 35.3 g/dl (31.0-36.0); Mean Corpuscular Hemoglobin 32.7 pg (27.0-33.0); Mean Corpuscular Volume 92.7 fL (80.0-98.0); NRBC Abs Auto 0.000 X10*3/uL (0.0-0.012); NRBC Pct Auto 0.0 /100WBC (0.0-0.2); Platelet Count 255 X10*3/uL (160-400); Red Blood Count 5.32 X10*6/uL (4.60-5.80); White Blood Count 9.8 X10*3/uL (4.8-10.8)
[2025-05-15 11:28] LABS: Alanine Aminotransferase 38 U/L (0-40); Albumin Level 4.8 g/dL (3.5-5.0); Alkaline Phosphatase 81 U/L (39-117); Anion Gap 13 (12-20); Aspartate Amino Transferase 36 U/L (5-37); Blood Urea Nitrogen 15 mg/dL (9-16); Calcium 9.2 mg/dL (8.4-10.2); Carbon Dioxide 23 mmol/L (22-29); Chloride 108 mmol/L (96-108); Cholesterol 149 mg/dL (<200); Estimated Glomerular Filt Rate > 60; HDL Cholesterol 35 mg/dL (>40); Potassium 4.1 mmol/L (3.3-5.1); Sodium 140 mmol/L (135-145); Total Protein 6.8 g/dL (6.5-8.0); Triglycerides 216 mg/dL (<150)
[2025-05-15 11:42] LABS: Microalbum/Creatinine Ratio Ur 14.5 ug/mg cr (<30)
== END 2025-05-15 06:02 | disposition home or self-care (01) ==
LOC: HO.HMGCLDS 06:01
PROVIDERS: PCP Nurse Practitioner Family; Visit Provider Nurse Practitioner Family
DX: E11.9 Type 2 diabetes mellitus without complications (principal); E78.5 Hyperlipidemia, unspecified; E55.9 Vitamin D deficiency, unspecified
CPT/HCPCS: 36415; 80053; 80061; 81001; 82043; 82306; 82570; 84443; 85025

== ENCOUNTER 2025-05-18 08:15 | Outpatient (AMB) | payer OTHER, SELFPAY ==
--- OUTSIDE RECORDS SUMMARY | 2025-05-18 08:27 | XMS_ITS | Patient Health Record ---
Author Organization [facility] Address [address] [place] [address] Care Team Providers Care Logistics Operations Manager Name Role Phone ELIZABETH ARIAS Primary Care Provider Remy Lyon Unavailable [phone] Reason For Referral No Information Medications Medication [...] Problem Status W/U Status Risk Notes Problem 828675523 Encounter for screening for malignant neoplasm of colon (Z12.11) Active confirmed Problem History of adenomatous polyp of colon (084972517) History of adenomatous polyp of colon (Z86.010) Active confirmed Problem History of polyp of colon (situation) (296429868) Personal history of colonic polyps (Z86.010) Active confirmed Problem Pre-procedure evaluation check (629263632) Encounter for other preprocedural examination (Z01.818) Active confirmed Problem Screening for malignant neoplasm of rectum (072960104) Encounter for screening for malignant neoplasm of rectum (Z12.12) Active confirmed Problem 498342010 Gastroesophageal reflux disease, esophagitis presence not specified (K21.9) Active confirmed Problem 967835690 Family history o f colon cancer (Z80.0) Active confirmed Problem Gastroesophageal reflux disease (082856195) GERD (gastroesophageal reflux disease) (K21.9) Active confirmed Problem Pancreatitis (32207431) Pancreatitis (K85.90) Active confirmed Problem Diverticulosis of colon (839105454) Diverticulosis of colon (K57.30) Active confirmed Encounters Encounter Location Date Provider Diagnosis [facility] [address] [facility] [address] [place] [address] 11/03/2024 Remy Anderson Plan Of Treatment Pending Test Test Name Order Date BUN 06/22/2020 CREATININE 06/22/2020 LIPASE 06/22/2020 MRI ABD W&WO CONTRAST 06/22/2020 Future Test Test Name Order Date UPPER GI ENDOSCOPY 09/15/2016 COLONOSCOPY 09/15/2016 COLONOSCOPY 03/07/2022 Insurance Providers Payer Name Payer Address Payer Phone Subscriber Number Group Number Insured Name Patient Relationship to Insured Coverage Start Date Coverage End Date [facility] [address] [place] [address] [id number] NIMO HART Self - patient is the insured MEDICARE OF [place] [address] [place], [place] [id number] NIMO HART Self - patient is the insured Medical (General) History Medical History History ICD Code Asthma Anxiety Depression Denies ID,CVA,,renal disease 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 for mass, no EtOH. Negative MRI/MRCP in 06/2020 NIDDM Surgical History Surgery Date(Month/Year) Right knee
--- OUTSIDE RECORDS SUMMARY | 2025-05-18 08:27 | XMS_ITS | Patient Health Record ---
Author Organization [facility] Address [address] [place] [address] Care Team Providers Care Tower Attendant Name Role Phone Torrey Lopez Primary Care Provider Unav ailable Amish Barillas Unavailable [phone] Allergies No Known Allergies Reason For Referral [...] Lisinopril 2.5 MG Oral; Duration: 90 Active Fnhpe-8-pncy Ethyl Esters 1 GM TAKE 1 CAPSULE [...] SCO Claims [address] [place] [id number] [phone] [id number] Boston Betancourt Self - patient is the insured Medical (General) History Medical History History ICD Code Anxiety Arthritis asthma Broken bones Depression Diabetic Headaches/Migraines High blood pressure Reflux Surgical History Surgery Date(Month/Year) arthroscopic knee surgery/Right
--- NOTE | 2025-05-18 08:36 | MHC.PC.OV ---
Vital Signs 05/18/25 08:37 Height 5 ft 9 in Weight 175 lb BMI 25.8 BP 120/82 Blood Pressure Location Lt brachial Position Sitting Pulse 88 Pulse Source Pulse Oximeter Temp 98.1 F Temp Source Oral Pulse Oximetry (%) 94 Oxygen Delivery Method Room Air Intake Visit Reasons: PE- A1C needed Ground Wood Supervisor Required: No Accompanied by: Self / Same As Patient Allergies No Known Allergies (No Known Allergies*) Allergy (Verified 05/18/25 09:11) Medication List - Last Reconciled 05/18/25 by Torrey Ray GUM WORKER- albuterol sulfate 2.5 mg (3 mL) inhalation QID PRN albuterol sulfate 90 mcg/actuation (Ventolin HFA) 2 puffs inhalation Q4H PRN 30 days aspirin (Adult Aspirin Regimen) 81 mg PO DAILY blood sugar diagnostic check sugar once a day blood sugar diagnostic (Evikon MCI Verio test strips) Test blood sugar once a day blood-glucose meter ([employer] Verio Flex Meter) As directed bupropion HCl XL 1 tab PO DAILY buspirone 1 tab PO BID PRN cetirizine 10 mg PO QPM docusate sodium (Stool Softener) 100 mg PO DAILY PRN 30 days empagliflozin (Jardiance) 25 mg PO DAILY fenofibrate 54 mg PO DAILY fluticasone propionate 50 mcg/actuation (Allergy Relief (fluticasone)) 1 spray intranasal DAILY PRN lancets (FreeStyle Lancets) once a day lancets (OneTouch Delica Plus Lancet) Test blood sugar once a day lisinopril 2.5 mg PO BEDTIME lorazepam 0.5 mg PO BID PRN montelukast 10 mg PO QPM naproxen 375 mg PO BID PRN nicotine 1 patch transdermal Q24H omeprazole 20 mg PO DAILY rosuvastatin 40 mg PO DAILY umeclidinium 62.5 mcg/actuation (Incruse Ellipta) 1 inh inhalation DAILY PRN Tobacco use date assessed: 05/18/25 Fall risk assessment: 1 Fall in past year Last assessed Fall Risk: 05/18/25 Dental Screening Dental Screen Date: 05/18/25 Did you have a dental visit in the last 12 months?: Yes Did you have a dental problem in the last 6 months where you did not have access to dental care?: No Was dental information given to patient?: Patient has dentist HPI PE- A1C needed HPI Details History of Present Illness The patient is a 65-year-old male presenting for a physical examination and diabetes management. He has a history of diabetes mellitus with a current HbA1c of 7.4%, indicating suboptimal control. The patient acknowledges dietary non-compliance as a contributing factor and plans to improve his diet to lower his HbA1c. The patient is under regular care of a mother tester and an school bus driver/custodian for an adrenal adenoma. He is also part of a low dose CT scan program due to his ongoing smoking habit. A large thyroid nodule was noted during the examination, and an ultrasound has been ordered for further evaluation. The patient has a crusty, papular, darker lesion on his left presybeterian, which was observed during the examination. He spends a significant amount of time in the sun, contributing to his tanned appearance. Health Maintenance - Low dose CT scan program for smoking - Colon cancer screening is up to date - PSA screening due in August -Due vaccinations written down Social History - Smoking: Continues to smoke, enrolled in low dose CT scan program - Sun exposure: Spends significant time in the sun, resulting in a tanned appearance Review of Systems - Endocrine: Denies neuropathy, polyuria, polydipsia Physical Exam General: Cooperative, healthy appearing, comfortable, no acute distress and well developed Orientation: Patient oriented x3 Limitations: No limitations Head: Normal to inspection Ears: Hearing grossly normal bilaterally Nose: Normal external nose present Face and sinus: Normal facial exam Eyes: Appearance normal, both eyes and all related structures Neck: Normal visual inspection and Yes full ROM Respiratory: Normal respiratory effort and able to speak in complete sentences. Clear to auscultation bilaterally Cardiovascular: Regular rate and rhythm. Normal S1 and S2 GI: Normal to inspection. Soft to palpation and nontender : Testicles without masses/lesions and no hernias appreciated Skin: Crusty, more popular, darker lesion to the left presybeterian. Neuro: Patient oriented x3 Extremities: Normal to inspection. Feet intact bilat positive sensation with use of monofilament. Results - Labs: HbA1c 7.4%, LDL 71 mg/dL, kidney and liver function normal Plan 1. Diabetes Mellitus The patient's diabetes mellitus is currently suboptimally controlled with an HbA1c of 7.4%. He plans to improve his dietary habits to manage his blood glucose levels more effectively. 2. Adrenal Adenoma The patient is under the care of an school bus driver/custodian for adrenal adenoma management. 3. Thyroid Nodule A thyroid ultrasound has been ordered to further evaluate the large thyroid nodule noted during the examination. 4. Preventative Care The patient is enrolled in a low dose CT scan program due to his smoking habit. He is also up to date with colon cancer screening and will require a PSA screening in August. Discussion Notes I discussed with the patient the importance of dietary management in controlling his diabetes and the need for regular follow-ups with his school bus driver/custodian for adrenal adenoma. We also talked about the necessity of a thyroid ultrasound to evaluate the nodule and the benefits of the low dose CT scan program for smoking cessation. Patient Instructions - Follow a healthy diet to manage blood glucose levels. - Continue regular follow-ups with your school bus driver/custodian and mother tester. - Schedule a thyroid ultrasound as ordered. - Participate in the low dose CT scan program and consider smoking cessation. ON LICENSE OF [facility] Medical History Dyslipidemia Diabetes HTN (hypertension) Diabetes GERD (gastroesophageal reflux disease) Fatty liver Tubular adenoma of colon History of splenomegaly History of pancreatitis Asthma Nicotine dependence, cigarettes, uncomplicated ILD (interstitial lung disease) Anxiety Depression Surgical History H/O knee surgery History of colonoscopy History of esophagogastroduodenoscopy (EGD) History of arthroscopic knee surgery Family History Father Myocardial infarction Mother No problems noted. Paternal Grandfather Colon cancer Maternal Grandmother Unknown family medical history Other Substance use disorder Social History Household Members: Spouse Housing: Apartment Do you presently have visiting nurse or other home services: No Alcohol intake: never Patient Tobacco Use Status: Current everyday Tobacco user Tobacco use type: Cigarette Cigarettes Per Day: 10 Years Smoked: 58 years e-Cigarette/Vaping Use: Never Used Second Hand Smoke Exposure: No Substance Use Type: Marijuana service: No Current occupational status: disabled Cognitive needs: No Hearing needs: No Vision needs: No Questionnaire Thrive Questionnaire Date Thrive assessed: 09/10/24 I am a: Patient What is your living situation today?: I have a steady place to live Within the past 12 months, did the food you bought not last and you didn't have the money to get more?: Never true Within the past 12 months, did you worry whether your food would run out before you got money to buy more?: Never true Do you have trouble paying for medicines?: No Do you have trouble getting transportation to medical appointments?: No Do you have trouble paying your heating and electricity bill?: No Do you have trouble taking care of your child, family member or friend?: No Do you have trouble with day-to-day activities such as bathing, preparing meals, shopping, managing finances, etc.?: No Are you currently unemployed and looking for a job?: No Are you interested in more education?: No Please select the resources that you would like help with: None Currently or been in a relationship where the following occur: No concerns reported THRIVE Score: 0 XAVIER-7 AMB Questionnaire XAVIER-7 Date XAVIER - 7 assessed: 09/10/24 Source: Developed by Drs. Remy Barr, Yvonne Sánchez, Mesfin Leonard and colleagues, with an educational marck from [employer]. Physical exam (Primary Care) Vital Signs: Last Vital Signs Temp 98.1 F 05/18/25 08:37 Pulse 88 05/18/25 08:37 BP 120/82 05/18/25 08:37 Pulse Ox 94 05/18/25 08:37 Oxygen Delivery Method Room Air 05/18/25 08:37 BMI result Body Mass Index 25.8 Tobacco/Smoking Status: Tobacco use Status Tobacco use date assessed 05/18/25 05/18/25 08:43 Patient Tobacco Use Status Current everyday Tobacco 05/18/25 08:43 Tobacco use type Cigarette 05/18/25 08:43 e-Cigarette/Vaping Use Never Used 05/18/25 08:43 Thrive Assessment: Date of Thrive Assessment Date Thrive assessed 09/10/24 05/18/25 08:43 Currently or been in a relationship where the following occur: No concerns reported Coding Level of Care Code Est Pt Level 3 (85791) Est Pt Prev Care >65y(93559) Diagnoses Diabetes E11.9 Encounter for routine adult physical exam with abnormal findings Z00.01 Skin lesion L98.9 Assessment & Plan Assessment & Plan (1) Diabetes: Code(s): E11.9 - Type 2 diabetes mellitus without complications Category: Medical (2) Encounter for routine adult physical exam with abnormal findings: Code(s): Z00.01 - Encounter for general adult medical examination with abnormal findings Category: Medical (3) Skin lesion: Code(s): L98.9 - Disorder of the skin and subcutaneous tissue, unspecified Category: Medical Plan . Orders: Referrals Dermatology Referral L98.9 - Disorder of the skin and subcutaneous tissue, unspecified
[2025-05-18 08:37] VITALS: BP 120/82; PULSE 88; TEMP 36.7; O2SAT 94; BMI 25.8
== END 2025-05-18 09:56 | disposition home or self-care (01) ==
LOC: HO.HMCC 08:16
PROVIDERS: PCP Nurse Practitioner Family; Visit Provider Nurse Practitioner Family
DX: Z00.01 Encounter for general adult medical examination with abnormal findings (principal); E11.9 Type 2 diabetes mellitus without complications; L98.9 Disorder of the skin and subcutaneous tissue, unspecified

== ENCOUNTER → 2025-05-18 08:15 | Outpatient (BNVA) | payer OTHER, SELFPAY | PROVIDERS: PCP Nurse Practitioner Family; Visit Provider Nurse Practitioner Family | DX: Z00.01 Encounter for general adult medical examination with abnormal findings (principal); E11.9 Type 2 diabetes mellitus without complications; E04.1 Nontoxic single thyroid nodule; L98.9 Disorder of the skin and subcutaneous tissue, unspecified; D35.00 Benign neoplasm of unspecified adrenal gland | CPT/HCPCS: 83036; 99212; 99397 ==

== ENCOUNTER 2025-07-13 11:04 | Outpatient (REF) | payer OTHER, SELFPAY ==
--- NOTE | ~2025-07-13 | US_ITS ---
EXAMINATION: US THYROID HISTORY: E04.1 - Nontoxic single thyroid nodule TECHNIQUE: Real-time grayscale ultrasound imaging was performed and images were reviewed. COMPARISON: Correlation is made with an unenhanced CT of the chest dated 05/14/2025. FINDINGS: SIZE: The right thyroid lobe measures 5.1 x 2.5 x 2.3 cm. The left thyroid lobe measures 4.6 x 2.0 x 1.5 cm. The isthmus measures 2 mm. FLOW: Flow to the gland is normal. ECHOGENICITY: The echotexture of the gland is homogeneous. NODULES: Nodule #: 1 Location: Right mid to lower pole measuring 2.4 x 1.6 x 2.2 cm. Shape: Wider than tall (0 points) Margins: Smooth (0 points) Echotexture: Hypoechoic (2 points) Composition: Solid (2 points) Calcifications: Punctate calcifications (3 points) Total points: 7 TIRADS: TR5: Highly suspicious. No additional thyroid nodules are identified. US/US thyroid IMPRESSION: Highly suspicious nodule at the mid to lower pole right thyroid lobe corresponding to the nodule seen on CT. According to ACR TI-RADS guidelines below, ultrasound-guided fine-needle aspiration is recommended. ACR TI-RADS Guidelines TR1 (0 points): Benign. No follow-up or biopsy required TR2 (2 points): Not Suspicious. No biopsy or follow up indicated TR3 (3 points): Mildly Suspicious. FNA if >= 2.5 cm, Follow if >= 1.5 cm TR4 (4-6 points): Moderately Suspicious. FNA if >= 1.5 cm, Follow if >= 1.0 cm TR5 (>=7 points): Highly Suspicious. FNA if >= 1.0 cm, Follow if >= 0.5 cm Electronically signed by: Remy Alejandro MD 07/13/2025 11:46 AM [facility]
== END 2025-07-13 11:05 | disposition home or self-care (01) ==
LOC: HO.HMGCX 11:04
PROVIDERS: PCP Nurse Practitioner Family; Visit Provider Nurse Practitioner Family
DX: E04.1 Nontoxic single thyroid nodule (principal)
CPT/HCPCS: 76536

== ENCOUNTER → 2025-07-13 11:16 | Outpatient (BNV) | payer OTHER, SELFPAY | PROVIDERS: PCP Nurse Practitioner Family; Visit Provider Radiology Diagnostic Radiology | DX: E04.1 Nontoxic single thyroid nodule (principal) | CPT/HCPCS: 76536 ==

== ENCOUNTER 2025-08-14 07:57 | Outpatient (AMB) | payer OTHER, SELFPAY ==
--- OUTSIDE RECORDS SUMMARY | 2025-08-14 08:02 | XMS_ITS | Patient Health Record ---
Author Organization [facility] Address [address] [place] [address] Care Team Providers Care Storage Administrator Name Role Phone Torrey Lopez Primary Care Provider Unav ailable Aimsh Green Unavailable [phone] Allergies No Known Allergies Reason For Referral [...] Lisinopril 2.5 MG Oral; Duration: 90 Active Cfldv-7-duai Ethyl Esters 1 GM TAKE 1 CAPSULE [...] Insured Coverage Start Date Coverage End Date [facility] SCO Claims [address] [place] [id number] [place] Betancourt Self - patient is the insured Medical (General) History Medical History History ICD Code Anxiety Arthritis asthma Broken bones Depression Diabetic Headaches/Migraines High blood pressure Reflux Surgical History Surgery Date(Month/Year) arthroscopic knee surgery/Right
--- OUTSIDE RECORDS SUMMARY | 2025-08-14 08:02 | XMS_ITS | Patient Health Record ---
Author Organization [facility] Address [address] [place] [address] Care Team Providers Care Scheduler Maintenance Name Role Phone ELIZABETH ARIAS Primary Care Provider Remy Lyon Unavailable [phone] Reason For Referral No Information Medications Medication SIG (Take, Route, Frequency, Duration) Notes Start Date End Date Status Wellbutrin 300 xl Ac tive Breo Ellipta Active Docusate Sodium Acti ve Omeprazole Active Fluticasone Propionate Active Ventolin HFA Active Lisinopril 2.5 MG Tablet TAKE 1 TABLET B Y MOUTH EVERY DAY Oral; Duration: 90 Active LORazepam 0.5 MG Tablet (Schedule IV George g) TAKE 1 TABLET BY MOUTH TWICE A DAY Oral; Duration: 30 Active Ativan 0.5 MG Tablet 1 tablet at bedtime as needed Orally as needed Active Aspirin Low Dose 81 MG Tablet Delayed Release TAKE 1 TABLET EVERY DAY BY MOUTH Oral; Duration: 90 Active busPIRone HCl Active Singulair 10 MG Tablet 1 tablet Orally O nce a day; Duration: 30 day(s) Active Stool Softener Activ e QUEtiapine Fumarate 100 MG Tablet TAKE 1 TABLET BY MOUTH EVERYDAY AT BEDTIME Oral; Duration: 90 Active Jardiance 10 MG Tablet Orally Active traZODone HCl 50 mg Active Rosuvastatin Calcium 20 MG Tablet TAKE 1 TABLET BY MOUTH DAILY Oral; Duration: 90 Active Immunizations Vaccine Route Administration Date Status Comme nts Influenza Unknown 04/20/2016 Administered Influenza Unknown 06/22/2020 Refused Influenza Unknown 12/22/2020 Administered Influenza Unknown 11/18/2021 Administered Social History Tobacco Use: Social History Observation Description Date Details (start date - stop date) Current Smoker NA - NA Social History Tobacco Use: Social Info Question Answer Notes Tobacco Use/Smoking Patient is a current smoker How often do you smoke cigarettes? every day How many cigarettes a day do you smoke? 6-10 How soon after you wake up do you smoke your first cigarette? within 5 minutes Are you interested in quitting? 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 Section Notes: Smoker 1 1/2 ppd; no sig alc ohol Smoker 1 1/2 ppd; no sig alc ohol Smoker 1 1/2 ppd; no sig alc ohol Smoker 1 ppd; no sig alcohol Problems Problem Type SNOMED Code ICD Code Onset Dates Problem Status W/U Status Risk Notes Problem Screening for malignant neoplasm of colon (302904442) Encounter for screening for malignant neoplasm of colon (Z12.11) Active confirmed Problem History of adenomatous polyp of colon (872945437) History of adenomatous polyp of colon (Z86.010) Active confirmed Problem History of polyp of colon (situation) (364183368) Personal history of colonic polyps (Z86.010) Active confirmed Problem Pre-procedure evaluation check (666578576) Encounter for other preprocedural examination (Z01.818) Active confirmed Problem Screening for malignant neoplasm of rectum (946409166) Encounter for screening for malignant neoplasm of rectum (Z12.12) Active confirmed Problem Gastroesophageal reflux disease (303467828) Gastroesophageal reflux disease, esophagitis presence not specified (K21.9) Active confirmed Problem Family History of Cancer of Colon (Situation) (948542832) Family history of colon cancer (Z80.0) Active confirmed Problem Gastroesophageal reflux disease (421861266) GERD (gastroesophageal reflux disease) (K21.9) Active confirmed Problem Pancreatitis (19202191) Pancreatitis (K85.90) Active confirmed Problem Diverticulosis of colon (326970463) Diverticulosis of colon (K57.30) Active confirmed Encounters Encounter Location Date Provider Diagnosis [facility] [address] [place] [address] 11/03/2024 Remy Anderson Plan Of Treatment Pending Test Test Name Order Date BUN 06/22/2020 CREATININE 06/22/2020 LIPASE 06/22/2020 MRI ABD W&WO CONTRAST 06/22/2020 Future Test Test Name Order Date UPPER GI ENDOSCOPY 09/15/2016 COLONOSCOPY 09/15/2016 COLONOSCOPY 03/07/2022 Insurance Providers Payer Name Payer Address Payer Phone Subscriber Number Group Number Insured Name Patient Relationship to Insured Coverage Start Date Coverage End Date [facility] [address] [place] [phone] [id number] NIMO HART Self - patient is the insured MEDICARE OF [place] [address] [place] [address] [id number] NIMO HART Self - patient is the insured Medical (General) History Medical History History ICD Code Asthma Anxiety Depression Denies [place],CVA,,renal disease 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 for mass, no EtOH. Negative MRI/MRCP in 06/2020 NIDDM Surgical History Surgery Date(Month/Year) Right knee
--- NOTE | 2025-08-14 08:03 | A.OFFVIS_ITS ---
Vital Signs 08/14/25 08:06 Height 5 ft 9 in Weight 174 lb 2.643 oz BMI 25.7 BP 112/68 Blood Pressure Location Rt brachial Position Sitting Pulse 96 Pulse Source Pulse Oximeter Pulse Oximetry (%) 95 Oxygen Delivery Method Room Air Intake Visit Reasons: Nontoxic single thyroid nodule Intake Note: NEW Patient presents today to establish care for Nontoxic Single Thyroid Nodule: No acute complaints reported at this time. * Thyroid Ultrasound: Completed on 07/13/2025 Testing Coordinator Required: No Accompanied by: Self / Same As Patient Allergies No Known Allergies (No Known Allergies*) Allergy (Verified 08/14/25 08:10) HPI Comments Details: 65 years old male with past medical history of adrenal adenoma, dyslipidemia, kidney disease, I LD, COPD, pulmonary nodules, vitamin-D deficiency, hypertension, seen in the office for evaluation of single toxic thyroid nodule. He was seen by Dr. Silva on 02/10/2025 for adrenal adenoma, we will follow-up for that being arranged for a year from that visit. Presents for evaluation of a thyroid nodule incidentally found on a lung cancer screening CT scan. Reports occasional discomfort when swallowing, described as a sensation of pills getting stuck in the throat, which was noted after a previous endoscopy and colonoscopy approximately one to two years ago. Also reports some fatigue and intermittent discomfort on the right side of the neck, described as a glandular sensation similar to having a cold, which has been present for the past few months. Denies chest palpitations or significant issues with bowel movements, though notes some recent improvement in constipation. Social history is significant for a long-standing smoking history of over 40 years, consuming approximately one pack per day since eighth grade. 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 No known family history of thyroid problems or thyroid cancer. Labs 05/15/2025 TSH 1.06 Vitamin-D 119.5 Thyroid ultrasound 07/13/2025 COMPARISON: Correlation is made with an unenhanced CT of the chest dated 05/14/2025. FINDINGS: SIZE: The right thyroid lobe measures 5.1 x 2.5 x 2.3 cm. The left thyroid lobe measures 4.6 x 2.0 x 1.5 cm. The isthmus measures 2 mm. FLOW: Flow to the gland is normal. ECHOGENICITY: The echotexture of the gland is homogeneous. NODULES: Nodule #: 1 Location: Right mid to lower pole measuring 2.4 x 1.6 x 2.2 cm. Shape: Wider than tall (0 points) Margins: Smooth (0 points) Echotexture: Hypoechoic (2 points) Composition: Solid (2 points) Calcifications: Punctate calcifications (3 points) Total points: 7 TIRADS: TR5: Highly suspicious. No additional thyroid nodules are identified. IMPRESSION: Highly suspicious nodule at the mid to lower pole right thyroid lobe corresponding to the nodule seen on CT. According to ACR TI-RADS guidelines below, ultrasound-guided fine-needle aspiration is recommended. [facility] Medical History Dyslipidemia Diabetes HTN (hypertension) Diabetes GERD (gastroesophageal reflux disease) Fatty liver Tubular adenoma of colon History of splenomegaly History of pancreatitis Asthma Nicotine dependence, cigarettes, uncomplicated ILD (interstitial lung disease) Anxiety Depression Surgical History H/O knee surgery History of colonoscopy History of esophagogastroduodenoscopy (EGD) History of arthroscopic knee surgery Family History Father Myocardial infarction Mother No problems noted. Paternal Grandfather Colon cancer Maternal Grandmother Unknown family medical history Other Substance use disorder Social History Household Members: Spouse Housing: Apartment Do you presently have visiting nurse or other home services: No Alcohol intake: never Patient Tobacco Use Status: Current everyday Tobacco user Tobacco use type: Cigarette Cigarettes Per Day: 10 Years Smoked: 58 years e-Cigarette/Vaping Use: Never Used Second Hand Smoke Exposure: No Substance Use Type: Marijuana service: No Current occupational status: disabled Cognitive needs: No Hearing needs: No Vision needs: No Physical Exam Vital Signs: Last Vital Signs Pulse 96 08/14/25 08:06 BP 112/68 08/14/25 08:06 Pulse Ox 95 08/14/25 08:06 Oxygen Delivery Method Room Air 08/14/25 08:06 BMI result Body Mass Index 25.7 Assessment & Plan Assessment & Plan (1) Right thyroid nodule: Comment: see thyroid US Code(s): E04.1 - Nontoxic single thyroid nodule Category: Medical Plan: - Assessment: A 2.4 cm right thyroid nodule was incidentally identified on a recent CT scan. The report describes it as highly suspicious with features such as small calcifications, which are concerning characteristics. Given the size and characteristics of the nodule, a fine-needle aspiration (FNA) biopsy is indicated for further evaluation. Plan - Fine-needle aspiration (FNA) biopsy of the thyroid nodule. - Medical treatment plan: - The procedure for the FNA biopsy was explained in detail. It will be performed under ultrasound guidance in the hospital's ultrasound department. The area will be numbed with local anesthetic before introducing a fine needle into the nodule to obtain tissue samples. The potential for discomfort, pressure, and a pinching sensation was discussed, along with the plan to provide additional local anesthetic if needed. - Follow-up plan: - If the biopsy results are benign, it does not eliminate the risk of cancer entirely but confers a less than 3% chance of malignancy based on the sampled tissue. In this case, the plan would be to monitor the nodule with yearly imaging for at least three years. If the nodule grows in size or changes in volume, a repeat biopsy would be considered. - If the biopsy results are malignant, further management will be determined based on the specific findings. Additional Notes: - Patient education provided regarding the rationale for the biopsy based on nodule size and characteristics. The meaning of benign versus malignant results was explained, including the low but non-zero residual risk of cancer with a benign diagnosis and the subsequent monitoring protocol. The procedure itself was described in detail to manage expectations regarding discomfort. - Patient or family concerns addressed: Addressed concerns regarding the highly suspicious terminology in the imaging report, explaining that most nodules are not cancerous but that certain features warrant further investigation. (2) Vitamin D deficiency: Code(s): E55.9 - Vitamin D deficiency, unspecified Category: Medical Plan: He is unclear of what vitamin D dose is he taking, but he takes it for bone health. We discussed that considering that his vitamin D level is too much hence I advised him to decrease his supplementation to every other day. Advised to recheck labs in 3-6 months Plan 35 minutes spent reviewing previous records, labs, imaging, education and documenting in the chart Coding Level of Care Code New Pt Level 3 (20643) Add On Problem Visit Only Diagnoses Right thyroid nodule E04.1 Vitamin D deficiency E55.9
[2025-08-14 08:06] VITALS: BP 112/68; PULSE 96; O2SAT 95; BMI 25.7
== END 2025-08-14 08:37 | disposition home or self-care (01) ==
LOC: HO.ENCR 07:57
PROVIDERS: PCP Nurse Practitioner Family; Visit Provider Student in an Organized Health Care Education/Training Program
DX: E04.1 Nontoxic single thyroid nodule (principal); E55.9 Vitamin D deficiency, unspecified
CPT/HCPCS: 99203; G2211

== ENCOUNTER → 2025-08-14 07:57 | Outpatient (BNVA) | payer OTHER, SELFPAY | PROVIDERS: PCP Nurse Practitioner Family; Visit Provider Student in an Organized Health Care Education/Training Program | DX: E04.1 Nontoxic single thyroid nodule (principal); E55.9 Vitamin D deficiency, unspecified | CPT/HCPCS: 99202 ==